=== PATIENT | female | born 1950 | race Two or more races ===

== ENCOUNTER 2017-05-31 15:35 | Inpatient (IN) | payer MEDICARE ==
[2017-05-31] MEDS ORDERED: SODIUM CHLORIDE 0.9% 1,000 ML IV STA ×2 (16:17→17:11)
--- NOTE | 2017-05-31 16:21 | ED ---
Female Urogenital HPI - General Source: patient, RN notes reviewed Mode of arrival: wheelchair Limitations: no limitations <Eliane Mckenna - Last Filed: 05/31/17 18:34> <Dylon Goel - Last Filed: 05/31/17 18:51> - General Chief complaint: Urogenital Stated complaint: Vaginal Discharge Time Seen by Provider: 05/31/17 16:00 - History of Present Illness Initial comments: 66-year-old female presents emergency department with a chief complaint of vaginal bleeding. This this has been occurring for the last few weeks but they noticed increase in darkened mean in color so he thought that they should be seen. Patient denies any pain. They deny any spread other symptoms at this time. She states when she stands up she just has an increased amount of bleeding. They were concerned due to her symptoms without that they should be seen.Patient denies any recent fever, chills, shortness of breath, chest pain, back pain, abdominal pain, nausea vomiting, numbness or tingling, dysuria or hematuria, constipation or diarrhea, headaches or visual changes, or any other current symptoms. (Eliane Mckenna) - Related Data Home Medications Medication Instructions Recorded Confirmed Aspirin 325 mg PO DAILY 05/31/17 05/31/17 Atorvastatin Calcium [Lipitor] 80 mg PO HS 05/31/17 05/31/17 Insulin NPH Hum/Reg Insulin Hm 50 unit SQ BID 05/31/17 05/31/17 [NovoLIN 70-30 100 UNIT/ML VIAL] Isosorbide Mononitrate ER [Imdur] 60 mg PO QAM 05/31/17 05/31/17 Lisinopril [Zestril] 10 mg PO HS 05/31/17 05/31/17 Metoprolol Tartrate [Lopressor] 50 mg PO BID 05/31/17 05/31/17 Allergies Allergy/AdvReac Type Severity Reaction Status Date / Time latex Allergy Rash/Hives Verified 05/31/17 15:40 Review of Systems ROS Other: All systems not noted in ROS Statement are negative. <Eliane Mckenna - Last Filed: 05/31/17 18:34> ROS Other: All systems not noted in ROS Statement are negative. <Dylon Goel - Last Filed: 05/31/17 18:51> ROS Statement: Those systems with pertinent positive or pertinent negative responses have been documented in the HPI. Past Medical History Past Medical History: CVA/TIA, Diabetes Mellitus, Hyperlipidemia History of Any Multi-Drug Resistant Organisms: None Reported Past Surgical History: Cholecystectomy, Coronary Bypass/CABG Past Psychological History: No Psychological Hx Reported Smoking Status: Never smoker Past Alcohol Use History: None Reported Past Drug Use History: None Reported <Eliane Mckenna - Last Filed: 05/31/17 18:34> General Exam Limitations: no limitations General appearance: alert, in no apparent distress Head exam: Present: atraumatic, normocephalic, normal inspection ENT exam: Present: normal exam, mucous membranes moist Neck exam: Present: normal inspection. Absent: tenderness, meningismus, lymphadenopathy Respiratory exam: Present: normal lung sounds bilaterally. Absent: respiratory distress, wheezes, rales, rhonchi, stridor Cardiovascular Exam: Present: regular rate, normal rhythm, normal heart sounds. Absent: systolic murmur, diastolic murmur, rubs, gallop, clicks GI/Abdominal exam: Present: soft, normal bowel sounds. Absent: distended, tenderness, guarding, rebound, rigid External exam: Present: normal external exam Speculum exam: Present: vaginal bleeding (Moderate) By manual exam: Present: uterine tenderness Neurological exam: Present: alert, oriented X3 Psychiatric exam: Present: normal affect, normal mood Skin exam: Present: warm, dry, intact, normal color. Absent: rash <Eliane Mckenna - Last Filed: 05/31/17 18:34> General appearance: alert, in no apparent distress, anxious Head exam: Present: atraumatic, normocephalic, normal inspection Eye exam: Present: normal appearance, PERRL, EOMI. Absent: scleral icterus, conjunctival injection, periorbital swelling ENT exam: Present: normal exam, mucous membranes moist Neck exam: Present: normal inspection. Absent: tenderness, meningismus, lymphadenopathy Respiratory exam: Present: normal lung sounds bilaterally. Absent: respiratory distress, wheezes, rales, rhonchi, stridor Cardiovascular Exam: Present: normal rhythm, tachycardia, normal heart sounds. Absent: systolic murmur, diastolic murmur, rubs, gallop, clicks GI/Abdominal exam: Present: soft, normal bowel sounds. Absent: distended, tenderness, guarding, rebound, rigid Extremities exam: Present: normal inspection, full ROM, normal capillary refill. Absent: tenderness, pedal edema, joint swelling, calf tenderness Back exam: Present: normal inspection Neurological exam: Present: alert, oriented X3, CN II-XII intact Psychiatric exam: Present: normal affect, normal mood Skin exam: Present: warm, dry, intact, normal color. Absent: rash <Dylon Goel - Last Filed: 05/31/17 18:51> Course <Eliane Mckenna - Last Filed: 05/31/17 18:34> <Dylon Goel - Last Filed: 05/31/17 18:51> Vital Signs 05/31/17 05/31/17 05/31/17 15:36 17:00 18:08 Temperature 97.5 F L 98.4 F Pulse Rate 103 H 85 86 Respiratory 16 16 18 Rate Blood Pressure 158/73 134/75 164/71 O2 Sat by Pulse 98 100 100 Oximetry - Reevaluation(s) Reevaluation #1: 05/31/17 17:37 At time patient meets sepsis criteria (Eliane Mckenna) Medical Decision Making - Lab Data Result diagrams: 05/31/17 16:25 05/31/17 16:25 <Eliane Mckenna - Last Filed: 05/31/17 18:34> - Lab Data Result diagrams: 05/31/17 16:25 05/31/17 16:25 <Dylon Goel - Last Filed: 05/31/17 18:51> - Medical Decision Making 66-year-old female presents for vaginal bleeding. Patient's last menstrual cycle was years ago per patient. At this time patient's ultrasound is reviewed that does show a fibroid with thickened endometrium. Patient is found to have vaginal bleeding on exam at this patient is found to have urinary retention. This time patient's urine is suspicious for UTI with many bacteria patient does have bloody urine through the catheter which we did place a Simmons. Patient also appears to be in DKA as well as acute kidney injury which is most likely due to her urinary retention was greater than 16,000 on first for a catheter placement. Patient also does appear to have sepsis with the elevated lactic and the white count with UTI this could be related to dehydration from DKA we will start patient on Rocephin pending urine culture. This time the patient will be admitted. (Eliane Mckenna) 66-year-old ER for vaginal bleeding, she does have uterine fibroids, urinary tract infection, urinary retention severe, bilateral hydronephrosis, mild kidney failure secondary to postobstructive versus dehydration, patient also found to be in HHN K which she'll be admitted for IV and an resuscitation, monitoring of electrolytes Gynecological evaluation (Dylon Goel) - Lab Data Lab Results 05/31/17 05/31/17 05/31/17 Range/Units 16:25 16:25 16:25 WBC (3.8-10.6) k/uL RBC (3.80-5.40) m/uL Hgb (11.4-16.0) gm/dL Hct (34.0-46.0) % MCV (80.0-100.0) fL MCH (25.0-35.0) pg MCHC (31.0-37.0) g/dL RDW (11.5-15.5) % Plt Count (150-450) k/uL Neutrophils % % Lymphocytes % % Monocytes % % Eosinophils % % Basophils % % Neutrophils # (1.3-7.7) k/uL Lymphocytes # (1.0-4.8) k/uL Monocytes # (0-1.0) k/uL Eosinophils # (0-0.7) k/uL Basophils # (0-0.2) k/uL PT 10.3 (9.0-12.0) sec INR 1.0 (<1.1) APTT 19.3 L (22.0-30.0) sec Sodium 132 L (137-145) mmol/L Potassium 5.3 H (3.5-5.1) mmol/L Chloride 96 L (98-107) mmol/L Carbon Dioxide 18 L (22-30) mmol/L Anion Gap 18 mmol/L BUN 59 H (7-17) mg/dL Creatinine 1.60 H (0.52-1.04) mg/dL Est GFR (MDRD) Af Amer 39 (>60 ml/min/1.73 sqM) Est GFR (MDRD) Non-Af 32 (>60 ml/min/1.73 sqM) Glucose 854 H* (74-99) mg/dL Plasma Lactic Acid Austen (0.7-2.0) mmol/L Calcium 9.8 (8.4-10.2) mg/dL Phosphorus 4.7 H (2.5-4.5) mg/dL Magnesium 2.6 H (1.6-2.3) mg/dL Total Bilirubin 0.7 (0.2-1.3) mg/dL AST 21 (14-36) U/L ALT 31 (9-52) U/L Alkaline Phosphatase 116 (38-126) U/L Total Protein 7.1 (6.3-8.2) g/dL Albumin 4.2 (3.5-5.0) g/dL HCG, Quant <2.4 mIU/mL Urine Color Urine Appearance (Clear) Urine RBC (0-5) /hpf Urine WBC (0-5) /hpf Amorphous Sediment (None) /hpf Urine Bacteria (None) /hpf Acetone, Qual Negative (Negative) Blood Type O Negative Blood Type Recheck No Antibody Screen NEGATIVE Spec Expiration Date 06/03/2017232405/31/17 05/31/17 05/31/17 Range/Units 16:25 16:25 16:49 WBC 13.4 H (3.8-10.6) k/uL RBC 3.99 (3.80-5.40) m/uL Hgb 12.5 (11.4-16.0) gm/dL Hct 36.1 (34.0-46.0) % MCV 90.5 (80.0-100.0) fL MCH 31.2 (25.0-35.0) pg MCHC 34.5 (31.0-37.0) g/dL RDW 13.3 (11.5-15.5) % Plt Count 319 (150-450) k/uL Neutrophils % 83 % Lymphocytes % 12 % Monocytes % 3 % Eosinophils % 0 % Basophils % 1 % Neutrophils # 11.1 H (1.3-7.7) k/uL Lymphocytes # 1.6 (1.0-4.8) k/uL Monocytes # 0.4 (0-1.0) k/uL Eosinophils # 0.0 (0-0.7) k/uL Basophils # 0.1 (0-0.2) k/uL PT (9.0-12.0) sec INR (<1.1) APTT (22.0-30.0) sec Sodium (137-145) mmol/L Potassium (3.5-5.1) mmol/L Chloride (98-107) mmol/L Carbon Dioxide (22-30) mmol/L Anion Gap mmol/L BUN (7-17) mg/dL Creatinine (0.52-1.04) mg/dL Est GFR (MDRD) Af Amer (>60 ml/min/1.73 sqM) Est GFR (MDRD) Non-Af (>60 ml/min/1.73 sqM) Glucose (74-99) mg/dL Plasma Lactic Acid Austen 3.3 H* (0.7-2.0) mmol/L Calcium (8.4-10.2) mg/dL Phosphorus (2.5-4.5) mg/dL Magnesium (1.6-2.3) mg/dL Total Bilirubin (0.2-1.3) mg/dL AST (14-36) U/L ALT (9-52) U/L Alkaline Phosphatase (38-126) U/L Total Protein (6.3-8.2) g/dL Albumin (3.5-5.0) g/dL HCG, Quant mIU/mL Urine Color Brown Urine Appearance Bloody H (Clear) Urine RBC >182 H (0-5) /hpf Urine WBC >182 H (0-5) /hpf Amorphous Sediment Occasional H (None) /hpf Urine Bacteria Many H (None) /hpf Acetone, Qual (Negative) Blood Type Blood Type Recheck Antibody Screen Spec Expiration Date Critical Care Time Critical Care Time: Yes Total Critical Care Time: 31 <Dylon Goel - Last Filed: 05/31/17 18:51> Disposition Time of Disposition: 18:31 Decision Date: 05/31/17 Decision Time: 18:31 <Eliane Mckenna - Last Filed: 05/31/17 18:34> <Dylon Goel - Last Filed: 05/31/17 18:51> Clinical Impression: Urinary tract infection, Vaginal bleeding, Thickened endometrium, Urinary retention, Acute kidney injury, Sepsis Disposition: ADMITTED IP TO THIS [facility] Condition: Stable Referrals: Nonstaff,Physician [Primary Care Provider] - 1-2 days
[2017-05-31 16:40] LABS: Basophils # (A) 0.1 k/uL (0-0.2); Basophils % (A) 1 %; CH 30.3; CHCM 33.7; Eosinophils % (A) 0 %; HCT 36.1 % (34.0-46.0); HDW 2.78; HGB 12.5 gm/dL (11.4-16.0); Luc # (Auto) 0.13; Luc % (Auto) 1; Lymphocytes # (A) 1.6 k/uL (1.0-4.8); Lymphocytes % (A) 12 %; MCH 31.2 pg (25.0-35.0); MCHC 34.5 g/dL (31.0-37.0); MCV 90.5 fL (80.0-100.0); Mean Platelet Volume 8.6; Monocytes # (A) 0.4 k/uL (0-1.0); Monocytes % (A) 3 %; Neutrophils # (A) 11.1 k/uL (1.3-7.7); Neutrophils % (A) 83 %; RBC 3.99 m/uL (3.80-5.40); RDW 13.3 % (11.5-15.5); WBC 13.4 k/uL (3.8-10.6); WBC (Perox) 12.95
[2017-05-31 16:53] LABS: ALT 31 U/L (9-52); AST 21 U/L (14-36); Alkaline Phosphatase 116 U/L (38-126); Anion Gap 18 mmol/L; Blood Urea Nitrogen 59 mg/dL (7-17); Calcium 9.8 mg/dL (8.4-10.2); Carbon Dioxide 18 mmol/L (22-30); Chloride 96 mmol/L (98-107); Magnesium 2.6 mg/dL (1.6-2.3); Non-African American GFR(MDRD) 32 (>60 ml/min/1.73 sqM); Phosphorous 4.7 mg/dL (2.5-4.5); Potassium 5.3 mmol/L (3.5-5.1); Sodium 132 mmol/L (137-145); Total Bilirubin 0.7 mg/dL (0.2-1.3); Total Protein 7.1 g/dL (6.3-8.2)
[2017-05-31 17:05] LABS: Glucose 854 mg/dL (74-99)
[2017-05-31 17:08] LABS: Prothrombin Time 10.3 sec (9.0-12.0)
[2017-05-31 17:09] LABS: HCG,Quantitative Serum <2.4 mIU/mL
[2017-05-31 17:11] LABS: Amorphous Sediment,Urine Occasional /hpf; Bacteria,Urine Many /hpf; Particle Count 424080; RBC,Urine >182 /hpf (0-5); WBC,Urine >182 /hpf (0-5)
[2017-05-31 17:12] LABS: Appearance,Urine Bloody (Clear)
[2017-05-31] MEDS ORDERED: INSULIN REGULAR BOLUS (FROM DRIP BAG) IV ONE (17:12)
[2017-05-31 17:15] LABS: Partial Thromboplastin Time 19.3 sec (22.0-30.0)
--- NOTE | 2017-05-31 17:26 | US ---
EXAMINATION TYPE: US transvaginal DATE OF EXAM: 05/31/2017 COMPARISON: NONE CLINICAL HISTORY: Pain. Hematuria, 4, para 4 TECHNIQUE: Transvaginal (TV) Date of LMP: 15+ years ago EXAM MEASUREMENTS: Uterus: 9.0 x 4.5 x 4.9cm cm Endometrial Stripe: 1.5 cm Right Ovary: not seen Left Ovary: not seen 1. Uterus: anteverted, heterogeneous with 1.9cm calcified area 2. Endometrium: thickened at 1.5cm 3. Right Ovary: not seen due to overlying bowel gas 4. Left Ovary: not seen due to overlying bowel gas 5. Bilateral Adnexa: wnl 6. Posterior cul-de-sac: wnl IMPRESSION: There is a calcified uterine fibroid. Endometrium is slightly thickened. Follow-up is rec ommended. No endometrial mass is seen. No adnexal mass.
[2017-05-31 17:44] LABS: UA Billing (MACRO vs. MICRO) MICRO
[2017-05-31] MEDS: SODIUM CHLORIDE 0.9% 1,000 ML IV SCH (17:58)
--- NOTE | 2017-05-31 17:58 | CT ---
EXAMINATION TYPE: CT abdomen pelvis wo con DATE OF EXAM: 05/31/2017 COMPARISON: NONE HISTORY: Generalized pain with gross hematuria CT DLP: 515.7 mGycm Automated exposure control for dose reduction was used. TECHNIQUE: Helical acquisition of images was performed from the lung bases through the pelvis. FINDINGS: Lung bases are clear of consolidation. There is no pleural effusion. There are clips from cholecystectomy. Liver and spleen appear normal. Bile ducts are not dilated. The re is no pancreatic mass. There is atherosclerotic vascular calcification. Ureters are not dilated. There is prominent left and right extrarenal pelvis of the kidneys. There is no retroperitoneal adenopathy. Abdominal aorta is a theromatous. There is a calcified uterine fibroid. There is a Simmons catheter in the urinary bladder. There is no ascites. I see no bony destructive process. Appendix is not seen. There is no sign of marty endicitis. IMPRESSION: ATHEROSCLEROTIC VASCULAR DISEASE. CALCIFIED UTERINE FIBROID. NO SIGN OF ACUTE ABDOMEN AND PELVIS.
[2017-05-31] MEDS: INSULIN REGULAR 100 UNIT in SODIUM CHLORIDE 0.9% 100 ML IV SCH (17:59)
[2017-05-31 19:09] LABS: Glucose,Whole Blood 583 mg/dL (75-99)
[2017-05-31 20:09] LABS: Glucose,Whole Blood 546 mg/dL (75-99)
[2017-05-31 20:36] LABS: Basophils # (A) 0.1 k/uL (0-0.2); Basophils % (A) 0 %; CH 30.2; CHCM 33.8; Eosinophils % (A) 0 %; HCT 32.7 % (34.0-46.0); HDW 2.75; HGB 11.6 gm/dL (11.4-16.0); Luc # (Auto) 0.09; Luc % (Auto) 1; Lymphocytes # (A) 1.3 k/uL (1.0-4.8); Lymphocytes % (A) 10 %; MCH 31.7 pg (25.0-35.0); MCHC 35.3 g/dL (31.0-37.0); MCV 89.8 fL (80.0-100.0); Mean Platelet Volume 8.1; Monocytes # (A) 0.4 k/uL (0-1.0); Monocytes % (A) 3 %; Neutrophils # (A) 11.9 k/uL (1.3-7.7); Neutrophils % (A) 87 %; RBC 3.64 m/uL (3.80-5.40); RDW 13.3 % (11.5-15.5); WBC 13.7 k/uL (3.8-10.6); WBC (Perox) 13.49
[2017-05-31 20:53] LABS: Phosphorous 2.8 mg/dL (2.5-4.5); Potassium 4.7 mmol/L (3.5-5.1)
[2017-05-31 21:07] LABS: Glucose,Whole Blood 475 mg/dL (75-99)
[2017-05-31] MEDS: METOPROLOL TARTRATE 50 MG TAB PO SCH (22:00)
[2017-05-31] MEDS: LISINOPRIL 10 MG TAB PO SCH (22:00)
[2017-05-31] MEDS: ATORVASTATIN 80 MG TAB PO SCH (22:00)
[2017-05-31 22:29] LABS: Glucose,Whole Blood 323 mg/dL (75-99)
[2017-05-31 23:18] LABS: Glucose,Whole Blood 244 mg/dL (75-99)
[2017-05-31] MEDS: D5-0.45% NACL WITH KCL 20MEQ/L 1,000 ML IV SCH (23:55)
[2017-05-31 23:57] LABS: Glucose,Whole Blood 293 mg/dL (75-99)
[2017-06-01 00:36] LABS: Potassium 4.3 mmol/L (3.5-5.1)
[2017-06-01 01:17] LABS: Glucose,Whole Blood 153 mg/dL (75-99)
[2017-06-01] MEDS: D5-0.45% NACL WITH KCL 20MEQ/L 1,000 ML IV SCH ×2 (01:26→08:04)
[2017-06-01] MEDS: SODIUM CHLORIDE 0.9% 1,000 ML IV SCH (01:26)
[2017-06-01 02:05] LABS: Glucose,Whole Blood 114 mg/dL (75-99)
[2017-06-01 03:10] LABS: Glucose,Whole Blood 95 mg/dL (75-99)
[2017-06-01 03:57] LABS: Glucose,Whole Blood 82 mg/dL (75-99)
[2017-06-01] MEDS: INSULIN REGULAR 100 UNIT in SODIUM CHLORIDE 0.9% 100 ML IV SCH (04:58)
[2017-06-01 05:09] LABS: Glucose,Whole Blood 136 mg/dL (75-99)
[2017-06-01 05:29] LABS: Basophils # (A) 0.1 k/uL (0-0.2); Basophils % (A) 1 %; CH 29.3; CHCM 31.6; Eosinophils # (A) 0.1 k/uL (0-0.7); Eosinophils % (A) 1 %; HCT 31.5 % (34.0-46.0); HGB 10.9 gm/dL (11.4-16.0); Hypochromasia Slight; Luc # (Auto) 0.43; Luc % (Auto) 3; Lymphocytes # (A) 3.2 k/uL (1.0-4.8); Lymphocytes % (A) 23 %; MCH 32.4 pg (25.0-35.0); MCHC 34.6 g/dL (31.0-37.0); MCV 93.5 fL (80.0-100.0); Mean Platelet Volume 8.5; Monocytes % (A) 7 %; Neutrophils # (A) 9.1 k/uL (1.3-7.7); Neutrophils % (A) 66 %; RBC 3.37 m/uL (3.80-5.40); RDW 13.2 % (11.5-15.5); WBC 13.9 k/uL (3.8-10.6); WBC (Perox) 13.18
[2017-06-01 05:32] LABS: Anion Gap 10 mmol/L; Blood Urea Nitrogen 45 mg/dL (7-17); Calcium 8.8 mg/dL (8.4-10.2); Carbon Dioxide 21 mmol/L (22-30); Chloride 111 mmol/L (98-107); Glucose 121 mg/dL (74-99); Non-African American GFR(MDRD) 50 (>60 ml/min/1.73 sqM); Potassium 3.8 mmol/L (3.5-5.1); Sodium 142 mmol/L (137-145)
[2017-06-01 06:10] LABS: Glucose,Whole Blood 135 mg/dL (75-99)
[2017-06-01 07:19] LABS: Glucose,Whole Blood 126 mg/dL (75-99)
[2017-06-01] MEDS: INSULIN LISPRO (humaLOG) 300 UNIT/3 ML VIAL SQ SCH ×4 (07:31→21:17)
[2017-06-01] MEDS: ASPIRIN 325 MG TAB PO SCH (08:06)
[2017-06-01] MEDS: INSULIN NPH/REG INSULIN 70/30 300 UNIT/3 ML VIAL SQ SCH ×2 (08:06→21:17)
[2017-06-01] MEDS: ISOSORBIDE MONONITRATE ER 60 MG TAB.ER.24H PO SCH (08:07)
[2017-06-01] MEDS: METOPROLOL TARTRATE 50 MG TAB PO SCH ×2 (08:07→21:18)
[2017-06-01 09:28] LABS: Hemoglobin A1C 10.6 % (4.2-6.1)
[2017-06-01 10:54] VITALS: BMI 26.5
[2017-06-01] MEDS ORDERED: D5-0.45% NACL WITH KCL 20MEQ/L 1,000 ML IV SCH (11:17)
[2017-06-01 11:43] LABS: Glucose,Whole Blood 194 mg/dL (75-99)
--- NOTE | 2017-06-01 16:25 | P.GSCN ---
History of Present Illness Consult date: 06/01/17 Reason for Consult: Gross hematuria History of present illness: The patient is a 66-year-old female admitted through the emergency room for evaluation of bleeding from the vagina. The patient says this first began approximately 3 weeks ago. She initially thought that this was vaginal bleeding but says she also has been passing grossly bloody urine. The patient says that she came to the emergency room because it was becoming more and more difficult for her to initiate her urine flow. A catheter was inserted in the emergency room and drained 1600 mL of grossly bloody urine. According to her nurse she does not appear to be passing blood from her vagina since the catheter has been placed. The patient denies any previous history of gross hematuria. She says she usually voids every 2-3 hours during the day and once at night. She denied any urinary incontinence. She believes she may have had kidney stones in the past but could not recall any details. She denies a history of recurrent urinary tract infections. A vaginal ultrasound showed evidence of fibroids. Computed tomography scan of the abdomen and pelvis performed without IV contrast showed slight prominence of the right and left renal pelves but no hydronephrosis. A Simmons catheter was in place at the time of the exam and because of that the bladder was poorly imaged but there appeared to be old blood present in the bladder. Review of Systems - Constitutional Denies chills, Denies fever - Cardiovascular Denies chest pain, Denies dyspnea on exertion, Denies palpitations, Denies shortness of breath - Respiratory Denies cough, Denies wheezing - Gastrointestinal Denies abdominal pain, Denies change in bowel habits - Genitourinary Genitourinary: Reports as per HPI - Neurological Reports memory loss - Hematologic/Lymphatic Denies easy bleeding Past Medical History Past Medical History: CVA/TIA, Diabetes Mellitus, Hyperlipidemia Additional Past Medical History / Comment(s): patient has had 2 strokes, last in April 2016. Patient says she has trouble remembering and sometimes has trouble speaking. History of Any Multi-Drug Resistant Organisms: None Reported Past Surgical History: Cholecystectomy, Coronary Bypass/CABG Additional Past Surgical History / Comment(s): CABG in 2001 Past Anesthesia/Blood Transfusion Reactions: No Reported Reaction Past Psychological History: No Psychological Hx Reported Smoking Status: Former smoker (Quit smoking prior to 1999) Past Alcohol Use History: None Reported Past Drug Use History: None Reported - Past Family History Brother(s) Family Medical History: Diabetes Mellitus Additional Family Medical History / Comment(s): Brother just recently . Unknown history. Medications and Allergies Home Medications Medication Instructions Recorded Confirmed Type Aspirin 325 mg PO DAILY 05/31/17 05/31/17 History Atorvastatin Calcium [Lipitor] 80 mg PO HS 05/31/17 05/31/17 History Insulin NPH Hum/Reg Insulin Hm 50 unit SQ BID 05/31/17 05/31/17 History [NovoLIN 70-30 100 UNIT/ML VIAL] Isosorbide Mononitrate ER [Imdur] 60 mg PO QAM 05/31/17 05/31/17 History Lisinopril [Zestril] 10 mg PO HS 05/31/17 05/31/17 History Metoprolol Tartrate [Lopressor] 50 mg PO BID 05/31/17 05/31/17 History Allergies Allergy/AdvReac Type Severity Reaction Status Date / Time latex Allergy Rash/Hives Verified 05/31/17 15:40 Surgical - Exam Vital Signs Temp Pulse Resp BP Pulse Ox 97.5 F L 103 H 16 158/73 98 05/31/17 15:36 05/31/17 15:36 05/31/17 15:36 05/31/17 15:36 05/31/17 15:36 - General well developed, no pain, obese - ENT no hearing loss, no congestion - Neck no masses, no lymphadectomy - Respiratory normal respiratory effort - Abdomen Abdomen: soft, no organomegaly Hernia: none - Genitourinary normal external genitalia, normal perineum, other (No mass at the base of the bladder palpable on bimanual pelvic exam. A Simmons catheter is in place and is draining dark colored urine without clots) - Neurologic memory loss Results - Labs 06/01/17 04:51 06/01/17 04:51 Abnormal Lab Results - Last 24 Hours (Table) 05/31/17 05/31/17 05/31/17 Range/Units 16:25 16:25 16:25 WBC 13.4 H (3.8-10.6) k/uL RBC (3.80-5.40) m/uL Hgb (11.4-16.0) gm/dL Hct (34.0-46.0) % Neutrophils # 11.1 H (1.3-7.7) k/uL APTT 19.3 L (22.0-30.0) sec Sodium 132 L (137-145) mmol/L Potassium 5.3 H (3.5-5.1) mmol/L Chloride 96 L (98-107) mmol/L Carbon Dioxide 18 L (22-30) mmol/L BUN 59 H (7-17) mg/dL Creatinine 1.60 H (0.52-1.04) mg/dL Glucose 854 H* (74-99) mg/dL POC Glucose (mg/dL) (75-99) mg/dL Hemoglobin A1c (4.2-6.1) % Plasma Lactic Acid Austen (0.7-2.0) mmol/L Phosphorus 4.7 H (2.5-4.5) mg/dL Magnesium 2.6 H (1.6-2.3) mg/dL Urine Appearance (Clear) Urine RBC (0-5) /hpf Urine WBC (0-5) /hpf Amorphous Sediment (None) /hpf Urine Bacteria (None) /hpf 05/31/17 05/31/17 05/31/17 Range/Units 16:25 16:49 19:08 WBC (3.8-10.6) k/uL RBC (3.80-5.40) m/uL Hgb (11.4-16.0) gm/dL Hct (34.0-46.0) % Neutrophils # (1.3-7.7) k/uL APTT (22.0-30.0) sec Sodium (137-145) mmol/L Potassium (3.5-5.1) mmol/L Chloride (98-107) mmol/L Carbon Dioxide (22-30) mmol/L BUN (7-17) mg/dL Creatinine (0.52-1.04) mg/dL Glucose (74-99) mg/dL POC Glucose (mg/dL) 583 H (75-99) mg/dL Hemoglobin A1c (4.2-6.1) % Plasma Lactic Acid Austen 3.3 H* (0.7-2.0) mmol/L Phosphorus (2.5-4.5) mg/dL Magnesium (1.6-2.3) mg/dL Urine Appearance Bloody H (Clear) Urine RBC >182 H (0-5) /hpf Urine WBC >182 H (0-5) /hpf Amorphous Sediment Occasional H (None) /hpf Urine Bacteria Many H (None) /hpf 05/31/17 05/31/17 05/31/17 Range/Units 20:08 20:10 20:10 WBC 13.7 H (3.8-10.6) k/uL RBC 3.64 L (3.80-5.40) m/uL Hgb (11.4-16.0) gm/dL Hct 32.7 L (34.0-46.0) % Neutrophils # 11.9 H (1.3-7.7) k/uL APTT (22.0-30.0) sec Sodium (137-145) mmol/L Potassium (3.5-5.1) mmol/L Chloride (98-107) mmol/L Carbon Dioxide 21 L (22-30) mmol/L BUN 54 H (7-17) mg/dL Creatinine 1.30 H (0.52-1.04) mg/dL Glucose 477 H* (74-99) mg/dL POC Glucose (mg/dL) 546 H (75-99) mg/dL Hemoglobin A1c (4.2-6.1) % Plasma Lactic Acid Austen (0.7-2.0) mmol/L Phosphorus (2.5-4.5) mg/dL Magnesium (1.6-2.3) mg/dL Urine Appearance (Clear) Urine RBC (0-5) /hpf Urine WBC (0-5) /hpf Amorphous Sediment (None) /hpf Urine Bacteria (None) /hpf 05/31/17 05/31/17 05/31/17 Range/Units 20:23 21:03 22:28 WBC (3.8-10.6) k/uL RBC (3.80-5.40) m/uL Hgb (11.4-16.0) gm/dL Hct (34.0-46.0) % Neutrophils # (1.3-7.7) k/uL APTT (22.0-30.0) sec Sodium (137-145) mmol/L Potassium (3.5-5.1) mmol/L Chloride (98-107) mmol/L Carbon Dioxide (22-30) mmol/L BUN (7-17) mg/dL Creatinine (0.52-1.04) mg/dL Glucose (74-99) mg/dL POC Glucose (mg/dL) 475 H 323 H (75-99) mg/dL Hemoglobin A1c (4.2-6.1) % Plasma Lactic Acid Austen 2.2 H* (0.7-2.0) mmol/L Phosphorus (2.5-4.5) mg/dL Magnesium (1.6-2.3) mg/dL Urine Appearance (Clear) Urine RBC (0-5) /hpf Urine WBC (0-5) /hpf Amorphous Sediment (None) /hpf Urine Bacteria (None) /hpf 05/31/17 05/31/17 05/31/17 Range/Units 23:15 23:47 23:47 WBC (3.8-10.6) k/uL RBC (3.80-5.40) m/uL Hgb (11.4-16.0) gm/dL Hct (34.0-46.0) % Neutrophils # (1.3-7.7) k/uL APTT (22.0-30.0) sec Sodium (137-145) mmol/L Potassium (3.5-5.1) mmol/L Chloride 109 H (98-107) mmol/L Carbon Dioxide (22-30) mmol/L BUN 52 H (7-17) mg/dL Creatinine 1.20 H (0.52-1.04) mg/dL Glucose 251 H (74-99) mg/dL POC Glucose (mg/dL) 244 H (75-99) mg/dL Hemoglobin A1c (4.2-6.1) % Plasma Lactic Acid Austen (0.7-2.0) mmol/L Phosphorus 2.3 L (2.5-4.5) mg/dL Magnesium (1.6-2.3) mg/dL Urine Appearance (Clear) Urine RBC (0-5) /hpf Urine WBC (0-5) /hpf Amorphous Sediment (None) /hpf Urine Bacteria (None) /hpf 05/31/17 06/01/17 06/01/17 Range/Units 23:55 01:15 02:03 WBC (3.8-10.6) k/uL RBC (3.80-5.40) m/uL Hgb (11.4-16.0) gm/dL Hct (34.0-46.0) % Neutrophils # (1.3-7.7) k/uL APTT (22.0-30.0) sec Sodium (137-145) mmol/L Potassium (3.5-5.1) mmol/L Chloride (98-107) mmol/L Carbon Dioxide (22-30) mmol/L BUN (7-17) mg/dL Creatinine (0.52-1.04) mg/dL Glucose (74-99) mg/dL POC Glucose (mg/dL) 293 H 153 H 114 H (75-99) mg/dL Hemoglobin A1c (4.2-6.1) % Plasma Lactic Acid Austen (0.7-2.0) mmol/L Phosphorus (2.5-4.5) mg/dL Magnesium (1.6-2.3) mg/dL Urine Appearance (Clear) Urine RBC (0-5) /hpf Urine WBC (0-5) /hpf Amorphous Sediment (None) /hpf Urine Bacteria (None) /hpf 06/01/17 06/01/17 06/01/17 Range/Units 04:51 04:51 04:51 WBC 13.9 H (3.8-10.6) k/uL RBC 3.37 L (3.80-5.40) m/uL Hgb 10.9 L (11.4-16.0) gm/dL Hct 31.5 L (34.0-46.0) % Neutrophils # 9.1 H (1.3-7.7) k/uL APTT (22.0-30.0) sec Sodium (137-145) mmol/L Potassium (3.5-5.1) mmol/L Chloride 111 H (98-107) mmol/L Carbon Dioxide 21 L (22-30) mmol/L BUN 45 H (7-17) mg/dL Creatinine 1.10 H (0.52-1.04) mg/dL Glucose 121 H (74-99) mg/dL POC Glucose (mg/dL) (75-99) mg/dL Hemoglobin A1c 10.6 H (4.2-6.1) % Plasma Lactic Acid Austen (0.7-2.0) mmol/L Phosphorus (2.5-4.5) mg/dL Magnesium (1.6-2.3) mg/dL Urine Appearance (Clear) Urine RBC (0-5) /hpf Urine WBC (0-5) /hpf Amorphous Sediment (None) /hpf Urine Bacteria (None) /hpf 06/01/17 06/01/17 06/01/17 Range/Units 04:55 06:09 07:17 WBC (3.8-10.6) k/uL RBC (3.80-5.40) m/uL Hgb (11.4-16.0) gm/dL Hct (34.0-46.0) % Neutrophils # (1.3-7.7) k/uL APTT (22.0-30.0) sec Sodium (137-145) mmol/L Potassium (3.5-5.1) mmol/L Chloride (98-107) mmol/L Carbon Dioxide (22-30) mmol/L BUN (7-17) mg/dL Creatinine (0.52-1.04) mg/dL Glucose (74-99) mg/dL POC Glucose (mg/dL) 136 H 135 H 126 H (75-99) mg/dL Hemoglobin A1c (4.2-6.1) % Plasma Lactic Acid Austen (0.7-2.0) mmol/L Phosphorus (2.5-4.5) mg/dL Magnesium (1.6-2.3) mg/dL Urine Appearance (Clear) Urine RBC (0-5) /hpf Urine WBC (0-5) /hpf Amorphous Sediment (None) /hpf Urine Bacteria (None) /hpf 06/01/17 Range/Units 11:42 WBC (3.8-10.6) k/uL RBC (3.80-5.40) m/uL Hgb (11.4-16.0) gm/dL Hct (34.0-46.0) % Neutrophils # (1.3-7.7) k/uL APTT (22.0-30.0) sec Sodium (137-145) mmol/L Potassium (3.5-5.1) mmol/L Chloride (98-107) mmol/L Carbon Dioxide (22-30) mmol/L BUN (7-17) mg/dL Creatinine (0.52-1.04) mg/dL Glucose (74-99) mg/dL POC Glucose (mg/dL) 194 H (75-99) mg/dL Hemoglobin A1c (4.2-6.1) % Plasma Lactic Acid Austen (0.7-2.0) mmol/L Phosphorus (2.5-4.5) mg/dL Magnesium (1.6-2.3) mg/dL Urine Appearance (Clear) Urine RBC (0-5) /hpf Urine WBC (0-5) /hpf Amorphous Sediment (None) /hpf Urine Bacteria (None) /hpf Microbiology - Last 24 Hours (Table) 05/31/17 16:49 Urine Culture - Preliminary Urine,Catheterized Diabetes panel 05/31/17 05/31/17 05/31/17 Range/Units 16:25 20:10 23:47 Sodium 132 L 140 142 (137-145) mmol/L Potassium 5.3 H 4.7 4.3 (3.5-5.1) mmol/L Chloride 96 L 106 109 H (98-107) mmol/L Carbon Dioxide 18 L 21 L 22 (22-30) mmol/L BUN 59 H 54 H 52 H (7-17) mg/dL Creatinine 1.60 H 1.30 H 1.20 H (0.52-1.04) mg/dL Glucose 854 H* 477 H* 251 H (74-99) mg/dL Hemoglobin A1c (4.2-6.1) % Calcium 9.8 (8.4-10.2) mg/dL AST 21 (14-36) U/L ALT 31 (9-52) U/L Alkaline Phosphatase 116 (38-126) U/L Total Protein 7.1 (6.3-8.2) g/dL Albumin 4.2 (3.5-5.0) g/dL 06/01/17 06/01/17 Range/Units 04:51 04:51 Sodium 142 (137-145) mmol/L Potassium 3.8 (3.5-5.1) mmol/L Chloride 111 H (98-107) mmol/L Carbon Dioxide 21 L (22-30) mmol/L BUN 45 H (7-17) mg/dL Creatinine 1.10 H (0.52-1.04) mg/dL Glucose 121 H (74-99) mg/dL Hemoglobin A1c 10.6 H (4.2-6.1) % Calcium 8.8 (8.4-10.2) mg/dL AST (14-36) U/L ALT (9-52) U/L Alkaline Phosphatase (38-126) U/L Total Protein (6.3-8.2) g/dL Albumin (3.5-5.0) g/dL Calcium panel 05/31/17 05/31/17 05/31/17 Range/Units 16:25 20:10 23:47 Calcium 9.8 (8.4-10.2) mg/dL Phosphorus 4.7 H 2.8 2.3 L (2.5-4.5) mg/dL Albumin 4.2 (3.5-5.0) g/dL 06/01/17 Range/Units 04:51 Calcium 8.8 (8.4-10.2) mg/dL Phosphorus (2.5-4.5) mg/dL Albumin (3.5-5.0) g/dL Pituitary panel 05/31/17 05/31/17 05/31/17 Range/Units 16:25 20:10 23:47 Sodium 132 L 140 142 (137-145) mmol/L Potassium 5.3 H 4.7 4.3 (3.5-5.1) mmol/L Chloride 96 L 106 109 H (98-107) mmol/L Carbon Dioxide 18 L 21 L 22 (22-30) mmol/L BUN 59 H 54 H 52 H (7-17) mg/dL Creatinine 1.60 H 1.30 H 1.20 H (0.52-1.04) mg/dL Glucose 854 H* 477 H* 251 H (74-99) mg/dL Calcium 9.8 (8.4-10.2) mg/dL 06/01/17 Range/Units 04:51 Sodium 142 (137-145) mmol/L Potassium 3.8 (3.5-5.1) mmol/L Chloride 111 H (98-107) mmol/L Carbon Dioxide 21 L (22-30) mmol/L BUN 45 H (7-17) mg/dL Creatinine 1.10 H (0.52-1.04) mg/dL Glucose 121 H (74-99) mg/dL Calcium 8.8 (8.4-10.2) mg/dL Adrenal panel 05/31/17 05/31/17 05/31/17 Range/Units 16:25 20:10 23:47 Sodium 132 L 140 142 (137-145) mmol/L Potassium 5.3 H 4.7 4.3 (3.5-5.1) mmol/L Chloride 96 L 106 109 H (98-107) mmol/L Carbon Dioxide 18 L 21 L 22 (22-30) mmol/L BUN 59 H 54 H 52 H (7-17) mg/dL Creatinine 1.60 H 1.30 H 1.20 H (0.52-1.04) mg/dL Glucose 854 H* 477 H* 251 H (74-99) mg/dL Calcium 9.8 (8.4-10.2) mg/dL Total Bilirubin 0.7 (0.2-1.3) mg/dL AST 21 (14-36) U/L ALT 31 (9-52) U/L Alkaline Phosphatase 116 (38-126) U/L Total Protein 7.1 (6.3-8.2) g/dL Albumin 4.2 (3.5-5.0) g/dL 06/01/17 Range/Units 04:51 Sodium 142 (137-145) mmol/L Potassium 3.8 (3.5-5.1) mmol/L Chloride 111 H (98-107) mmol/L Carbon Dioxide 21 L (22-30) mmol/L BUN 45 H (7-17) mg/dL Creatinine 1.10 H (0.52-1.04) mg/dL Glucose 121 H (74-99) mg/dL Calcium 8.8 (8.4-10.2) mg/dL Total Bilirubin (0.2-1.3) mg/dL AST (14-36) U/L ALT (9-52) U/L Alkaline Phosphatase (38-126) U/L Total Protein (6.3-8.2) g/dL Albumin (3.5-5.0) g/dL - Imaging CT scan - abdomen: report reviewed CT scan - pelvis: report reviewed US - pelvic: report reviewed (BUN/creatinine on 05/31 were 59/1.6) Assessment and Plan (1) Gross hematuria Narrative/Plan: The cause of the gross hematuria is unclear but the hematuria is worsened due to her use of aspirin. Status: Acute (2) Acute kidney injury Narrative/Plan: The patient's elevated creatinine may have in part be related to her urinary retention as it has improved since her bladder was drained with Simmons catheter Status: Acute (3) Urinary retention Narrative/Plan: It's unclear whether the urinary retention is chronic and related to long- standing diabetes or acute and related to a urinary tract infection and/or her hematuria Status: Acute Plan: The patient has a 16-Urdu Simmons catheter in place which is draining dark colored urine but is free of clots. If the catheter plugs then a larger catheter will need to be placed and the bladder irrigated more vigorously to remove the clots. It's unclear whether the patient's gross hematuria is related to chronic urinary retention, a urinary tract infection or other causes. She was taking aspirin at the time of admission which will worsen the bleeding. At some point cystoscopy will need to be performed for further evaluation of the hematuria but this will be deferred until it is clear whether or not the patient has a urinary tract infection. If the patient's urine clears it may be possible to remove her catheter but because of her urinary retention she will need to be monitored closely as it's unclear whether she has incomplete bladder emptying on a chronic basis.
[2017-06-01 16:49] LABS: Glucose,Whole Blood 100 mg/dL (75-99)
--- NOTE | 2017-06-01 17:04 | P.HPIM ---
History of Present Illness H&P Date: 06/01/17 Chief Complaint: Change in mental status 66-year-old female with previous history of CVA, diabetes mellitus comes in to the hospital with change in mental status. Patient is accompanied by her family. Patient apparently has been having some difficulty urination for the last 3-4 weeks. Apparently thereafter noticed some dark-colored urine Patient is also having complains of urinary urgency and frequency during the same period of time. Denies having any fevers chills nausea vomiting Patient was noted to have a blood glucose level greater than 800 on initial [id number] glucose test Patient was started on insulin drip for elevated glucose level Today patient is seen is significantly improved. Was noted to have a Simmons in place with dark colored urine States that her lower abdomen feels significantly better. Denies having headaches blurry vision nausea vomiting abdominal pain diarrhea A vaginal ultrasound showed a calcified fibroid A computed tomography scan of the abdomen pelvis showed a calcified fibroid without any hydronephrosis Patient's kidney function on initial admission was diminished and has improved since admission Review of Systems All systems: negative (Noted in HPI) Past Medical History Past Medical History: CVA/TIA, Diabetes Mellitus, Hyperlipidemia Additional Past Medical History / Comment(s): patient has had 2 strokes, last in April 2016. Patient says she has trouble remembering and sometimes has trouble speaking. History of Any Multi-Drug Resistant Organisms: None Reported Past Surgical History: Cholecystectomy, Coronary Bypass/CABG Additional Past Surgical History / Comment(s): CABG in 2001 Past Anesthesia/Blood Transfusion Reactions: No Reported Reaction Past Psychological History: No Psychological Hx Reported Smoking Status: Former smoker (Quit smoking prior to 1999) Past Alcohol Use History: None Reported Past Drug Use History: None Reported - Past Family History Brother(s) Family Medical History: Diabetes Mellitus Additional Family Medical History / Comment(s): Brother just recently . Unknown history. Medications and Allergies Home Medications Medication Instructions Recorded Confirmed Type Aspirin 325 mg PO DAILY 05/31/17 05/31/17 History Atorvastatin Calcium [Lipitor] 80 mg PO HS 05/31/17 05/31/17 History Insulin NPH Hum/Reg Insulin Hm 50 unit SQ BID 05/31/17 05/31/17 History [NovoLIN 70-30 100 UNIT/ML VIAL] Isosorbide Mononitrate ER [Imdur] 60 mg PO QAM 05/31/17 05/31/17 History Lisinopril [Zestril] 10 mg PO HS 05/31/17 05/31/17 History Metoprolol Tartrate [Lopressor] 50 mg PO BID 05/31/17 05/31/17 History Allergies Allergy/AdvReac Type Severity Reaction Status Date / Time latex Allergy Rash/Hives Verified 05/31/17 15:40 Physical Exam Vitals: Vital Signs Temp Pulse Pulse Resp BP BP Pulse Ox 06/01/17 15:24 97 F L 63 16 135/63 97 06/01/17 11:16 97 F L 59 L 18 132/62 98 06/01/17 08:06 96.8 F L 75 18 146/60 100 06/01/17 08:00 18 06/01/17 04:00 96.5 F L 67 18 149/66 100 06/01/17 00:00 96.7 F L 61 18 140/64 100 05/31/17 20:00 96.6 F L 85 18 162/67 99 05/31/17 19:24 97.4 F L 84 18 168/70 100 05/31/17 18:08 98.4 F 86 18 164/71 100 05/31/17 17:00 85 16 134/75 100 Intake and Output 06/01/17 06/01/17 06/01/17 06:59 14:59 22:59 Intake Total 51.633 180 Output Total 400 0 Balance -348.367 180 Intake: Intake, IV Titration 51.633 60 Amount D5-0.45% NaCl with KCl 60 20Meq/l 1,000 ml @ 150 mls/hr IV .[id number] JAZZMINE Rx# :[id number] Insulin Regular 100 unit 51.633 In Sodium Chloride 0.9% 100 ml @ 0.1 UNITS/KG/HR 7 mls/hr IV .[id number] JAZZMINE Rx#:[id number] Oral 120 Output: Urine 400 Stool 0 Other: Voiding Method Indwelling Catheter Indwelling Catheter Indwelling Catheter Weight 74.5 kg 74.5 kg Patient Weight 06/02/17 06:59 Weight 74.5 kg Physical exam Gen. appearance oriented 3 in no distress Neck is supple no JVD Lungs good air entry clear to auscultation no rhonchi or wheezing Heart S1-S2 heard regular rate and rhythm no murmurs appreciated Abdomen is soft nontender no organomegaly bowel sounds are intact Neurologically cranial nerves II-12 grossly intact no focal motor or sensory deficits noted Genitourinary 16-Yakut Simmons is noted gross examination of the vaginal region does not reveal any lesions this was done in the presence of a female RN Skin no abnormalities appreciated Results CBC & Chem 7: 06/01/17 04:51 06/01/17 04:51 Labs: Abnormal Lab Results - Last 24 Hours (Table) 05/31/17 05/31/17 05/31/17 Range/Units 16:25 16:25 16:25 WBC (3.8-10.6) k/uL RBC (3.80-5.40) m/uL Hgb (11.4-16.0) gm/dL Hct (34.0-46.0) % Neutrophils # (1.3-7.7) k/uL APTT 19.3 L (22.0-30.0) sec Sodium 132 L (137-145) mmol/L Potassium 5.3 H (3.5-5.1) mmol/L Chloride 96 L (98-107) mmol/L Carbon Dioxide 18 L (22-30) mmol/L BUN 59 H (7-17) mg/dL Creatinine 1.60 H (0.52-1.04) mg/dL Glucose 854 H* (74-99) mg/dL POC Glucose (mg/dL) (75-99) mg/dL Hemoglobin A1c (4.2-6.1) % Plasma Lactic Acid Austen 3.3 H* (0.7-2.0) mmol/L Phosphorus 4.7 H (2.5-4.5) mg/dL Magnesium 2.6 H (1.6-2.3) mg/dL Urine Appearance (Clear) Urine RBC (0-5) /hpf Urine WBC (0-5) /hpf Amorphous Sediment (None) /hpf Urine Bacteria (None) /hpf 05/31/17 05/31/17 05/31/17 Range/Units 16:49 19:08 20:08 WBC (3.8-10.6) k/uL RBC (3.80-5.40) m/uL Hgb (11.4-16.0) gm/dL Hct (34.0-46.0) % Neutrophils # (1.3-7.7) k/uL APTT (22.0-30.0) sec Sodium (137-145) mmol/L Potassium (3.5-5.1) mmol/L Chloride (98-107) mmol/L Carbon Dioxide (22-30) mmol/L BUN (7-17) mg/dL Creatinine (0.52-1.04) mg/dL Glucose (74-99) mg/dL POC Glucose (mg/dL) 583 H 546 H (75-99) mg/dL Hemoglobin A1c (4.2-6.1) % Plasma Lactic Acid Austen (0.7-2.0) mmol/L Phosphorus (2.5-4.5) mg/dL Magnesium (1.6-2.3) mg/dL Urine Appearance Bloody H (Clear) Urine RBC >182 H (0-5) /hpf Urine WBC >182 H (0-5) /hpf Amorphous Sediment Occasional H (None) /hpf Urine Bacteria Many H (None) /hpf 05/31/17 05/31/17 05/31/17 Range/Units 20:10 20:10 20:23 WBC 13.7 H (3.8-10.6) k/uL RBC 3.64 L (3.80-5.40) m/uL Hgb (11.4-16.0) gm/dL Hct 32.7 L (34.0-46.0) % Neutrophils # 11.9 H (1.3-7.7) k/uL APTT (22.0-30.0) sec Sodium (137-145) mmol/L Potassium (3.5-5.1) mmol/L Chloride (98-107) mmol/L Carbon Dioxide 21 L (22-30) mmol/L BUN 54 H (7-17) mg/dL Creatinine 1.30 H (0.52-1.04) mg/dL Glucose 477 H* (74-99) mg/dL POC Glucose (mg/dL) (75-99) mg/dL Hemoglobin A1c (4.2-6.1) % Plasma Lactic Acid Austen 2.2 H* (0.7-2.0) mmol/L Phosphorus (2.5-4.5) mg/dL Magnesium (1.6-2.3) mg/dL Urine Appearance (Clear) Urine RBC (0-5) /hpf Urine WBC (0-5) /hpf Amorphous Sediment (None) /hpf Urine Bacteria (None) /hpf 05/31/17 05/31/17 05/31/17 Range/Units 21:03 22:28 23:15 WBC (3.8-10.6) k/uL RBC (3.80-5.40) m/uL Hgb (11.4-16.0) gm/dL Hct (34.0-46.0) % Neutrophils # (1.3-7.7) k/uL APTT (22.0-30.0) sec Sodium (137-145) mmol/L Potassium (3.5-5.1) mmol/L Chloride (98-107) mmol/L Carbon Dioxide (22-30) mmol/L BUN (7-17) mg/dL Creatinine (0.52-1.04) mg/dL Glucose (74-99) mg/dL POC Glucose (mg/dL) 475 H 323 H 244 H (75-99) mg/dL Hemoglobin A1c (4.2-6.1) % Plasma Lactic Acid Austen (0.7-2.0) mmol/L Phosphorus (2.5-4.5) mg/dL Magnesium (1.6-2.3) mg/dL Urine Appearance (Clear) Urine RBC (0-5) /hpf Urine WBC (0-5) /hpf Amorphous Sediment (None) /hpf Urine Bacteria (None) /hpf 05/31/17 05/31/17 05/31/17 Range/Units 23:47 23:47 23:55 WBC (3.8-10.6) k/uL RBC (3.80-5.40) m/uL Hgb (11.4-16.0) gm/dL Hct (34.0-46.0) % Neutrophils # (1.3-7.7) k/uL APTT (22.0-30.0) sec Sodium (137-145) mmol/L Potassium (3.5-5.1) mmol/L Chloride 109 H (98-107) mmol/L Carbon Dioxide (22-30) mmol/L BUN 52 H (7-17) mg/dL Creatinine 1.20 H (0.52-1.04) mg/dL Glucose 251 H (74-99) mg/dL POC Glucose (mg/dL) 293 H (75-99) mg/dL Hemoglobin A1c (4.2-6.1) % Plasma Lactic Acid Austen (0.7-2.0) mmol/L Phosphorus 2.3 L (2.5-4.5) mg/dL Magnesium (1.6-2.3) mg/dL Urine Appearance (Clear) Urine RBC (0-5) /hpf Urine WBC (0-5) /hpf Amorphous Sediment (None) /hpf Urine Bacteria (None) /hpf 06/01/17 06/01/17 06/01/17 Range/Units 01:15 02:03 04:51 WBC (3.8-10.6) k/uL RBC (3.80-5.40) m/uL Hgb (11.4-16.0) gm/dL Hct (34.0-46.0) % Neutrophils # (1.3-7.7) k/uL APTT (22.0-30.0) sec Sodium (137-145) mmol/L Potassium (3.5-5.1) mmol/L Chloride (98-107) mmol/L Carbon Dioxide (22-30) mmol/L BUN (7-17) mg/dL Creatinine (0.52-1.04) mg/dL Glucose (74-99) mg/dL POC Glucose (mg/dL) 153 H 114 H (75-99) mg/dL Hemoglobin A1c 10.6 H (4.2-6.1) % Plasma Lactic Acid Austen (0.7-2.0) mmol/L Phosphorus (2.5-4.5) mg/dL Magnesium (1.6-2.3) mg/dL Urine Appearance (Clear) Urine RBC (0-5) /hpf Urine WBC (0-5) /hpf Amorphous Sediment (None) /hpf Urine Bacteria (None) /hpf 06/01/17 06/01/17 06/01/17 Range/Units 04:51 04:51 04:55 WBC 13.9 H (3.8-10.6) k/uL RBC 3.37 L (3.80-5.40) m/uL Hgb 10.9 L (11.4-16.0) gm/dL Hct 31.5 L (34.0-46.0) % Neutrophils # 9.1 H (1.3-7.7) k/uL APTT (22.0-30.0) sec Sodium (137-145) mmol/L Potassium (3.5-5.1) mmol/L Chloride 111 H (98-107) mmol/L Carbon Dioxide 21 L (22-30) mmol/L BUN 45 H (7-17) mg/dL Creatinine 1.10 H (0.52-1.04) mg/dL Glucose 121 H (74-99) mg/dL POC Glucose (mg/dL) 136 H (75-99) mg/dL Hemoglobin A1c (4.2-6.1) % Plasma Lactic Acid Austen (0.7-2.0) mmol/L Phosphorus (2.5-4.5) mg/dL Magnesium (1.6-2.3) mg/dL Urine Appearance (Clear) Urine RBC (0-5) /hpf Urine WBC (0-5) /hpf Amorphous Sediment (None) /hpf Urine Bacteria (None) /hpf 06/01/17 06/01/17 06/01/17 Range/Units 06:09 07:17 11:42 WBC (3.8-10.6) k/uL RBC (3.80-5.40) m/uL Hgb (11.4-16.0) gm/dL Hct (34.0-46.0) % Neutrophils # (1.3-7.7) k/uL APTT (22.0-30.0) sec Sodium (137-145) mmol/L Potassium (3.5-5.1) mmol/L Chloride (98-107) mmol/L Carbon Dioxide (22-30) mmol/L BUN (7-17) mg/dL Creatinine (0.52-1.04) mg/dL Glucose (74-99) mg/dL POC Glucose (mg/dL) 135 H 126 H 194 H (75-99) mg/dL Hemoglobin A1c (4.2-6.1) % Plasma Lactic Acid Austen (0.7-2.0) mmol/L Phosphorus (2.5-4.5) mg/dL Magnesium (1.6-2.3) mg/dL Urine Appearance (Clear) Urine RBC (0-5) /hpf Urine WBC (0-5) /hpf Amorphous Sediment (None) /hpf Urine Bacteria (None) /hpf 06/01/17 Range/Units 16:48 WBC (3.8-10.6) k/uL RBC (3.80-5.40) m/uL Hgb (11.4-16.0) gm/dL Hct (34.0-46.0) % Neutrophils # (1.3-7.7) k/uL APTT (22.0-30.0) sec Sodium (137-145) mmol/L Potassium (3.5-5.1) mmol/L Chloride (98-107) mmol/L Carbon Dioxide (22-30) mmol/L BUN (7-17) mg/dL Creatinine (0.52-1.04) mg/dL Glucose (74-99) mg/dL POC Glucose (mg/dL) 100 H (75-99) mg/dL Hemoglobin A1c (4.2-6.1) % Plasma Lactic Acid Austen (0.7-2.0) mmol/L Phosphorus (2.5-4.5) mg/dL Magnesium (1.6-2.3) mg/dL Urine Appearance (Clear) Urine RBC (0-5) /hpf Urine WBC (0-5) /hpf Amorphous Sediment (None) /hpf Urine Bacteria (None) /hpf Microbiology - Last 24 Hours (Table) 05/31/17 16:49 Urine Culture - Preliminary Urine,Catheterized Thrombosis Risk Factor Assmnt - Choose All That Apply Other Risk Factors: Yes Each Risk Factor Represents 2 Points: Age 61-74 years Thrombosis Risk Factor Assessment Total Risk Factor Score: 2 Thrombosis Risk Factor Assessment Level: Low Risk Assessment and Plan Plan: #1 sepsis with suspected urinary tract infection #2 hyperosmolar hyperglycemic nonketotic diabetic coma #3 hematuria #4 acute kidney injury #5 history of previous CVA #6 essential hypertension #7 chronic urinary retention Plan Acute kidney injury likely is due to dehydration from #2 Some component lower urinary retention is noted unsure if this is due to a urinary tract infection or an underlying lesion computed tomography scan does not delineate any intra-bladder lesions will have a urologist evaluate the patient for possible cystoscopy Continue with antibiotic therapy will await final urine cultures Patient clinically is improved according to the patient's family No focal motor or sensory deficits noted at this time We'll discontinue insulin drip and restarted on home NPH dosing. #2 is also due to noncompliance.Patient's oral intake has been decreased with same. Time DVT prophylaxis
[2017-06-01 20:38] LABS: Glucose,Whole Blood 208 mg/dL (75-99)
[2017-06-01] MEDS: ATORVASTATIN 80 MG TAB PO SCH (21:17)
[2017-06-01] MEDS: LISINOPRIL 10 MG TAB PO SCH (21:18)
[2017-06-02 04:55] VITALS: RESP 16
[2017-06-02 06:03] LABS: Glucose,Whole Blood 136 mg/dL (75-99)
[2017-06-02 06:32] LABS: Basophils % (A) 0 %; CH 30.2; CHCM 34.6; Eosinophils # (A) 0.2 k/uL (0-0.7); Eosinophils % (A) 2 %; HCT 30.5 % (34.0-46.0); HDW 2.89; HGB 10.8 gm/dL (11.4-16.0); Luc # (Auto) 0.18; Luc % (Auto) 1; Lymphocytes # (A) 2.6 k/uL (1.0-4.8); Lymphocytes % (A) 19 %; MCH 31.3 pg (25.0-35.0); MCHC 35.6 g/dL (31.0-37.0); Mean Platelet Volume 7.9; Monocytes # (A) 0.6 k/uL (0-1.0); Monocytes % (A) 5 %; Neutrophils # (A) 9.8 k/uL (1.3-7.7); Neutrophils % (A) 73 %; RBC 3.47 m/uL (3.80-5.40); RDW 13.6 % (11.5-15.5); WBC 13.4 k/uL (3.8-10.6); WBC (Perox) 13.39
[2017-06-02 06:48] LABS: ALT 27 U/L (9-52); AST 25 U/L (14-36); Alkaline Phosphatase 70 U/L (38-126); Anion Gap 7 mmol/L; Blood Urea Nitrogen 28 mg/dL (7-17); Calcium 9.2 mg/dL (8.4-10.2); Carbon Dioxide 24 mmol/L (22-30); Chloride 110 mmol/L (98-107); Glucose 93 mg/dL (74-99); Non-African American GFR(MDRD) 55 (>60 ml/min/1.73 sqM); Potassium 3.9 mmol/L (3.5-5.1); Sodium 141 mmol/L (137-145); Total Bilirubin 0.3 mg/dL (0.2-1.3); Total Protein 5.6 g/dL (6.3-8.2)
[2017-06-02 06:49] LABS: MCV 87.9 fL (80.0-100.0)
[2017-06-02] MEDS: INSULIN LISPRO (humaLOG) 300 UNIT/3 ML VIAL SQ SCH ×2 (06:50→11:49)
--- NOTE | 2017-06-02 07:51 | P.PN ---
Progress Note - Text The patient is afebrile and her blood pressure is 148/67. She denies any abdominal pain. Her urine remains dark in color with old blood sediment but no large clots are present. White blood count this morning is 13,400, hemoglobin is relatively stable at 10.8. BUN/creatinine have improved further and our 28/ 1.0. Blood and urine cultures have shown no growth. Impression: Urinary retention with gross hematuria-the cause of this remains unclear but it does not appear to be related to an acute urinary tract infection. The patient's improvement in renal function is probably related to decompression of her bladder. Recommendation: The patient's bladder will be continued irrigate periodically to ensure that no large clots are present. If her urine clears further then the patient may be discharged with the catheter in place and then I will set up cystoscopy in my office sometime next week. The patient's antibiotics can be discontinued as she had no evidence of infection.
[2017-06-02] MEDS: INSULIN NPH/REG INSULIN 70/30 300 UNIT/3 ML VIAL SQ SCH (09:40)
[2017-06-02] MEDS: ISOSORBIDE MONONITRATE ER 60 MG TAB.ER.24H PO SCH (09:40)
[2017-06-02] MEDS: ASPIRIN 325 MG TAB PO SCH (09:40)
[2017-06-02] MEDS: METOPROLOL TARTRATE 50 MG TAB PO SCH (09:40)
[2017-06-02 11:33] LABS: Glucose,Whole Blood 92 mg/dL (75-99)
[2017-06-02 12:12] VITALS: BP 102/50; PULSE 56; TEMP 96.8
--- NOTE | 2017-06-02 15:48 | P.DS ---
Providers Date of admission: 05/31/17 18:48 Attending physician: Miah Ramirez Consults: 06/01/17 15:01 Consult Physician Urgent Consulting Provider: Erick Lloyd Consult Reason/Comments: hematuria Do you want consulting provider notified?: Yes Primary care physician: Physician Nonstaff Hospital Course: 66-year-old female with previous history of CVA, diabetes mellitus comes in to the hospital with change in mental status. Patient is accompanied by her family. Patient apparently has been having some difficulty urination for the last 3-4 weeks. Apparently thereafter noticed some dark-colored urine Patient is also having complains of urinary urgency and frequency during the same period of time. Denies having any fevers chills nausea vomiting Patient was noted to have a blood glucose level greater than 800 on initial [id number] glucose test Patient was started on insulin drip for elevated glucose level Today patient is seen is significantly improved. Was noted to have a Simmons in place with dark colored urine States that her lower abdomen feels significantly better. Denies having headaches blurry vision nausea vomiting abdominal pain diarrhea A vaginal ultrasound showed a calcified fibroid A computed tomography scan of the abdomen pelvis showed a calcified fibroid without any hydronephrosis Patient's kidney function on initial admission was diminished and has improved since admission 06/02/2017 Patient states to be feeling better denies having any headaches blurry vision nausea vomiting diarrhea. Does state to have some mild discomfort when she takes in a large amount of meal Physical exam Gen. appearance oriented 3 in no distress Neck is supple no JVD Lungs good air entry clear to auscultation no rhonchi or wheezing Heart S1-S2 heard regular rate and rhythm no murmurs appreciated Abdomen is soft nontender no organomegaly bowel sounds are intact Neurologically cranial nerves II-12 grossly intact no focal motor or sensory deficits noted Genitourinary 16-Divehi Simmons is noted gross examination of the vaginal region does not reveal any lesions this was done in the presence of a female RN Skin no abnormalities appreciated Assessment and Plan Plan: #1 sepsis with suspected urinary tract infection, which is ruled out #2 hyperosmolar hyperglycemic nonketotic diabetic coma #3 hematuria #4 acute kidney injury #5 history of previous CVA #6 essential hypertension #7 chronic urinary retention He'll functions improved We'll discharge home DC antibiotics no UTI Hematuria will be investigated by urology on an outpatient basis continue with Simmons catheter patient be discharged home with home care Patient Condition at Discharge: Stable Plan - Discharge Summary New Discharge Prescriptions: New Insulin NPH/Reg Insulin 70/30 [humuLIN 70/30 VIAL] 50 unit SQ BID vial Continue Metoprolol Tartrate [Lopressor] 50 mg PO BID Isosorbide Mononitrate ER [Imdur] 60 mg PO QAM Atorvastatin Calcium [Lipitor] 80 mg PO HS Lisinopril [Zestril] 10 mg PO HS Aspirin 325 mg PO DAILY Discontinued Insulin NPH Hum/Reg Insulin Hm [NovoLIN 70-30 100 UNIT/ML VIAL] 50 unit SQ BID Discharge Medication List Aspirin 325 mg PO DAILY 05/31/17 [History] Atorvastatin Calcium [Lipitor] 80 mg PO HS 05/31/17 [History] Isosorbide Mononitrate ER [Imdur] 60 mg PO QAM 05/31/17 [History] Lisinopril [Zestril] 10 mg PO HS 05/31/17 [History] Metoprolol Tartrate [Lopressor] 50 mg PO BID 05/31/17 [History] Insulin NPH/Reg Insulin 70/30 [humuLIN 70/30 VIAL] 50 unit SQ BID vial [Rx] Follow up Appointment(s)/Referral(s): [facility], [NON-STAFF] - Lisandro Casey MD [STAFF PHYSICIAN] - 06/10/17 8:00 am Nonstaff,Physician [Primary Care Provider] - 1-2 days Patient Instructions/Handouts: Acute Kidney Injury (DC), Simmons Catheter Placement and Care (DC), Diabetic Ketoacidosis (DC) Activity/Diet/Wound Care/Special Instructions: [place] on [phone] Discharge Disposition: HOME WITH HOME HEALTH SERVICES
== END 2017-06-02 16:23 | disposition home health service (06) | DRG 638 ==
LOC: EC 15:35 → 6SEL 18:48
PROVIDERS: ADMIT Internal Medicine; ATTEND Internal Medicine
PROC: 0T9B70Z Drainage of Bladder with Drainage Device, Via Natural or Artificial Opening (ICD-10-PCS; principal; 2017-05-31)
DX: E11.00 Type 2 diabetes mellitus with hyperosmolarity without nonketotic hyperglycemic-hyperosmolar coma (NKHHC) (principal); N17.9 Acute kidney failure, unspecified; I10 Essential (primary) hypertension; R35.0 Frequency of micturition; R39.15 Urgency of urination; D25.9 Leiomyoma of uterus, unspecified; R33.9 Retention of urine, unspecified; R31.0 Gross hematuria; E86.0 Dehydration; E78.5 Hyperlipidemia, unspecified; Z83.3 Family history of diabetes mellitus; Z79.899 Other long term (current) drug therapy; Z79.82 Long term (current) use of aspirin; Z79.4 Long term (current) use of insulin; Z87.891 Personal history of nicotine dependence; Z95.1 Presence of aortocoronary bypass graft; Z86.73 Personal history of transient ischemic attack (TIA), and cerebral infarction without residual deficits; Z87.442 Personal history of urinary calculi; Z91.040 Latex allergy status; Z90.49 Acquired absence of other specified parts of digestive tract; Z71.3 Dietary counseling and surveillance; Z91.19 Patient's noncompliance with other medical treatment and regimen; Z96.0 Presence of urogenital implants
CPT/HCPCS: 36415; 51798; 74176; 76830; 80048; 80051; 80053; 81001; 82009; 82565; 82947; 83036; 83605; 83735; 84100; 84520; 84702; 85025; 85610; 85730; 86850; 86900; 86901; 87040; 87086

== ENCOUNTER 2017-06-09 12:44 | Inpatient (IN) | payer MEDICARE ==
[2017-06-09] MEDS ORDERED: SODIUM CHLORIDE 0.9% 1,000 ML IV STA ×2 (12:52)
--- NOTE | 2017-06-09 12:59 | ED ---
Syncope HPI - General Stated Complaint: syncope Time Seen by Provider: 06/09/17 12:44 Source: patient, EMS, RN notes reviewed, old records reviewed Mode of arrival: EMS - History of Present Illness Initial Comments: This is a 66-year-old female with a recent admission to the hospital for elevated blood sugar a urinary tract infection also possible bladder mass who is back today after sustaining a syncopal episode. She was apparently urinating a lot a commode and did pass out for about a minute. She was brought in by EMS. She was noted to have pale skin diaphoresis.. His been feeling hot. She does have a indwelling Simmons catheter with very dark cloudy-appearing urine per paramedics. Patient does have a history of CVA apparently in the past. The patient is awake and alert but lethargic and a poor historian MD Complaint: loss of consciousness - Related Data Home Medications Medication Instructions Recorded Confirmed Aspirin 325 mg PO DAILY 05/31/17 06/09/17 Atorvastatin Calcium [Lipitor] 80 mg PO HS 05/31/17 06/09/17 Isosorbide Mononitrate ER [Imdur] 60 mg PO QAM 05/31/17 06/09/17 Lisinopril [Zestril] 10 mg PO HS 05/31/17 06/09/17 Metoprolol Tartrate [Lopressor] 50 mg PO BID 05/31/17 06/09/17 Previous Rx's Medication Instructions Recorded Insulin NPH/Reg Insulin 70/30 50 unit SQ BID vial 06/02/17 [humuLIN 70/30 VIAL] Allergies Allergy/AdvReac Type Severity Reaction Status Date / Time latex Allergy Rash/Hives Verified 06/09/17 12:54 Review of Systems ROS Statement: Those systems with pertinent positive or pertinent negative responses have been documented in the HPI. ROS Other: All systems not noted in ROS Statement are negative. Limitations: ROS unobtainable due to patients medical condition Past Medical History Past Medical History: CVA/TIA, Diabetes Mellitus, Hyperlipidemia Additional Past Medical History / Comment(s): patient has had 2 strokes, last in April 2016. Patient says she has trouble remembering and sometimes has trouble speaking. History of Any Multi-Drug Resistant Organisms: None Reported Past Surgical History: Cholecystectomy, Coronary Bypass/CABG Additional Past Surgical History / Comment(s): CABG in 2001 Past Anesthesia/Blood Transfusion Reactions: No Reported Reaction Past Psychological History: No Psychological Hx Reported Smoking Status: Former smoker (Quit smoking prior to 1999) Past Alcohol Use History: None Reported Past Drug Use History: None Reported - Past Family History Brother(s) Family Medical History: Diabetes Mellitus Additional Family Medical History / Comment(s): Brother just recently . Unknown history. General Exam - General Exam Comments Initial Comments: This is a well-developed well-nourished awake alert lethargic appearing female Limitations: physical limitation General appearance: alert, lethargic Head exam: Present: atraumatic, normocephalic, normal inspection Eye exam: Present: normal appearance, PERRL, EOMI. Absent: scleral icterus, conjunctival injection, periorbital swelling ENT exam: Present: mucous membranes dry Neck exam: Present: normal inspection. Absent: tenderness, meningismus, lymphadenopathy Respiratory exam: Present: normal lung sounds bilaterally. Absent: respiratory distress, wheezes, rales, rhonchi, stridor Cardiovascular Exam: Present: regular rate, normal rhythm, normal heart sounds. Absent: systolic murmur, diastolic murmur, rubs, gallop, clicks GI/Abdominal exam: Present: soft, normal bowel sounds. Absent: distended, tenderness, guarding, rebound, rigid External exam: Present: other (Simmons catheter is in place urine is dark and cloudy..) Extremities exam: Present: normal inspection, full ROM, normal capillary refill. Absent: tenderness, pedal edema, joint swelling, calf tenderness Back exam: Present: normal inspection Neurological exam: Present: alert, oriented X3, CN II-XII intact Psychiatric exam: Present: normal mood, flat affect Skin exam: Present: warm, dry, intact, pallor. Absent: rash Course Vital Signs 06/09/17 06/09/17 06/09/17 12:54 13:40 14:40 Temperature 97.2 F L Pulse Rate 59 L 58 L 60 Respiratory 16 18 16 Rate Blood Pressure 150/66 127/59 139/63 O2 Sat by Pulse 98 98 98 Oximetry 06/09/17 15:40 Temperature Pulse Rate 58 L Respiratory 18 Rate Blood Pressure 140/58 O2 Sat by Pulse 99 Oximetry - Reevaluation(s) Reevaluation #1: 06/09/17 16:59 Elevated lactic acid is likely on the basis of dehydration. EKG Findings - EKG Results: EKG: interpreted by JOHN, sinus rhythm (Sinus bradycardia with a first-degree AV block rate was 58 [place] interval to 16 QRS 80 QT since QTC of 440/431 old inferior and anterior changes noted.) Medical Decision Making - Medical Decision Making I did discuss findings with patient family. The patient does have an elevated troponin. No EKG changes are noted at this time. Also evidence of a UTI. Patient will be admitted I did discuss case with against did come to see the patient in the emergency department - Lab Data Result diagrams: 06/09/17 13:00 06/09/17 13:00 Lab Results 06/09/17 06/09/17 06/09/17 Range/Units 13:00 13:00 13:00 WBC 10.9 H (3.8-10.6) k/uL RBC 3.63 L (3.80-5.40) m/uL Hgb 10.9 L (11.4-16.0) gm/dL Hct 32.4 L (34.0-46.0) % MCV 89.3 (80.0-100.0) fL MCH 30.2 (25.0-35.0) pg MCHC 33.8 (31.0-37.0) g/dL RDW 14.4 (11.5-15.5) % Plt Count 361 (150-450) k/uL Neutrophils % 68 % Lymphocytes % 21 % Monocytes % 6 % Eosinophils % 2 % Basophils % 1 % Neutrophils # 7.4 (1.3-7.7) k/uL Lymphocytes # 2.3 (1.0-4.8) k/uL Monocytes # 0.6 (0-1.0) k/uL Eosinophils # 0.3 (0-0.7) k/uL Basophils # 0.1 (0-0.2) k/uL PT (9.0-12.0) sec INR (<1.1) APTT (22.0-30.0) sec Sodium 144 (137-145) mmol/L Potassium 4.0 (3.5-5.1) mmol/L Chloride 106 (98-107) mmol/L Carbon Dioxide 27 (22-30) mmol/L Anion Gap 11 mmol/L BUN 14 (7-17) mg/dL Creatinine 1.10 H (0.52-1.04) mg/dL Est GFR (MDRD) Af Amer >60 (>60 ml/min/1.73 sqM) Est GFR (MDRD) Non-Af 50 (>60 ml/min/1.73 sqM) Glucose 119 H (74-99) mg/dL Lactic Ac Sepsis Rflx Plasma Lactic Acid Austen (0.7-2.0) mmol/L Calcium 9.1 (8.4-10.2) mg/dL Magnesium 2.2 (1.6-2.3) mg/dL Total Bilirubin 0.4 (0.2-1.3) mg/dL AST 26 (14-36) U/L ALT 30 (9-52) U/L Alkaline Phosphatase 81 (38-126) U/L Total Creatine Kinase 47 (30-135) U/L CK-MB (CK-2) 1.8 (0.0-2.4) ng/mL CK-MB (CK-2) Rel Index 3.8 Troponin I 0.496 H* (0.000-0.034) ng/mL Total Protein 6.0 L (6.3-8.2) g/dL Albumin 3.1 L (3.5-5.0) g/dL Urine Color Urine Appearance (Clear) Urine pH (5.0-8.0) Ur Specific [place] (1.001-1.035) Urine Protein (Negative) Urine Glucose (UA) (Negative) Urine Ketones (Negative) Urine Blood (Negative) Urine Nitrite (Negative) Urine Bilirubin (Negative) Urine Urobilinogen (<2.0) mg/dL Ur Leukocyte Esterase (Negative) Urine RBC (0-5) /hpf Urine WBC (0-5) /hpf Urine WBC Clumps (None) /hpf Urine Bacteria (None) /hpf Urine Mucus (None) /hpf 06/09/17 06/09/17 06/09/17 Range/Units 13:00 13:00 13:52 WBC (3.8-10.6) k/uL RBC (3.80-5.40) m/uL Hgb (11.4-16.0) gm/dL Hct (34.0-46.0) % MCV (80.0-100.0) fL MCH (25.0-35.0) pg MCHC (31.0-37.0) g/dL RDW (11.5-15.5) % Plt Count (150-450) k/uL Neutrophils % % Lymphocytes % % Monocytes % % Eosinophils % % Basophils % % Neutrophils # (1.3-7.7) k/uL Lymphocytes # (1.0-4.8) k/uL Monocytes # (0-1.0) k/uL Eosinophils # (0-0.7) k/uL Basophils # (0-0.2) k/uL PT 10.4 (9.0-12.0) sec INR 1.0 (<1.1) APTT 20.1 L (22.0-30.0) sec Sodium (137-145) mmol/L Potassium (3.5-5.1) mmol/L Chloride (98-107) mmol/L Carbon Dioxide (22-30) mmol/L Anion Gap mmol/L BUN (7-17) mg/dL Creatinine (0.52-1.04) mg/dL Est GFR (MDRD) Af Amer (>60 ml/min/1.73 sqM) Est GFR (MDRD) Non-Af (>60 ml/min/1.73 sqM) Glucose (74-99) mg/dL Lactic Ac Sepsis Rflx Y Plasma Lactic Acid Austen 3.0 H* (0.7-2.0) mmol/L Calcium (8.4-10.2) mg/dL Magnesium (1.6-2.3) mg/dL Total Bilirubin (0.2-1.3) mg/dL AST (14-36) U/L ALT (9-52) U/L Alkaline Phosphatase (38-126) U/L Total Creatine Kinase (30-135) U/L CK-MB (CK-2) (0.0-2.4) ng/mL CK-MB (CK-2) Rel Index Troponin I (0.000-0.034) ng/mL Total Protein (6.3-8.2) g/dL Albumin (3.5-5.0) g/dL Urine Color Urine Appearance (Clear) Urine pH (5.0-8.0) Ur Specific [place] (1.001-1.035) Urine Protein (Negative) Urine Glucose (UA) (Negative) Urine Ketones (Negative) Urine Blood (Negative) Urine Nitrite (Negative) Urine Bilirubin (Negative) Urine Urobilinogen (<2.0) mg/dL Ur Leukocyte Esterase (Negative) Urine RBC (0-5) /hpf Urine WBC (0-5) /hpf Urine WBC Clumps (None) /hpf Urine Bacteria (None) /hpf Urine Mucus (None) /hpf 06/09/17 Range/Units 15:17 WBC (3.8-10.6) k/uL RBC (3.80-5.40) m/uL Hgb (11.4-16.0) gm/dL Hct (34.0-46.0) % MCV (80.0-100.0) fL MCH (25.0-35.0) pg MCHC (31.0-37.0) g/dL RDW (11.5-15.5) % Plt Count (150-450) k/uL Neutrophils % % Lymphocytes % % Monocytes % % Eosinophils % % Basophils % % Neutrophils # (1.3-7.7) k/uL Lymphocytes # (1.0-4.8) k/uL Monocytes # (0-1.0) k/uL Eosinophils # (0-0.7) k/uL Basophils # (0-0.2) k/uL PT (9.0-12.0) sec INR (<1.1) APTT (22.0-30.0) sec Sodium (137-145) mmol/L Potassium (3.5-5.1) mmol/L Chloride (98-107) mmol/L Carbon Dioxide (22-30) mmol/L Anion Gap mmol/L BUN (7-17) mg/dL Creatinine (0.52-1.04) mg/dL Est GFR (MDRD) Af Amer (>60 ml/min/1.73 sqM) Est GFR (MDRD) Non-Af (>60 ml/min/1.73 sqM) Glucose (74-99) mg/dL Lactic Ac Sepsis Rflx Plasma Lactic Acid Austen (0.7-2.0) mmol/L Calcium (8.4-10.2) mg/dL Magnesium (1.6-2.3) mg/dL Total Bilirubin (0.2-1.3) mg/dL AST (14-36) U/L ALT (9-52) U/L Alkaline Phosphatase (38-126) U/L Total Creatine Kinase (30-135) U/L CK-MB (CK-2) (0.0-2.4) ng/mL CK-MB (CK-2) Rel Index Troponin I (0.000-0.034) ng/mL Total Protein (6.3-8.2) g/dL Albumin (3.5-5.0) g/dL Urine Color Dark Brown Urine Appearance Turbid H (Clear) Urine pH 5.5 (5.0-8.0) Ur Specific [place] 1.028 (1.001-1.035) Urine Protein 3+ H (Negative) Urine Glucose (UA) Trace H (Negative) Urine Ketones Trace H (Negative) Urine Blood Large H (Negative) Urine Nitrite Negative (Negative) Urine Bilirubin Negative (Negative) Urine Urobilinogen 2.0 (<2.0) mg/dL Ur Leukocyte Esterase Large H (Negative) Urine RBC >182 H (0-5) /hpf Urine WBC >182 H (0-5) /hpf Urine WBC Clumps Many H (None) /hpf Urine Bacteria Occasional H (None) /hpf Urine Mucus Moderate H (None) /hpf - Radiology Data Radiology results: report reviewed, image reviewed Disposition Clinical Impression: Non-ST elevation myocardial infarction (NSTEMI), Urinary tract infection, Dehydration Disposition: ADMITTED IP TO THIS HOSP Condition: Stable Referrals: Nonstaff,Physician [Primary Care Provider] - 1-2 days
[2017-06-09 13:21] LABS: Basophils # (A) 0.1 k/uL (0-0.2); Basophils % (A) 1 %; CHCM 33.9; Eosinophils # (A) 0.3 k/uL (0-0.7); Eosinophils % (A) 2 %; HCT 32.4 % (34.0-46.0); HDW 3.22; HGB 10.9 gm/dL (11.4-16.0); Luc # (Auto) 0.24; Luc % (Auto) 2; Lymphocytes # (A) 2.3 k/uL (1.0-4.8); Lymphocytes % (A) 21 %; MCH 30.2 pg (25.0-35.0); MCHC 33.8 g/dL (31.0-37.0); MCV 89.3 fL (80.0-100.0); Mean Platelet Volume 7.7; Monocytes # (A) 0.6 k/uL (0-1.0); Monocytes % (A) 6 %; Neutrophils # (A) 7.4 k/uL (1.3-7.7); Neutrophils % (A) 68 %; RBC 3.63 m/uL (3.80-5.40); RDW 14.4 % (11.5-15.5); WBC 10.9 k/uL (3.8-10.6); WBC (Perox) 11.19
[2017-06-09 13:25] LABS: ALT 30 U/L (9-52); AST 26 U/L (14-36); Alkaline Phosphatase 81 U/L (38-126); Anion Gap 11 mmol/L; Blood Urea Nitrogen 14 mg/dL (7-17); Calcium 9.1 mg/dL (8.4-10.2); Carbon Dioxide 27 mmol/L (22-30); Chloride 106 mmol/L (98-107); Glucose 119 mg/dL (74-99); Magnesium 2.2 mg/dL (1.6-2.3); Non-African American GFR(MDRD) 50 (>60 ml/min/1.73 sqM); Sodium 144 mmol/L (137-145); Total Bilirubin 0.4 mg/dL (0.2-1.3)
[2017-06-09 13:32] LABS: Prothrombin Time 10.4 sec (9.0-12.0)
[2017-06-09 13:34] LABS: Partial Thromboplastin Time 20.1 sec (22.0-30.0)
[2017-06-09 13:53] LABS: Creatine Kinase MB 1.8 ng/mL (0.0-2.4)
[2017-06-09 13:55] LABS: Troponin I 0.496 ng/mL (0.000-0.034)
--- NOTE | 2017-06-09 14:22 | CT ---
EXAMINATION TYPE: CT brain wo con DATE OF EXAM: 06/09/2017 HISTORY: syncope CT DLP: 1121 mGycm. Automated Exposure Control for Dose Reduction was Utilized. TECHNIQUE: CT scan of the head is performed without contrast. COMPARISON: None. FINDINGS: There is no acute intracranial hemorrhage or midline shift identified. There is diffuse v entricular and sulcal prominence consistent with diffuse age-related cerebral atrophy. There is some low-attenuation in the periventricular white matter consistent most likely on basis of product of ch ronic small vessel ischemic change in patient this age. Suspect old lacunar infarct versus prominent Virchow-Unruly space inferior left basal ganglia on axial image 20. The globes are intact and the visu alized sinuses are clear. Hyperostosis frontalis is seen. There is vascular calcification of distal internal carotid arteries present bilaterally. No suspicious opacification of mastoid air cells is s een. IMPRESSION: No acute intracranial hemorrhage or midline shift. There is mild diffuse age-related ce rebral atrophy and probable mild chronic small vessel ischemic change noted. Possible old left-sided lacunar infarct versus prominent Virchow-Unruly space.
[2017-06-09] MEDS ORDERED: SODIUM CHLORIDE 0.9% 2,000 ML IV ONE (14:52)
[2017-06-09 15:28] LABS: Appearance,Urine Turbid (Clear); Bacteria,Urine Occasional /hpf; Bilirubin,Urine Negative (Negative); Glucose,Urine (UA) Trace (Negative); Ketones,Urine Trace (Negative); Leukocyte Esterase,Urine Large (Negative); Mucus,Urine Moderate /hpf; Nitrite,Urine Negative (Negative); PH, Urine 5.5 (5.0-8.0); Particle Count 48550; Protein,Urine 3+ (Negative); RBC,Urine >182 /hpf (0-5); UA Billing (MACRO vs. MICRO) MICRO; WBC,Urine >182 /hpf (0-5)
[2017-06-09 15:31] LABS: Specific Gravity,Urine 1.028 (1.001-1.035)
[2017-06-09] MEDS ORDERED: HEPARIN SODIUM,PORCINE 5,000 UNIT/ML 1 ML VIAL IV ONE (17:00)
[2017-06-09] MEDS ORDERED: NITROGLYCERIN SL TABS 0.4 MG TAB SUBLINGUAL PRN (17:00)
[2017-06-09] MEDS: HEPARIN SODIUM,PORCINE/D5W PMX 25,000 UNIT in DEXTROSE/WATER 1 500ML.BAG IV SCH (17:25)
[2017-06-09 18:05] LABS: Glucose,Whole Blood 108 mg/dL (75-99)
[2017-06-09] MEDS: NITROGLYCERIN OINT 1 INCH/GM PACKET TOPICAL SCH ×2 (18:25→23:42)
[2017-06-09] MEDS: SODIUM CHLORIDE 0.9% 1,000 ML IV SCH ×2 (18:25→20:09)
[2017-06-09 18:31] LABS: Creatine Kinase MB 1.5 ng/mL (0.0-2.4)
[2017-06-09 18:33] LABS: Troponin I 0.343 ng/mL (0.000-0.034)
--- NOTE | 2017-06-09 19:08 | HP ---
REASON FOR ADMISSION: Syncope. This is a 66-year-old female who was seen on my service recently. Patient at that time was noted to have HHS. Patient apparently has lost a significant amount of weight with an odd diet which includes ice cream and cookies. Patient at that time was also noted to have hematuria. Suspicion for an intravesical lesion was noted. We did ask Urology to see the patient, who was scheduled for an outpatient cystoscopy today. However, patient this morning apparently was on the commode and passed out for less than a minute. Patient was brought into the hospital, was noted to have some diaphoresis. EKG did not reveal ST-T wave changes. Patient at this time states that she does not have any headaches, blurry vision , nausea, vomiting, chest pain, difficulty in breathing. Patient was noted to have a lactic acid level of 3. Patient states that she drinks only about 12 ounces of liquid. States that she does not get thirsty; hence does not drink any liquids. The patient's urine does not appear to show any blood at this time. REVIEW OF SYSTEMS: Fourteen-point review of systems was done. None pertinent other than what was mentioned above. Past medical history includes: 1. Diabetes mellitus. 2. Dyslipidemia. 3. History of CVA, status post residual symptoms of slight dysarthria. 4. Hematuria with suspicion for bladder lesion. Past surgical history includes: 1. Cholecystectomy. 2. CABG. SOCIAL HISTORY: Former smoker. Denies any alcohol use or drug use. Home medications include: 1. Aspirin. 2. Lipitor. 3. Imdur. 4. Zestril. 5. Metoprolol. 6. NPH 50 subcutaneously b.i.d. ALLERGIES INCLUDE LATEX. FAMILY HISTORY: Not pertinent to the current admission. PHYSICAL EXAM: VITALS: Temperature 97.2, heart rate 59, respiratory rate 16, blood pressure 150 /66. Saturating 99% on room air. GENERAL APPEARANCE: Alert and oriented x3. Does not appear to be in distress. HEAD: Atraumatic, normocephalic. Pupils equal, round and reactive to light and accommodation. Neck is supple. No JVD. HEART: Irregular rate and rhythm. No murmurs appreciated. LUNGS: Good air movement. Clear to auscultation. ABDOMEN: Soft, non-tender. No organomegaly. NEUROLOGIC EXAM: Cranial nerves 2 to 12 grossly intact. No focal motor or sensory deficit noted. Laboratory data include hemoglobin 10.9, hematocrit 32.4, white count 10.9, platelets 361. Sodium 144, potassium 4, chloride 106, bicarb 27. BUN 14, creatinine 1.10. ASSESSMENT AND PLAN: 1. Syncope, vasovagal. 2. Indeterminate troponin leak. 3. Diabetes mellitus, currently on NPH insulin. 4. Hypertension. 5. History of cerebrovascular accident. 6. Hematuria with suspicion for bladder lesion. Scheduled for an outpatient procedure. With the lactic acid, I think the patient is severely dehydrated. Patient's UA does appear to be abnormal. Patient has had a Simmons catheter in for over 7 days. Will fluid-resuscitate the patient. Patient will be monitored at least for 24 hours. In regards to the troponin release, patient is asymptomatic. Likely secondary the syncopal episode. Will have a jig inspector evaluate the patient as well. Patient is status post CABG. Glucose levels to be monitored during the inpatient stay. Serial troponins. A urine culture will also be done. [facility]
[2017-06-09] MEDS: METOPROLOL TARTRATE 50 MG TAB PO SCH (20:03)
[2017-06-09] MEDS: LISINOPRIL 10 MG TAB PO SCH (20:03)
[2017-06-09] MEDS ORDERED: ATORVASTATIN 80 MG TAB PO SCH (21:00)
[2017-06-09 21:51] LABS: Glucose,Whole Blood 167 mg/dL (75-99)
[2017-06-09] MEDS: INSULIN NPH/REG INSULIN 70/30 300 UNIT/3 ML VIAL SQ SCH (22:04)
[2017-06-10 01:19] LABS: Creatine Kinase MB 1.2 ng/mL (0.0-2.4)
[2017-06-10 01:20] LABS: Troponin I 0.246 ng/mL (0.000-0.034)
[2017-06-10] MEDS: HEPARIN SODIUM,PORCINE 5,000 UNIT/ML 1 ML VIAL IV PRN (01:39)
[2017-06-10 06:27] LABS: Glucose,Whole Blood 56 mg/dL (75-99)
[2017-06-10 07:06] LABS: Glucose,Whole Blood 66 mg/dL (75-99)
[2017-06-10 07:06] LABS: Glucose,Whole Blood 58 mg/dL (75-99)
[2017-06-10 07:06] LABS: Glucose,Whole Blood 91 mg/dL (75-99)
[2017-06-10] MEDS: ASPIRIN 325 MG TAB PO SCH (08:42)
[2017-06-10] MEDS: ISOSORBIDE MONONITRATE ER 60 MG TAB.ER.24H PO SCH (08:42)
[2017-06-10] MEDS: METOPROLOL TARTRATE 50 MG TAB PO SCH ×2 (08:42→20:54)
[2017-06-10 08:55] LABS: Cholesterol 115 mg/dL (<200); HDL Cholesterol 35 mg/dL (40-60); Triglycerides 107 mg/dL (<150)
[2017-06-10] MEDS ORDERED: ASPIRIN 325 MG TAB PO SCH (09:00)
[2017-06-10 11:44] LABS: Glucose,Whole Blood 130 mg/dL (75-99)
[2017-06-10] MEDS: INSULIN NPH/REG INSULIN 70/30 300 UNIT/3 ML VIAL SQ SCH ×2 (12:06→20:54)
[2017-06-10] MEDS: SODIUM CHLORIDE 0.9% 1,000 ML IV SCH ×2 (14:50→16:36)
[2017-06-10] MEDS ORDERED: RX INFO: IV CONTRAST WAS GIVEN 1 EACH MISC MISCELLANE PRN (15:05)
--- NOTE | 2017-06-10 16:27 | CT ---
EXAMINATION TYPE: CT angio chest DATE OF EXAM: 06/10/2017 4:08 PM COMPARISON: NONE HISTORY: elevated d-dimer CT DLP: 378.9 mGycm Automated exposure control for dose reduction was used. CONTRAST: CTA scan of the thorax is performed with IV Contrast, patient injected with 61 mL of Visipaque 320, p ulmonary embolism protocol. . FINDINGS: LUNGS: Subsegmental changes are seen posteriorly at both lung bases. No pneumothorax. MEDIASTINUM: There is suboptimal enhancement of the secondary and distal branches the pulmonary arter y. There is an area of filling defect involving the secondary branch of the right pulmonary artery caraballo ggestive of a pulmonary embolism. Coronary artery calcification noted. OTHER: Surgical clips in the gallbladder fossa noted. Lobulation of the right kidney is indeterminat e by this study. Hypertrophic and degenerative changes spine. Previous sternotomy wires noted. IMPRESSION: MARKEDLY LIMITED EXAM DUE TO POOR OPACIFICATION ARTIFACT DEMONSTRATES FINDINGS SUSPICIOUS FOR A SECON ALBER BRANCH RIGHT PULMONARY ARTERY ACUTE EMBOLISM. CORRELATE CLINICALLY. 2 CM LEFT LOWER POLE THYROID NODULE SHORT-TERM FOLLOW-UP ULTRASOUND SUGGESTED.
--- NOTE | 2017-06-10 16:35 | CONS ---
This is a 66-year-old lady with a recent diagnosis of a bladder mass. She used to live in the [place] area, has moved to [place]. She underwent aortocoronary bypass surgery several years ago, details of which are not available. She was recently hospitalized for elevated blood sugar, UTI, and workup revealed a bladder mass. She came in after an episode of what seems to be near-syncope. She did not quite lose consciousness but felt very dizzy and lightheaded. Apparently she was also quite dehydrated and has not been eating well. She was brought into the hospital following this episode of syncope/near- syncope and had very little urine. There was a question of CVA in the past. She has been heparinized with elevated troponin. She is resting comfortably. Complains of fatigue and lack of energy. PAST MEDICAL HISTORY: 1. History of CAD, previous bypass surgery. 2. Type 2 diabetes mellitus. 3. Hypertension. 4. Hyperlipidemia. 5. Recent diagnosis of a renal mass. 6. History of CVA with recent recovery. Medications at home include: 1. Insulin. 2. Atorvastatin. 3. Imdur. 4. Zestril. 5. Metoprolol. 6. Aspirin. ALLERGIES: NO KNOWN DRUG ALLERGIES. On examination, blood pressure is 124/70, pulse rate 78 per minute, regular. HEENT: Unremarkable. Fundus was not examined by me. Neck is supple. There is JVD of 1 cm. No carotid bruit. Heart exam reveals S1, S2 heard normally with short systolic murmur. Lungs reveal diminished air entry. Abdomen is soft. Lower extremities reveal diminished pulses. Central nervous system is normal. EKG revealed a sinus mechanism with non-specific ST-T changes and evidence of old inferior ID. Laboratory data revealed equivocal troponins at 0.3 and 0.2. Renal function is normal. Hemoglobin, white count and platelets are normal. IMPRESSION: 1. History of syncope/near-syncope. Rule out pulmonary embolism. Patient is already on heparin. 2. Elevated troponin. Does not suggest myocardial injury. Will do a D-dimer, and if abnormal, consider CT angiography to rule out pulmonary embolism. 3. History of a bladder mass being worked up for malignancy. 4. Type 2 diabetes mellitus. 5. Hypertension. 6. Hyperlipidemia. 7. History of coronary artery disease with previous bypass surgery. RECOMMENDATIONS: I am recommending that he continue IV heparin, perform a D- dimer; if abnormal, obtain CT angiography of the chest to rule out pulmonary embolism. Continue IV heparin in the meantime. I will also obtain echocardiogram. Discussed my thoughts in detail with the patient. Thank you very much for the consult. KARLIE
[2017-06-10 17:07] LABS: Glucose,Whole Blood 158 mg/dL (75-99)
[2017-06-10] MEDS: HEPARIN SODIUM,PORCINE/D5W PMX 25,000 UNIT in DEXTROSE/WATER 1 500ML.BAG IV SCH (17:13)
[2017-06-10 20:48] LABS: Glucose,Whole Blood 274 mg/dL (75-99)
[2017-06-10] MEDS: ATORVASTATIN 20 MG TAB PO SCH (20:54)
[2017-06-10] MEDS: LISINOPRIL 10 MG TAB PO SCH (20:54)
[2017-06-11 02:34] LABS: Glucose,Whole Blood 291 mg/dL (75-99)
[2017-06-11] MEDS: SODIUM CHLORIDE 0.9% 1,000 ML IV SCH ×4 (05:25→21:22)
[2017-06-11 05:50] LABS: Glucose,Whole Blood 249 mg/dL (75-99)
[2017-06-11 06:53] LABS: Basophils % (A) 1 %; CHCM 33.3; Eosinophils # (A) 0.2 k/uL (0-0.7); Eosinophils % (A) 4 %; HCT 27.7 % (34.0-46.0); HDW 3.25; Luc # (Auto) 0.17; Luc % (Auto) 3; Lymphocytes # (A) 2.4 k/uL (1.0-4.8); Lymphocytes % (A) 36 %; MCH 30.4 pg (25.0-35.0); MCHC 33.4 g/dL (31.0-37.0); Mean Platelet Volume 7.3; Monocytes # (A) 0.4 k/uL (0-1.0); Monocytes % (A) 6 %; Neutrophils # (A) 3.4 k/uL (1.3-7.7); Neutrophils % (A) 52 %; RBC 3.04 m/uL (3.80-5.40); RDW 14.5 % (11.5-15.5); WBC 6.5 k/uL (3.8-10.6); WBC (Perox) 6.66
[2017-06-11 06:57] LABS: HGB 9.2 gm/dL (11.4-16.0)
[2017-06-11 07:25] LABS: Anion Gap 6 mmol/L; Blood Urea Nitrogen 11 mg/dL (7-17); Calcium 8.1 mg/dL (8.4-10.2); Carbon Dioxide 25 mmol/L (22-30); Chloride 110 mmol/L (98-107); Glucose 237 mg/dL (74-99); Non-African American GFR(MDRD) >60 (>60 ml/min/1.73 sqM); Potassium 3.8 mmol/L (3.5-5.1); Sodium 141 mmol/L (137-145)
[2017-06-11] MEDS: INSULIN NPH/REG INSULIN 70/30 300 UNIT/3 ML VIAL SQ SCH ×2 (08:26→21:22)
[2017-06-11] MEDS: ISOSORBIDE MONONITRATE ER 60 MG TAB.ER.24H PO SCH (08:26)
[2017-06-11] MEDS: ASPIRIN 325 MG TAB PO SCH (08:26)
[2017-06-11] MEDS: METOPROLOL TARTRATE 50 MG TAB PO SCH ×2 (08:26→21:22)
--- NOTE | 2017-06-11 09:17 | PN ---
DATE OF SERVICE: 06/10/2017 CLINICAL HISTORY: Ms. Gallagher is a 66-year-old female, known history of diabetes mellitus, history of CVA with slight dysarthria and hyperlipidemia, was admitted to the hospital with syncopal episode. Patient was found to have elevated troponin level as well as elevated d-dimer level. Patient underwent CT angiogram today. Patient showed markedly limited exam due to motion artifact demonstrates findings suspicious for secondary branch pulmonary artery embolus and Cardiology is following this patient. REVIEW OF SYSTEMS: No chest pain or short of breath. No nausea, vomiting, or abdominal pain. Denied any hematuria or dysuria. All other review of systems negative except as above. Current medications include aspirin, heparin IV, insulin, Imdur, Zestril, Lopressor, Nitrostat, normal saline. PHYSICAL EXAM: Awake, alert, oriented x3. Appears to be in no apparent distress. VITALS: Blood pressure 117/56, pulse is 76, respirations 18. HEAD: Normocephalic. Neck is supple, no JVD. CVS EXAM: No murmur, no gallops. LUNGS: Bilateral air entry is present. No wheezing, no crackles, nonlabored breathing. Abdomen is soft, nontender. Bowel sounds are present. CHAPERON EXAM: No focal deficits. EXTREMITIES: No edema. Pulse are palpable bilaterally, no clubbing or cyanosis. PSYCHIATRIC: Cooperative. LABORATORY DATA: Troponin 0.46 and d-dimer 3.58, LDL 59. IMPRESSION: 1. Acute right pulmonary artery embolism. 2. Elevated troponin level. unlikley acute coronary artery syndrome at this time. 3. Syncope secondary to PE 4. Diabetes type 2, currently on insulin, NPH. 5. Hypertension. 6. History of cerebrovascular accident with dysarthria. 7. suspicious for bladder lesion recently. Scheduled for outpatient cystoscopy. 8, History of coronary artery bypass graft. DISCUSSION AND PLAN: To be continued on IV heparin and continue with IV fluids and Simmons catheter and follow with the Urology Clinic and Cardiology is on board. Will continue with current management including anticoagulation. Follow up closely. Will change to oral anticoagulants upon discharge. [facility] HOSPITALDesiree
--- NOTE | 2017-06-11 10:06 | ECHOF ---
Referral Reason:syncope MEASUREMENTS -------- HEIGHT: 167.6 cm WEIGHT: 71.7 kg BP: 138/66 RVIDd: 2.1 cm (< 3.3) IVSd: 0.8 cm (0.6 - 1.1) LVIDd: 4.4 cm (3.9 - 5.3) LVPWd: 1.0 cm (0.6 - 1.1) IVSs: 1.3 cm LVIDs: 2.7 cm LVPWs: 1.4 cm LAESV Index (A-L): 13.23 ml/m Ao Diam: 2.8 cm (2.0 - 3.7) AV Cusp: 1.6 cm (1.5 - 2.6) LA Diam: 3.0 cm (2.7 - 3.8) MV EXCURSION: 18.547 mm (> 18.000) MV EF SLOPE: 93 mm/s (70 - 150) EPSS: 0.2 cm MV E Arvind: 1.00 m/s MV DecT: 271 ms MV A Arvind: 0.90 m/s MV E/A Ratio: 1.11 RAP: 5.00 mmHg RVSP: 34.77 mmHg FINDINGS -------- Sinus rhythm. This was a technically difficult study with suboptimal views. Overall left ventricular systolic function is normal with, an EF between 60 - 65 %. The right ventricle is normal in size and function. Normal LA size by volume 22+/-6 ml/m2. The right atrium is normal in size. 1.5mg of Definity was utilized for enhancement of images The aortic valve is trileaflet, and appears structurally normal. No aortic stenosis or regurgitation. Mild mitral annular calcification present. There is trace to mild mitral regurgitation. Trace tricuspid regurgitation present. There is borderline pulmonary artery hypertension. The right ventricular systolic pressure, as measured by Doppler, is 34.77mmHg. Trace/mild (physiologic) pulmonic regurgitation. The aortic root size is normal. IVC Not well visulized. The pericardium is normal. There is no pericardial effusion. CONCLUSIONS -------- 1. Sinus rhythm. 2. Borderline pulmonary artery hypertension. 3. The right ventricular systolic pressure, as measured by Doppler, is 34.77mmHg. 4. Trace/mild (physiologic) pulmonic regurgitation. 5. The aortic root size is normal. 6. IVC Not well visulized. 7. There is no pericardial effusion. 8. This was a technically difficult study with suboptimal views. 9. Overall left ventricular systolic function is normal with, an EF between 60 - 65 %. 10. Normal LA size by volume 22+/-6 ml/m2. 11. 1.5mg of Definity was utilized for enhancement of images 12. The aortic valve is trileaflet, and appears structurally normal. No aortic stenosis or regurgitation. 13. Mild mitral annular calcification present. 14. There is trace to mild mitral regurgitation. 15. Trace tricuspid regurgitation present. [employer] SUPERVISOR: Jose Levine RDCS
[2017-06-11] MEDS ORDERED: POTASSIUM CHLORIDE ER 20 MEQ TAB.ER PO STA (11:14)
--- NOTE | 2017-06-11 11:43 | P.GSCN ---
History of Present Illness Consult date: 06/11/17 History of present illness: This patient was seen in the hospital recently by our service, or gross hematuria. He was unclear as to whether she had an infection. A computed tomography scan of the abdomen and pelvis identified a clot or abnormality of the bladder wall. At some point in time the patient was going to need cystoscopy however she ended up back in the hospital with what appears to be a pulmonary embolus. He has been started on heparin. I see the patient. Her status urologically is unchanged. She has a catheter with cloudy urine. Past Medical History Past Medical History: CVA/TIA, Diabetes Mellitus, Hyperlipidemia Additional Past Medical History / Comment(s): patient has had 2 strokes, last in April 2016. kidney stones History of Any Multi-Drug Resistant Organisms: None Reported Past Surgical History: Cholecystectomy, Coronary Bypass/CABG Additional Past Surgical History / Comment(s): CABG in 2001 Past Anesthesia/Blood Transfusion Reactions: No Reported Reaction Past Psychological History: No Psychological Hx Reported Smoking Status: Former smoker Past Alcohol Use History: None Reported Past Drug Use History: None Reported - Past Family History Brother(s) Family Medical History: Diabetes Mellitus Additional Family Medical History / Comment(s): Brother just recently . Unknown history. Medications and Allergies Home Medications Medication Instructions Recorded Confirmed Type Aspirin 325 mg PO DAILY 05/31/17 06/09/17 History Atorvastatin Calcium [Lipitor] 80 mg PO HS 05/31/17 06/09/17 History Isosorbide Mononitrate ER [Imdur] 60 mg PO QAM 05/31/17 06/09/17 History Lisinopril [Zestril] 10 mg PO HS 05/31/17 06/09/17 History Metoprolol Tartrate [Lopressor] 50 mg PO BID 05/31/17 06/09/17 History Allergies Allergy/AdvReac Type Severity Reaction Status Date / Time latex Allergy Rash/Hives Verified 06/09/17 12:54 Surgical - Exam Vital Signs Temp Pulse Resp BP Pulse Ox 97.2 F L 59 L 16 150/66 98 06/09/17 12:54 06/09/17 12:54 06/09/17 12:54 06/09/17 12:54 06/09/17 12:54 - General well developed, well nourished, no distress - Eyes PERRL - ENT no hearing loss - Neck trachea midline - Respiratory normal expansion, normal respiratory effort - Cardiovascular Rhythm: regular - Abdomen Abdomen: soft, non tender - Genitourinary The patient has an indwelling catheter with clear urine - Neurologic normal sensation - Psychiatric oriented to time, oriented to person, oriented to place, speech is normal, memory intact Results - Labs 06/11/17 06:05 06/11/17 06:05 Abnormal Lab Results - Last 24 Hours (Table) 06/09/17 06/10/17 06/10/17 Range/Units 17:35 11:43 16:47 RBC (3.80-5.40) m/uL Hgb (11.4-16.0) gm/dL Hct (34.0-46.0) % APTT (22.0-30.0) sec Chloride (98-107) mmol/L Glucose (74-99) mg/dL POC Glucose (mg/dL) 130 H 158 H (75-99) mg/dL Hemoglobin A1c 10.0 H (4.2-6.1) % Calcium (8.4-10.2) mg/dL 06/10/17 06/11/17 06/11/17 Range/Units 20:46 02:33 05:49 RBC (3.80-5.40) m/uL Hgb (11.4-16.0) gm/dL Hct (34.0-46.0) % APTT (22.0-30.0) sec Chloride (98-107) mmol/L Glucose (74-99) mg/dL POC Glucose (mg/dL) 274 H 291 H 249 H (75-99) mg/dL Hemoglobin A1c (4.2-6.1) % Calcium (8.4-10.2) mg/dL 06/11/17 06/11/17 06/11/17 Range/Units 06:05 06:05 06:05 RBC 3.04 L (3.80-5.40) m/uL Hgb 9.2 L D (11.4-16.0) gm/dL Hct 27.7 L (34.0-46.0) % APTT 52.7 H (22.0-30.0) sec Chloride 110 H (98-107) mmol/L Glucose 237 H (74-99) mg/dL POC Glucose (mg/dL) (75-99) mg/dL Hemoglobin A1c (4.2-6.1) % Calcium 8.1 L (8.4-10.2) mg/dL Diabetes panel 06/09/17 06/11/17 Range/Units 17:35 06:05 Sodium 141 (137-145) mmol/L Potassium 3.8 (3.5-5.1) mmol/L Chloride 110 H (98-107) mmol/L Carbon Dioxide 25 (22-30) mmol/L BUN 11 (7-17) mg/dL Creatinine 0.84 (0.52-1.04) mg/dL Glucose 237 H (74-99) mg/dL Hemoglobin A1c 10.0 H (4.2-6.1) % Calcium 8.1 L (8.4-10.2) mg/dL Calcium panel 06/11/17 Range/Units 06:05 Calcium 8.1 L (8.4-10.2) mg/dL Pituitary panel 06/11/17 Range/Units 06:05 Sodium 141 (137-145) mmol/L Potassium 3.8 (3.5-5.1) mmol/L Chloride 110 H (98-107) mmol/L Carbon Dioxide 25 (22-30) mmol/L BUN 11 (7-17) mg/dL Creatinine 0.84 (0.52-1.04) mg/dL Glucose 237 H (74-99) mg/dL Calcium 8.1 L (8.4-10.2) mg/dL Adrenal panel 06/11/17 Range/Units 06:05 Sodium 141 (137-145) mmol/L Potassium 3.8 (3.5-5.1) mmol/L Chloride 110 H (98-107) mmol/L Carbon Dioxide 25 (22-30) mmol/L BUN 11 (7-17) mg/dL Creatinine 0.84 (0.52-1.04) mg/dL Glucose 237 H (74-99) mg/dL Calcium 8.1 L (8.4-10.2) mg/dL Assessment and Plan Plan: Impression: Pulmonary embolus acute, history of gross hematuria, questionable filling defect in the bladder. Recommendations the patient will need cystoscopy at some point in time. I would recommend going on with a heparin at present but not switching her to Coumadin until cystoscopies done in determination as to elevation and/or treatment of the bladder. We'll notify of this admission
[2017-06-11 12:08] LABS: Glucose,Whole Blood 271 mg/dL (75-99)
--- NOTE | 2017-06-11 13:22 | PN ---
This lady had elevated d-dimer, came in with syncope. CT angio was suboptimal but there is enough suspicion that she has probably pulmonary embolism and I am recommending we continue aspirin but I will hold the Coumadin because she may require cystoscopy for her bladder mass. Vital signs are stable, S1, S2 heard normally, short systolic murmur. Lungs are clear. Abdomen and lower extremity exam unchanged. IMPRESSION: 1. Syncope with pulmonary embolism. 2. Bladder mass being investigated. 3. CAD with previous by pass surgery without ongoing ischemia. RECOMMENDATIONS: Will continue IV heparin per protocol. Defer Coumadin for now. Will talk to Urology and consider cystoscopy prior to starting her on Coumadin. KARLIE
[2017-06-11 17:22] LABS: Glucose,Whole Blood 247 mg/dL (75-99)
[2017-06-11] MEDS: HEPARIN SODIUM,PORCINE/D5W PMX 25,000 UNIT in DEXTROSE/WATER 1 500ML.BAG IV SCH (19:52)
[2017-06-11 20:48] LABS: Glucose,Whole Blood 273 mg/dL (75-99)
[2017-06-11] MEDS: ATORVASTATIN 20 MG TAB PO SCH (21:22)
[2017-06-11] MEDS: LISINOPRIL 10 MG TAB PO SCH (21:22)
[2017-06-12 02:21] LABS: Glucose,Whole Blood 152 mg/dL (75-99)
[2017-06-12] MEDS: SODIUM CHLORIDE 0.9% 1,000 ML IV SCH ×3 (05:39→17:00)
[2017-06-12 06:09] LABS: Glucose,Whole Blood 76 mg/dL (75-99)
[2017-06-12] MEDS: INSULIN LISPRO (humaLOG) 300 UNIT/3 ML VIAL SQ SCH ×4 (07:10→20:54)
[2017-06-12] MEDS: METOPROLOL TARTRATE 50 MG TAB PO SCH ×2 (08:23→20:40)
[2017-06-12] MEDS: INSULIN NPH/REG INSULIN 70/30 300 UNIT/3 ML VIAL SQ SCH ×2 (08:23→20:53)
[2017-06-12] MEDS: ASPIRIN 325 MG TAB PO SCH (08:23)
[2017-06-12] MEDS: ISOSORBIDE MONONITRATE ER 60 MG TAB.ER.24H PO SCH (08:23)
[2017-06-12] MEDS: HEPARIN SODIUM,PORCINE 5,000 UNIT/ML 1 ML VIAL IV PRN (08:31)
[2017-06-12 11:58] LABS: Glucose,Whole Blood 180 mg/dL (75-99)
--- NOTE | 2017-06-12 16:21 | P.PN ---
Subjective Principal diagnosis: Acute right pulmonary artery embolism Ms. Gallagher is a 66-year-old female, known history of diabetes mellitus, history of CVA with slight dysarthria and hyperlipidemia, was admitted to the hospital with syncopal episode. Patient was found to have elevated troponin level as well as elevated d-dimer level. Patient underwent CT angiogram which showed pulmonary artery embolism. showed markedly limited exam due to motion artifact demonstrates findings suspicious for secondary branch pulmonary artery embolus and Cardiology is following this patient. He was started on heparin IV On 06/11/2017 The complains of chest pain. Chest pressure is much improved. Patient is being continued on heparin IV. Due to history of recent hematuria and was planning for outpatient cystoscopy, which was seen by Dr. Shankar and recommended to continue heparin iv until final recommendation by urology. Otherwise patient denied any acute overnight issues. REVIEW OF SYSTEMS: No chest pain or short of breath. No nausea, vomiting, or abdominal pain. Denied any hematuria or dysuria. All other review of systems negative except as above. Objective - Vital Signs Vital signs: Vital Signs Temp 98.2 F 06/12/17 15:37 Pulse 70 06/12/17 15:37 Resp 20 06/12/17 15:37 BP 140/78 06/12/17 15:37 Pulse Ox 97 06/12/17 15:37 Intake & Output 06/11/17 06/12/17 06/12/17 18:59 06:59 18:59 Intake Total 1712.8 49.95 1852.268 Output Total 1200 3600 Balance 512.8 -3550.05 1852.268 Weight 77.5 kg 75 kg Intake: IV 832.8 49.95 1227.45 Heparin Sodium,Porcine/ 232.8 49.95 327.45 D5w Pmx 25,000 unit In Dextrose/Water 1 500ml. bag @ 12 UNITS/KG/HR 16. 65 mls/hr IV .Q24H [facility] Rx #:[id number] Sodium Chloride 0.9% 1, 600 900 000 ml @ 100 mls/hr IV . Q10H [facility] Rx#:[id number] Intake, IV Titration 500 244.818 Amount Heparin Sodium,Porcine/ 500 244.818 D5w Pmx 25,000 unit In Dextrose/Water 1 500ml. bag @ 12 UNITS/KG/HR 16. 65 mls/hr IV .Q24H [facility] Rx #:[id number] Oral 380 380 Output: Urine 1200 3600 Other: Voiding Method Indwelling Catheter Indwelling Catheter Indwelling Catheter - Exam Awake, alert, oriented x3. Appears to be in no apparent distress. HEAD: Normocephalic. Neck is supple, no JVD. CVS EXAM: No murmur, no gallops. LUNGS: Bilateral air entry is present. No wheezing, no crackles, nonlabored breathing. Abdomen is soft, nontender. Bowel sounds are present. CHEESE SPRAYER EXAM: No focal deficits. EXTREMITIES: No edema. Pulse are palpable bilaterally, no clubbing or cyanosis. PSYCHIATRIC: Cooperative. - Labs CBC & Chem 7: 06/11/17 06:05 06/11/17 06:05 Labs: Abnormal Lab Results - Last 24 Hours (Table) 06/11/17 06/11/17 06/12/17 Range/Units 17:00 20:47 02:19 APTT (22.0-30.0) sec POC Glucose (mg/dL) 247 H 273 H 152 H (75-99) mg/dL 06/12/17 06/12/17 06/12/17 Range/Units 06:04 11:45 14:14 APTT 43.0 H 51.1 H (22.0-30.0) sec POC Glucose (mg/dL) 180 H (75-99) mg/dL Microbiology - Last 24 Hours (Table) 06/09/17 14:00 Urine Culture - Preliminary Urine,Catheterized Yeast species Assessment and Plan Plan: 1. Acute right pulmonary artery embolism. 2. Elevated troponin level. unlikley acute coronary artery syndrome at this time. 3. Syncope secondary to PE 4. Diabetes type 2, currently on insulin, NPH. 5. Hypertension. 6. History of cerebrovascular accident with dysarthria. 7. suspicious for bladder lesion recently. Scheduled for outpatient cystoscopy. 8, History of coronary artery bypass graft. DISCUSSION AND PLAN: To be continued on IV heparin and Simmons catheter and Patient was seen by urology and recommended to continue with IV heparin until further plans for cystoscopy during this admission. No active hematuria noted at this time. Will continue with current management including anticoagulation. Follow up closely. Time with Patient: Greater than 30
--- NOTE | 2017-06-12 16:53 | PN ---
Mrs. Gallagher is clinically doing better. She has what seems to be a pulmonary embolism and a bladder mass. I talked to the patient and today. We can hold heparin tomorrow if cystoscopy is to be planned by Dr. Casey. I will await input from him tomorrow. Will reduce the aspirin to 81 mg daily, check a CBC and BNP in the morning, continue IV heparin for now. Vital signs are stable. S1/S2 are normal. Short systolic murmur noted. Lungs reveal improved air entry. Abdomen and lower extremity exam is unchanged. MTDD
--- NOTE | 2017-06-12 17:00 | P.PN ---
Subjective Principal diagnosis: Acute right pulmonary artery embolism Ms. Gallagher is a 66-year-old female, known history of diabetes mellitus, history of CVA with slight dysarthria and hyperlipidemia, was admitted to the hospital with syncopal episode. Patient was found to have elevated troponin level as well as elevated d-dimer level. Patient underwent CT angiogram which showed pulmonary artery embolism. showed markedly limited exam due to motion artifact demonstrates findings suspicious for secondary branch pulmonary artery embolus and Cardiology is following this patient. He was started on heparin IV On 06/11/2017 The complains of chest pain. Chest pressure is much improved. Patient is being continued on heparin IV. Due to history of recent hematuria and was planning for outpatient cystoscopy, which was seen by Dr. Shankar and recommended to continue heparin iv until final recommendation by urology. Otherwise patient denied any acute overnight issues. On 06/12/2017 Patient denied any comes of chest pain uptight today. No fever no chills. Patient is being continued on heparin IV and awaiting final urology recommendations. No acute overnight issues REVIEW OF SYSTEMS: No chest pain or short of breath. No nausea, vomiting, or abdominal pain. Denied any hematuria or dysuria. All other review of systems negative except as above. Objective - Vital Signs Vital signs: Vital Signs Temp 98.2 F 06/12/17 15:37 Pulse 70 06/12/17 15:37 Resp 20 06/12/17 15:37 BP 140/78 06/12/17 15:37 Pulse Ox 97 06/12/17 15:37 Intake & Output 06/11/17 06/12/17 06/12/17 18:59 06:59 18:59 Intake Total 1712.8 49.95 1852.268 Output Total 1200 3600 Balance 512.8 -3550.05 1852.268 Weight 77.5 kg 75 kg Intake: IV 832.8 49.95 1227.45 Heparin Sodium,Porcine/ 232.8 49.95 327.45 D5w Pmx 25,000 unit In Dextrose/Water 1 500ml. bag @ 12 UNITS/KG/HR 16. 65 mls/hr IV .Q24H [facility] Rx #:[id number] Sodium Chloride 0.9% 1, 600 900 000 ml @ 100 mls/hr IV . Q10H [facility] Rx#:[id number] Intake, IV Titration 500 244.818 Amount Heparin Sodium,Porcine/ 500 244.818 D5w Pmx 25,000 unit In Dextrose/Water 1 500ml. bag @ 12 UNITS/KG/HR 16. 65 mls/hr IV .Q24H [facility] Rx #:[id number] Oral 380 380 Output: Urine 1200 3600 Other: Voiding Method Indwelling Catheter Indwelling Catheter Indwelling Catheter - Exam Awake, alert, oriented x3. Appears to be in no apparent distress. HEAD: Normocephalic. Neck is supple, no JVD. CVS EXAM: No murmur, no gallops. LUNGS: Bilateral air entry is present. No wheezing, no crackles, nonlabored breathing. Abdomen is soft, nontender. Bowel sounds are present. INCOMING FREIGHT CLERK EXAM: No focal deficits. EXTREMITIES: No edema. Pulse are palpable bilaterally, no clubbing or cyanosis. PSYCHIATRIC: Cooperative. - Labs CBC & Chem 7: 06/11/17 06:05 06/11/17 06:05 Labs: Abnormal Lab Results - Last 24 Hours (Table) 06/11/17 06/11/17 06/12/17 Range/Units 17:00 20:47 02:19 APTT (22.0-30.0) sec POC Glucose (mg/dL) 247 H 273 H 152 H (75-99) mg/dL 06/12/17 06/12/17 06/12/17 Range/Units 06:04 11:45 14:14 APTT 43.0 H 51.1 H (22.0-30.0) sec POC Glucose (mg/dL) 180 H (75-99) mg/dL Microbiology - Last 24 Hours (Table) 06/09/17 14:00 Urine Culture - Preliminary Urine,Catheterized Yeast species Assessment and Plan Plan: 1. Acute right pulmonary artery embolism. 2. Elevated troponin level. unlikley acute coronary artery syndrome at this time. 3. Syncope secondary to PE 4. Diabetes type 2, currently on insulin, NPH. 5. Hypertension. 6. History of cerebrovascular accident with dysarthria. 7. suspicious for bladder lesion recently. Scheduled for outpatient cystoscopy. 8, History of coronary artery bypass graft. DISCUSSION AND PLAN: To be continued on IV heparin and Simmons catheter and Patient was seen by urology and recommended to continue with IV heparin until further plans for cystoscopy during this admission. No active hematuria noted at this time. Will continue with current management including anticoagulation. Follow up closely.
[2017-06-12 17:18] LABS: Glucose,Whole Blood 215 mg/dL (75-99)
[2017-06-12] MEDS: HEPARIN SODIUM,PORCINE/D5W PMX 25,000 UNIT in DEXTROSE/WATER 1 500ML.BAG IV SCH (17:41)
[2017-06-12] MEDS: LISINOPRIL 10 MG TAB PO SCH (20:39)
[2017-06-12] MEDS: ATORVASTATIN 20 MG TAB PO SCH (20:40)
[2017-06-12 20:53] LABS: Glucose,Whole Blood 238 mg/dL (75-99)
[2017-06-13 03:20] LABS: Glucose,Whole Blood 134 mg/dL (75-99)
[2017-06-13] MEDS: SODIUM CHLORIDE 0.9% 1,000 ML IV SCH ×4 (03:36→21:34)
[2017-06-13 05:53] LABS: Glucose,Whole Blood 90 mg/dL (75-99)
[2017-06-13 06:16] LABS: Basophils # (A) 0.1 k/uL (0-0.2); Basophils % (A) 1 %; CH 30.1; CHCM 33.2; Eosinophils # (A) 0.3 k/uL (0-0.7); Eosinophils % (A) 3 %; HCT 28.8 % (34.0-46.0); HDW 3.23; HGB 9.5 gm/dL (11.4-16.0); Luc # (Auto) 0.24; Luc % (Auto) 3; Lymphocytes # (A) 3.2 k/uL (1.0-4.8); Lymphocytes % (A) 36 %; MCH 30.2 pg (25.0-35.0); MCV 91.2 fL (80.0-100.0); Mean Platelet Volume 7.6; Monocytes # (A) 0.5 k/uL (0-1.0); Monocytes % (A) 6 %; Neutrophils # (A) 4.7 k/uL (1.3-7.7); Neutrophils % (A) 52 %; RBC 3.16 m/uL (3.80-5.40); RDW 14.8 % (11.5-15.5); WBC 8.9 k/uL (3.8-10.6); WBC (Perox) 9.06
[2017-06-13] MEDS: INSULIN LISPRO (humaLOG) 300 UNIT/3 ML VIAL SQ SCH ×4 (06:38→21:33)
[2017-06-13 06:56] LABS: Anion Gap 7 mmol/L; Blood Urea Nitrogen 9 mg/dL (7-17); Calcium 8.5 mg/dL (8.4-10.2); Carbon Dioxide 22 mmol/L (22-30); Chloride 114 mmol/L (98-107); Glucose 88 mg/dL (74-99); Magnesium 1.8 mg/dL (1.6-2.3); Non-African American GFR(MDRD) >60 (>60 ml/min/1.73 sqM); Potassium 3.4 mmol/L (3.5-5.1); Sodium 143 mmol/L (137-145)
[2017-06-13] MEDS: ASPIRIN 81 MG CHEW PO SCH (08:22)
[2017-06-13] MEDS: METOPROLOL TARTRATE 50 MG TAB PO SCH ×2 (08:22→20:30)
[2017-06-13] MEDS: ISOSORBIDE MONONITRATE ER 60 MG TAB.ER.24H PO SCH (08:23)
[2017-06-13] MEDS: INSULIN NPH/REG INSULIN 70/30 300 UNIT/3 ML VIAL SQ SCH ×2 (08:23→21:33)
--- NOTE | 2017-06-13 09:07 | US ---
EXAMINATION TYPE: US venous doppler duplex LE BI DATE OF EXAM: 06/13/2017 8:03 AM COMPARISON: NONE CLINICAL HISTORY: r/o dvt. PE, weakness bilateral legs SIDE PERFORMED: bilateral TECHNIQUE: The lower extremity deep venous system is examined utilizing real time linear array sonog josette with graded compression, doppler sonography and color-flow sonography. VESSELS IMAGED: External Iliac Vein (EIV) Common Femoral Vein Deep Femoral Vein Greater Saphenous Vein * Femoral Vein Popliteal Vein Small Saphenous Vein * Proximal Calf Veins (* superficial vessels) Grayscale, color doppler, spectral doppler imaging performed of the deep veins of the lower extremiti es. There is normal flow, compressibility, vascular waveforms bilaterally. Right Leg: NO evidence of DVT Left Leg: NO evidence of DVT IMPRESSION: No evidence for DVT at this time.
[2017-06-13 11:17] LABS: Glucose,Whole Blood 207 mg/dL (75-99)
[2017-06-13] MEDS ORDERED: HEPARIN SODIUM,PORCINE 5,000 UNIT/ML 1 ML VIAL IV PRN (12:37)
[2017-06-13] MEDS ORDERED: HEPARIN SODIUM,PORCINE/D5W PMX 25,000 UNIT in DEXTROSE/WATER 1 500ML.BAG IV SCH (12:45)
[2017-06-13] MEDS: LISINOPRIL 20 MG TAB PO SCH (12:49)
--- NOTE | 2017-06-13 14:39 | CDI ---
In responding to this query, please exercise your independent professional judgment. The [facility] Coding Staff and Clinical Documentation Specialists appreciate your assistance in clarifying documentation, maintaining compliance with coding guidelines, accurately documenting patients condition and capturing severity of illness. The fact that a question is asked does not imply that any particular answer is desired or expected. Communication forms are a method of clarifying documentation and are not made part of the Legal Health Record. Thank you in advance for your clarification. Last Revision, September 2015 Hetal Beasley [address] [place] [address] Documentation Clarification Form Date: 06/13/2017 2:17:00 PM From: Prabha Roman Admit Date: 06/09/2017 5:04:00 PM Patient Name: Fernanda Gallagher Visit Number: [id number] Discharge Date: Dr. Jmaaal Castro A diagnosis of UTI has been documented in the ER notes. History/Risk factors: CVA/TIA, Diabetes Mellitus, Hematuria with suspicion for bladder lesion, Hypertension Per documentation in the H/P this patient was admitted with an indwelling Simmons catheter for over 7 days. Clinical Indicators: UA appears to be abnormal. Urinalysis: Color: dark brown, Appearance: Turbid, Large blood, Leukocyte Esterase, Urine culture: Mandy glabrata Lab results WBC 10.9, Lactic acid 3.0 Treatment: Monitor Labs Rocephin IV IV Fluids In your professional opinion, can you please clarify the etiology of the UTI, if known? or was UTI ruled out? Simmons catheter UTI not related to catheter Other condition, please specify Unable to determine If an infective organism is present, please specify cause and effect relationship if applicable. Please document in your progress notes and discharge summary in order to capture severity of illness and risk of mortality. Include clinical findings that support your diagnosis. FYI: Press F11 to launch patient chart Place X here if this finding has no clinical significance, is not applicable or if you are not able to provide any additional documentation. MOISESD
--- NOTE | 2017-06-13 16:07 | P.OP ---
Date of Procedure: 06/13/17 Preoperative Diagnosis: Gross hematuria Postoperative Diagnosis: Gross hematuria-uncertain cause Procedure(s) Performed: Cystourethroscopy Implants: Anesthesia: none Indications for Procedure: The patient is a 66-year-old female with a history of gross hematuria which began over one month ago. The patient was admitted 2 weeks ago and at that time had a large amount of clot present in her bladder and urinary retention. Computed tomography scan of the abdomen without IV contrast showed no significant abnormality of the upper urinary system. A catheter has been left since then. Cystoscopy is planned for further evaluation of the gross hematuria as the patient was admitted with a pulmonary embolus which will require anticoagulation therapy. She currently has a catheter in place. Description of Procedure: The patient was placed supine in her hospital bed. Her Simmons catheter was removed. Urethral opening was prepped with Betadine solution. The flexible 16- Icelandic cystoscope was passed through the urethra and into the bladder. Both ureteral orifices were normal location and configuration and effluxed clear urine. There were a few telangiectasias on the posterior bladder wall consistent with catheter irritation. No other evidence of fresh bleeding was noted within the bladder. The bladder was otherwise free of tumor foreign body and diverticulum. The cystoscope was retroflexed and the bladder neck was examined and was unremarkable. The urethra was examined as the cystoscope was withdrawn. A few inflammatory polyps which are nonpathologic were noted at the junction of the bladder and urethra but no other abnormalities were present. The patient tolerated procedure well. Her catheter will be left out and she will be given a voiding trial. If her post void residuals are acceptably low a catheter will not be reinserted.
[2017-06-13 16:33] LABS: Glucose,Whole Blood 158 mg/dL (75-99)
[2017-06-13] MEDS ORDERED: RIVAROXABAN 15 MG TAB PO SCH (17:30)
--- NOTE | 2017-06-13 18:30 | PN ---
Mrs. Gallagher has normal LV function by echo. She has some hematuria which is probably related to bladder mass. She has pulmonary embolism and I am thinking of initiating her on Xarelto but I am concerned with the hematuria. I spoke to Dr. Casey. He will perform cystoscopy this afternoon at bedside. From a cardiac standpoint, I recommend that we continue heparin and tomorrow we will decide regarding the Xarelto usage. I explained this to the patient and family. Vital signs are stable. Blood pressure is 130/70. Pulse rate is 70 per minute and regular. There is JVD of 1 cm. No carotid bruit. S1, S2 heard normally. Short systolic murmur noted. Lungs are clear. Abdomen and lower extremity exam is unremarkable. IMPRESSION: 1. History of pulmonary embolism on this admission. 2. Stable coronary artery disease without myocardial injury. 3. History of bladder mass being investigated by ( ) today. 4. History of prior aortocoronary artery bypass surgery. RECOMMENDATIONS: I am recommending that we will continue IV heparin, following ( ) I will decide regarding continuous churn buttermaker anticoagulation for at least three months. I discussed this with the patient and family. She will have ( ) after 3 p.m. this afternoon. KARLIE
[2017-06-13] MEDS: ATORVASTATIN 20 MG TAB PO SCH (20:30)
[2017-06-13 21:00] LABS: Glucose,Whole Blood 217 mg/dL (75-99)
[2017-06-14 04:01] LABS: Glucose,Whole Blood 88 mg/dL (75-99)
[2017-06-14 06:15] LABS: Glucose,Whole Blood 91 mg/dL (75-99)
[2017-06-14 06:43] LABS: Basophils # (A) 0.1 k/uL (0-0.2); Basophils % (A) 1 %; CH 30.2; CHCM 33.2; Eosinophils # (A) 0.3 k/uL (0-0.7); Eosinophils % (A) 3 %; HCT 29.5 % (34.0-46.0); HDW 3.23; HGB 9.7 gm/dL (11.4-16.0); Luc % (Auto) 3; Lymphocytes # (A) 2.5 k/uL (1.0-4.8); Lymphocytes % (A) 26 %; MCH 30.2 pg (25.0-35.0); MCHC 32.8 g/dL (31.0-37.0); MCV 91.9 fL (80.0-100.0); Mean Platelet Volume 8.1; Monocytes # (A) 0.6 k/uL (0-1.0); Monocytes % (A) 6 %; Neutrophils # (A) 5.9 k/uL (1.3-7.7); Neutrophils % (A) 61 %; RBC 3.22 m/uL (3.80-5.40); RDW 15.2 % (11.5-15.5); WBC 9.6 k/uL (3.8-10.6); WBC (Perox) 10.09
[2017-06-14] MEDS: SODIUM CHLORIDE 0.9% 1,000 ML IV SCH ×3 (06:56→21:24)
[2017-06-14] MEDS: INSULIN LISPRO (humaLOG) 300 UNIT/3 ML VIAL SQ SCH ×4 (07:41→21:03)
[2017-06-14] MEDS: ASPIRIN 81 MG CHEW PO SCH (08:35)
[2017-06-14] MEDS: LISINOPRIL 20 MG TAB PO SCH (08:36)
[2017-06-14] MEDS: ISOSORBIDE MONONITRATE ER 60 MG TAB.ER.24H PO SCH (08:36)
[2017-06-14] MEDS: METOPROLOL TARTRATE 50 MG TAB PO SCH ×2 (08:36→21:24)
[2017-06-14] MEDS: INSULIN NPH/REG INSULIN 70/30 300 UNIT/3 ML VIAL SQ SCH ×2 (10:11→21:24)
[2017-06-14] MEDS: RIVAROXABAN 15 MG TAB PO SCH (11:01)
[2017-06-14 11:10] LABS: Glucose,Whole Blood 130 mg/dL (75-99)
--- NOTE | 2017-06-14 15:23 | P.PN ---
Subjective Principal diagnosis: PE Physical pleasant 66 showed female patient who presented with complaints of chest discomfort, was found to have a pulmonary embolism and has been on IV heparin. 2-D echo with Doppler showed a normal LV systolic function. Patient has been having some hematuria. During a previous admission patient was found to have a possible bladder mass and is requiring further workup. Dr. Dima barnes performed a cystoscopy yesterday afternoon that did not show an intense of a mass. Patient continues to have indwelling catheter secondary to inability to empty her bladder with a voiding trial done yesterday with post void residual of 1100 mL. She remains on IV heparin. Objective - Vital Signs Vital signs: Vital Signs Temp 97.4 F L 06/14/17 12:00 Pulse 60 06/14/17 12:00 Resp 19 06/14/17 12:00 BP 130/57 06/14/17 12:00 Pulse Ox 97 06/14/17 12:00 Intake & Output 06/13/17 06/14/17 06/14/17 18:59 06:59 18:59 Intake Total 769.686 440.92 760 Output Total 800 2400 1200 Balance -30.314 -1959.08 -440 Intake: IV 88.8 250 400 Heparin Sodium,Porcine/ 88.8 D5w Pmx 25,000 unit In Dextrose/Water 1 500ml. bag @ 12 UNITS/KG/HR 16. 65 mls/hr IV .Q24H [facility] Rx #:[id number] Sodium Chloride 0.9% 1, 250 400 000 ml @ 50 mls/hr IV . Q20H [facility] Rx#:[id number] Intake, IV Titration 200.886 190.92 Amount Heparin Sodium,Porcine/ 0.886 190.92 D5w Pmx 25,000 unit In Dextrose/Water 1 500ml. bag @ 12 UNITS/KG/HR 17. 71 mls/hr IV .Q24H [facility] Rx #:[id number] Sodium Chloride 0.9% 1, 200 000 ml @ 50 mls/hr IV . Q20H [facility] Rx#:[id number] Oral 480 0 360 Output: Urine 800 2400 1200 Uretheral (Simmons) 1000 600 Other: Voiding Method Indwelling Catheter Indwelling Catheter Indwelling Catheter # Voids 0 1 - Exam PHYSICAL EXAMINATION: HEENT: Head is atraumatic, normocephalic. Pupils equal, round. Neck is supple. There is no elevated jugular venous pressure. HEART EXAMINATION: Heart sounds regular, S1 and S2 normal with a systolic murmur. CHEST EXAMINATION: Lungs are clear to auscultation and precussion. No chest wall tenderness is noted on palpation or with deep breathing. ABDOMEN: Soft, nontender. Bowel sounds are heard. No organomegaly noted. Indwelling catheter in place with bloody urine EXTREMITIES: 2+ peripheral pulses with no evidence of peripheral edema and no calf tenderness noted. NEUROLOGIC patient is awake, alert and oriented to person and place, quite forgetful with some confusion noted. . - Labs CBC & Chem 7: 06/14/17 06:03 06/13/17 05:35 Labs: Abnormal Lab Results - Last 24 Hours (Table) 06/13/17 06/13/17 06/13/17 Range/Units 16:30 19:14 20:51 RBC (3.80-5.40) m/uL Hgb (11.4-16.0) gm/dL Hct (34.0-46.0) % APTT 45.5 H (22.0-30.0) sec POC Glucose (mg/dL) 158 H 217 H (75-99) mg/dL 06/14/17 06/14/17 Range/Units 06:03 11:07 RBC 3.22 L (3.80-5.40) m/uL Hgb 9.7 L (11.4-16.0) gm/dL Hct 29.5 L (34.0-46.0) % APTT (22.0-30.0) sec POC Glucose (mg/dL) 130 H (75-99) mg/dL Assessment and Plan Plan: Assessment and plan #1 pulmonary embolism #2 hematuria #3 history of prior CABG From cardiology's perspective, we will stop IV heparin. We will start the patient on Xarelto 15mg daily. We'll reassess hematuria tomorrow and likely increase Xarelto to 15mg BID. is at the bedside at time of examination and is planning to take the patient home with home care. Patient lives with her and her son were both able to assist in caring for her. Further recommendations to follow. CLIENT PARTNER note has been reviewed, I agree with a documented findings and plan of care. Patient was seen and examined.
[2017-06-14 16:27] LABS: Glucose,Whole Blood 78 mg/dL (75-99)
[2017-06-14 20:53] LABS: Glucose,Whole Blood 129 mg/dL (75-99)
[2017-06-14] MEDS: ATORVASTATIN 20 MG TAB PO SCH (21:24)
--- NOTE | 2017-06-14 22:01 | P.PN ---
Subjective Principal diagnosis: Acute right pulmonary artery embolism Ms. Gallagher is a 66-year-old female, known history of diabetes mellitus, history of CVA with slight dysarthria and hyperlipidemia, was admitted to the hospital with syncopal episode. Patient was found to have elevated troponin level as well as elevated d-dimer level. Patient underwent CT angiogram which showed pulmonary artery embolism. showed markedly limited exam due to motion artifact demonstrates findings suspicious for secondary branch pulmonary artery embolus and Cardiology is following this patient. He was started on heparin IV On 06/11/2017 The complains of chest pain. Chest pressure is much improved. Patient is being continued on heparin IV. Due to history of recent hematuria and was planning for outpatient cystoscopy, which was seen by Dr. Shankar and recommended to continue heparin iv until final recommendation by urology. Otherwise patient denied any acute overnight issues. On 06/12/2017 Patient denied any comes of chest pain uptight today. No fever no chills. Patient is being continued on heparin IV and awaiting final urology recommendations. No acute overnight issues On 06/13/2017 Last night patient had hematuria. Patient was evaluated by urology today. She had a cystoscopy done today-no active bleeding noticed. Hemoglobin is stable REVIEW OF SYSTEMS: No chest pain or short of breath. No nausea, vomiting, or abdominal pain. Denied any hematuria or dysuria. All other review of systems negative except as above. Objective - Vital Signs Vital signs: Vital Signs Temp 98 F 06/13/17 15:33 Pulse 61 06/13/17 15:33 Resp 16 06/13/17 15:33 BP 146/51 06/13/17 15:33 Pulse Ox 96 06/13/17 15:33 Intake & Output 06/13/17 06/13/17 06/14/17 06:59 18:59 06:59 Intake Total 769.686 190.92 Output Total 650 800 200 Balance -650 -30.314 -9.08 Weight 73.8 kg Intake: IV 88.8 Heparin Sodium,Porcine/ 88.8 D5w Pmx 25,000 unit In Dextrose/Water 1 500ml. bag @ 12 UNITS/KG/HR 16. 65 mls/hr IV .Q24H [facility] Rx #:[id number] Intake, IV Titration 200.886 190.92 Amount Heparin Sodium,Porcine/ 0.886 190.92 D5w Pmx 25,000 unit In Dextrose/Water 1 500ml. bag @ 12 UNITS/KG/HR 17. 71 mls/hr IV .Q24H [facility] Rx #:[id number] Sodium Chloride 0.9% 1, 200 000 ml @ 50 mls/hr IV . Q20H [facility] Rx#:[id number] Oral 480 Output: Urine 650 800 200 Other: Voiding Method Indwelling Catheter Indwelling Catheter # Voids 0 # Bowel Movements 0 - Exam Awake, alert, oriented x3. Appears to be in no apparent distress. HEAD: Normocephalic. Neck is supple, no JVD. CVS EXAM: No murmur, no gallops. LUNGS: Bilateral air entry is present. No wheezing, no crackles, nonlabored breathing. Abdomen is soft, nontender. Bowel sounds are present. WORKFORCE CONSULTANT EXAM: No focal deficits. EXTREMITIES: No edema. Pulse are palpable bilaterally, no clubbing or cyanosis. PSYCHIATRIC: Cooperative. - Labs CBC & Chem 7: 06/14/17 06:03 06/13/17 05:35 Labs: Abnormal Lab Results - Last 24 Hours (Table) 06/13/17 06/13/17 06/13/17 Range/Units 03:00 05:35 05:35 RBC 3.16 L (3.80-5.40) m/uL Hgb 9.5 L (11.4-16.0) gm/dL Hct 28.8 L (34.0-46.0) % APTT (22.0-30.0) sec Potassium 3.4 L (3.5-5.1) mmol/L Chloride 114 H (98-107) mmol/L POC Glucose (mg/dL) 134 H (75-99) mg/dL 06/13/17 06/13/17 06/13/17 Range/Units 05:35 11:16 16:30 RBC (3.80-5.40) m/uL Hgb (11.4-16.0) gm/dL Hct (34.0-46.0) % APTT 49.0 H (22.0-30.0) sec Potassium (3.5-5.1) mmol/L Chloride (98-107) mmol/L POC Glucose (mg/dL) 207 H 158 H (75-99) mg/dL 06/13/17 06/13/17 Range/Units 19:14 20:51 RBC (3.80-5.40) m/uL Hgb (11.4-16.0) gm/dL Hct (34.0-46.0) % APTT 45.5 H (22.0-30.0) sec Potassium (3.5-5.1) mmol/L Chloride (98-107) mmol/L POC Glucose (mg/dL) 217 H (75-99) mg/dL Microbiology - Last 24 Hours (Table) 06/09/17 14:00 Urine Culture - Final Urine,Catheterized Mandy glabrata Assessment and Plan Plan: 1. Acute right pulmonary artery embolism. 2. Elevated troponin level. unlikley acute coronary artery syndrome at this time. 3. Syncope secondary to PE 4. Hematuria 4. Diabetes type 2, currently on insulin, NPH. 5. Hypertension. 6. History of cerebrovascular accident with dysarthria. 7. suspicious for bladder lesion recently. Scheduled for outpatient cystoscopy. 8, History of coronary artery bypass graft. 9. UTI possible catheter related. Urine cx growing mandy DISCUSSION AND PLAN: To be continued on IV heparin and Simmons catheter and Patient was seen by urology and recommended to continue with IV heparin. S/P cystoscopy- No active hematuria/ clots noticed. Will continue with current management including anticoagulation. Follow up closely. Time with Patient: Greater than 30
--- NOTE | 2017-06-14 22:12 | P.PN ---
Subjective Principal diagnosis: Acute right pulmonary artery embolism Ms. Gallagher is a 66-year-old female, known history of diabetes mellitus, history of CVA with slight dysarthria and hyperlipidemia, was admitted to the hospital with syncopal episode. Patient was found to have elevated troponin level as well as elevated d-dimer level. Patient underwent CT angiogram which showed pulmonary artery embolism. showed markedly limited exam due to motion artifact demonstrates findings suspicious for secondary branch pulmonary artery embolus and Cardiology is following this patient. He was started on heparin IV On 06/11/2017 The complains of chest pain. Chest pressure is much improved. Patient is being continued on heparin IV. Due to history of recent hematuria and was planning for outpatient cystoscopy, which was seen by Dr. Shankar and recommended to continue heparin iv until final recommendation by urology. Otherwise patient denied any acute overnight issues. On 06/12/2017 Patient denied any comes of chest pain uptight today. No fever no chills. Patient is being continued on heparin IV and awaiting final urology recommendations. No acute overnight issues On 06/13/2017 Last night patient had hematuria. Patient was evaluated by urology today. She had a cystoscopy done today-no active bleeding noticed. Hemoglobin is stable. 06/14/2017 Patient has been discontinued off IV heparin and has been started on Xarelto today. Patient denies having any active complaints. Over night no active issues as per nursing staff report. REVIEW OF SYSTEMS: No chest pain or short of breath. No nausea, vomiting, or abdominal pain. Denied any hematuria or dysuria. All other review of systems negative except as above. Objective - Vital Signs Vital signs: Vital Signs Temp 97.1 F L 06/14/17 16:00 Pulse 62 06/14/17 16:00 Resp 18 06/14/17 16:00 BP 140/57 06/14/17 16:00 Pulse Ox 94 L 06/14/17 16:00 Intake & Output 06/14/17 06/14/17 06/15/17 06:59 18:59 06:59 Intake Total 440.92 1160 Output Total 2400 1500 Balance -1959.08 -340 Intake: IV 250 400 Sodium Chloride 0.9% 1, 250 400 000 ml @ 50 mls/hr IV . Q20H [facility] Rx#:[id number] Intake, IV Titration 190.92 Amount Heparin Sodium,Porcine/ 190.92 D5w Pmx 25,000 unit In Dextrose/Water 1 500ml. bag @ 12 UNITS/KG/HR 17. 71 mls/hr IV .Q24H [facility] Rx #:[id number] Oral 0 760 Output: Urine 2400 1500 Uretheral (Simmons) 1000 600 Other: Voiding Method Indwelling Catheter Indwelling Catheter # Voids 0 1 - Exam Awake, alert, oriented x3. Appears to be in no apparent distress. HEAD: Normocephalic. Neck is supple, no JVD. CVS EXAM: No murmur, no gallops. LUNGS: Bilateral air entry is present. No wheezing, no crackles, nonlabored breathing. Abdomen is soft, nontender. Bowel sounds are present. UNDERWRITER EXAM: No focal deficits. EXTREMITIES: No edema. Pulse are palpable bilaterally, no clubbing or cyanosis. PSYCHIATRIC: Cooperative. - Labs CBC & Chem 7: 06/14/17 06:03 06/13/17 05:35 Labs: Abnormal Lab Results - Last 24 Hours (Table) 06/14/17 06/14/17 06/14/17 Range/Units 06:03 11:07 20:47 RBC 3.22 L (3.80-5.40) m/uL Hgb 9.7 L (11.4-16.0) gm/dL Hct 29.5 L (34.0-46.0) % POC Glucose (mg/dL) 130 H 129 H (75-99) mg/dL Assessment and Plan Plan: 1. Acute right pulmonary artery embolism. 2. Elevated troponin level. unlikley acute coronary artery syndrome at this time. 3. Syncope secondary to PE 4. Hematuria 4. Diabetes type 2, currently on insulin, NPH. 5. Hypertension. 6. History of cerebrovascular accident with dysarthria. 7. Suspicious for bladder lesion recently. 8, History of coronary artery bypass graft. 9. UTI possible catheter related. Urine cx growing tiera. DISCUSSION AND PLAN: Patient's IV heparin has been discontinued and she has been started on Xarelto . Patient was seen by urology and recommended to c/w Floeys catheter. S/P cystoscopy- No active hematuria/ clots noticed. Monitor H &H .Will continue with current management . Follow up closely.
[2017-06-15 02:51] LABS: Glucose,Whole Blood 63 mg/dL (75-99)
[2017-06-15 03:15] LABS: Glucose,Whole Blood 77 mg/dL (75-99)
[2017-06-15 05:54] LABS: Glucose,Whole Blood 91 mg/dL (75-99)
[2017-06-15 06:07] LABS: HGB 8.9 gm/dL (11.4-16.0); MCV 93.3 fL (80.0-100.0); RBC 3.01 m/uL (3.80-5.40); WBC 7.5 k/uL (3.8-10.6); WBC (Perox) 7.44
[2017-06-15 06:08] LABS: Basophils % (A) 1 %; CH 30.4; CHCM 32.9; Eosinophils # (A) 0.2 k/uL (0-0.7); Eosinophils % (A) 3 %; HDW 3.25; Luc # (Auto) 0.21; Luc % (Auto) 3; Lymphocytes # (A) 2.1 k/uL (1.0-4.8); Lymphocytes % (A) 28 %; MCH 29.5 pg (25.0-35.0); MCHC 31.7 g/dL (31.0-37.0); Mean Platelet Volume 7.3; Monocytes # (A) 0.4 k/uL (0-1.0); Monocytes % (A) 5 %; Neutrophils # (A) 4.5 k/uL (1.3-7.7); Neutrophils % (A) 60 %; RDW 15.4 % (11.5-15.5)
[2017-06-15] MEDS: INSULIN LISPRO (humaLOG) 300 UNIT/3 ML VIAL SQ SCH ×5 (06:37→21:49)
[2017-06-15] MEDS: ISOSORBIDE MONONITRATE ER 60 MG TAB.ER.24H PO SCH (09:19)
[2017-06-15] MEDS: ASPIRIN 81 MG CHEW PO SCH (09:19)
[2017-06-15] MEDS: LISINOPRIL 20 MG TAB PO SCH (09:19)
[2017-06-15] MEDS: INSULIN NPH/REG INSULIN 70/30 300 UNIT/3 ML VIAL SQ SCH ×2 (09:20→21:46)
[2017-06-15] MEDS: METOPROLOL TARTRATE 50 MG TAB PO SCH ×2 (09:20→21:45)
--- NOTE | 2017-06-15 10:51 | P.PN ---
Progress Note - Text The patient was unable to void other than small amounts when her catheter was removed following cystoscopy on 06/13. 1000 ml was drained when a catheter was replaced. She will need to be discharged with an IDC and have another voiding trial in 3-4 weeks. She is not a candidate for intermittent cath. She should not be treated for asymptomatic UTI's if she has a catheter in place.
[2017-06-15 11:55] LABS: Glucose,Whole Blood 186 mg/dL (75-99)
--- NOTE | 2017-06-15 14:55 | PN ---
Mrs. Gallagher is a lady who had some chest pain today. Her EKG does not reveal any new significant changes. She has history of pulmonary embolism. We have placed her on Xarelto at 15 mg. She does not have any new fresh bleeding from her bladder where she had a cystoscopy performed. I am recommending that we will obtain additional troponins in view of her chest pain, although pain seems atypical. EKG does not reveal any significant abnormalities. Hemoglobin is hovering around 9.2 or so and the last one was 8.9. We will continue to follow her. No intervention at this time. Will probably continue her Xarelto at 15 mg daily for now and see how she does tomorrow. Possible discharge soon. Vital signs are stable. There is JVD of 1 cm. No carotid bruit. S1, S2 heard normally. Heart sounds are normal, short systolic murmur is audible. Lungs reveal improved air entry. Abdomen and lower extremity exam is unchanged. MTDD
[2017-06-15] MEDS: SODIUM CHLORIDE 0.9% 1,000 ML IV SCH (15:44)
[2017-06-15] MEDS ORDERED: ACETAMINOPHEN TAB 500 MG TAB PO PRN (16:30)
[2017-06-15 17:08] LABS: Glucose,Whole Blood 150 mg/dL (75-99)
[2017-06-15] MEDS: RIVAROXABAN 15 MG TAB PO SCH (18:15)
[2017-06-15 20:43] LABS: Glucose,Whole Blood 243 mg/dL (75-99)
[2017-06-15] MEDS: ATORVASTATIN 20 MG TAB PO SCH (21:45)
--- NOTE | 2017-06-15 22:58 | P.PN ---
Subjective Principal diagnosis: Acute right pulmonary artery embolism Ms. Gallagher is a 66-year-old female, known history of diabetes mellitus, history of CVA with slight dysarthria and hyperlipidemia, was admitted to the hospital with syncopal episode. Patient was found to have elevated troponin level as well as elevated d-dimer level. Patient underwent CT angiogram which showed pulmonary artery embolism. showed markedly limited exam due to motion artifact demonstrates findings suspicious for secondary branch pulmonary artery embolus and Cardiology is following this patient. He was started on heparin IV On 06/11/2017 The complains of chest pain. Chest pressure is much improved. Patient is being continued on heparin IV. Due to history of recent hematuria and was planning for outpatient cystoscopy, which was seen by Dr. Shankar and recommended to continue heparin iv until final recommendation by urology. Otherwise patient denied any acute overnight issues. On 06/12/2017 Patient denied any comes of chest pain uptight today. No fever no chills. Patient is being continued on heparin IV and awaiting final urology recommendations. No acute overnight issues On 06/13/2017 Last night patient had hematuria. Patient was evaluated by urology today. She had a cystoscopy done today-no active bleeding noticed. Hemoglobin is stable. 06/14/2017 Patient has been discontinued off IV heparin and has been started on Xarelto today. Patient denies having any active complaints. Over night no active issues as per nursing staff report. On 06/15/2017 Patient failed to empty her bladder after Simmons catheter has been discontinued. She was found to have a residual volume of 1000 milliliters. So Foleys catheter has been placed again. No hematuria. She c/o chest pain, so getting serial troponins. REVIEW OF SYSTEMS: Noshort of breath. No nausea, vomiting, or abdominal pain. Denied any hematuria or dysuria. All other review of systems negative except as above. Objective - Vital Signs Vital signs: Vital Signs Temp 98.6 F 06/15/17 16:00 Pulse 65 06/15/17 16:00 Resp 18 06/15/17 16:00 BP 135/65 06/15/17 16:00 Pulse Ox 95 06/15/17 16:00 Intake & Output 06/15/17 06/15/17 06/16/17 06:59 18:59 06:59 Intake Total 240 1230 Output Total 1200 1000 400 Balance -960 230 -400 Weight 77.5 kg Intake: IV 600 Sodium Chloride 0.9% 1, 600 000 ml @ 50 mls/hr IV . Q20H [facility] Rx#:[id number] Oral 240 630 Output: Urine 1200 1000 400 Uretheral (Simmons) 1200 200 Other: Voiding Method Indwelling Catheter Indwelling Catheter # Voids 1 - Labs CBC & Chem 7: 06/15/17 05:26 06/13/17 05:35 Labs: Abnormal Lab Results - Last 24 Hours (Table) 06/15/17 06/15/17 06/15/17 Range/Units 02:39 05:26 11:50 RBC 3.01 L (3.80-5.40) m/uL Hgb 8.9 L (11.4-16.0) gm/dL Hct 28.0 L (34.0-46.0) % POC Glucose (mg/dL) 63 L 186 H (75-99) mg/dL Troponin I (0.000-0.034) ng/mL 06/15/17 06/15/17 06/15/17 Range/Units 17:02 17:03 20:41 RBC (3.80-5.40) m/uL Hgb (11.4-16.0) gm/dL Hct (34.0-46.0) % POC Glucose (mg/dL) 150 H 243 H (75-99) mg/dL Troponin I 0.062 H* (0.000-0.034) ng/mL Assessment and Plan Plan: 1. Acute right pulmonary artery embolism. 2. Elevated troponin level- unlikley acute coronary artery syndrome at this time. 3. Syncope secondary to PE 4. Hematuria 4. Diabetes type 2, currently on insulin, NPH. 5. Hypertension. 6. History of cerebrovascular accident with dysarthria. 7. Suspicious for bladder lesion recently. 8, History of coronary artery bypass graft. 9. UTI possible catheter related. Urine cx growing tiera. DISCUSSION AND PLAN: Patient's IV heparin has been discontinued and she has been started on Xarelto . Patient was seen by urology and recommended to c/w Floeys catheter. S/P cystoscopy- No active hematuria/ clots noticed. Patient had 1000 ml of post residual urine after discontinuing the Simmons's catheter so another catheter has been placed . Serial troponins for her chest pain . Cardiology on that and following the patient . Monitor H&H .Will continue with current management . Follow up closely.
[2017-06-16 02:04] LABS: Glucose,Whole Blood 150 mg/dL (75-99)
[2017-06-16] MEDS: SODIUM CHLORIDE 0.9% 1,000 ML IV SCH (05:05)
[2017-06-16 06:11] LABS: Glucose,Whole Blood 52 mg/dL (75-99)
[2017-06-16 06:22] LABS: Glucose,Whole Blood 67 mg/dL (75-99)
[2017-06-16] MEDS: INSULIN LISPRO (humaLOG) 300 UNIT/3 ML VIAL SQ SCH ×2 (06:29→12:26)
[2017-06-16 06:39] LABS: Glucose,Whole Blood 73 mg/dL (75-99)
[2017-06-16 06:55] LABS: Basophils % (A) 0 %; CHCM 33.3; Eosinophils # (A) 0.3 k/uL (0-0.7); Eosinophils % (A) 4 %; HCT 28.9 % (34.0-46.0); HDW 3.33; HGB 9.5 gm/dL (11.4-16.0); Luc # (Auto) 0.34; Luc % (Auto) 4; Lymphocytes # (A) 2.8 k/uL (1.0-4.8); Lymphocytes % (A) 32 %; Mean Platelet Volume 7.6; Monocytes # (A) 0.6 k/uL (0-1.0); Monocytes % (A) 7 %; Neutrophils # (A) 4.5 k/uL (1.3-7.7); Neutrophils % (A) 53 %; RBC 3.18 m/uL (3.80-5.40); RDW 15.4 % (11.5-15.5); WBC 8.6 k/uL (3.8-10.6); WBC (Perox) 8.62
[2017-06-16 07:04] LABS: Glucose,Whole Blood 119 mg/dL (75-99)
[2017-06-16 08:54] VITALS: TEMP 98.3
[2017-06-16] MEDS: ISOSORBIDE MONONITRATE ER 60 MG TAB.ER.24H PO SCH (09:03)
[2017-06-16] MEDS: LISINOPRIL 20 MG TAB PO SCH (09:03)
[2017-06-16] MEDS: INSULIN NPH/REG INSULIN 70/30 300 UNIT/3 ML VIAL SQ SCH (09:03)
[2017-06-16] MEDS: ASPIRIN 81 MG CHEW PO SCH (09:03)
[2017-06-16] MEDS: METOPROLOL TARTRATE 50 MG TAB PO SCH (09:03)
[2017-06-16 12:07] LABS: Glucose,Whole Blood 157 mg/dL (75-99)
[2017-06-16 13:58] VITALS: BMI 24.7
--- NOTE | 2017-06-16 14:45 | P.PN ---
Subjective Principal diagnosis: PE Physical pleasant 66 showed female patient who presented with complaints of chest discomfort, was found to have a pulmonary embolism and has been on IV heparin. 2-D echo with Doppler showed a normal LV systolic function. Patient has been having some hematuria. During a previous admission patient was found to have a possible bladder mass and is requiring further workup. Dr. Dima barnes performed a cystoscopy yesterday afternoon that did not show an intense of a mass. Patient continues to have indwelling catheter secondary to inability to empty her bladder. She will go home with this and follow with urology as an outpatient. Her hematuria has seemed to have resolved. She is currently on Xarelto and her hemoglobin is stable. Objective - Vital Signs Vital signs: Vital Signs Temp 98.3 F 06/16/17 08:00 Pulse 76 06/16/17 08:00 Resp 14 06/16/17 08:00 BP 161/73 06/16/17 08:00 Pulse Ox 97 06/16/17 08:00 Intake & Output 06/15/17 06/16/17 06/16/17 18:59 06:59 18:59 Intake Total 1230 600 200 Output Total 1000 1050 900 Balance 230 -450 -700 Weight 69.5 kg 69.5 kg Intake: IV 600 600 Sodium Chloride 0.9% 1, 600 600 000 ml @ 50 mls/hr IV . Q20H [facility] Rx#:[id number] Oral 630 200 Output: Urine 1000 1050 900 Uretheral (Simmons) 200 Other: Voiding Method Indwelling Catheter Indwelling Catheter Indwelling Catheter # Voids 1 - Exam PHYSICAL EXAMINATION: HEENT: Head is atraumatic, normocephalic. Pupils equal, round. Neck is supple. There is no elevated jugular venous pressure. HEART EXAMINATION: Heart sounds regular, S1 and S2 normal with a systolic murmur. CHEST EXAMINATION: Lungs are clear to auscultation and precussion. No chest wall tenderness is noted on palpation or with deep breathing. ABDOMEN: Soft, nontender. Bowel sounds are heard. No organomegaly noted. Indwelling catheter in place EXTREMITIES: 2+ peripheral pulses with no evidence of peripheral edema and no calf tenderness noted. NEUROLOGIC patient is awake, alert and oriented to person and place, quite forgetful with some confusion noted. . - Labs CBC & Chem 7: 06/16/17 05:56 06/13/17 05:35 Labs: Abnormal Lab Results - Last 24 Hours (Table) 06/15/17 06/15/17 06/15/17 Range/Units 17:02 17:03 20:41 RBC (3.80-5.40) m/uL Hgb (11.4-16.0) gm/dL Hct (34.0-46.0) % POC Glucose (mg/dL) 150 H 243 H (75-99) mg/dL Troponin I 0.062 H* (0.000-0.034) ng/mL 06/16/17 06/16/17 06/16/17 Range/Units 02:02 05:56 06:03 RBC 3.18 L (3.80-5.40) m/uL Hgb 9.5 L (11.4-16.0) gm/dL Hct 28.9 L (34.0-46.0) % POC Glucose (mg/dL) 150 H 52 L (75-99) mg/dL Troponin I (0.000-0.034) ng/mL 06/16/17 06/16/17 06/16/17 Range/Units 06:19 06:37 07:00 RBC (3.80-5.40) m/uL Hgb (11.4-16.0) gm/dL Hct (34.0-46.0) % POC Glucose (mg/dL) 67 L 73 L 119 H (75-99) mg/dL Troponin I (0.000-0.034) ng/mL 06/16/17 Range/Units 11:47 RBC (3.80-5.40) m/uL Hgb (11.4-16.0) gm/dL Hct (34.0-46.0) % POC Glucose (mg/dL) 157 H (75-99) mg/dL Troponin I (0.000-0.034) ng/mL Assessment and Plan Plan: Assessment and plan #1 pulmonary embolism #2 hematuria #3 history of prior CABG From cardiology's perspective, the patient is stable for discharge home today. She will be on Xarelto 15mg BID for 2 weeks then 20mg daily therafter. Follow- up with Dr. FERMIN Singer in 7-10 days in the office. CORRUGATOR SUPERVISOR note has been reviewed, I agree with a documented findings and plan of care. Patient was seen and examined.
[2017-06-16 15:45] VITALS: BP 138/63; PULSE 68; RESP 18
== END 2017-06-16 17:04 | disposition home health service (06) | DRG 176 ==
LOC: EC 12:44 → 6SEL 17:04
PROVIDERS: ADMIT Internal Medicine; ATTEND Internal Medicine
PROC: 0TJB8ZZ Inspection of Bladder, Via Natural or Artificial Opening Endoscopic (ICD-10-PCS; principal; 2017-06-13)
PROC: 0T9B70Z Drainage of Bladder with Drainage Device, Via Natural or Artificial Opening (ICD-10-PCS; 2017-06-15)
DX: I26.99 Other pulmonary embolism without acute cor pulmonale (principal); E86.0 Dehydration; I69.322 Dysarthria following cerebral infarction; T83.511A Infection and inflammatory reaction due to indwelling urethral catheter, initial encounter; I10 Essential (primary) hypertension; B37.49 Other urogenital candidiasis; E11.9 Type 2 diabetes mellitus without complications; R00.1 Bradycardia, unspecified; R55 Syncope and collapse; R07.9 Chest pain, unspecified; I44.0 Atrioventricular block, first degree; R31.0 Gross hematuria; R53.83 Other fatigue; R63.4 Abnormal weight loss; R41.0 Disorientation, unspecified; N32.9 Bladder disorder, unspecified; I25.10 Atherosclerotic heart disease of native coronary artery without angina pectoris; E78.5 Hyperlipidemia, unspecified; R01.1 Cardiac murmur, unspecified; R74.8 Abnormal levels of other serum enzymes; Z91.040 Latex allergy status; Z95.1 Presence of aortocoronary bypass graft; Z87.891 Personal history of nicotine dependence; Z79.899 Other long term (current) drug therapy; Z79.82 Long term (current) use of aspirin; Z87.442 Personal history of urinary calculi; Z83.3 Family history of diabetes mellitus; Z79.4 Long term (current) use of insulin; Z71.3 Dietary counseling and surveillance; Z90.49 Acquired absence of other specified parts of digestive tract; Z87.440 Personal history of urinary (tract) infections; Z96.0 Presence of urogenital implants
CPT/HCPCS: 36415; 70450; 71275; 80048; 80053; 80061; 81001; 82550; 82553; 83036; 83605; 83735; 84484; 85025; 85379; 85610; 85730; 87086; 93005; 93306; 93970; 94760

== ENCOUNTER → 2017-08-08 | Outpatient (CLI) | payer MEDICARE ==
--- NOTE | 2017-08-08 09:53 | US ---
EXAMINATION TYPE: US thyroid st tissue head/neck DATE OF EXAM: 08/08/2017 COMPARISON: CT CLINICAL HISTORY: E04.1 thyroid nodule. Thyroid nodule seen in recent CT GLAND SIZE: Right Lobe: 4.1 x 1.2 x 1.2 cm Overall Parenchyma: heterogenous Left Lobe: 4.5 x 1.4 x 1.8 cm Overall Parenchyma: heterogeneous Isthmus Thickness: 0.4 cm NODULES RIGHT: # of nodules measured on right: 1 1. 0.4 X 0.2 x 0.4 cm hypoechoic mixed nodule at the upper pole with well-defined margins. This nod ule is wider than tall and shows no intranodular vascularity. Prior size: no previous LEFT: # of nodules measured on left: 3 1. 1.0 X 0.9 x 1.0 cm isoechoic mixed nodule at the lower pole with poorly defined margins. This no dule is wider than tall and shows intranodular vascularity. Prior size: no previous 2. 0.4 X 0.5 x 0.5 cm hypoechoic cystic nodule at the mid pole with well-defined margins. This nodul e is wider than tall and shows no intranodular vascularity. Prior size: no previous 3. 1.9 X 1.0 x 1.6 cm isoechoic mixed nodule at the upper pole with poorly defined margins. This nod ule is wider than tall and shows intranodular vascularity. Prior size: no previous ISTHMUS: # of nodules measured in the isthmus: 0 Bilateral neck scanned, no evidence of lymphadenopathy. IMPRESSION: Multiple thyroid nodules, the largest of which measures 1.9 cm and the left thyroid lobe abutting the isthmus. Although this is a low suspicion nodule, fine-needle aspiration is recommended given the si ze. Surveillance is recommended for the remaining thyroid nodules.
--- NOTE | 2017-08-09 11:03 | NM ---
EXAMINATION TYPE: NM thyroid image w uptake DATE OF EXAM: 08/09/2017 COMPARISON: Thyroid ultrasound August 08, 2017. CTA chest June 10, 2017. HISTORY: Thyroid nodule per order. TECHNIQUE: After the intravenous administration of 10.8 mCi Tc 99m Sodium Pertechnetate, thyroid imag ing is performed 10 minutes post injection. Thyroid iodine uptake is calculated after the oral admini stration of20.1 NM uCi I-131 capsule. FINDINGS: Scan images show fairly symmetric uptake throughout the thyroid gland. The 4 hour iodine u ptake is calculated at 3%, diminished from the normal range (normal range 8-14%). The 24-hour iodine uptake is however calculated at 16%, lower limits of normal (normal range 15-35%). IMPRESSION: Normal thyroid scan and 24 hour uptake.
== END | disposition home or self-care (01) ==
LOC: RADUSMAIN 08:42
PROVIDERS: ATTEND Family Medicine
DX: E04.2 Nontoxic multinodular goiter (principal); E04.1 Nontoxic single thyroid nodule
CPT/HCPCS: 76536; 78014; A9528; A9512

== ENCOUNTER 2017-08-31 20:07 | Inpatient (IN) | payer MEDICARE ==
[2017-08-31] MEDS ORDERED: ONDANSETRON 4 MG/2 ML VIAL IVP STA (20:37)
[2017-08-31] MEDS ORDERED: SODIUM CHLORIDE 0.9% 1,000 ML IV STA (20:37)
[2017-08-31 20:57] LABS: Basophils # (A) 0.1 k/uL (0-0.2); Basophils % (A) 1 %; CH 29.3; CHCM 32.4; Eosinophils # (A) 0.3 k/uL (0-0.7); Eosinophils % (A) 3 %; HCT 38.2 % (34.0-46.0); HGB 12.5 gm/dL (11.4-16.0); Luc # (Auto) 0.25; Luc % (Auto) 2; Lymphocytes # (A) 2.3 k/uL (1.0-4.8); Lymphocytes % (A) 19 %; MCH 29.8 pg (25.0-35.0); MCHC 32.8 g/dL (31.0-37.0); MCV 90.8 fL (80.0-100.0); Monocytes # (A) 0.8 k/uL (0-1.0); Monocytes % (A) 7 %; Neutrophils # (A) 8.3 k/uL (1.3-7.7); Neutrophils % (A) 69 %; RBC 4.21 m/uL (3.80-5.40); RDW 13.3 % (11.5-15.5); WBC 12.1 k/uL (3.8-10.6); WBC (Perox) 12.13
[2017-08-31 21:05] LABS: Calcium 9.9 mg/dL (8.4-10.2); Magnesium 1.9 mg/dL (1.6-2.3); Potassium 4.6 mmol/L (3.5-5.1); Total Bilirubin 0.4 mg/dL (0.2-1.3)
[2017-08-31 21:10] LABS: Prothrombin Time 9.9 sec (9.0-12.0)
--- NOTE | 2017-08-31 21:10 | ED ---
General Adult HPI - General Chief complaint: Chest Pain Stated complaint: Chest Pain/Heart Patient Time Seen by Provider: 08/31/17 20:30 Source: patient, family, RN notes reviewed Mode of arrival: ambulatory Limitations: no limitations - History of Present Illness Initial comments: 66-year-old female presents for evaluation of nausea, chest pain, and hallucinations. Patient has past medical history of CAD, and CVA with residual right-sided deficits. Patient has had a coronary artery bypass graft in the past. Patient reports her chest pain was sharp and prickly in nature. It was nonradiating. Patient does report 3 episodes of nausea and vomiting today. She also complains of a two-week history of visual and tactile hallucinations. Patient has been hallucinating that mice were crawling on her. According to the patient's she has had nausea for some time. She does vomit on occasion. He also reports decreased by mouth intake over the past several days. No fever. No abdominal pain. No new focal weakness. - Related Data Home Medications Medication Instructions Recorded Confirmed Atorvastatin Calcium [Lipitor] 80 mg PO HS 05/31/17 08/31/17 Isosorbide Mononitrate ER [Imdur] 60 mg PO QAM 05/31/17 08/31/17 Metoprolol Tartrate [Lopressor] 50 mg PO BID 05/31/17 08/31/17 Aspirin [Adult Low Dose Aspirin EC] 81 mg PO DAILY 08/31/17 08/31/17 Lisinopril [Zestril] 10 mg PO DAILY 08/31/17 08/31/17 Rivaroxaban [Xarelto] 20 mg PO DIRECTED 08/31/17 08/31/17 traMADol HCL [Ultram] 50 mg PO DAILY PRN 08/31/17 08/31/17 Previous Rx's Medication Instructions Recorded Insulin NPH/Reg Insulin 70/30 50 unit SQ BID vial 06/02/17 [humuLIN 70/30 VIAL] Allergies Allergy/AdvReac Type Severity Reaction Status Date / Time latex Allergy Rash/Hives Verified 08/31/17 22:05 Review of Systems ROS Statement: Those systems with pertinent positive or pertinent negative responses have been documented in the HPI. ROS Other: All systems not noted in ROS Statement are negative. Past Medical History Past Medical History: CVA/TIA, Diabetes Mellitus, Hyperlipidemia Additional Past Medical History / Comment(s): patient has had 2 strokes, last in April 2016. kidney stones History of Any Multi-Drug Resistant Organisms: None Reported Past Surgical History: Cholecystectomy, Coronary Bypass/CABG Additional Past Surgical History / Comment(s): CABG in 2001 Past Anesthesia/Blood Transfusion Reactions: No Reported Reaction Past Psychological History: No Psychological Hx Reported Smoking Status: Former smoker Past Alcohol Use History: None Reported Past Drug Use History: None Reported - Past Family History Brother(s) Family Medical History: Diabetes Mellitus Additional Family Medical History / Comment(s): Brother just recently . Unknown history. General Exam Limitations: no limitations General appearance: alert, in no apparent distress Head exam: Present: atraumatic, normocephalic Eye exam: Present: normal appearance, PERRL ENT exam: Present: normal exam, mucous membranes dry Neck exam: Present: normal inspection. Absent: tenderness, meningismus Respiratory exam: Present: normal lung sounds bilaterally. Absent: respiratory distress, wheezes Cardiovascular Exam: Present: regular rate, normal rhythm GI/Abdominal exam: Present: soft. Absent: distended, tenderness Extremities exam: Present: normal inspection, normal capillary refill. Absent: pedal edema Neurological exam: Present: alert, oriented X3, motor sensory deficit (Mild weakness right upper and right lower extremity) Psychiatric exam: Present: normal affect, normal mood Skin exam: Present: warm, dry. Absent: cyanosis, diaphoretic Course Vital Signs 08/31/17 08/31/17 20:10 21:44 Temperature 98.2 F Pulse Rate 62 57 L Respiratory 18 181 H Rate Blood Pressure 120/56 133/62 O2 Sat by Pulse 99 97 Oximetry EKG Findings - EKG Comments: EKG Findings:: EKG shows normal sinus rhythm, rate of 67,. 184, QRS duration 84 , QTC 426, there is no ST segment elevation or depression. Medical Decision Making - Medical Decision Making 66 yo female presenting with multiple complaints. Patient's main complaint is hallucination and nausea and vomiting. Patient does also have some lower abdominal pain. She did complain of chest pain which was sharp and prickly nature. Not concerning for ACS. Laboratory studies reveal elevated white blood cell count 12.1, creatinine of 1.29 with a baseline of 0.8. Lactic acid is elevated at 2.1. Urinalysis is concerning for infection with greater than 182 WBCs and moderate bacteria. Head CT is obtained for chief complaint of hallucinations, there is no acute findings. Abdominal x-ray shows no obstruction or free air. Chest x-ray is negative for focal infiltrate. Urine culture is obtained. Patient is started on IV hydration for lactic acidosis and acute kidney injury. She will be given Rocephin for treatment of UTI with sepsis. - Lab Data Result diagrams: 08/31/17 20:30 08/31/17 20:30 Lab Results 08/31/17 08/31/17 08/31/17 Range/Units 20:30 20:30 20:30 WBC 12.1 H (3.8-10.6) k/uL RBC 4.21 (3.80-5.40) m/uL Hgb 12.5 (11.4-16.0) gm/dL Hct 38.2 (34.0-46.0) % MCV 90.8 (80.0-100.0) fL MCH 29.8 (25.0-35.0) pg MCHC 32.8 (31.0-37.0) g/dL RDW 13.3 (11.5-15.5) % Plt Count 326 (150-450) k/uL Neutrophils % 69 % Lymphocytes % 19 % Monocytes % 7 % Eosinophils % 3 % Basophils % 1 % Neutrophils # 8.3 H (1.3-7.7) k/uL Lymphocytes # 2.3 (1.0-4.8) k/uL Monocytes # 0.8 (0-1.0) k/uL Eosinophils # 0.3 (0-0.7) k/uL Basophils # 0.1 (0-0.2) k/uL PT (9.0-12.0) sec INR (<1.2) APTT (22.0-30.0) sec Sodium 139 (137-145) mmol/L Potassium 4.6 (3.5-5.1) mmol/L Chloride 102 (98-107) mmol/L Carbon Dioxide 27 (22-30) mmol/L Anion Gap 10 mmol/L BUN 28 H (7-17) mg/dL Creatinine 1.29 H (0.52-1.04) mg/dL Est GFR (MDRD) Af Amer 50 (>60 ml/min/1.73 sqM) Est GFR (MDRD) Non-Af 41 (>60 ml/min/1.73 sqM) Glucose 86 (74-99) mg/dL Plasma Lactic Acid [place] (0.7-2.0) mmol/L Calcium 9.9 (8.4-10.2) mg/dL Magnesium 1.9 (1.6-2.3) mg/dL Total Bilirubin 0.4 (0.2-1.3) mg/dL AST 22 (14-36) U/L ALT 24 (9-52) U/L Alkaline Phosphatase 74 (38-126) U/L Total Creatine Kinase 61 (30-135) U/L CK-MB (CK-2) 1.1 (0.0-2.4) ng/mL CK-MB (CK-2) Rel Index 1.8 Troponin I <0.012 (0.000-0.034) ng/mL NT-Pro-B Natriuret Pep pg/mL Total Protein 7.0 (6.3-8.2) g/dL Albumin 3.5 (3.5-5.0) g/dL Lipase 50 (23-300) U/L Urine Color Urine Appearance (Clear) Urine pH (5.0-8.0) Ur Specific [place] (1.001-1.035) Urine Protein (Negative) Urine Glucose (UA) (Negative) Urine Ketones (Negative) Urine Blood (Negative) Urine Nitrite (Negative) Urine Bilirubin (Negative) Urine Urobilinogen (<2.0) mg/dL Ur Leukocyte Esterase (Negative) Urine RBC (0-5) /hpf Urine WBC (0-5) /hpf Uric Acid Crystals (None) /hpf Urine Bacteria (None) /hpf Urine Mucus (None) /hpf 08/31/17 08/31/17 08/31/17 Range/Units 20:30 20:30 20:30 WBC (3.8-10.6) k/uL RBC (3.80-5.40) m/uL Hgb (11.4-16.0) gm/dL Hct (34.0-46.0) % MCV (80.0-100.0) fL MCH (25.0-35.0) pg MCHC (31.0-37.0) g/dL RDW (11.5-15.5) % Plt Count (150-450) k/uL Neutrophils % % Lymphocytes % % Monocytes % % Eosinophils % % Basophils % % Neutrophils # (1.3-7.7) k/uL Lymphocytes # (1.0-4.8) k/uL Monocytes # (0-1.0) k/uL Eosinophils # (0-0.7) k/uL Basophils # (0-0.2) k/uL PT 9.9 (9.0-12.0) sec INR 1.0 (<1.2) APTT 17.6 L (22.0-30.0) sec Sodium (137-145) mmol/L Potassium (3.5-5.1) mmol/L Chloride (98-107) mmol/L Carbon Dioxide (22-30) mmol/L Anion Gap mmol/L BUN (7-17) mg/dL Creatinine (0.52-1.04) mg/dL Est GFR (MDRD) Af Amer (>60 ml/min/1.73 sqM) Est GFR (MDRD) Non-Af (>60 ml/min/1.73 sqM) Glucose (74-99) mg/dL Plasma Lactic Acid [place] 2.1 H* (0.7-2.0) mmol/L Calcium (8.4-10.2) mg/dL Magnesium (1.6-2.3) mg/dL Total Bilirubin (0.2-1.3) mg/dL AST (14-36) U/L ALT (9-52) U/L Alkaline Phosphatase (38-126) U/L Total Creatine Kinase (30-135) U/L CK-MB (CK-2) (0.0-2.4) ng/mL CK-MB (CK-2) Rel Index Troponin I (0.000-0.034) ng/mL NT-Pro-B Natriuret Pep 720 pg/mL Total Protein (6.3-8.2) g/dL Albumin (3.5-5.0) g/dL Lipase (23-300) U/L Urine Color Urine Appearance (Clear) Urine pH (5.0-8.0) Ur Specific [place] (1.001-1.035) Urine Protein (Negative) Urine Glucose (UA) (Negative) Urine Ketones (Negative) Urine Blood (Negative) Urine Nitrite (Negative) Urine Bilirubin (Negative) Urine Urobilinogen (<2.0) mg/dL Ur Leukocyte Esterase (Negative) Urine RBC (0-5) /hpf Urine WBC (0-5) /hpf Uric Acid Crystals (None) /hpf Urine Bacteria (None) /hpf Urine Mucus (None) /hpf 08/31/17 Range/Units 21:35 WBC (3.8-10.6) k/uL RBC (3.80-5.40) m/uL Hgb (11.4-16.0) gm/dL Hct (34.0-46.0) % MCV (80.0-100.0) fL MCH (25.0-35.0) pg MCHC (31.0-37.0) g/dL RDW (11.5-15.5) % Plt Count (150-450) k/uL Neutrophils % % Lymphocytes % % Monocytes % % Eosinophils % % Basophils % % Neutrophils # (1.3-7.7) k/uL Lymphocytes # (1.0-4.8) k/uL Monocytes # (0-1.0) k/uL Eosinophils # (0-0.7) k/uL Basophils # (0-0.2) k/uL PT (9.0-12.0) sec INR (<1.2) APTT (22.0-30.0) sec Sodium (137-145) mmol/L Potassium (3.5-5.1) mmol/L Chloride (98-107) mmol/L Carbon Dioxide (22-30) mmol/L Anion Gap mmol/L BUN (7-17) mg/dL Creatinine (0.52-1.04) mg/dL Est GFR (MDRD) Af Amer (>60 ml/min/1.73 sqM) Est GFR (MDRD) Non-Af (>60 ml/min/1.73 sqM) Glucose (74-99) mg/dL Plasma Lactic Acid [place] (0.7-2.0) mmol/L Calcium (8.4-10.2) mg/dL Magnesium (1.6-2.3) mg/dL Total Bilirubin (0.2-1.3) mg/dL AST (14-36) U/L ALT (9-52) U/L Alkaline Phosphatase (38-126) U/L Total Creatine Kinase (30-135) U/L CK-MB (CK-2) (0.0-2.4) ng/mL CK-MB (CK-2) Rel Index Troponin I (0.000-0.034) ng/mL NT-Pro-B Natriuret Pep pg/mL Total Protein (6.3-8.2) g/dL Albumin (3.5-5.0) g/dL Lipase (23-300) U/L Urine Color Light Red Urine Appearance Turbid H (Clear) Urine pH 7.5 (5.0-8.0) Ur Specific [place] 1.024 (1.001-1.035) Urine Protein 3+ H (Negative) Urine Glucose (UA) Negative (Negative) Urine Ketones Trace H (Negative) Urine Blood Small H (Negative) Urine Nitrite Negative (Negative) Urine Bilirubin Negative (Negative) Urine Urobilinogen <2.0 (<2.0) mg/dL Ur Leukocyte Esterase Large H (Negative) Urine RBC 13 H (0-5) /hpf Urine WBC >182 H (0-5) /hpf Uric Acid Crystals Moderate H (None) /hpf Urine Bacteria Moderate H (None) /hpf Urine Mucus Occasional H (None) /hpf Disposition Clinical Impression: Sepsis secondary to UTI, Lactic acidosis, Acute kidney injury, Altered mental status Disposition: ADMITTED IP TO THIS HOSP Condition: Stable Referrals: Ivis Pineda MD [Primary Care Provider] - 1-2 days Decision to Admit Reason: Admit from EC Decision Date: 08/31/17 Decision Time: 23:43
--- NOTE | 2017-08-31 21:12 | CT ---
EXAMINATION TYPE: CT brain wo con DATE OF EXAM: 08/31/2017 COMPARISON: 06/09/2017 HISTORY: Hallucinations. CT DLP: 889.[address] of the brain was performed. The ventricles, basal cisterns and sulci overlying the cerebral convexities demonstrate mild enlargem ent. Remote lacunar infarcts noted. There is no evidence for intracranial hemorrhage or sulcal effacement. There is decreased attenuation about the periventricular white matter and deep white matter of both c erebral hemispheres, compatible with chronic small vessel ischemia. Differential diagnosis does inclu de demyelination. No mass effects are seen.No midline shift. Osseous calvarium is intact. If symptoms persist consider MRI. IMPRESSION: 1. Age related atrophic and chronic small vessel ischemic change without acute intracranial process s een at this time.
[2017-08-31 21:13] LABS: Partial Thromboplastin Time 17.6 sec (22.0-30.0)
[2017-08-31 21:14] LABS: Creatine Kinase 61 U/L (30-135)
[2017-08-31 21:27] LABS: Creatine Kinase MB 1.1 ng/mL (0.0-2.4); Troponin I <0.012 ng/mL (0.000-0.034)
--- NOTE | 2017-08-31 21:44 | XR ---
EXAMINATION TYPE: XR chest 2V DATE OF EXAM: 08/31/2017 COMPARISON: NONE HISTORY: Shortness of breath TECHNIQUE: Frontal and lateral views of the chest are obtained. FINDINGS: Scattered senescent parenchymal changes noted. Hyperinflation compatible with COPD. No evidence for infiltrate. No evidence for atelectasis. Heart size is stable. Mediastinal structures are stable and grossly unremarkable. No evidence for hilar prominence. Degenerative changes dorsal spine. IMPRESSION: 1. No evidence for acute pulmonary disease.
--- NOTE | 2017-08-31 21:49 | XR ---
EXAMINATION TYPE: XR abdomen complete w decub DATE OF EXAM: 08/31/2017 HISTORY: Pain. Technique: 4 views of the abdomen are submitted. Comparison: None. Findings: There is no convincing evidence of pneumoperitoneum. The Bowel gas pattern is nonspecific and nonobstructive. No sizable air-fluid levels are seen. No mass effects are noted. No renal calcifications are identified. IMPRESSION: 1. Nonspecific nonobstructive bowel gas pattern
[2017-08-31 23:04] LABS: Appearance,Urine Turbid (Clear); Bacteria,Urine Moderate /hpf; Bilirubin,Urine Negative (Negative); Glucose,Urine (UA) Negative (Negative); Ketones,Urine Trace (Negative); Leukocyte Esterase,Urine Large (Negative); Mucus,Urine Occasional /hpf; Nitrite,Urine Negative (Negative); PH, Urine 7.5 (5.0-8.0); Particle Count 186105; Protein,Urine 3+ (Negative); RBC,Urine 13 /hpf (0-5); Specific Gravity,Urine 1.024 (1.001-1.035); UA Billing (MACRO vs. MICRO) MICRO; Uric Acid Crystals,Urine Moderate /hpf; Urobilinogen,Urine <2.0 mg/dL (<2.0); WBC,Urine >182 /hpf (0-5)
[2017-08-31] MEDS ORDERED: ACETAMINOPHEN TAB 500 MG TAB PO STA (23:09)
[2017-08-31] MEDS ORDERED: ONDANSETRON 4 MG/2 ML VIAL IVP PRN (23:44)
[2017-08-31] MEDS ORDERED: NALOXONE 0.4 MG/ML 1 ML VIAL IV PRN (23:44)
[2017-08-31] MEDS ORDERED: ACETAMINOPHEN TAB 325 MG TAB PO PRN (23:44)
[2017-08-31] MEDS ORDERED: RIVAROXABAN 10 MG TAB PO SCH (23:45)
[2017-09-01 00:54] LABS: Glucose,Whole Blood 55 mg/dL (75-99)
[2017-09-01 01:15] VITALS: BMI 25.4
[2017-09-01 01:28] LABS: Glucose,Whole Blood 96 mg/dL (75-99)
[2017-09-01 07:02] LABS: Glucose,Whole Blood 76 mg/dL (75-99)
[2017-09-01 07:36] LABS: Basophils % (A) 1 %; CH 30.5; CHCM 33.7; Eosinophils # (A) 0.4 k/uL (0-0.7); Eosinophils % (A) 5 %; HCT 36.4 % (34.0-46.0); HGB 11.7 gm/dL (11.4-16.0); Luc # (Auto) 0.25; Luc % (Auto) 3; Lymphocytes # (A) 2.9 k/uL (1.0-4.8); Lymphocytes % (A) 33 %; MCH 29.3 pg (25.0-35.0); MCHC 32.1 g/dL (31.0-37.0); MCV 91.1 fL (80.0-100.0); Mean Platelet Volume 8.4; Monocytes # (A) 0.7 k/uL (0-1.0); Monocytes % (A) 8 %; Neutrophils # (A) 4.4 k/uL (1.3-7.7); Neutrophils % (A) 51 %; RBC 3.99 m/uL (3.80-5.40); RDW 14.2 % (11.5-15.5); WBC 8.6 k/uL (3.8-10.6); WBC (Perox) 8.71
[2017-09-01] MEDS: METOPROLOL TARTRATE 50 MG TAB PO SCH ×2 (07:49→21:23)
[2017-09-01] MEDS: ASPIRIN 81 MG PO SCH (07:49)
[2017-09-01 08:00] LABS: Calcium 9.2 mg/dL (8.4-10.2); Potassium 4.3 mmol/L (3.5-5.1); Total Bilirubin 0.3 mg/dL (0.2-1.3); Total Protein 6.1 g/dL (6.3-8.2)
[2017-09-01 11:48] LABS: Glucose,Whole Blood 201 mg/dL (75-99)
[2017-09-01] MEDS: SODIUM CHLORIDE 0.9% 1,000 ML IV SCH ×2 (12:16→21:22)
[2017-09-01] MEDS: ISOSORBIDE MONONITRATE ER 60 MG TAB.ER.24H PO SCH (12:18)
--- NOTE | 2017-09-01 12:33 | US ---
EXAMINATION TYPE: US carotid duplex BILAT DATE OF EXAM: 09/01/2017 COMPARISON: NONE CLINICAL HISTORY: syncope. EXAM MEASUREMENTS: RIGHT: Peak Systolic Velocity (PSV) cm/sec ----- Right CCA: 48.1 ----- Right ICA: 103.2 ----- Right ECA: 70.9 ICA/CCA ratio: 2.1 RIGHT: End Diastole cm/sec ----- Right CCA: 7.7 ----- Right ICA: 12.8 ----- Right ECA: 9.5 LEFT: Peak Systolic Velocity (PSV) cm/sec ----- Left CCA: 69.8 ----- Left ICA: 109.7 ----- Left ECA: 119.4 ICA/CCA ratio: 1.6 LEFT: End Diastole cm/sec ----- Left CCA: 12.8 ----- Left ICA: 20.8 ----- Left ECA: 7.9 VERTEBRALS (direction of flow): Right Vertebral: Antegrade Left Vertebral: Antegrade Rhythm: Normal Mild/moderate amount of plaque visualized bilaterally. No elevated velocities visualized, however the right ICA/CCA ratio is >2.0 at 2.1 IMPRESSION: 1. Mildly elevated right internal carotid artery to common carotid artery ratio without elevated peak systolic velocity of the right internal carotid artery. Given the flores scale plaquing findings remai n compatible with stenosis of 50-69%, favored to represent approximately 50% stenosis. 2. Moderate grayscale atheromatous plaquing within both carotid bulbs.
[2017-09-01 12:54] LABS: Hemoglobin A1C 7.6 % (4.2-6.1)
[2017-09-01] MEDS: INSULIN LISPRO (humaLOG) 300 UNIT/3 ML VIAL SQ SCH ×3 (12:58→21:23)
--- NOTE | 2017-09-01 13:15 | P.HPIM ---
History of Present Illness H&P Date: 09/01/17 Chief Complaint: Hallucinations This is a 66-year-old patient of Dr. 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 Patient was found to have pulmonary embolism during the admission with a CTA showing a secondary branch pulmonary artery embolism. Patient was discharged on xarelto during that admission. Patient was also seen by urology for hematuria and underwent cystoscopy and has been catheter dependent ever since for urinary retention. Patient continues to be evaluated for thyroid nodules with Dr. Pineda. She was last seen in the office 2 weeks ago when she complained of rectal bleeding as a result of which xarelto was discontinued. Patient was seen in the ED yesterday with complaints of nausea, multiple episodes of vomiting, hallucinations that started 2 weeks ago. Patient endorses both visual and tactile hallucinations the form of mice and snakes. She states in the beginning it was 1 or 2 that she could see but now she endorses tactile hallucinations and it has worsened since yesterday. According to the bedside patient is not sleeping for many days due to the hallucination. He also states that the patient continues to have fainting spells that starts with nausea and vomiting. Patient's extremity get stiff and patient shakes during these episodes. She is covered with sweat and does not remember the incidences. He denies any chest pain, or shortness of breath, productive cough, change in vision, headaches or loss of bowel or in any of her extremities. Patient denies any history of seizures. Family bedside states that patient underwent echo in May with no abnormality. 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 Patient denies any abdominal pain but does complain of catheter discomfort associated with nausea and vomiting. Last episode of syncope was 3 days ago. On my evaluation today, patient states that she hasn't been as hallucinating since last night and she slept well. Patient's vital signs in the ED were normal, EKG suggested sinus rhythm with no dysrhythmia seen. WBC was elevated to 12.1, creatinine 1.29 with a baseline of 0.8 with a lactic acid of 2.1. Urinalysis done in the ED suggested a WBC of [address] head was done for complaints of hallucination but no acute findings were seen. Abdominal x-ray was done which shows nonobstructive nonspecific bowel gas pattern. Chest x-ray was negative for any focal infiltrate. Urine cultures were obtained. Patient was given IV fluids for lactic acidosis and acute kidney injury and was admitted for UTI with sepsis. Review of Systems Constitutional: Reports chills, Reports poor appetite, Reports sweats, Denies fever, Denies lethargy, Denies malaise, Denies night sweats, Denies weakness Eyes: bilateral blurred vision, bilateral diplopia, bilateral dry eye Ears: deny: decreased hearing Ears, nose, mouth and throat: Denies ant. neck pain, Denies dental pain, Denies dysphagia, Denies headache, Denies nose pain, Denies swelling in mouth, Denies swelling in throat, Denies sore throat, Denies vertigo, Denies voice changes Cardiovascular: Reports lightheadedness, Reports syncope, Denies chest pain, Denies dyspnea on exertion, Denies high blood pressure, Denies irregular heart beat, Denies leg edema, Denies orthopnea, Denies palpitations, Denies rapid heart beat, Denies shortness of breath Respiratory: Denies cough, Denies cough with sputum, Denies dyspnea, Denies hemoptysis, Denies home oxygen Gastrointestinal: Reports loss of appetite, Reports nausea, Reports vomiting, Denies abdominal pain, Denies BRBPR, Denies change in bowel habits, Denies hematemesis, Denies hematochezia Genitourinary: Denies hematuria, Denies hot flashes, Denies incomplete emptying , Denies kidney stones, Denies urinary frequency Musculoskeletal: Reports muscle cramps, Reports neck pain, Denies arm numbness/ tingling, Denies limitation of motion, Denies morning stiffness Musculoskeletal: absent: ankle pain, foot pain, hip pain, knee pain Integumentary: Denies lesions, Denies rash, Denies striae, Denies unusual bruising, Denies wounds Neurological: Reports balance difficulties (uses a walker at baseline), Reports change in mentation ( since the stroke), Reports confusion, Reports syncope, Denies aphasia, Denies ataxia, Denies change in speech, Denies convulsions, Denies headaches, Denies motor disturbance, Denies numbness, Denies paresthesias , Denies seizures, Denies tingling, Denies transient paralysis Psychiatric: Reports hallucinations, Reports sleep disturbances, Denies disorientation, Denies hopelessness, Denies hypersomnia, Denies memory loss, Denies paranoia, Denies sadness/tearfulness Endocrine: Denies fatigue, Denies high blood sugars, Denies palpitations, Denies polyuria Past Medical History Past Medical History: Coronary Artery Disease (CAD), CVA/TIA, Diabetes Mellitus , GI Bleed, Hyperlipidemia, Pulmonary Embolus (PE), Syncope, Thyroid Disorder ( thyroid nodules) Additional Past Medical History / Comment(s): patient has had 2 strokes, last in April 2016. kidney stones History of Any Multi-Drug Resistant Organisms: None Reported Past Surgical History: Cholecystectomy, Coronary Bypass/CABG Additional Past Surgical History / Comment(s): CABG in 2001 Past Anesthesia/Blood Transfusion Reactions: No Reported Reaction Past Psychological History: No Psychological Hx Reported Smoking Status: Former smoker (1 pack a day for 15 years, quit 37 years ago) Past Alcohol Use History: None Reported Past Drug Use History: None Reported Additional Drug Use History / Comment(s): Patient lives with her , is wheelchair dependent since the stroke but has had time moving around and has gait instability so has been walks behind to help support the patient. Patient has 2 sons and son has hypertension and diabetes and daughter has hypertension - Past Family History Brother(s) Family Medical History: Congestive Heart Failure (CHF) (Brother April 2017 from CHF, another brother is okay), Diabetes Mellitus Additional Family Medical History / Comment(s): Brother just recently . Unknown history. Mother Family Medical History: Hypertension Father Family Medical History: Myocardial Infarction ([place]) (father at 53 from myocardial infarction) Medications and Allergies Home Medications Medication Instructions Recorded Confirmed Type Atorvastatin Calcium [Lipitor] 80 mg PO HS 05/31/17 08/31/17 History Isosorbide Mononitrate ER [Imdur] 60 mg PO QAM 05/31/17 08/31/17 History Metoprolol Tartrate [Lopressor] 50 mg PO BID 05/31/17 08/31/17 History Insulin NPH/Reg Insulin 70/30 50 unit SQ BID vial 06/02/17 08/31/17 Rx [humuLIN 70/30 VIAL] Aspirin [Adult Low Dose Aspirin EC] 81 mg PO DAILY 08/31/17 08/31/17 History Lisinopril [Zestril] 10 mg PO DAILY 08/31/17 08/31/17 History Rivaroxaban [Xarelto] 20 mg PO DIRECTED 08/31/17 08/31/17 History traMADol HCL [Ultram] 50 mg PO DAILY PRN 08/31/17 08/31/17 History Allergies Allergy/AdvReac Type Severity Reaction Status Date / Time latex Allergy Rash/Hives Verified 08/31/17 22:05 Physical Exam Vitals: Vital Signs Temp Pulse Pulse Resp BP BP BP 09/01/17 07:00 97.9 F 97 18 196/81 09/01/17 01:00 97.1 F L 73 16 154/64 09/01/17 00:26 97.9 F 71 16 151/69 08/31/17 21:44 57 L 181 H 133/62 08/31/17 20:10 98.2 F 62 18 120/56 Pulse Ox 09/01/17 07:00 97 09/01/17 01:00 98 09/01/17 00:26 98 08/31/17 21:44 97 08/31/17 20:10 99 Intake and Output 08/31/17 09/01/17 09/01/17 22:59 06:59 14:59 Intake Total 375 Output Total 505 Balance -130 Intake: Intake, IV Titration 375 Amount Sodium Chloride 0.9% 1, 375 000 ml @ 75 mls/hr IV . [id number] STA Rx#:[id number] Output: Urine 505 Other: Voiding Method Indwelling Catheter Weight 71.668 kg 71.668 kg Results CBC & Chem 7: 09/01/17 06:54 09/01/17 06:54 Labs: Abnormal Lab Results - Last 24 Hours (Table) 08/31/17 08/31/17 08/31/17 Range/Units 20:30 20:30 20:30 WBC 12.1 H (3.8-10.6) k/uL Neutrophils # 8.3 H (1.3-7.7) k/uL APTT (22.0-30.0) sec Chloride (98-107) mmol/L BUN 28 H (7-17) mg/dL Creatinine 1.29 H (0.52-1.04) mg/dL Glucose (74-99) mg/dL POC Glucose (mg/dL) (75-99) mg/dL Plasma Lactic Acid Austen 2.1 H* (0.7-2.0) mmol/L Total Protein (6.3-8.2) g/dL Albumin (3.5-5.0) g/dL Urine Appearance (Clear) Urine Protein (Negative) Urine Ketones (Negative) Urine Blood (Negative) Ur Leukocyte Esterase (Negative) Urine RBC (0-5) /hpf Urine WBC (0-5) /hpf Uric Acid Crystals (None) /hpf Urine Bacteria (None) /hpf Urine Mucus (None) /hpf 08/31/17 08/31/17 09/01/17 Range/Units 20:30 21:35 00:48 WBC (3.8-10.6) k/uL Neutrophils # (1.3-7.7) k/uL APTT 17.6 L (22.0-30.0) sec Chloride (98-107) mmol/L BUN (7-17) mg/dL Creatinine (0.52-1.04) mg/dL Glucose (74-99) mg/dL POC Glucose (mg/dL) 55 L (75-99) mg/dL Plasma Lactic Acid Austen (0.7-2.0) mmol/L Total Protein (6.3-8.2) g/dL Albumin (3.5-5.0) g/dL Urine Appearance Turbid H (Clear) Urine Protein 3+ H (Negative) Urine Ketones Trace H (Negative) Urine Blood Small H (Negative) Ur Leukocyte Esterase Large H (Negative) Urine RBC 13 H (0-5) /hpf Urine WBC >182 H (0-5) /hpf Uric Acid Crystals Moderate H (None) /hpf Urine Bacteria Moderate H (None) /hpf Urine Mucus Occasional H (None) /hpf 09/01/17 Range/Units 06:54 WBC (3.8-10.6) k/uL Neutrophils # (1.3-7.7) k/uL APTT (22.0-30.0) sec Chloride 109 H (98-107) mmol/L BUN 26 H (7-17) mg/dL Creatinine 1.22 H (0.52-1.04) mg/dL Glucose 70 L (74-99) mg/dL POC Glucose (mg/dL) (75-99) mg/dL Plasma Lactic Acid Austen (0.7-2.0) mmol/L Total Protein 6.1 L (6.3-8.2) g/dL Albumin 2.9 L (3.5-5.0) g/dL Urine Appearance (Clear) Urine Protein (Negative) Urine Ketones (Negative) Urine Blood (Negative) Ur Leukocyte Esterase (Negative) Urine RBC (0-5) /hpf Urine WBC (0-5) /hpf Uric Acid Crystals (None) /hpf Urine Bacteria (None) /hpf Urine Mucus (None) /hpf Thrombosis Risk Factor Assmnt - Choose All That Apply Each Factor Represents 1 point: Obesity (BMI >25), Sepsis (< 1month) Each Risk Factor Represents 2 Points: Age 61-74 years Other congenital or acquired thrombophilia - If yes, enter type in comment: No Thrombosis Risk Factor Assessment Total Risk Factor Score: 4 Thrombosis Risk Factor Assessment Level: Moderate Risk Assessment and Plan Plan: 1 Hallucination - unclear etiology. Patient has not started any new medication. Concern for seizures, sleep deprivation, psychological, related to sepsis, delirium - Patient denies any symptoms related to urinary tract infection but does has a chronic catheterization for urinary retention and gets tract infection on and off. She does feel some discomfort associated with catheter over denies any dysuria. - EEG ordered to rule out seizure activity and continue seizure precautions - Neurology consulted to rule out seizures, and help define the etiology for hallucination #2 syncope-associated with nausea and vomiting- multiple episodes in year - Differential include cardiogenic, vasovagal or neurogenic - Carotid Dopplers ordered - EKGs unremarkable with no PVCs or PACs - Cardiology consulted, possible evaluation with tilt table test - Concern for complicated migraine, seizure, arrythmia and neurally mediated reflex syncope as accompanied by nausea and vomiting - Echo from may was normal with no wall or valvular abn - AV block or arrythmia cannot be ruled out, cardiology consulted #3 catheter associated urinary tract infection - COntinue rocephin - Urine culture peniding - Blood culture ordered #4 history of stroke in the restaurant atorvastatin #5 diabetes mellitis Patient on NPH 50 units twice daily at home Since patient's glucose on the lower side will continue NPH 25 units twice a day with sliding scale #6 . HyperLipidemia - Continue atorvastatin 80 mg daily #7 coronary artery disease status post CABG in 1999 - Continue aspirin, atorvastatin, metoprolol, Imdur -Echo May 2017 and borderline pulmonary artery hypertension with EF 60-65% #8 pulmonary embolism -Xarelto was discontinued 2 weeks ago for concern of GI bleeding - Patient currently on room air continue to monitor saturations #9 thyroid nodule - Continue to monitor outpatient #10 urinary retention - Continue Simmons catheter #11 Acute renal failure likely prerenal - Continue iv hydration - Baseline 0.8. # 12 dvt prophylaxis - heparin 5000 q12 #13 COndition - stable #14 Disposition - patient would need to stay in the hospital for the next 2-3 days, pending PT/OT evaluation, cardiology evaluation
--- NOTE | 2017-09-01 14:05 | P.CRDCN ---
History of Present Illness Consult date: 09/01/17 History of present illness: This is a 66-year-old female with past medical history significant for CVA, diabetes mellitus, CABG in 2001 and HLD. We don't have those records available to us at this time. We have been asked to see her in consultation for complaints of syncope. She was here previously in May and diagnosed with a PE secondary to elevated D-dimer. At that time she was sent home on Xarelto. Apparently she suffered some GI bleeding a couple of weeks ago and this was stopped. She was supposed to follow up with Dr. Singer in June but never did. She is seen and examined today. She is a very poor historian and cannot verbalize why she is here other than to say she thinks she might have passed out a couple weeks ago. Per notes she was also having multiple episodes of nausea and vomiting. She is also hallucinating both visual and tactile with insomnia. Apparently these syncopal episodes are accompanied by shaking and stiffness per the . She has an indwelling castaneda catheter secondary to urinary retention that is causing some discomfort. She denies chest pain, shortness of breath, palpitations, dizziness, PND or othopnea. EKG reveals sinus mechanism with no acute ST changes with evidence of old [place]. Potassium 4.3, BUN 26, Cr 1.22, episodes of hyoglycemia since admission with BS as low as 55. Cardiac enzymes negative x1. Blood pressure 196/81 with heart rate 97. Cardiac medications include lisinopril 10 mg daily, aspirin 81 mg daily, lopressor 50 mg BID, imdur 60 daily and lipitor 80mg daily. Most recent echocardiogram performed 06/10/2017 indicates preserved LV function with ejection fraction 60/65% with borderline pulmonary hypertension with RVSP 34.77 mmHg. Review of Systems REVIEW OF SYSTEMS: CONSTITUTIONAL: No fever, no malaise, c/o fatigue. HEENT: No recent visual problems or hearing problems. Denied any sore throat. CARDIOVASCULAR: No chest pain, orthopnea, PND, c/o syncope. PULMONARY: No shortness of breath, no cough, no hemoptysis. GASTROINTESTINAL: No diarrhea, no nausea, no vomiting, no abdominal pain. Normoactive bowel sounds. NEUROLOGICAL: No headaches, no weakness, no numbness. HEMATOLOGICAL: Denies any bleeding. GENITOURINARY: Indwelling castaneda catheter present. Denies pain around catheter or hematuria in drainage bag. MUSCULOSKELETAL/RHEUMATOLOGICAL: Denies any joint pain, swelling, or any muscle pain. ENDOCRINE: Denies any polyuria or polydipsia. Past Medical History Past Medical History: CVA/TIA, Diabetes Mellitus, Hyperlipidemia Additional Past Medical History / Comment(s): patient has had 2 strokes, last in April 2016. kidney stones History of Any Multi-Drug Resistant Organisms: None Reported Past Surgical History: Cholecystectomy, Coronary Bypass/CABG Additional Past Surgical History / Comment(s): CABG in 2001 Past Anesthesia/Blood Transfusion Reactions: No Reported Reaction Past Psychological History: No Psychological Hx Reported Smoking Status: Former smoker Past Alcohol Use History: None Reported Past Drug Use History: None Reported - Past Family History Brother(s) Family Medical History: Diabetes Mellitus Additional Family Medical History / Comment(s): Brother just recently . Unknown history. Medications and Allergies Home Medications Medication Instructions Recorded Confirmed Type Atorvastatin Calcium [Lipitor] 80 mg PO HS 05/31/17 08/31/17 History Isosorbide Mononitrate ER [Imdur] 60 mg PO QAM 05/31/17 08/31/17 History Metoprolol Tartrate [Lopressor] 50 mg PO BID 05/31/17 08/31/17 History Insulin NPH/Reg Insulin 70/30 50 unit SQ BID vial 06/02/17 08/31/17 Rx [humuLIN 70/30 VIAL] Aspirin [Adult Low Dose Aspirin EC] 81 mg PO DAILY 08/31/17 08/31/17 History Lisinopril [Zestril] 10 mg PO DAILY 08/31/17 08/31/17 History Rivaroxaban [Xarelto] 20 mg PO DIRECTED 08/31/17 08/31/17 History traMADol HCL [Ultram] 50 mg PO DAILY PRN 08/31/17 08/31/17 History Allergies Allergy/AdvReac Type Severity Reaction Status Date / Time latex Allergy Rash/Hives Verified 08/31/17 22:05 Physical Exam Vitals: Vital Signs Temp Pulse Pulse Resp BP BP BP 09/01/17 07:00 97.9 F 97 18 196/81 09/01/17 01:00 97.1 F L 73 16 154/64 09/01/17 00:26 97.9 F 71 16 151/69 08/31/17 21:44 57 L 181 H 133/62 08/31/17 20:10 98.2 F 62 18 120/56 Pulse Ox 09/01/17 07:00 97 09/01/17 01:00 98 09/01/17 00:26 98 08/31/17 21:44 97 08/31/17 20:10 99 Intake and Output 08/31/17 09/01/17 09/01/17 22:59 06:59 14:59 Intake Total 375 Output Total 505 Balance -130 Intake: Intake, IV Titration 375 Amount Sodium Chloride 0.9% 1, 375 000 ml @ 75 mls/hr IV . [id number] STA Rx#:[id number] Output: Urine 505 Other: Voiding Method Indwelling Catheter Indwelling Catheter Weight 71.668 kg 71.668 kg GENERAL: This is a 66-year-old female in no apparent distress at the time of my examination. Appears older than stated age. HEENT: Head is atraumatic, normocephalic. Pupils are equal, round. Sclerae anicteric. Conjunctivae are clear. Mucous membranes of the mouth are moist. Neck is supple. There is no jugular venous distention. No carotid bruit is heard. LUNGS: Clear to auscultation no wheezes, rales or rhonchi. No chest wall tenderness is noted on palpation or with deep breathing. Diminished air entry. HEART: Regular rate and rhythm with faint systolic murmurs, no rubs or gallops. S1 and S2 heard. ABDOMEN: Soft, nontender. Bowel sounds are heard. No organomegaly noted. EXTREMITIES: 1+ peripheral pulses with no evidence of peripheral edema and no calf tenderness noted. NEUROLOGIC: Patient is awake, alert and oriented 2-3. Results 09/01/17 06:54 09/01/17 06:54 Cardiac Enzymes 08/31/17 08/31/17 09/01/17 Range/Units 20:30 20:30 06:54 AST 22 22 (14-36) U/L CK-MB (CK-2) 1.1 (0.0-2.4) ng/mL Troponin I <0.012 (0.000-0.034) ng/mL Coagulation 08/31/17 Range/Units 20:30 PT 9.9 (9.0-12.0) sec APTT 17.6 L (22.0-30.0) sec CBC 08/31/17 09/01/17 Range/Units 20:30 06:54 WBC 12.1 H 8.6 (3.8-10.6) k/uL RBC 4.21 3.99 (3.80-5.40) m/uL Hgb 12.5 11.7 (11.4-16.0) gm/dL Hct 38.2 36.4 (34.0-46.0) % Plt Count 326 245 (150-450) k/uL Comprehensive Metabolic Panel 08/31/17 09/01/17 Range/Units 20:30 06:54 Sodium 139 141 (137-145) mmol/L Potassium 4.6 4.3 (3.5-5.1) mmol/L Chloride 102 109 H (98-107) mmol/L Carbon Dioxide 27 24 (22-30) mmol/L BUN 28 H 26 H (7-17) mg/dL Creatinine 1.29 H 1.22 H (0.52-1.04) mg/dL Glucose 86 70 L (74-99) mg/dL Calcium 9.9 9.2 (8.4-10.2) mg/dL AST 22 22 (14-36) U/L ALT 24 26 (9-52) U/L Alkaline Phosphatase 74 62 (38-126) U/L Total Protein 7.0 6.1 L (6.3-8.2) g/dL Albumin 3.5 2.9 L (3.5-5.0) g/dL Current Medications Generic Name Dose Route Start Last Admin Trade Name Freq PRN Reason Stop Dose Admin Acetaminophen 650 mg 08/31/17 23:44 Tylenol Tab PO Q6HR PRN Mild Pain or Fever > 100.5 Aspirin 81 mg 09/01/17 09:00 09/01/17 07:49 Aspirin PO 81 mg DAILY JAZZMINE Administration Atorvastatin Calcium 80 mg 09/01/17 21:00 Lipitor PO HS JAZZMINE Ceftriaxone Sodium 1,000 mg/ 50 mls @ 100 mls/hr 09/01/17 23:00 Sodium Chloride IVPB HS JAZZMINE Sodium Chloride 1,000 mls @ 100 mls/hr 09/01/17 10:15 09/01/17 12:16 Saline 0.9% IV 100 mls/hr .Q10H JAZZMINE Administration Insulin Human Isoph/Insulin Regular 25 unit 09/01/17 17:30 Humulin 70/30 Vial SQ AC-BID JAZZMINE Insulin Human Lispro 0 unit 09/01/17 12:30 09/01/17 12:58 Humalog SQ 2 unit ACHS JAZZMINE Administration Protocol Isosorbide Mononitrate 60 mg 09/01/17 11:09 09/01/17 12:18 Imdur PO 60 mg QAM JAZZMINE Administration Metoprolol Tartrate 50 mg 09/01/17 09:00 09/01/17 07:49 Lopressor PO 50 mg BID JAZZMINE Administration Naloxone HCl 0.2 mg 08/31/17 23:44 Narcan IV Q2M PRN Opioid Reversal Ondansetron HCl 4 mg 08/31/17 23:44 Zofran IVP Q8HR PRN Nausea And Vomiting Intake and Output 08/31/17 09/01/17 09/01/17 22:59 06:59 14:59 Intake Total 375 Output Total 505 Balance -130 Intake: Intake, IV Titration 375 Amount Sodium Chloride 0.9% 1, 375 000 ml @ 75 mls/hr IV . [id number] STA Rx#:[id number] Output: Urine 505 Other: Voiding Method Indwelling Catheter Indwelling Catheter Weight 71.668 kg 71.668 kg 09/01/17 06:54 09/01/17 06:54 Assessment and Plan Plan: ASSESSMENT 1. Syncope with seizure like activity 2. CAD with history of CABG 2001 3. Essential hypertension 4. Dyslipidemia 5. Diabetes mellitus 6. History of pulmonary embolism 7. History of CVA PLAN Obtain serial cardiac enzymes for a total of 3 sets and D-dimer. Symptoms are vague and non-specific for cardiogenic cause. Consider possibly related to hypoglycemia, dehydration, neurogenic or vasovagal syncope. Thank you for this consultation. Further recommendations will be based upon clinical course. Nurse Practitioner note has been reviewed, I agree with a documented findings and plan of care. Patient was seen and examined.
[2017-09-01] MEDS: LISINOPRIL 10 MG TAB PO SCH (14:56)
[2017-09-01 16:17] LABS: Glucose,Whole Blood 247 mg/dL (75-99)
[2017-09-01] MEDS: INSULIN NPH/REG INSULIN 70/30 300 UNIT/3 ML VIAL SQ SCH (16:57)
[2017-09-01 20:28] LABS: Glucose,Whole Blood 210 mg/dL (75-99)
[2017-09-01] MEDS: HEPARIN SODIUM,PORCINE 5,000 UNIT/ML 1 ML VIAL SQ SCH (21:23)
[2017-09-01] MEDS: ATORVASTATIN 80 MG TAB PO SCH (21:24)
--- NOTE | 2017-09-01 23:21 | P.CNNES ---
History of Present Illness Consult date: 09/01/17 Requesting physician: Sherri Quinones Reason for Consult: syncope, altered mental status Chief complaint: syncope History of Present Illness: Neurology his consultation a 66-year-old female presenting for evaluation of possible syncope and altered mental status. Patient has a history of CAD, CVA with residual right-sided defects. Patient has had a coronary artery bypass graft in the past in 1999, possibly with [facility] in [place]. Patient reports she has been having episodes of syncopal-like activity for greater than 5 years. Patient syncopal episodes occur generally when she is in a warm environment, can be triggered with positional or movement changes and the patient will suddenly experienced syncope and drop. Patient does not have this any history of seizure. Patient denies any aura. Patient also denies any postictal state. Patient has these episodes approximately once per month or every other month. States that she has been worked up by multiple providers for the disorder with no underlying etiology found. at contact, the patient was supine in bed, resting in no acute distress. Patient was alert and oriented 3. Patient did have noted residual right-sided deficits from prior CVA. EEG was taken not read carotid Doppler noted moderate right internal carotid artery stenosis at 50-69% favoring 50% stenosis. CT brain was negative with the exception of chronic small vessel ischemic disease. No acute process was noted. Review of Systems all systems not noted in HPI or negative Past Medical History Past Medical History: CVA/TIA, Diabetes Mellitus, Hyperlipidemia Additional Past Medical History / Comment(s): patient has had 2 strokes, last in April 2016. kidney stones History of Any Multi-Drug Resistant Organisms: None Reported Past Surgical History: Cholecystectomy, Coronary Bypass/CABG Additional Past Surgical History / Comment(s): CABG in 2001 Past Anesthesia/Blood Transfusion Reactions: No Reported Reaction Past Psychological History: No Psychological Hx Reported Smoking Status: Former smoker Past Alcohol Use History: None Reported Past Drug Use History: None Reported - Past Family History Brother(s) Family Medical History: Diabetes Mellitus Additional Family Medical History / Comment(s): Brother just recently . Unknown history. Mother Family Medical History: Hypertension Father Family Medical History: Myocardial Infarction ([place]) (father at 53 from myocardial infarction) Medications and Allergies Home Medications Medication Instructions Recorded Confirmed Type Atorvastatin Calcium [Lipitor] 80 mg PO HS 05/31/17 08/31/17 History Isosorbide Mononitrate ER [Imdur] 60 mg PO QAM 05/31/17 08/31/17 History Metoprolol Tartrate [Lopressor] 50 mg PO BID 05/31/17 08/31/17 History Insulin NPH/Reg Insulin 70/30 50 unit SQ BID vial 06/02/17 08/31/17 Rx [humuLIN 70/30 VIAL] Aspirin [Adult Low Dose Aspirin EC] 81 mg PO DAILY 08/31/17 08/31/17 History Lisinopril [Zestril] 10 mg PO DAILY 08/31/17 08/31/17 History Rivaroxaban [Xarelto] 20 mg PO DIRECTED 08/31/17 08/31/17 History traMADol HCL [Ultram] 50 mg PO DAILY PRN 08/31/17 08/31/17 History Allergies Allergy/AdvReac Type Severity Reaction Status Date / Time latex Allergy Rash/Hives Verified 08/31/17 22:05 Physical Examination - Vital Signs Vital Signs: Vital Signs Temp Pulse Pulse Resp BP BP BP 09/01/17 15:00 97.2 F L 66 18 183/78 158/67 09/01/17 07:00 97.9 F 97 18 09/01/17 01:00 97.1 F L 73 16 09/01/17 00:26 97.9 F 71 16 151/69 BP BP BP Pulse Ox 09/01/17 15:00 190/76 98 09/01/17 07:00 196/81 97 09/01/17 01:00 154/64 98 09/01/17 00:26 98 Intake and Output 09/01/17 09/01/17 09/02/17 14:59 22:59 06:59 Intake Total 700 800 Output Total 800 Balance 700 0 Intake: Intake, IV Titration 700 800 Amount Sodium Chloride 0.9% 1, 400 800 000 ml @ 100 mls/hr IV . Q10H [facility] Rx#:[id number] Sodium Chloride 0.9% 1, 300 000 ml @ 75 mls/hr IV . [id number] STA Rx#:[id number] Output: Urine 800 Uretheral (Simmons) 500 Other: Voiding Method Indwelling Catheter Indwelling Catheter Constitutional: AOx3, cooperative HEENT: NC/AT, no facial asymmetry is seen. Throat: Supple, no masses Respiratory: No increased work of breathing Cardiac: Regular rate and Rhythm GI: non tender, non distended Musculoskeletal: right upper and lower extremity noted mild weakness on physical exam residual defects from prior CVA. Neurological: CN II-XII in tact, patient was AOx3, speech and language are normal, no unilateralizing weakness, no seizure activity note on physical exam. Sensation was normal. Integementary: no rash, no erythema Psychiatric: mood and affect appropriate Results - Laboratory Findings CBC and BMP: 09/01/17 06:54 09/01/17 06:54 Abnormal Lab Findings: Abnormal Labs 08/31/17 08/31/17 08/31/17 20:30 20:30 20:30 WBC 12.1 H Neutrophils # 8.3 H APTT D-Dimer Chloride BUN 28 H Creatinine 1.29 H Glucose POC Glucose (mg/dL) Hemoglobin A1c Plasma Lactic Acid Austen 2.1 H* Total Protein Albumin Urine Appearance Urine Protein Urine Ketones Urine Blood Ur Leukocyte Esterase Urine RBC Urine WBC Uric Acid Crystals Urine Bacteria Urine Mucus 08/31/17 08/31/17 09/01/17 20:30 21:35 00:48 WBC Neutrophils # APTT 17.6 L D-Dimer Chloride BUN Creatinine Glucose POC Glucose (mg/dL) 55 L Hemoglobin A1c Plasma Lactic Acid Austen Total Protein Albumin Urine Appearance Turbid H Urine Protein 3+ H Urine Ketones Trace H Urine Blood Small H Ur Leukocyte Esterase Large H Urine RBC 13 H Urine WBC >182 H Uric Acid Crystals Moderate H Urine Bacteria Moderate H Urine Mucus Occasional H 09/01/17 09/01/17 09/01/17 06:54 06:54 11:46 WBC Neutrophils # APTT D-Dimer Chloride 109 H BUN 26 H Creatinine 1.22 H Glucose 70 L POC Glucose (mg/dL) 201 H Hemoglobin A1c 7.6 H Plasma Lactic Acid Austen Total Protein 6.1 L Albumin 2.9 L Urine Appearance Urine Protein Urine Ketones Urine Blood Ur Leukocyte Esterase Urine RBC Urine WBC Uric Acid Crystals Urine Bacteria Urine Mucus 09/01/17 09/01/17 09/01/17 15:44 16:16 20:19 WBC Neutrophils # APTT D-Dimer 2.41 H Chloride BUN Creatinine Glucose POC Glucose (mg/dL) 247 H 210 H Hemoglobin A1c Plasma Lactic Acid Austen Total Protein Albumin Urine Appearance Urine Protein Urine Ketones Urine Blood Ur Leukocyte Esterase Urine RBC Urine WBC Uric Acid Crystals Urine Bacteria Urine Mucus Assessment and Plan (1) Altered mental status Status: Acute Plan: Patient has a history of syncope that spans greater than 5 years and has been evaluated by several outside providers while residing in [facility]. No underlying etiology has been found. EEG is taken not red, carotid Doppler findings are noted at right internal carotid artery estimated as moderate stenosis 50-69% favoring 50% stenosis. CT brain noted chronic small vessel ischemic disease in no acute process. Status: If the patient's EEG is normal/unremarkable, the patient can be cleared from a neurological standpoint. We can workup for syncope further in the outpatient setting. Neurology can follow on an as-needed basis once the EEG results are noted and confirmed. Neurology will provide updates as needed or warranted. Contact our office with any questions. I discussed the patient's pertinent medical information with Dr. Monae. He agrees with the plan of care as implemented.
[2017-09-02 07:41] LABS: Glucose,Whole Blood 67 mg/dL (75-99)
[2017-09-02 07:41] LABS: Glucose,Whole Blood 61 mg/dL (75-99)
[2017-09-02] MEDS: METOPROLOL TARTRATE 50 MG TAB PO SCH ×2 (07:48→21:13)
[2017-09-02] MEDS: ASPIRIN 81 MG PO SCH (07:49)
[2017-09-02] MEDS: INSULIN LISPRO (humaLOG) 300 UNIT/3 ML VIAL SQ SCH ×4 (07:49→21:13)
[2017-09-02] MEDS: LISINOPRIL 10 MG TAB PO SCH (07:49)
[2017-09-02] MEDS: HEPARIN SODIUM,PORCINE 5,000 UNIT/ML 1 ML VIAL SQ SCH ×2 (07:49→21:13)
[2017-09-02] MEDS: INSULIN NPH/REG INSULIN 70/30 300 UNIT/3 ML VIAL SQ SCH ×2 (07:49→17:52)
[2017-09-02] MEDS: ISOSORBIDE MONONITRATE ER 60 MG TAB.ER.24H PO SCH (07:49)
[2017-09-02] MEDS: SODIUM CHLORIDE 0.9% 1,000 ML IV SCH (07:51)
[2017-09-02 08:03] LABS: Glucose,Whole Blood 75 mg/dL (75-99)
[2017-09-02] MEDS ORDERED: ISOSORBIDE MONONITRATE ER 60 MG TAB.ER.24H PO SCH (09:00)
[2017-09-02 11:35] LABS: Glucose,Whole Blood 168 mg/dL (75-99)
--- NOTE | 2017-09-02 11:48 | P.PN ---
Subjective Progress Note Date: 09/02/17 Mrs. Gallagher is a 66-year-old female with past medical history significant for CVA, diabetes mellitus, CABG in 2001 and hyperlipidemia. We have been asked to see her in consultation for complaints of presyncopal episodes at home. She is a poor historian and no family has been available during exams. Today she is seen sitting in bed eating breakfast. She denies any further episodes of dizziness, light headed or loss of consciousness. She also denies chest pain, shortness of breath, palpitations, nausea or vomiting. Cardiac enzymes negative x2. D-dimer 2.41 down from previous visit. Blood pressure 147/65 heart rate 70. Objective - Vital Signs Vital signs: Vital Signs Temp 96.9 F L 09/02/17 07:00 Pulse 70 09/02/17 07:00 Resp 16 09/02/17 07:00 BP 147/65 09/02/17 07:00 Pulse Ox 96 09/02/17 09:09 Intake & Output 09/01/17 09/02/17 09/02/17 18:59 06:59 18:59 Intake Total 700 800 Output Total 800 250 Balance -100 550 Weight 71.668 kg Intake: Intake, IV Titration 700 800 Amount Sodium Chloride 0.9% 1, 400 800 000 ml @ 100 mls/hr IV . Q10H [facility] Rx#:[id number] Sodium Chloride 0.9% 1, 300 000 ml @ 75 mls/hr IV . [id number] STA Rx#:[id number] Output: Urine 800 250 Uretheral (Simmons) 500 250 Other: Voiding Method Indwelling Catheter Indwelling Catheter Indwelling Catheter - Exam GENERAL: Well-appearing, well-nourished and in no acute distress. LUNGS: Breath sounds clear to auscultation bilaterally. Respiration equal and unlabored. No wheezes, rales or rhonchi. HEART: Regular rate and rhythm with systolic ejection murmur, no rubs or gallops. S1 and S2 heard. - Labs CBC & Chem 7: 09/01/17 06:54 09/01/17 06:54 Labs: Abnormal Lab Results - Last 24 Hours (Table) 09/01/17 09/01/17 09/01/17 Range/Units 06:54 11:46 15:44 D-Dimer 2.41 H (<0.60) mg/L FEU POC Glucose (mg/dL) 201 H (75-99) mg/dL Hemoglobin A1c 7.6 H (4.2-6.1) % 09/01/17 09/01/17 09/02/17 Range/Units 16:16 20:19 07:05 D-Dimer (<0.60) mg/L FEU POC Glucose (mg/dL) 247 H 210 H 61 L (75-99) mg/dL Hemoglobin A1c (4.2-6.1) % 09/02/17 Range/Units 07:31 D-Dimer (<0.60) mg/L FEU POC Glucose (mg/dL) 67 L (75-99) mg/dL Hemoglobin A1c (4.2-6.1) % Microbiology - Last 24 Hours (Table) 08/31/17 21:35 Urine Culture - Preliminary Urine,Voided Assessment and Plan Plan: ASSESSMENT 1. Syncope with seizure like activity 2. CAD with history of CABG 2001 3. Essential hypertension 4. Dyslipidemia 5. Diabetes mellitus 6. History of pulmonary embolism 7. History of CVA PLAN From a cardiac perspective syncope does not appear to be related to cardio genic affect. Please continue current medication regimen and medical treatment. Free to call us if he should need any further consultation with this patient. She can follow-up with her primary event marketing manager Dr. FERMIN Singer in 2 -4 weeks after discharge. Nurse Practitioner note has been reviewed, I agree with a documented findings and plan of care. Patient was seen and examined.
--- NOTE | 2017-09-02 15:16 | P.PN ---
Subjective Progress Note Date: 09/02/17 This is a 66-year-old patient of Dr. 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 Patient was found to have pulmonary embolism during the admission with a CTA showing a secondary branch pulmonary artery embolism. Patient was discharged on xarelto during that admission. Patient was also seen by urology for hematuria and underwent cystoscopy and has been catheter dependent ever since for urinary retention. Patient continues to be evaluated for thyroid nodules with Dr. Pineda. She was last seen in the office 2 weeks ago when she complained of rectal bleeding as a result of which xarelto was discontinued. Patient was seen in the ED yesterday with complaints of nausea, multiple episodes of vomiting, hallucinations that started 2 weeks ago. Patient endorses both visual and tactile hallucinations the form of mice and snakes. She states in the beginning it was 1 or 2 that she could see but now she endorses tactile hallucinations and it has worsened since yesterday. According to the bedside patient is not sleeping for many days due to the hallucination. He also states that the patient continues to have fainting spells that starts with nausea and vomiting. Patient's extremity get stiff and patient shakes during these episodes. She is covered with sweat and does not remember the incidences. He denies any chest pain, or shortness of breath, productive cough, change in vision, headaches or loss of bowel or in any of her extremities. Patient denies any history of seizures. Family bedside states that patient underwent echo in May with no abnormality. She does not see a foot setter as outpatient. Patient denies any abdominal pain but does complain of catheter discomfort associated with nausea and vomiting. Last episode of syncope was 3 days ago. On my evaluation today, patient states that she hasn't been as hallucinating since last night and she slept well. Patient's vital signs in the ED were normal, EKG suggested sinus rhythm with no dysrhythmia seen. WBC was elevated to 12.1, creatinine 1.29 with a baseline of 0.8 with a lactic acid of 2.1. Urinalysis done in the ED suggested a WBC of [address] head was done for complaints of hallucination but no acute findings were seen. Abdominal x-ray was done which shows nonobstructive nonspecific bowel gas pattern. Chest x-ray was negative for any focal infiltrate. Urine cultures were obtained. Patient was given IV fluids for lactic acidosis and acute kidney injury and was admitted for UTI with sepsis. 09/02: Carotid ultrasound shows mildly elevated right internal carotid artery compatible with 50-69% stenosis and favored to represent approximately 50% stenosis. Moderate grayscale atheromatous plaquing within both carotid bulbs. She has been seen by cardiology and they have ordered cardiac enzymes and d- dimer. D-dimer was elevated at 2.41 but was less than last visit and no further imaging was ordered. Patient also seen by neurology and EEG was ordered and if normal patient is cleared from neurology Standpoint. Hallucination issue was not addressed by neurology. Patient states that although she did not see anything she could feel the mice on her. A psychiatric consult has been added. Patient also continues to have nausea despite use with Protonix and consult with GI place for chronic nausea. Speech therapy consult also requested and social work for extended care facility. IV fluids decreased to 75 mL an hour. Urine culture is showing gram-negative bacilli. Blood cultures no growth at 24 hours. Objective - Vital Signs Vital signs: Vital Signs Temp 96.9 F L 09/02/17 07:00 Pulse 70 09/02/17 07:00 Resp 16 09/02/17 07:00 BP 147/65 09/02/17 07:00 Pulse Ox 96 09/02/17 09:09 Intake & Output 09/01/17 09/02/17 09/02/17 18:59 06:59 18:59 Intake Total 700 800 Output Total 800 250 Balance -100 550 Weight 71.668 kg Intake: Intake, IV Titration 700 800 Amount Sodium Chloride 0.9% 1, 400 800 000 ml @ 100 mls/hr IV . Q10H [facility] Rx#:[id number] Sodium Chloride 0.9% 1, 300 000 ml @ 75 mls/hr IV . [id number] STA Rx#:[id number] Output: Urine 800 250 Uretheral (Simmons) 500 250 Other: Voiding Method Indwelling Catheter Indwelling Catheter Indwelling Catheter - Labs CBC & Chem 7: 09/01/17 06:54 09/01/17 06:54 Labs: Abnormal Lab Results - Last 24 Hours (Table) 09/01/17 09/01/17 09/01/17 Range/Units 15:44 16:16 20:19 D-Dimer 2.41 H (<0.60) mg/L FEU POC Glucose (mg/dL) 247 H 210 H (75-99) mg/dL 09/02/17 09/02/17 09/02/17 Range/Units 07:05 07:31 11:21 D-Dimer (<0.60) mg/L FEU POC Glucose (mg/dL) 61 L 67 L 168 H (75-99) mg/dL Microbiology - Last 24 Hours (Table) 09/01/17 10:22 Blood Culture - Preliminary Blood No Growth after 24 hours 08/31/17 21:35 Urine Culture - Preliminary Urine,Voided Gram Neg Bacilli Assessment and Plan Plan: 1 Hallucination - unclear etiology. Patient has not started any new medication. Concern for seizures, sleep deprivation, psychological, related to sepsis, delirium - Patient denies any symptoms related to urinary tract infection but does has a chronic catheterization for urinary retention and gets tract infection on and off. She does feel some discomfort associated with catheter over denies any dysuria. - EEG ordered to rule out seizure activity and continue seizure precautions - Neurology consulted to rule out seizures, and help define the etiology for hallucination #2 syncope-associated with nausea and vomiting- multiple episodes in the past year - Differential include cardiogenic, vasovagal or neurogenic - EKGs unremarkable with no PVCs or PACs - Cardiology consulted, possible evaluation with tilt table test cardiology has ruled out cardiac cause for symptoms - Concern for complicated migraine, seizure, arrythmia and neurally mediated reflex syncope as accompanied by nausea and vomiting - Consult with gastroenterology regarding persistent nausea #3 catheter associated urinary tract infection - COntinue rocephin - Urine culture peniding - Blood culture ordered #4 history of stroket continue aspirin and atorvastatin #5 diabetes mellitis type II, insulin requiring Patient on NPH 50 units twice daily at home Since patient's glucose on the lower side will continue NPH 25 units twice a day with sliding scale #6 . HyperLipidemia - Continue atorvastatin 80 mg daily #7 coronary artery disease status post CABG in 1999 - Continue aspirin, atorvastatin, metoprolol, Imdur -Echo May 2017 and borderline pulmonary artery hypertension with EF 60-65% #8 pulmonary embolism -Xarelto was discontinued 2 weeks ago for concern of GI bleeding - Patient currently on room air continue to monitor saturations #9 thyroid nodule - Continue to monitor outpatient #10 urinary retention - Continue Simmons catheter #11 Acute renal failure likely prerenal - Continue iv hydration - Baseline 0.8. # 12 dvt prophylaxis - heparin 5000 q12 #13 COndition - stable #14 # H/o Stroke - on aspirin and atorvastatin #15 visual and tactile hallucinations. Psychiatric consult. Discharge plan: Subacute rehab on Tuesday. Impression and plan of care have been directed as dictated by the signing physician. Mckenzie Luevano nurse practitioner acting as scribe for signing physician.
[2017-09-02 16:42] LABS: Glucose,Whole Blood 207 mg/dL (75-99)
[2017-09-02 20:43] LABS: Glucose,Whole Blood 233 mg/dL (75-99)
[2017-09-02] MEDS: ATORVASTATIN 80 MG TAB PO SCH (21:13)
--- NOTE | 2017-09-02 22:07 | P.PN ---
Subjective Progress Note Date: 09/02/17 Principal diagnosis: syncope Neurology is following in a 66-year-old female presenting for evaluation of possible syncope and altered mental status. Patient has a history of CAD, CVA with residual right-sided defects. Patient has had a coronary artery bypass graft in the past in 1999, possibly with [email or web address] [facility] in [place]. Patient reports she has been having episodes of syncopal-like activity for greater than 5 years. Patient syncopal episodes occur generally when she is in a warm environment can be triggered with positional movement changes and the patient was suddenly experienced syncope and drop. Patient does not have any history of seizure. Patient denies any aura. Patient also denies any postictal state. Patient has 3 episodes approximately once per month or every other month. States that she has been worked up by multiple providers for the disorder was no underlying etiology found. Interval uptake: September 02, 2017 On contact, the patient was supine in bed, resting in no acute distress. Patient was alert and oriented 3. Patient did have noted residual right-sided defects from prior CVA. EEG was taken and found to be normal. Carotid Dopplers noted moderate right internal carotid artery stenosis at 50-69%, favoring 50% stenosis. CT brain was negative with the exception of chronic small vessel ischemic disease. No acute process was noted. Objective - Vital Signs Vital signs: Vital Signs Temp 98.8 F 09/02/17 21:00 Pulse 74 09/02/17 21:00 Resp 18 09/02/17 21:00 BP 181/79 09/02/17 21:00 Pulse Ox 95 09/02/17 21:00 Intake & Output 09/02/17 09/02/17 09/03/17 06:59 18:59 06:59 Intake Total 800 540 Output Total 250 Balance 550 540 Weight 71.668 kg Intake: Intake, IV Titration 800 Amount Sodium Chloride 0.9% 1, 800 000 ml @ 75 mls/hr IV . [id number] [facility] Rx#:[id number] Oral 540 Output: Urine 250 Uretheral (Simmons) 250 Other: Voiding Method Indwelling Catheter Indwelling Catheter - Exam Constitutional: AOx3, cooperative HEENT: NC/AT, no facial asymmetry is seen. Throat: Supple, no masses Respiratory: No increased work of breathing Cardiac: Regular rate and Rhythm GI: non tender, non distended Musculoskeletal: Accounting Director strengths are equal bilaterally 5/5, Lower extremity strengths are equal bilaterally at 5/5. Neurological: CN II-XII in tact, patient was AOx3, speech and language are normal, old unilateralizing weakness right upper and lower extremitymild residual from prior CVA, no seizure activity note on physical exam. Sensation was normal. Integementary: no rash, no erythema Psychiatric: mood and affect appropriate - Labs CBC & Chem 7: 09/01/17 06:54 09/01/17 06:54 Labs: Abnormal Lab Results - Last 24 Hours (Table) 09/02/17 09/02/17 09/02/17 Range/Units 07:05 07:31 11:21 POC Glucose (mg/dL) 61 L 67 L 168 H (75-99) mg/dL 09/02/17 09/02/17 Range/Units 16:41 20:41 POC Glucose (mg/dL) 207 H 233 H (75-99) mg/dL Microbiology - Last 24 Hours (Table) 09/01/17 10:22 Blood Culture - Preliminary Blood No Growth after 24 hours 08/31/17 21:35 Urine Culture - Preliminary Urine,Voided Gram Neg Bacilli Assessment and Plan (1) Altered mental status Status: Acute Plan: Patient has a history of syncope that spans greater than 5 years and has been evaluated by several outside providers while residing in [facility]. No underlying etiology has been found. EEG is taken not red, carotid Doppler findings are noted at right internal carotid artery estimated as moderate stenosis 50-69% favoring 50% stenosis. CT brain noted chronic small vessel ischemic disease in no acute process. Status: Patient's EEG is normal/unremarkable, the patient can be cleared from a neurological standpoint. We can workup for syncope further in the outpatient setting. Neurology can follow on an as-needed basis. Please advise the patient is discharged to contact our office and have a follow- up visit in our office within 10 business days. I discussed the patient's pertinent medical information with Dr. Monae. He agrees with the plan of care as implemented.
[2017-09-02 22:43] LABS: Glucose,Whole Blood 205 mg/dL (75-99)
[2017-09-03] MEDS: SODIUM CHLORIDE 0.9% 1,000 ML IV SCH ×3 (01:01→15:30)
[2017-09-03 07:07] LABS: Glucose,Whole Blood 132 mg/dL (75-99)
[2017-09-03] MEDS: METOPROLOL TARTRATE 50 MG TAB PO SCH ×2 (07:15→20:08)
[2017-09-03] MEDS: ASPIRIN 81 MG PO SCH (07:15)
[2017-09-03] MEDS: LISINOPRIL 10 MG TAB PO SCH (07:15)
[2017-09-03] MEDS: ISOSORBIDE MONONITRATE ER 60 MG TAB.ER.24H PO SCH (07:16)
[2017-09-03] MEDS: HEPARIN SODIUM,PORCINE 5,000 UNIT/ML 1 ML VIAL SQ SCH ×2 (07:16→20:08)
[2017-09-03] MEDS: INSULIN LISPRO (humaLOG) 300 UNIT/3 ML VIAL SQ SCH ×4 (07:16→17:39)
[2017-09-03] MEDS: INSULIN NPH/REG INSULIN 70/30 300 UNIT/3 ML VIAL SQ SCH ×2 (07:35→17:40)
[2017-09-03 07:53] LABS: Anion Gap 7 mmol/L; Blood Urea Nitrogen 13 mg/dL (7-17); Calcium 8.7 mg/dL (8.4-10.2); Carbon Dioxide 26 mmol/L (22-30); Chloride 110 mmol/L (98-107); Glucose 140 mg/dL (74-99); Non-African American GFR(MDRD) 54 (>60 ml/min/1.73 sqM); Potassium 3.9 mmol/L (3.5-5.1); Sodium 143 mmol/L (137-145)
[2017-09-03 11:31] LABS: Glucose,Whole Blood 140 mg/dL (75-99)
[2017-09-03 17:16] LABS: Glucose,Whole Blood 181 mg/dL (75-99)
[2017-09-03] MEDS: CIPROFLOXACIN HCL 500 MG TAB PO SCH (20:08)
[2017-09-03] MEDS: ATORVASTATIN 80 MG TAB PO SCH (20:08)
--- NOTE | 2017-09-03 20:31 | CONS ---
CONSULTATION DATE OF SERVICE: 09/03/2017. IDENTIFYING DATA: This patient is a 66-year-old female, who was admitted to [facility] with mental status changes. We are asked to consult regarding hallucinations. HISTORY OF PRESENT ILLNESS: The patient was diagnosed with a urinary tract infection with possible sepsis. She reported having nausea and vomiting and experiencing visual and tactile hallucinations. She initially described seeing mice to other clinicians. Today she says that she was experiencing snakes and she could see ghosts. At one point, she states she could feel one touching her hip. She states that the frequency of the hallucinations has reduced significantly. She states that she has had none today at all and only one last evening. She reports that she was able to think about it and "make it go away." I was able to speak with the patient's current nurse, who confirmed there was no suspicion of psychosis today. The patient reportedly has been compliant with treatment in terms of receiving medication. She has been eating. She states otherwise her mood has been good. She is endorsing no depressive symptoms. She is endorsing no hopeless thoughts, no suicidal or homicidal ideation, intent or plan. She reports feeling safe and endorses no paranoid or persecutory thinking. PAST PSYCHIATRIC HISTORY: No prior inpatient psychiatric care. No history of suicide attempts. PAST MEDICAL HISTORY: She has a history of 2 cerebrovascular accidents, pulmonary embolism, coronary artery disease, status post CABG, diabetes, hyperlipidemia. ALLERGIES: LATEX. CHEMICAL DEPENDENCY HISTORY: No reported use of alcohol, marijuana or other illicit drugs. SOCIAL HISTORY: The patient is 66 years old. She states she has been for 49 years. Her and her live with their son. 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 MENTAL STATUS EXAM: The patient is an overweight female. She is lying in bed. She is awake. She is wearing eyeglasses. She does have a history of residual weakness on her right side. There does appear to be some atrophy of her right upper extremity compared to the left. She states her mood is good. She is happy to report that she is not experiencing any hallucinations yesterday and she is proud to report that she made the hallucination last night "go away." She reports no hopeless thinking. She reports no suicidal or homicidal ideation, intent or plan. She demonstrates linear speech. She demonstrates no tangential thinking, loose associations or flight of ideas. She demonstrates no verbal or physical aggressiveness. She is oriented to person, place and date, but admits that she was looking at the [employer] board to assist. IMPRESSIONS: 1. Delirium, likely secondary to recent infection. 2. Recent urinary tract infection with suspected sepsis. 3. History of cerebrovascular accidents. 4. Coronary artery disease. 5. Hyperlipidemia. 6. Diabetes. PLAN: At this point, it appears the patient is improving psychiatrically with ongoing medical treatment. We will not initiate an antipsychotic at this time, but rather we will follow further to monitor her progress. If symptoms of psychosis recur, we will consider using a low-dose antipsychotic. The patient will not require inpatient psychiatric admission. We will follow while she is medically admitted. ILANA / JEFFERY: [id number] /
[2017-09-03 20:44] LABS: Glucose,Whole Blood 184 mg/dL (75-99)
[2017-09-04] MEDS: SODIUM CHLORIDE 0.9% 1,000 ML IV SCH (01:56)
[2017-09-04 06:48] LABS: Basophils % (A) 0 %; CH 30.4; CHCM 33.6; Eosinophils # (A) 0.2 k/uL (0-0.7); Eosinophils % (A) 3 %; HCT 34.8 % (34.0-46.0); HDW 2.79; HGB 11.3 gm/dL (11.4-16.0); Luc # (Auto) 0.19; Luc % (Auto) 2; Lymphocytes % (A) 23 %; MCH 29.6 pg (25.0-35.0); MCHC 32.5 g/dL (31.0-37.0); MCV 91.2 fL (80.0-100.0); Mean Platelet Volume 7.5; Monocytes # (A) 0.6 k/uL (0-1.0); Monocytes % (A) 7 %; Neutrophils # (A) 5.6 k/uL (1.3-7.7); Neutrophils % (A) 65 %; RBC 3.82 m/uL (3.80-5.40); RDW 14.1 % (11.5-15.5); WBC 8.6 k/uL (3.8-10.6); WBC (Perox) 8.62
[2017-09-04 07:02] LABS: ALT 28 U/L (9-52); AST 20 U/L (14-36); Alkaline Phosphatase 72 U/L (38-126); Anion Gap 7 mmol/L; Blood Urea Nitrogen 11 mg/dL (7-17); Calcium 9.1 mg/dL (8.4-10.2); Carbon Dioxide 25 mmol/L (22-30); Chloride 110 mmol/L (98-107); Glucose 124 mg/dL (74-99); Non-African American GFR(MDRD) 57 (>60 ml/min/1.73 sqM); Potassium 3.9 mmol/L (3.5-5.1); Sodium 142 mmol/L (137-145); Total Bilirubin 0.2 mg/dL (0.2-1.3); Total Protein 5.9 g/dL (6.3-8.2)
[2017-09-04 08:18] LABS: Glucose,Whole Blood 191 mg/dL (75-99)
[2017-09-04] MEDS: CIPROFLOXACIN HCL 500 MG TAB PO SCH ×2 (08:40→20:12)
[2017-09-04] MEDS: METOPROLOL TARTRATE 50 MG TAB PO SCH ×2 (08:44→20:12)
[2017-09-04] MEDS: LISINOPRIL 10 MG TAB PO SCH (08:44)
[2017-09-04] MEDS: ISOSORBIDE MONONITRATE ER 60 MG TAB.ER.24H PO SCH (08:46)
[2017-09-04] MEDS: ASPIRIN 81 MG PO SCH (08:46)
--- NOTE | 2017-09-04 08:47 | P.PN ---
Subjective Progress Note Date: 09/03/17 This is a 66-year-old patient of Dr. 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 Patient was found to have pulmonary embolism during the admission with a CTA showing a secondary branch pulmonary artery embolism. Patient was discharged on xarelto during that admission. Patient was also seen by urology for hematuria and underwent cystoscopy and has been catheter dependent ever since for urinary retention. Patient continues to be evaluated for thyroid nodules with Dr. Pineda. She was last seen in the office 2 weeks ago when she complained of rectal bleeding as a result of which xarelto was discontinued. Patient was seen in the ED yesterday with complaints of nausea, multiple episodes of vomiting, hallucinations that started 2 weeks ago. Patient endorses both visual and tactile hallucinations the form of mice and snakes. She states in the beginning it was 1 or 2 that she could see but now she endorses tactile hallucinations and it has worsened since yesterday. According to the bedside patient is not sleeping for many days due to the hallucination. He also states that the patient continues to have fainting spells that starts with nausea and vomiting. Patient's extremity get stiff and patient shakes during these episodes. She is covered with sweat and does not remember the incidences. He denies any chest pain, or shortness of breath, productive cough, change in vision, headaches or loss of bowel or in any of her extremities. Patient denies any history of seizures. Family bedside states that patient underwent echo in May with no abnormality. She does not see a engagement lead as outpatient. Patient denies any abdominal pain but does complain of catheter discomfort associated with nausea and vomiting. Last episode of syncope was 3 days ago. On my evaluation today, patient states that she hasn't been as hallucinating since last night and she slept well. Patient's vital signs in the ED were normal, EKG suggested sinus rhythm with no dysrhythmia seen. WBC was elevated to 12.1, creatinine 1.29 with a baseline of 0.8 with a lactic acid of 2.1. Urinalysis done in the ED suggested a WBC of [address] head was done for complaints of hallucination but no acute findings were seen. Abdominal x-ray was done which shows nonobstructive nonspecific bowel gas pattern. Chest x-ray was negative for any focal infiltrate. Urine cultures were obtained. Patient was given IV fluids for lactic acidosis and acute kidney injury and was admitted for UTI with sepsis. 09/02: Carotid ultrasound shows mildly elevated right internal carotid artery compatible with 50-69% stenosis and favored to represent approximately 50% stenosis. Moderate grayscale atheromatous plaquing within both carotid bulbs. She has been seen by cardiology and they have ordered cardiac enzymes and d- dimer. D-dimer was elevated at 2.41 but was less than last visit and no further imaging was ordered. Patient also seen by neurology and EEG was ordered and if normal patient is cleared from neurology [facility]. Hallucination issue was not addressed by neurology. Patient states that although she did not see anything she could feel the mice on her. A psychiatric consult has been added. Patient also continues to have nausea despite use with Protonix and consult with GI place for chronic nausea. Speech therapy consult also requested and social work for extended care facility. IV fluids decreased to 75 mL an hour. Urine culture is showing gram-negative bacilli. Blood cultures no growth at 24 hours. 09/03: Patient urine culture showed pseudomonas aeruginosa subsequent days Rocephin will be discontinued patient will be placed on ciprofloxacin 500 mg orally twice every day. Objective - Vital Signs Vital signs: Vital Signs Temp 98.2 F 09/03/17 07:00 Pulse 70 09/03/17 08:00 Resp 18 09/03/17 08:00 BP 200/86 09/03/17 07:00 Pulse Ox 95 09/03/17 07:00 Intake & Output 09/02/17 09/03/17 09/03/17 18:59 06:59 18:59 Intake Total 540 3121 Output Total 1800 1400 Balance 540 1321 -1400 Intake: Oral 540 3121 Output: Urine 1800 1400 Uretheral (Simmons) 1800 Other: Voiding Method Indwelling Catheter Indwelling Catheter Indwelling Catheter # Bowel Movements 1 - Constitutional General appearance: Present: average body habitus, no acute distress - EENT Eyes: Present: anicteric sclerae, EOMI, PERRLA, normal appearance. Absent: ptosis, scleral icterus ENT: Present: NA/AT, normal oropharynx. Absent: thrush Ears: bilateral: normal - Neck Neck: Present: normal ROM. Absent: lymphadenopathy, rigidity, stridor Carotids: bilateral: upstroke normal Thyroid: bilateral: normal size - Respiratory Respiratory: bilateral: diminished, negative: dullness, rales, rhonchi, wheezing , prolonged expiration, prolonged inspiration - Cardiovascular Rhythm: regular Heart sounds: normal: S1, S2 Abnormal Heart Sounds: Present: systolic murmur. Absent: S3 Gallop, S4 Gallop - Gastrointestinal General gastrointestinal: Present: normal bowel sounds, soft. Absent: splenomegaly, tenderness, umbilical hernia, ventral hernia - Integumentary Integumentary: Present: normal, normal turgor - Neurologic Neurologic: Present: CNII-XII intact - Musculoskeletal Musculoskeletal: Present: generalized weakness - Psychiatric Psychiatric: Present: A&O x's 3, appropriate affect, intact judgment & insight - Labs CBC & Chem 7: 09/01/17 06:54 09/03/17 06:44 Labs: Abnormal Lab Results - Last 24 Hours (Table) 09/02/17 09/02/17 09/02/17 Range/Units 16:41 20:41 22:40 Chloride (98-107) mmol/L Glucose (74-99) mg/dL POC Glucose (mg/dL) 207 H 233 H 205 H (75-99) mg/dL 09/03/17 09/03/17 09/03/17 Range/Units 06:44 07:03 11:30 Chloride 110 H (98-107) mmol/L Glucose 140 H (74-99) mg/dL POC Glucose (mg/dL) 132 H 140 H (75-99) mg/dL Microbiology - Last 24 Hours (Table) 09/01/17 10:22 Blood Culture - Preliminary Blood No Growth after 48 hours 08/31/17 21:35 Urine Culture - Final Urine,Voided Pseudomonas aeruginosa Assessment and Plan Plan: Assessment and Plan Plan: 1 Hallucination - unclear etiology. Patient has not started any new medication. Concern for seizures, sleep deprivation, psychological, related to sepsis, delirium - Patient denies any symptoms related to urinary tract infection but does has a chronic catheterization for urinary retention and gets tract infection on and off. She does feel some discomfort associated with catheter over denies any dysuria. - EEG ordered to rule out seizure activity and continue seizure precautions - Neurology consulted to rule out seizures, and help define the etiology for hallucination #2 syncope-associated with nausea and vomiting- multiple episodes in the past year - Differential include cardiogenic, vasovagal or neurogenic - EKGs unremarkable with no PVCs or PACs - Cardiology consulted, possible evaluation with tilt table test cardiology has ruled out cardiac cause for symptoms - Concern for complicated migraine, seizure, arrythmia and neurally mediated reflex syncope as accompanied by nausea and vomiting - Consult with gastroenterology regarding persistent nausea #3 catheter associated urinary tract infection - Discontinue rocephin as the patient has pseudomonas aeruginosa and start ciprofloxacin 500 mg orally twice every day. - Urine culture positive for pseudomonas aeruginosa. - Blood culture ordered #4 history of stroket continue aspirin and atorvastatin #5 diabetes mellitis type II, insulin requiring Patient on NPH 50 units twice daily at home Since patient's glucose on the lower side will continue NPH 25 units twice a day with sliding scale #6 . HyperLipidemia - Continue atorvastatin 80 mg daily #7 coronary artery disease status post CABG in 1999 - Continue aspirin, atorvastatin, metoprolol, Imdur -Echo May 2017 and borderline pulmonary artery hypertension with EF 60-65% #8 pulmonary embolism -Xarelto was discontinued 2 weeks ago for concern of GI bleeding - Patient currently on room air continue to monitor saturations #9 thyroid nodule - Continue to monitor outpatient #10 urinary retention - Continue Simmons catheter #11 Acute renal failure likely prerenal - Continue iv hydration - Baseline 0.8. # 12 dvt prophylaxis - heparin 5000 q12 #13 COndition - stable #14 # H/o Stroke - on aspirin and atorvastatin #15 visual and tactile hallucinations. Psychiatric consult. Discharge plan: Subacute rehab on Tuesday.
[2017-09-04] MEDS: HEPARIN SODIUM,PORCINE 5,000 UNIT/ML 1 ML VIAL SQ SCH ×2 (08:48→20:12)
[2017-09-04] MEDS: INSULIN LISPRO (humaLOG) 300 UNIT/3 ML VIAL SQ SCH ×4 (09:09→20:12)
[2017-09-04] MEDS: INSULIN NPH/REG INSULIN 70/30 300 UNIT/3 ML VIAL SQ SCH ×2 (09:10→18:15)
[2017-09-04 11:39] LABS: Glucose,Whole Blood 211 mg/dL (75-99)
[2017-09-04 17:47] LABS: Glucose,Whole Blood 204 mg/dL (75-99)
--- NOTE | 2017-09-04 18:23 | P.PN ---
Subjective Progress Note Date: 09/04/17 This is a 66-year-old patient of Dr. 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 Patient was found to have pulmonary embolism during the admission with a CTA showing a secondary branch pulmonary artery embolism. Patient was discharged on xarelto during that admission. Patient was also seen by urology for hematuria and underwent cystoscopy and has been catheter dependent ever since for urinary retention. Patient continues to be evaluated for thyroid nodules with Dr. Pineda. She was last seen in the office 2 weeks ago when she complained of rectal bleeding as a result of which xarelto was discontinued. Patient was seen in the ED yesterday with complaints of nausea, multiple episodes of vomiting, hallucinations that started 2 weeks ago. Patient endorses both visual and tactile hallucinations the form of mice and snakes. She states in the beginning it was 1 or 2 that she could see but now she endorses tactile hallucinations and it has worsened since yesterday. According to the bedside patient is not sleeping for many days due to the hallucination. He also states that the patient continues to have fainting spells that starts with nausea and vomiting. Patient's extremity get stiff and patient shakes during these episodes. She is covered with sweat and does not remember the incidences. He denies any chest pain, or shortness of breath, productive cough, change in vision, headaches or loss of bowel or in any of her extremities. Patient denies any history of seizures. Family bedside states that patient underwent echo in May with no abnormality. She does not see a highway research engineer as outpatient. Patient denies any abdominal pain but does complain of catheter discomfort associated with nausea and vomiting. Last episode of syncope was 3 days ago. On my evaluation today, patient states that she hasn't been as hallucinating since last night and she slept well. Patient's vital signs in the ED were normal, EKG suggested sinus rhythm with no dysrhythmia seen. WBC was elevated to 12.1, creatinine 1.29 with a baseline of 0.8 with a lactic acid of 2.1. Urinalysis done in the ED suggested a WBC of [address] head was done for complaints of hallucination but no acute findings were seen. Abdominal x-ray was done which shows nonobstructive nonspecific bowel gas pattern. Chest x-ray was negative for any focal infiltrate. Urine cultures were obtained. Patient was given IV fluids for lactic acidosis and acute kidney injury and was admitted for UTI with sepsis. 09/02: Carotid ultrasound shows mildly elevated right internal carotid artery compatible with 50-69% stenosis and favored to represent approximately 50% stenosis. Moderate grayscale atheromatous plaquing within both carotid bulbs. She has been seen by cardiology and they have ordered cardiac enzymes and d- dimer. D-dimer was elevated at 2.41 but was less than last visit and no further imaging was ordered. Patient also seen by neurology and EEG was ordered and if normal patient is cleared from neurology [facility]. Hallucination issue was not addressed by neurology. Patient states that although she did not see anything she could feel the mice on her. A psychiatric consult has been added. Patient also continues to have nausea despite use with Protonix and consult with GI place for chronic nausea. Speech therapy consult also requested and social work for extended care facility. IV fluids decreased to 75 mL an hour. Urine culture is showing gram-negative bacilli. Blood cultures no growth at 24 hours. 09/03: Patient urine culture showed pseudomonas aeruginosa subsequent days Rocephin will be discontinued patient will be placed on ciprofloxacin 500 mg orally twice every day. 09/04: Patient s feeling a bit nauseated without and vomiting, no fever or chills , hopefully discharge in AM. Objective - Vital Signs Vital signs: Vital Signs Temp 97.9 F 09/04/17 08:00 Pulse 63 09/04/17 08:00 Resp 16 09/04/17 08:00 BP 180/74 09/04/17 08:00 Pulse Ox 97 09/04/17 08:00 Intake & Output 09/03/17 09/04/17 09/04/17 18:59 06:59 18:59 Intake Total 200 1980 Output Total 1400 750 Balance -1200 1230 Intake: Intake, IV Titration 900 Amount Sodium Chloride 0.9% 1, 900 000 ml @ 75 mls/hr IV . [id number] Rx#:[id number] Oral 200 1080 Output: Urine 1400 750 Other: Voiding Method Indwelling Catheter Indwelling Catheter Indwelling Catheter # Voids 1 - Exam Constitutional General appearance: Present: average body habitus, no acute distress - EENT Eyes: Present: anicteric sclerae, EOMI, PERRLA, normal appearance. Absent: ptosis, scleral icterus ENT: Present: NA/AT, normal oropharynx. Absent: thrush Ears: bilateral: normal - Neck Neck: Present: normal ROM. Absent: lymphadenopathy, rigidity, stridor Carotids: bilateral: upstroke normal Thyroid: bilateral: normal size - Respiratory Respiratory: bilateral: diminished, negative: dullness, rales, rhonchi, wheezing , prolonged expiration, prolonged inspiration - Cardiovascular Rhythm: regular Heart sounds: normal: S1, S2 Abnormal Heart Sounds: Present: systolic murmur. Absent: S3 Gallop, S4 Gallop - Gastrointestinal General gastrointestinal: Present: normal bowel sounds, soft. Absent: splenomegaly, tenderness, umbilical hernia, ventral hernia - Integumentary Integumentary: Present: normal, normal turgor - Neurologic Neurologic: Present: CNII-XII intact - Musculoskeletal Musculoskeletal: Present: generalized weakness - Psychiatric Psychiatric: Present: A&O x's 3, appropriate affect, intact judgment & insight - Labs CBC & Chem 7: 09/04/17 06:14 09/04/17 06:14 Labs: Abnormal Lab Results - Last 24 Hours (Table) 09/03/17 09/03/17 09/03/17 Range/Units 11:30 17:09 19:58 Hgb (11.4-16.0) gm/dL Chloride (98-107) mmol/L Glucose (74-99) mg/dL POC Glucose (mg/dL) 140 H 181 H 184 H (75-99) mg/dL Total Protein (6.3-8.2) g/dL Albumin (3.5-5.0) g/dL 09/04/17 09/04/17 09/04/17 Range/Units 06:14 06:14 08:16 Hgb 11.3 L (11.4-16.0) gm/dL Chloride 110 H (98-107) mmol/L Glucose 124 H (74-99) mg/dL POC Glucose (mg/dL) 191 H (75-99) mg/dL Total Protein 5.9 L (6.3-8.2) g/dL Albumin 2.9 L (3.5-5.0) g/dL Microbiology - Last 24 Hours (Table) 09/01/17 10:22 Blood Culture - Preliminary Blood No Growth after 48 hours 08/31/17 21:35 Urine Culture - Final Urine,Voided Pseudomonas aeruginosa Assessment and Plan Plan: Assessment and Plan Plan: 1 Hallucination - unclear etiology. Patient has not started any new medication. Concern for seizures, sleep deprivation, psychological, related to sepsis, delirium - Patient denies any symptoms related to urinary tract infection but does has a chronic catheterization for urinary retention and gets tract infection on and off. She does feel some discomfort associated with catheter over denies any dysuria. - EEG ordered to rule out seizure activity and continue seizure precautions - Neurology consulted to rule out seizures, and help define the etiology for hallucination #2 syncope-associated with nausea and vomiting- multiple episodes in the past year - Differential include cardiogenic, vasovagal or neurogenic - EKGs unremarkable with no PVCs or PACs - Cardiology consulted, possible evaluation with tilt table test cardiology has ruled out cardiac cause for symptoms - Concern for complicated migraine, seizure, arrythmia and neurally mediated reflex syncope as accompanied by nausea and vomiting - Consult with gastroenterology regarding persistent nausea #3 catheter associated urinary tract infection - Discontinue rocephin as the patient has pseudomonas aeruginosa and start ciprofloxacin 500 mg orally twice every day. - Urine culture positive for pseudomonas aeruginosa. - Blood culture ordered #4 history of stroket continue aspirin and atorvastatin #5 diabetes mellitis type II, insulin requiring Patient on NPH 50 units twice daily at home Since patient's glucose on the lower side will continue NPH 25 units twice a day with sliding scale #6 . HyperLipidemia - Continue atorvastatin 80 mg daily #7 coronary artery disease status post CABG in 1999 - Continue aspirin, atorvastatin, metoprolol, Imdur -Echo May 2017 and borderline pulmonary artery hypertension with EF 60-65% #8 pulmonary embolism -Xarelto was discontinued 2 weeks ago for concern of GI bleeding - Patient currently on room air continue to monitor saturations #9 thyroid nodule - Continue to monitor outpatient #10 urinary retention - Continue Simmons catheter #11 Acute renal failure likely prerenal - Continue iv hydration - Baseline 0.8. # 12 dvt prophylaxis - heparin 5000 q12 #13 COndition - stable #14 # H/o Stroke - on aspirin and atorvastatin #15 visual and tactile hallucinations. Psychiatric consult. Discharge plan: Subacute rehab on Tuesday.
[2017-09-04 20:10] LABS: Glucose,Whole Blood 236 mg/dL (75-99)
[2017-09-04] MEDS: ATORVASTATIN 80 MG TAB PO SCH (20:12)
--- NOTE | 2017-09-05 05:14 | P.CONS ---
History of Present Illness - Reason for Consult Consult date: 09/03/17 Nausea - History of Present Illness The patient is a 66-year-old female who was admitted to the hospital because of hallucinations, fainting spells and nausea and vomiting of around 2 weeks duration. The patient underwent cardiac and neurologic evaluation. No specific etiology have been identified. We were asked to see her regarding her chronic nausea. The patient has multiple medical problems including history of diabetes mellitus hyperlipidemia CVA pulmonary embolization as well as urinary retention and hematuria. Her related that she has been having the shakes but no dragan seizures and she is describing vertigo and spinning sensation. No hematemesis or hematochezia. No dysphagia or odynophagia. Review of Systems 12-point review of systems is otherwise not revealing except as present illness above. Past Medical History Past Medical History: CVA/TIA, Diabetes Mellitus, Hyperlipidemia Additional Past Medical History / Comment(s): patient has had 2 strokes, last in April 2016. kidney stones History of Any Multi-Drug Resistant Organisms: None Reported Past Surgical History: Cholecystectomy, Coronary Bypass/CABG Additional Past Surgical History / Comment(s): CABG in 2001 Past Anesthesia/Blood Transfusion Reactions: No Reported Reaction Past Psychological History: No Psychological Hx Reported Smoking Status: Former smoker Past Alcohol Use History: None Reported Past Drug Use History: None Reported - Past Family History Brother(s) Family Medical History: Diabetes Mellitus Additional Family Medical History / Comment(s): Brother just recently . Unknown history. Mother Family Medical History: Hypertension Father Family Medical History: Myocardial Infarction ([place]) (father at 53 from myocardial infarction) Medications and Allergies Home Medications Medication Instructions Recorded Confirmed Type Atorvastatin Calcium [Lipitor] 80 mg PO HS 05/31/17 08/31/17 History Isosorbide Mononitrate ER [Imdur] 60 mg PO QAM 05/31/17 08/31/17 History Metoprolol Tartrate [Lopressor] 50 mg PO BID 05/31/17 08/31/17 History Insulin NPH/Reg Insulin 70/30 50 unit SQ BID vial 06/02/17 08/31/17 Rx [humuLIN 70/30 VIAL] Aspirin [Adult Low Dose Aspirin EC] 81 mg PO DAILY 08/31/17 08/31/17 History Lisinopril [Zestril] 10 mg PO DAILY 08/31/17 08/31/17 History Rivaroxaban [Xarelto] 20 mg PO DIRECTED 08/31/17 08/31/17 History traMADol HCL [Ultram] 50 mg PO DAILY PRN 08/31/17 08/31/17 History Allergies Allergy/AdvReac Type Severity Reaction Status Date / Time latex Allergy Rash/Hives Verified 08/31/17 22:05 Physical Exam Vitals: Vital Signs Temp Pulse Resp BP BP BP Pulse Ox 09/03/17 16:00 68 18 09/03/17 15:00 98.3 F 68 173/74 98 09/03/17 08:00 70 18 09/03/17 07:00 98.2 F 70 18 200/86 95 09/02/17 23:30 18 09/02/17 21:00 98.8 F 74 18 181/79 95 Intake and Output 09/03/17 09/03/17 09/03/17 06:59 14:59 22:59 Intake Total 2401 200 Output Total 1800 1400 Balance 601 -1200 Intake: Oral 2401 200 Output: Urine 1800 1400 Uretheral (Simmons) 1800 Other: Voiding Method Indwelling Catheter Indwelling Catheter Indwelling Catheter # Bowel Movements 1 General appearance: The patient is alert, oriented, in no acute distress. HET: Head is normocephalic and atraumatic. Pupils are equal and reactive. Oropharynx is clear without lesions. Neck: Supple without lymphadenopathy. Trachea midline. Heart: S1 S2. Regular rate and rhythm. Lungs: No crackles or wheezes are heard. Abdomen: Soft, nontender, nondistended with bowel sounds. No peritoneal signs. No palpable organomegaly or masses. Extremities: Normal skin color and turgor. No cyanosis, rash, ulceration, clubbing, or edema. Radial and pedal pulses are 2/4 bilaterally. Neurological: No focal deficits. Strength and sensation are grossly intact. Results CBC & Chem 7: 09/04/17 06:14 09/04/17 06:14 Labs: Abnormal Lab Results - Last 24 Hours (Table) 09/02/17 09/02/17 09/03/17 Range/Units 20:41 22:40 06:44 Chloride 110 H (98-107) mmol/L Glucose 140 H (74-99) mg/dL POC Glucose (mg/dL) 233 H 205 H (75-99) mg/dL 09/03/17 09/03/17 09/03/17 Range/Units 07:03 11:30 17:09 Chloride (98-107) mmol/L Glucose (74-99) mg/dL POC Glucose (mg/dL) 132 H 140 H 181 H (75-99) mg/dL Microbiology - Last 24 Hours (Table) 09/01/17 10:22 Blood Culture - Preliminary Blood No Growth after 48 hours 08/31/17 21:35 Urine Culture - Final Urine,Voided Pseudomonas aeruginosa Assessment and Plan Plan: This 66-year-old female with multiple complaints including nausea, vomiting and vertigo had negative cardiac and neurologic evaluation. A primary GI cause of her nausea could be considered. We will try symptomatic and empirical treatment over the weekend. Consider endoscopic evaluation early next week if her symptoms persist.
--- NOTE | 2017-09-05 05:19 | P.PN ---
Subjective Progress Note Date: 09/04/17 The patient is a 66-year-old female who was admitted to the hospital because of hallucinations, fainting spells and nausea and vomiting of around 2 weeks duration. The patient underwent cardiac and neurologic evaluation. No specific etiology have been identified. We were asked to see her regarding her chronic nausea. The patient has multiple medical problems including history of diabetes mellitus hyperlipidemia CVA pulmonary embolization as well as urinary retention and hematuria. Her related that she has been having the shakes but no dragan seizures and she is describing vertigo and spinning sensation. No hematemesis or hematochezia. No dysphagia or odynophagia. Patient has been having some nausea today but no vomiting. She continues to have some positional component to her symptoms and I would consider a trial with Antivert either in the hospital or as outpatient if she remains symptomatic. Objective - Vital Signs Vital signs: Vital Signs Temp 98.1 F 09/04/17 15:00 Pulse 67 09/04/17 15:16 Resp 16 09/04/17 15:16 BP 149/67 09/04/17 15:00 Pulse Ox 97 09/04/17 15:00 Intake & Output 09/04/17 09/04/17 09/05/17 06:59 18:59 06:59 Intake Total 1980 Output Total 750 400 Balance 1230 -400 Intake: Intake, IV Titration 900 Amount Sodium Chloride 0.9% 1, 900 000 ml @ 75 mls/hr IV . [id number] [facility] Rx#:[id number] Oral 1080 Output: Urine 750 400 Other: Voiding Method Indwelling Catheter Indwelling Catheter # Voids 1 1 - Exam General appearance: The patient is alert, oriented, in no acute distress. HET: Head is normocephalic and atraumatic. Pupils are equal and reactive. Oropharynx is clear without lesions. Neck: Supple without lymphadenopathy. Trachea midline. Heart: S1 S2. Regular rate and rhythm. Lungs: No crackles or wheezes are heard. Abdomen: Soft, nontender, nondistended with bowel sounds. No peritoneal signs. No palpable organomegaly or masses. Extremities: Normal skin color and turgor. No cyanosis, rash, ulceration, clubbing, or edema. Radial and pedal pulses are 2/4 bilaterally. Neurological: No focal deficits. Strength and sensation are grossly intact. - Labs CBC & Chem 7: 09/04/17 06:14 10/08/17 06:14 Labs: Abnormal Lab Results - Last 24 Hours (Table) 09/03/17 09/04/17 09/04/17 Range/Units 19:58 06:14 06:14 Hgb 11.3 L (11.4-16.0) gm/dL Chloride 110 H (98-107) mmol/L Glucose 124 H (74-99) mg/dL POC Glucose (mg/dL) 184 H (75-99) mg/dL Total Protein 5.9 L (6.3-8.2) g/dL Albumin 2.9 L (3.5-5.0) g/dL 09/04/17 09/04/17 09/04/17 Range/Units 08:16 11:38 17:46 Hgb (11.4-16.0) gm/dL Chloride (98-107) mmol/L Glucose (74-99) mg/dL POC Glucose (mg/dL) 191 H 211 H 204 H (75-99) mg/dL Total Protein (6.3-8.2) g/dL Albumin (3.5-5.0) g/dL 09/04/17 Range/Units 20:05 Hgb (11.4-16.0) gm/dL Chloride (98-107) mmol/L Glucose (74-99) mg/dL POC Glucose (mg/dL) 236 H (75-99) mg/dL Total Protein (6.3-8.2) g/dL Albumin (3.5-5.0) g/dL Microbiology - Last 24 Hours (Table) 09/01/17 10:22 Blood Culture - Preliminary Blood No Growth after 72 hours Assessment and Plan Plan: This 66-year-old female with multiple complaints including nausea, vomiting and vertigo had negative cardiac and neurologic evaluation. A primary GI cause of her nausea could be considered. We will try symptomatic and empirical treatment over the weekend. With the positional component of her symptoms, consideration can be given for a trial with Antivert or similar medications if her symptoms persist. I will discuss with you.
[2017-09-05 07:31] LABS: Glucose,Whole Blood 136 mg/dL (75-99)
[2017-09-05 08:19] LABS: Basophils # (A) 0.1 k/uL (0-0.2); Basophils % (A) 1 %; CH 30.2; CHCM 33.1; Eosinophils # (A) 0.3 k/uL (0-0.7); Eosinophils % (A) 3 %; HCT 34.9 % (34.0-46.0); HDW 2.76; HGB 11.2 gm/dL (11.4-16.0); Luc # (Auto) 0.19; Luc % (Auto) 3; Lymphocytes # (A) 2.5 k/uL (1.0-4.8); Lymphocytes % (A) 33 %; MCH 29.4 pg (25.0-35.0); MCHC 32.1 g/dL (31.0-37.0); MCV 91.8 fL (80.0-100.0); Mean Platelet Volume 7.8; Monocytes # (A) 0.5 k/uL (0-1.0); Monocytes % (A) 6 %; Neutrophils # (A) 4.2 k/uL (1.3-7.7); Neutrophils % (A) 54 %; RDW 14.4 % (11.5-15.5); WBC 7.7 k/uL (3.8-10.6); WBC (Perox) 6.83
[2017-09-05 08:31] VITALS: BP 188/80; PULSE 68; RESP 16; TEMP 98.2
[2017-09-05 08:34] LABS: ALT 30 U/L (9-52); AST 23 U/L (14-36); Alkaline Phosphatase 71 U/L (38-126); Anion Gap 8 mmol/L; Blood Urea Nitrogen 10 mg/dL (7-17); Carbon Dioxide 24 mmol/L (22-30); Chloride 110 mmol/L (98-107); Glucose 130 mg/dL (74-99); Magnesium 1.7 mg/dL (1.6-2.3); Non-African American GFR(MDRD) 52 (>60 ml/min/1.73 sqM); Potassium 3.9 mmol/L (3.5-5.1); Sodium 142 mmol/L (137-145); Total Bilirubin 0.3 mg/dL (0.2-1.3); Total Protein 5.9 g/dL (6.3-8.2)
[2017-09-05] MEDS: ASPIRIN 81 MG PO SCH (08:36)
[2017-09-05] MEDS: INSULIN LISPRO (humaLOG) 300 UNIT/3 ML VIAL SQ SCH ×2 (08:36→12:15)
[2017-09-05] MEDS: LISINOPRIL 10 MG TAB PO SCH (08:37)
[2017-09-05] MEDS: CIPROFLOXACIN HCL 500 MG TAB PO SCH (08:37)
[2017-09-05] MEDS: HEPARIN SODIUM,PORCINE 5,000 UNIT/ML 1 ML VIAL SQ SCH (08:37)
[2017-09-05] MEDS: ISOSORBIDE MONONITRATE ER 60 MG TAB.ER.24H PO SCH (08:37)
[2017-09-05] MEDS: METOPROLOL TARTRATE 50 MG TAB PO SCH (08:37)
[2017-09-05] MEDS: INSULIN NPH/REG INSULIN 70/30 300 UNIT/3 ML VIAL SQ SCH (08:47)
[2017-09-05 11:44] LABS: Glucose,Whole Blood 233 mg/dL (75-99)
--- NOTE | 2017-09-05 19:33 | EEG ---
ELECTROENCEPHALOGRAM REPORT DATE OF SERVICE: 09/01/2017. REASON FOR TESTING: Altered mental status. DESCRIPTION OF THE PROCEDURE: This EEG was performed using a 21 channel digital electroencephalograph, following international 10-20 system. DESCRIPTION OF THE RECORDING: From the beginning of the tracing, and with patient's eyes closed, the background rhythm was mostly consisting of 7 hertz theta frequency in the posterior occipital leads. No obvious asymmetry is seen. Photic stimulation was performed with a minimal driving response seen. No pathological waves were elicited. Occasional muscle artifacts and movement artifacts are seen. Hyperventilation was not performed. The patient remains awake throughout the tracing. No epileptiform discharges were seen. Her EKG lead showed a regular rate and rhythm. INTERPRETATION: This awake EEG is abnormal due to presence of generalized slowing of the background rhythm, mostly in the theta range. This is consistent with mild encephalopathy. No epileptiform discharges were seen. The absence of epileptiform discharges does not rule out the diagnosis of epilepsy, therefore clinical correlation is recommended. MMTIAN / ALEKSN: [id number] /
--- NOTE | 2017-09-06 12:39 | P.DS ---
Providers Date of admission: 08/31/17 23:43 Expected date of discharge: 09/05/17 Attending physician: Julio Gonzalez Consults: 09/01/17 10:06 Consult Physician Routine Consulting Provider: Isaac Monae Consult Reason/Comments: fainting spells, hallucinations, CVA x2 Do you want consulting provider notified?: Yes 09/01/17 10:10 Consult Physician Routine Consulting Provider: Riana Singer Consult Reason/Comments: syncope episodes Do you want consulting provider notified?: Yes 09/02/17 13:19 Consult Physician Routine Consulting Provider: Alejandro Ellis Consult Reason/Comments: hallucinations Do you want consulting provider notified?: Yes Consult Physician Routine Consulting Provider: Michelle Anne Consult Reason/Comments: chronic nausea Do you want consulting provider notified?: Yes Primary care physician: Ivis Pineda [facility] Course: This is a 66-year-old patient of Dr. 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 Patient was found to have pulmonary embolism during the admission with a CTA showing a secondary branch pulmonary artery embolism. Patient was discharged on xarelto during that admission. Patient was also seen by urology for hematuria and underwent cystoscopy and has been catheter dependent ever since for urinary retention. Patient continues to be evaluated for thyroid nodules with Dr. Pineda. She was last seen in the office 2 weeks ago when she complained of rectal bleeding as a result of which xarelto was discontinued. Patient was seen in the ED yesterday with complaints of nausea, multiple episodes of vomiting, hallucinations that started 2 weeks ago. Patient endorses both visual and tactile hallucinations the form of mice and snakes. She states in the beginning it was 1 or 2 that she could see but now she endorses tactile hallucinations and it has worsened since yesterday. According to the bedside patient is not sleeping for many days due to the hallucination. He also states that the patient continues to have fainting spells that starts with nausea and vomiting. Patient's extremity get stiff and patient shakes during these episodes. She is covered with sweat and does not remember the incidences. He denies any chest pain, or shortness of breath, productive cough, change in vision, headaches or loss of bowel or in any of her extremities. Patient denies any history of seizures. Family bedside states that patient underwent echo in May with no abnormality. She does not see a key worker as outpatient. Patient denies any abdominal pain but does complain of catheter discomfort associated with nausea and vomiting. Last episode of syncope was 3 days ago. On my evaluation today, patient states that she hasn't been as hallucinating since last night and she slept well. Patient's vital signs in the ED were normal, EKG suggested sinus rhythm with no dysrhythmia seen. WBC was elevated to 12.1, creatinine 1.29 with a baseline of 0.8 with a lactic acid of 2.1. Urinalysis done in the ED suggested a WBC of [address] head was done for complaints of hallucination but no acute findings were seen. Abdominal x-ray was done which shows nonobstructive nonspecific bowel gas pattern. Chest x-ray was negative for any focal infiltrate. Urine cultures were obtained. Patient was given IV fluids for lactic acidosis and acute kidney injury and was admitted for UTI with sepsis. 09/02: Carotid ultrasound shows mildly elevated right internal carotid artery compatible with 50-69% stenosis and favored to represent approximately 50% stenosis. Moderate grayscale atheromatous plaquing within both carotid bulbs. She has been seen by cardiology and they have ordered cardiac enzymes and d- dimer. D-dimer was elevated at 2.41 but was less than last visit and no further imaging was ordered. Patient also seen by neurology and EEG was ordered and if normal patient is cleared from neurology Standpoint. Hallucination issue was not addressed by neurology. Patient states that although she did not see anything she could feel the mice on her. A psychiatric consult has been added. Patient also continues to have nausea despite use with Protonix and consult with GI place for chronic nausea. Speech therapy consult also requested and social work for extended care facility. IV fluids decreased to 75 mL an hour. Urine culture is showing gram-negative bacilli. Blood cultures no growth at 24 hours. 09/03: Patient urine culture showed pseudomonas aeruginosa subsequent days Rocephin will be discontinued patient will be placed on ciprofloxacin 500 mg orally twice every day. 09/04: Patient s feeling a bit nauseated without and vomiting, no fever or chills , hopefully discharge in AM. 09/05: Patient has been seen and followed by Dr. Quijano with recommendations to follow up with her primary GI physician. Dr. Reyes has evaluated the patient for delirium possibly related to infection. Patient's hallucinations did go away. No antipsychotic medications were started. Patient has improvement of nausea. No fever or chills. Plan is for discharge home today in stable condition. Discharge diagnoses: 1 Hallucination visual and tactile- unclear etiology. #2 syncope-associated with nausea and vomiting- multiple episodes in the past year, unclear etiology #3 catheter associated pseudomonas urinary tract infection #4 history of stroke #5 diabetes mellitis type II, insulin requiring #6 . HyperLipidemia #7 coronary artery disease status post CABG in 1999 #8 pulmonary embolism -Xarelto was discontinued 2 weeks ago for concern of GI bleeding #9 thyroid nodule #10 urinary retention - Continue Simmons catheter #11 Acute renal failure likely prerenal # 12 H/o Stroke - on aspirin and atorvastatin Discharge plan: Home with home care Impression and plan of care have been directed as dictated by the signing physician. Mckenzie Luevano nurse practitioner acting as scribe for signing physician. Patient Condition at Discharge: Good Plan - Discharge Summary New Discharge Prescriptions: New Ciprofloxacin HCl [Cipro] 500 mg PO BID #14 tab Continue Metoprolol Tartrate [Lopressor] 50 mg PO BID Isosorbide Mononitrate ER [Imdur] 60 mg PO QAM Atorvastatin Calcium [Lipitor] 80 mg PO HS traMADol HCL [Ultram] 50 mg PO DAILY PRN PRN Reason: Pain Lisinopril [Zestril] 10 mg PO DAILY Aspirin [Adult Low Dose Aspirin EC] 81 mg PO DAILY Changed Insulin NPH/Reg Insulin 70/30 [humuLIN 70/30 VIAL] 25 unit SQ BID #0 vial Discontinued Rivaroxaban [Xarelto] 20 mg PO DIRECTED Discharge Medication List Atorvastatin Calcium [Lipitor] 80 mg PO HS 05/31/17 [History] Isosorbide Mononitrate ER [Imdur] 60 mg PO QAM 05/31/17 [History] Metoprolol Tartrate [Lopressor] 50 mg PO BID 05/31/17 [History] Aspirin [Adult Low Dose Aspirin EC] 81 mg PO DAILY 08/31/17 [History] Lisinopril [Zestril] 10 mg PO DAILY 08/31/17 [History] traMADol HCL [Ultram] 50 mg PO DAILY PRN 08/31/17 [History] Ciprofloxacin HCl [Cipro] 500 mg PO BID #14 tab 09/05/17 [Rx] Insulin NPH/Reg Insulin 70/30 [humuLIN 70/30 VIAL] 25 unit SQ BID #0 vial [Rx] Follow up Appointment(s)/Referral(s): Ivis Pineda MD [Primary Care Provider] - 09/12/17 1:00 pm Patient Instructions/Handouts: Ciprofloxacin (By mouth) Activity/Diet/Wound Care/Special Instructions: priority home care - Discharge Disposition: HOME SELF-CARE
== END 2017-09-05 16:50 | disposition home health service (06) | DRG 698 ==
LOC: EC 20:07 → 5MS5E 23:43
PROVIDERS: ADMIT Internal Medicine Geriatric Medicine; ATTEND Internal Medicine Geriatric Medicine
DX: T83.518A Infection and inflammatory reaction due to other urinary catheter, initial encounter (principal); A41.9 Sepsis, unspecified organism; N17.9 Acute kidney failure, unspecified; R44.2 Other hallucinations; N39.0 Urinary tract infection, site not specified; I69.951 Hemiplegia and hemiparesis following unspecified cerebrovascular disease affecting right dominant side; E87.2 Acidosis; R56.9 Unspecified convulsions; E11.69 Type 2 diabetes mellitus with other specified complication; I27.20 Pulmonary hypertension, unspecified; I65.21 Occlusion and stenosis of right carotid artery; E04.2 Nontoxic multinodular goiter; E66.3 Overweight; R33.9 Retention of urine, unspecified; B96.5 Pseudomonas (aeruginosa) (mallei) (pseudomallei) as the cause of diseases classified elsewhere; E04.1 Nontoxic single thyroid nodule; R26.9 Unspecified abnormalities of gait and mobility; R44.1 Visual hallucinations; I25.10 Atherosclerotic heart disease of native coronary artery without angina pectoris; E78.5 Hyperlipidemia, unspecified; I10 Essential (primary) hypertension; G47.00 Insomnia, unspecified; Z79.82 Long term (current) use of aspirin; Z79.4 Long term (current) use of insulin; Z79.01 Long term (current) use of anticoagulants; Z79.899 Other long term (current) drug therapy; Z95.1 Presence of aortocoronary bypass graft; Z87.891 Personal history of nicotine dependence; Z86.711 Personal history of pulmonary embolism; Z87.442 Personal history of urinary calculi; Y84.6 Urinary catheterization as the cause of abnormal reaction of the patient, or of later complication, without mention of misadventure at the time of the procedure
CPT/HCPCS: 36415; 70450; 71020; 74020; 80048; 80053; 81001; 82550; 82553; 83036; 83605; 83690; 83735; 83880; 84484; 85025; 85379; 85610; 85730; 87040; 87077; 87086; 87186; 93005; 93880; 95819; 96361; 96365; 96375; 99285

== ENCOUNTER 2017-10-02 16:04 | Inpatient (IN) | payer MEDICARE ==
[2017-10-02] MEDS ORDERED: SODIUM CHLORIDE 0.9% 1,000 ML IV STA ×3 (16:42→19:46)
[2017-10-02 16:47] LABS: Glucose,Whole Blood 199 mg/dL (75-99)
--- NOTE | 2017-10-02 16:48 | ED ---
Weakness HPI - General Chief complaint: Weakness Stated complaint: Weakness Time Seen by Provider: 10/02/17 16:28 Source: patient, family, RN notes reviewed Mode of arrival: wheelchair Limitations: no limitations - History of Present Illness Initial comments: This is a 66-year-old female history of CVA in the past who is brought in for evaluation for increased weakness for the past 2 days. She was seen here by week ago diagnosed with a urinary tract infection hyperkalemia UTI she was evaluated by psychiatry at that time she had improved and was discharged per her she's not really done a whole lot better in the last week but specifically got bad on Tuesday which is 2 days ago. She has been taking her medications but has had decreased oral intake no overt fevers chills or sweats he does seem to have increased weakness. MD Complaint: generalized weakness, focal weakness - Related Data Home Medications Medication Instructions Recorded Confirmed Isosorbide Mononitrate ER [Imdur] 60 mg PO QAM 05/31/17 10/02/17 Metoprolol Tartrate [Lopressor] 50 mg PO BID 05/31/17 10/02/17 Lisinopril [Zestril] 10 mg PO DAILY 08/31/17 10/02/17 Insulin NPH Hum/Reg Insulin Hm 40 unit SQ W/SUPPER 09/25/17 10/02/17 [NovoLIN 70-30 100 UNIT/ML VIAL] Insulin NPH Hum/Reg Insulin Hm 50 unit SQ QAM 09/25/17 10/02/17 [NovoLIN 70-30 100 UNIT/ML VIAL] Moxifloxacin HCl [Avelox] 400 mg PO DAILY 09/25/17 10/02/17 Allergies Allergy/AdvReac Type Severity Reaction Status Date / Time latex Allergy Rash/Hives Verified 10/02/17 16:50 Review of Systems ROS Statement: Those systems with pertinent positive or pertinent negative responses have been documented in the HPI. ROS Other: All systems not noted in ROS Statement are negative. Past Medical History Past Medical History: CVA/TIA, Diabetes Mellitus, Hyperlipidemia Additional Past Medical History / Comment(s): patient has had 2 strokes, last in April 2016. kidney stones History of Any Multi-Drug Resistant Organisms: None Reported Past Surgical History: Cholecystectomy, Coronary Bypass/CABG Additional Past Surgical History / Comment(s): CABG in 2001 Past Anesthesia/Blood Transfusion Reactions: No Reported Reaction Past Psychological History: No Psychological Hx Reported Smoking Status: Former smoker Past Alcohol Use History: None Reported Past Drug Use History: None Reported - Past Family History Brother(s) Family Medical History: Diabetes Mellitus Additional Family Medical History / Comment(s): Brother just recently . Unknown history. Mother Family Medical History: Hypertension Father Family Medical History: Myocardial Infarction ([place]) (father at 53 from myocardial infarction) General Exam - General Exam Comments Initial Comments: This a well-developed asthenic appearing female who is lethargic but responsive to some questioning Limitations: no limitations General appearance: alert, lethargic Head exam: Present: atraumatic, normocephalic, normal inspection Eye exam: Present: normal appearance, PERRL, EOMI. Absent: scleral icterus, conjunctival injection, periorbital swelling ENT exam: Present: mucous membranes dry Neck exam: Present: normal inspection. Absent: tenderness, meningismus, lymphadenopathy Respiratory exam: Present: normal lung sounds bilaterally. Absent: respiratory distress, wheezes, rales, rhonchi, stridor Cardiovascular Exam: Present: regular rate, normal rhythm, normal heart sounds. Absent: systolic murmur, diastolic murmur, rubs, gallop, clicks GI/Abdominal exam: Present: soft, normal bowel sounds. Absent: distended, tenderness, guarding, rebound, rigid Rectal exam: Present: deferred Extremities exam: Present: normal inspection, normal capillary refill. Absent: full ROM, tenderness, pedal edema, joint swelling, calf tenderness Back exam: Present: normal inspection Neurological exam: Present: alert, altered, CN II-XII intact, motor sensory deficit (Decreased motor function to the right upper and lower extremity compared to the left per family this does seem a little worse than usual) Psychiatric exam: Present: flat affect Skin exam: Present: warm, dry, intact, normal color. Absent: rash Course Vital Signs 10/02/17 10/02/17 10/02/17 16:09 16:59 17:28 Temperature 97.9 F Pulse Rate 84 63 Respiratory 18 14 14 Rate Blood Pressure 129/59 134/60 O2 Sat by Pulse 97 98 Oximetry - Reevaluation(s) Reevaluation #1: 10/02/17 19:44 I did reevaluate the patient several occasions her was no real change in her status. I did have several discussions the patient's and son. Reevaluation #2: 10/02/17 19:46 Initially there was no reports of chest pain over the patient's son does relate that she had been complaining of some vague chest pain earlier last week. Reevaluation #3: 10/02/17 19:50 I did discuss the case with Dr. Patel. At this time we will withhold heparinization. EKG Findings - EKG Results: EKG: interpreted by JOHN, sinus rhythm (Sinus rhythm rate is 74. Interval 154 QRS 86 QT since QTC of 396/439 LVH old inferior changes no change from an EKG dated 09/25/17) Medical Decision Making - Medical Decision Making I did discuss findings with the patient and family members. Also with Dr. Gonzalez. Patient be admitted with consultation by neurology and cardiology. - Lab Data Result diagrams: 10/02/17 16:45 10/02/17 16:45 Lab Results 10/02/17 10/02/17 10/02/17 Range/Units 16:26 16:45 16:45 WBC (3.8-10.6) k/uL RBC (3.80-5.40) m/uL Hgb (11.4-16.0) gm/dL Hct (34.0-46.0) % MCV (80.0-100.0) fL MCH (25.0-35.0) pg MCHC (31.0-37.0) g/dL RDW (11.5-15.5) % Plt Count (150-450) k/uL Neutrophils % % Lymphocytes % % Monocytes % % Eosinophils % % Basophils % % Neutrophils # (1.3-7.7) k/uL Lymphocytes # (1.0-4.8) k/uL Monocytes # (0-1.0) k/uL Eosinophils # (0-0.7) k/uL Basophils # (0-0.2) k/uL PT (9.0-12.0) sec INR (<1.2) APTT (22.0-30.0) sec Sodium (137-145) mmol/L Potassium (3.5-5.1) mmol/L Chloride (98-107) mmol/L Carbon Dioxide (22-30) mmol/L Anion Gap mmol/L BUN (7-17) mg/dL Creatinine (0.52-1.04) mg/dL Est GFR (MDRD) Af Amer (>60 ml/min/1.73 sqM) Est GFR (MDRD) Non-Af (>60 ml/min/1.73 sqM) Glucose (74-99) mg/dL POC Glucose (mg/dL) 199 H (75-99) mg/dL POC Glu High Scaler ID Dedrick Cedillo Plasma Lactic Acid Austen 2.3 H* (0.7-2.0) mmol/L Calcium (8.4-10.2) mg/dL Magnesium (1.6-2.3) mg/dL Total Bilirubin (0.2-1.3) mg/dL AST (14-36) U/L ALT (9-52) U/L Alkaline Phosphatase (38-126) U/L Ammonia <9 (<30) umol/L Total Creatine Kinase 115 (30-135) U/L CK-MB (CK-2) 5.1 H* (0.0-2.4) ng/mL CK-MB (CK-2) Rel Index 4.4 Troponin I 2.800 H* (0.000-0.034) ng/mL NT-Pro-B Natriuret Pep pg/mL Total Protein (6.3-8.2) g/dL Albumin (3.5-5.0) g/dL 10/02/17 10/02/17 10/02/17 Range/Units 16:45 16:45 16:45 WBC 9.4 (3.8-10.6) k/uL RBC 4.12 (3.80-5.40) m/uL Hgb 11.8 (11.4-16.0) gm/dL Hct 37.6 (34.0-46.0) % MCV 91.2 (80.0-100.0) fL MCH 28.6 (25.0-35.0) pg MCHC 31.4 (31.0-37.0) g/dL RDW 14.0 (11.5-15.5) % Plt Count 253 (150-450) k/uL Neutrophils % 54 % Lymphocytes % 32 % Monocytes % 8 % Eosinophils % 3 % Basophils % 1 % Neutrophils # 5.0 (1.3-7.7) k/uL Lymphocytes # 3.0 (1.0-4.8) k/uL Monocytes # 0.7 (0-1.0) k/uL Eosinophils # 0.3 (0-0.7) k/uL Basophils # 0.1 (0-0.2) k/uL PT (9.0-12.0) sec INR (<1.2) APTT (22.0-30.0) sec Sodium 138 (137-145) mmol/L Potassium 4.6 (3.5-5.1) mmol/L Chloride 104 (98-107) mmol/L Carbon Dioxide 27 (22-30) mmol/L Anion Gap 7 mmol/L BUN 23 H (7-17) mg/dL Creatinine 1.59 H (0.52-1.04) mg/dL Est GFR (MDRD) Af Amer 39 (>60 ml/min/1.73 sqM) Est GFR (MDRD) Non-Af 32 (>60 ml/min/1.73 sqM) Glucose 196 H (74-99) mg/dL POC Glucose (mg/dL) (75-99) mg/dL POC Glu High Scaler ID Plasma Lactic Acid Austen (0.7-2.0) mmol/L Calcium 9.0 (8.4-10.2) mg/dL Magnesium 1.9 (1.6-2.3) mg/dL Total Bilirubin 0.6 (0.2-1.3) mg/dL AST 32 (14-36) U/L ALT 26 (9-52) U/L Alkaline Phosphatase 68 (38-126) U/L Ammonia (<30) umol/L Total Creatine Kinase (30-135) U/L CK-MB (CK-2) (0.0-2.4) ng/mL CK-MB (CK-2) Rel Index Troponin I (0.000-0.034) ng/mL NT-Pro-B Natriuret Pep 2470 pg/mL Total Protein 6.3 (6.3-8.2) g/dL Albumin 3.1 L (3.5-5.0) g/dL 10/02/17 Range/Units 16:45 WBC (3.8-10.6) k/uL RBC (3.80-5.40) m/uL Hgb (11.4-16.0) gm/dL Hct (34.0-46.0) % MCV (80.0-100.0) fL MCH (25.0-35.0) pg MCHC (31.0-37.0) g/dL RDW (11.5-15.5) % Plt Count (150-450) k/uL Neutrophils % % Lymphocytes % % Monocytes % % Eosinophils % % Basophils % % Neutrophils # (1.3-7.7) k/uL Lymphocytes # (1.0-4.8) k/uL Monocytes # (0-1.0) k/uL Eosinophils # (0-0.7) k/uL Basophils # (0-0.2) k/uL PT 10.7 (9.0-12.0) sec INR 1.1 (<1.2) APTT 22.8 (22.0-30.0) sec Sodium (137-145) mmol/L Potassium (3.5-5.1) mmol/L Chloride (98-107) mmol/L Carbon Dioxide (22-30) mmol/L Anion Gap mmol/L BUN (7-17) mg/dL Creatinine (0.52-1.04) mg/dL Est GFR (MDRD) Af Amer (>60 ml/min/1.73 sqM) Est GFR (MDRD) Non-Af (>60 ml/min/1.73 sqM) Glucose (74-99) mg/dL POC Glucose (mg/dL) (75-99) mg/dL POC Glu High Scaler ID Plasma Lactic Acid Austen (0.7-2.0) mmol/L Calcium (8.4-10.2) mg/dL Magnesium (1.6-2.3) mg/dL Total Bilirubin (0.2-1.3) mg/dL AST (14-36) U/L ALT (9-52) U/L Alkaline Phosphatase (38-126) U/L Ammonia (<30) umol/L Total Creatine Kinase (30-135) U/L CK-MB (CK-2) (0.0-2.4) ng/mL CK-MB (CK-2) Rel Index Troponin I (0.000-0.034) ng/mL NT-Pro-B Natriuret Pep pg/mL Total Protein (6.3-8.2) g/dL Albumin (3.5-5.0) g/dL - Radiology Data Radiology results: report reviewed (Imaging shows no definite acute changes. CAT scan or x-ray.), image reviewed Critical Care Time Critical Care Time: Yes Critical Care Time: 31 minutes of critical care time which was initial presentation with history physical labs x-rays reevaluation patient several occasions. Discussion with the and son the patient. Discussion with the admitting physician discussion with cardiology. Admission orders documentation above review of old charting. Disposition Clinical Impression: Non-ST elevation myocardial infarction (NSTEMI), Renal insufficiency syndrome, Dehydration, Urinary tract infection, Sepsis, CVA (cerebral vascular accident) Disposition: ADMITTED IP TO THIS HOSP Condition: Stable Referrals: Ivis Pineda MD [Primary Care Provider] - 1-2 days
[2017-10-02 16:59] LABS: Basophils # (A) 0.1 k/uL (0-0.2); Basophils % (A) 1 %; CH 28.9; CHCM 31.9; Eosinophils # (A) 0.3 k/uL (0-0.7); Eosinophils % (A) 3 %; HCT 37.6 % (34.0-46.0); HDW 2.78; HGB 11.8 gm/dL (11.4-16.0); Luc # (Auto) 0.28; Luc % (Auto) 3; Lymphocytes % (A) 32 %; MCH 28.6 pg (25.0-35.0); MCHC 31.4 g/dL (31.0-37.0); MCV 91.2 fL (80.0-100.0); Mean Platelet Volume 7.1; Monocytes # (A) 0.7 k/uL (0-1.0); Monocytes % (A) 8 %; Neutrophils % (A) 54 %; RBC 4.12 m/uL (3.80-5.40); WBC 9.4 k/uL (3.8-10.6); WBC (Perox) 9.58
[2017-10-02 17:10] LABS: INR 1.1 (<1.2); Partial Thromboplastin Time 22.8 sec (22.0-30.0); Prothrombin Time 10.7 sec (9.0-12.0)
[2017-10-02 17:11] LABS: Magnesium 1.9 mg/dL (1.6-2.3); Potassium 4.6 mmol/L (3.5-5.1); Total Bilirubin 0.6 mg/dL (0.2-1.3); Total Protein 6.3 g/dL (6.3-8.2)
[2017-10-02 17:15] LABS: Ammonia <9 umol/L (<30)
--- NOTE | 2017-10-02 17:20 | CT ---
EXAMINATION TYPE: CT brain wo con DATE OF EXAM: 10/02/2017 COMPARISON: 09/25/2017 HISTORY: 66-year-old female with altered mental status/weakness TECHNIQUE: Examination was done in axial plane without intravenous contrast. Coronal and sagittal r econstructions performed. CT DLP: 1072.30 mGycm Automated exposure control for dose reduction was used. FINDINGS: There is no evidence of acute intracranial hemorrhage, acute ischemic changes, mass, mass-effect, or extra-axial fluid collection. There is no effacement of cerebral sulci or basal subarachnoid cister ns. There is no hydrocephalus. There is no midline shift. Cheng-white matter distinction is preserv ed. Demonstrated mild patchy white matter hypodensities. Either old lacunar infarct or prominent perivasc ular space in the left basal ganglia also redemonstrated. Paranasal sinuses and mastoid air cells are well pneumatized. Orbits and globes are intact. Patient s tates is divergent suggesting underlying strabismus. IMPRESSION: No acute intracranial abnormality seen. Stable mild changes of chronic small vessel ischemic disease.
--- NOTE | 2017-10-02 17:30 | XR ---
EXAMINATION TYPE: XR chest 2V DATE OF EXAM: 10/02/2017 COMPARISON: 09/25/2017 HISTORY: 66-year-old female with weakness TECHNIQUE: Frontal and lateral views FINDINGS: Heart upper limits of normal in size. Median sternotomy wires are present. Peribronchial cuffing and mild interstitial prominence appears slightly increased from prior. No significant pleural effusion o r dragan consolidation. IMPRESSION: Peribronchial cuffing and mild interstitial changes. Correlate for possible bronchitis, chronic asthm a, or atypical pneumonias.
[2017-10-02 17:33] LABS: Creatine Kinase MB 5.1 ng/mL (0.0-2.4); Troponin I 2.8 ng/mL (0.000-0.034)
[2017-10-02] MEDS ORDERED: NITROGLYCERIN SL TABS 0.4 MG TAB SUBLINGUAL PRN (19:53)
[2017-10-02] MEDS ORDERED: cefTRIAXone IN SWFI 1,000 MG/10 ML SYRINGE IVP STA (20:10)
[2017-10-02 20:55] LABS: Amorphous Sediment,Urine Occasional /hpf; Appearance,Urine Cloudy (Clear); Bilirubin,Urine Negative (Negative); Glucose,Urine (UA) Trace (Negative); Hyphae Yeast, Urine Occasional /hpf; Ketones,Urine Negative (Negative); Leukocyte Esterase,Urine Large (Negative); Mucus,Urine Rare /hpf; Nitrite,Urine Negative (Negative); PH, Urine 5.5 (5.0-8.0); Particle Count 3416; Protein,Urine 2+ (Negative); RBC,Urine 7 /hpf (0-5); Specific Gravity,Urine 1.021 (1.001-1.035); Squamous Epithelial Cell,Urine 1 /hpf (0-4); UA Billing (MACRO vs. MICRO) MICRO; Urobilinogen,Urine <2.0 mg/dL (<2.0); WBC,Urine 125 /hpf (0-5)
[2017-10-02 21:56] LABS: Glucose,Whole Blood 177 mg/dL (75-99)
[2017-10-02 22:13] LABS: Creatine Kinase MB 3.9 ng/mL (0.0-2.4); Troponin I 1.41 ng/mL (0.000-0.034)
[2017-10-02] MEDS: SODIUM CHLORIDE 0.9% 1,000 ML IV SCH (23:25)
[2017-10-02] MEDS: INSULIN LISPRO (humaLOG) 300 UNIT/3 ML VIAL SQ SCH (23:38)
[2017-10-03] MEDS: METOPROLOL TARTRATE 50 MG TAB PO SCH ×3 (00:45→21:44)
[2017-10-03 02:29] LABS: Cholesterol 163 mg/dL (<200); HDL Cholesterol 45 mg/dL (40-60)
[2017-10-03 03:01] LABS: Creatine Kinase MB 2.9 ng/mL (0.0-2.4); Troponin I 1.1 ng/mL (0.000-0.034)
[2017-10-03 03:03] VITALS: BMI 25.0
[2017-10-03] MEDS: SODIUM CHLORIDE 0.9% 1,000 ML IV SCH ×2 (05:53→11:36)
[2017-10-03] MEDS: INSULIN LISPRO (humaLOG) 300 UNIT/3 ML VIAL SQ SCH ×4 (06:30→21:44)
[2017-10-03 06:42] LABS: Glucose,Whole Blood 195 mg/dL (75-99)
[2017-10-03] MEDS: ASPIRIN 325 MG TAB PO SCH (08:12)
[2017-10-03] MEDS: ISOSORBIDE MONONITRATE ER 60 MG TAB.ER.24H PO SCH (08:12)
--- NOTE | 2017-10-03 08:14 | P.CRDCN ---
History of Present Illness Consult date: 10/03/17 Requesting physician: Julio Gonzalez Reason for Consult (text): Is a 66-year-old female with past medical history significant for CVA , diabetes, coronary artery disease with prior bypass surgery, hyperlipidemia, prior pulmonary embolism, patient had apparently been treated with xarelto but because of bleeding this was discontinued. The patient was apparently brought into the hospital because of increased weakness. According to the patient, she denies having any chest discomfort or any difficulty in breathing, cardiology consultation was requested because of abnormal troponins. Patient was diagnosed as an outpatient as having a UTI, she does chronically have a Simmons catheter in place. Most of her history was obtained from the medical record. EKG on arrival here showed a normal sinus rhythm with nonspecific ST-T wave changes. Chest x-ray revealed peribronchial cuffing and mild interstitial changes. Blood pressure on arrival 128/60 with a heart rate in the 80s, 97% on room air. Blood pressure this morning 176/70 with a heart rate in the 70s. CBC is normal. Potassium 4.6, BUN 23, creatinine 1.5. Initial troponin 2.8, subsequent troponins 1.4 and 1.1. BNP level 2470. The time of my examination this morning, patient is lying flat in bed with no overt difficulty in breathing , she denies any chest discomfort. She seems to answer most questions appropriately however is confused. Past Medical History Past Medical History: Coronary Artery Disease (CAD), CVA/TIA, Diabetes Mellitus , Hyperlipidemia, Hypertension, Pulmonary Embolus (PE), Syncope, Thyroid Disorder Additional Past Medical History / Comment(s): patient has had 2 strokes, last in April 2016. kidney stones, bladder mass, recurrent UTI's, thyroid nodule, chronic nausea, hematuria History of Any Multi-Drug Resistant Organisms: None Reported Past Surgical History: Cholecystectomy, Coronary Bypass/CABG Additional Past Surgical History / Comment(s): CABG in 2001 Past Anesthesia/Blood Transfusion Reactions: No Reported Reaction Additional Psychological History / Comment(s): pt. with recent history of hallucinations Smoking Status: Former smoker Past Alcohol Use History: None Reported Past Drug Use History: None Reported Additional Drug Use History / Comment(s): pt. 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 states she has a wheelchair at home to assist with mobility - Past Family History Brother(s) Family Medical History: Diabetes Mellitus Additional Family Medical History / Comment(s): Brother just recently . Unknown history. Mother Family Medical History: Hypertension Father Family Medical History: Myocardial Infarction ([place]) Medications and Allergies Home Medications Medication Instructions Recorded Confirmed Type Isosorbide Mononitrate ER [Imdur] 60 mg PO QAM 05/31/17 10/02/17 History Metoprolol Tartrate [Lopressor] 50 mg PO BID 05/31/17 10/02/17 History Lisinopril [Zestril] 10 mg PO DAILY 08/31/17 10/02/17 History Insulin NPH Hum/Reg Insulin Hm 40 unit SQ W/SUPPER 09/25/17 10/02/17 History [NovoLIN 70-30 100 UNIT/ML VIAL] Insulin NPH Hum/Reg Insulin Hm 50 unit SQ QAM 09/25/17 10/02/17 History [NovoLIN 70-30 100 UNIT/ML VIAL] Moxifloxacin HCl [Avelox] 400 mg PO DAILY 09/25/17 10/02/17 History Allergies Allergy/AdvReac Type Severity Reaction Status Date / Time latex Allergy Rash/Hives Verified 10/02/17 16:50 Physical Exam Vitals: Vital Signs Temp Pulse Pulse Resp BP BP BP 10/03/17 04:00 97.4 F L 78 18 176/74 10/03/17 01:30 98.2 F 102 H 16 182/75 10/03/17 00:00 18 10/02/17 23:34 99 18 10/02/17 20:45 98.1 F 100 18 162/69 10/02/17 20:11 97.2 F L 99 18 153/78 10/02/17 20:00 98 18 166/80 10/02/17 19:55 98.4 F 85 14 167/81 10/02/17 17:28 63 14 134/60 10/02/17 16:59 14 10/02/17 16:09 97.9 F 84 18 129/59 Pulse Ox 10/03/17 04:00 98 10/03/17 01:30 94 L 10/03/17 00:00 10/02/17 23:34 10/02/17 20:45 100 10/02/17 20:11 97 10/02/17 20:00 100 10/02/17 19:55 99 10/02/17 17:28 98 10/02/17 16:59 10/02/17 16:09 97 Intake and Output 10/02/17 10/03/17 10/03/17 22:59 06:59 14:59 Intake Total 1999 320 Output Total 625 Balance 1999 - Intake: Amount of Fluid Infused ( 2000 ml) Intake, IV Titration 200 Amount Sodium Chloride 0.9% 1, 200 000 ml @ 100 mls/hr IV . Q10H [facility] Rx#:[id number] Oral 120 Output: Urine 625 Other: Voiding Method Indwelling Catheter Weight 70.307 kg 69.5 kg PHYSICAL EXAMINATION: This is a 66-year-old female in no apparent distress at the time of my examination, seems older than stated age. HEENT: Head is atraumatic, normocephalic. Pupils equal, round. Neck is supple. There is no elevated jugular venous pressure. HEART EXAMINATION: Heart S1, S2 systolic murmur is heard. No murmur or gallop heard. CHEST EXAMINATION: Lungs are clear to auscultation and precussion. No chest wall tenderness is noted on palpation or with deep breathing. ABDOMEN: Soft, nontender. Bowel sounds are heard. No organomegaly noted. Simmons catheter in place. EXTREMITIES: 2+ peripheral pulses with no evidence of peripheral edema and no calf tenderness noted. NEUROLOGIC [patient is awake, drowsy, mildly confused. Results 10/02/17 16:45 10/02/17 16:45 Cardiac Enzymes 10/02/17 10/02/17 10/02/17 Range/Units 16:45 16:45 21:20 AST 32 (14-36) U/L CK-MB (CK-2) 5.1 H* 3.9 H* (0.0-2.4) ng/mL Troponin I 2.800 H* 1.410 H* (0.000-0.034) ng/mL 10/03/17 Range/Units 01:39 AST (14-36) U/L CK-MB (CK-2) 2.9 H* (0.0-2.4) ng/mL Troponin I 1.100 H* (0.000-0.034) ng/mL Coagulation 10/02/17 Range/Units 16:45 PT 10.7 (9.0-12.0) sec APTT 22.8 (22.0-30.0) sec Lipids 10/03/17 Range/Units 01:39 Triglycerides 156 H (<150) mg/dL Cholesterol 163 (<200) mg/dL HDL Cholesterol 45 (40-60) mg/dL CBC 10/02/17 Range/Units 16:45 WBC 9.4 (3.8-10.6) k/uL RBC 4.12 (3.80-5.40) m/uL Hgb 11.8 (11.4-16.0) gm/dL Hct 37.6 (34.0-46.0) % Plt Count 253 (150-450) k/uL Comprehensive Metabolic Panel 10/02/17 Range/Units 16:45 Sodium 138 (137-145) mmol/L Potassium 4.6 (3.5-5.1) mmol/L Chloride 104 (98-107) mmol/L Carbon Dioxide 27 (22-30) mmol/L BUN 23 H (7-17) mg/dL Creatinine 1.59 H (0.52-1.04) mg/dL Glucose 196 H (74-99) mg/dL Calcium 9.0 (8.4-10.2) mg/dL AST 32 (14-36) U/L ALT 26 (9-52) U/L Alkaline Phosphatase 68 (38-126) U/L Total Protein 6.3 (6.3-8.2) g/dL Albumin 3.1 L (3.5-5.0) g/dL Current Medications Generic Name Dose Route Start Last Admin Trade Name Freq PRN Reason Stop Dose Admin Aspirin 325 mg 10/03/17 09:00 Aspirin PO DAILY [facility]INE Sodium Chloride 1,000 mls @ 100 mls/hr 10/02/17 20:00 10/03/17 05:53 Saline 0.9% IV 100 mls/hr .Q10H JAZZMINE Administration Insulin Human Isoph/Insulin Regular 50 unit 10/03/17 09:00 Humulin 70/30 Vial SQ QAM [facility]ZZMINE Insulin Human Isoph/Insulin Regular 40 unit 10/03/17 17:30 Humulin 70/30 Vial SQ W/SUPPER [facility] Insulin Human Lispro 0 unit 10/02/17 21:00 10/03/17 06:30 Humalog SQ 2 unit ACHS JAZZMINE Administration Protocol Isosorbide Mononitrate 60 mg 10/03/17 09:00 Imdur PO QAM [facility] Lisinopril 10 mg 10/03/17 09:00 Zestril PO DAILY [facility] Metoprolol Tartrate 50 mg 10/02/17 21:00 10/03/17 00:45 Lopressor PO 50 mg BID [facility] Administration Nitroglycerin 0.4 mg 10/02/17 19:53 Nitrostat SUBLINGUAL Q5M PRN Chest Pain Intake and Output 10/02/17 10/03/17 10/03/17 22:59 06:59 14:59 Intake Total 1999 320 Output Total 625 Balance 1999 -305 Intake: Amount of Fluid Infused ( 2000 ml) Intake, IV Titration 200 Amount Sodium Chloride 0.9% 1, 200 000 ml @ 100 mls/hr IV . Q10H [facility] Rx#:[id number] Oral 120 Output: Urine 625 Other: Voiding Method Indwelling Catheter Weight 70.307 kg 69.5 kg 10/02/17 16:45 10/02/17 16:45 EKG Interpretations (text) EKG shows a normal sinus rhythm with inferior Q waves and nonspecific ST-T wave changes subsequent EKG performed this morning shows normal sinus rhythm with inferior Q waves and nonspecific ST-T wave changes in the lateral leads. Assessment and Plan Plan: Assessment and plan #1 symptoms of progressive weakness with evidence of abnormal troponins, 2.8, 1.4, 1.1, possible non-Q-wave myocardial infarction. Patient denies having any chest discomfort. EKG shows normal sinus rhythm with inferior Q waves and nonspecific ST-T wave changes in the lateral leads. Patient did have an echocardiogram with Doppler study performed in May of this year which revealed a normal left ventricular systolic function. #2 known history of coronary artery disease with prior bypass surgery in 2011 #3 hx of prior CVAs #4 hyperlipidemia #5 prior PE, patient had an issue with bleeding on xarelto so it was discontinued #6 essential hypertension #7 diabetes Plan Will obtain a repeat echocardiogram with Doppler study. We will maximize the patient's medications,continue aspirin, metoprolol tartrate, lisinopril, add a statin to her medication regime. Consider the addition of heparin for 24 hours. We'll also attempt to get prior records of patient's procedures in the past. Further recommendations to follow. DNP note has been reviewed, I agree with a documented findings and plan of care. Patient was seen and examined.
[2017-10-03] MEDS ORDERED: HEPARIN SODIUM,PORCINE 5,000 UNIT/ML 1 ML VIAL IV ONE (08:15)
[2017-10-03 08:55] LABS: Basophils # (A) 0.1 k/uL (0-0.2); Basophils % (A) 0 %; CH 28.3; CHCM 31.6; Eosinophils # (A) 0.3 k/uL (0-0.7); Eosinophils % (A) 2 %; HCT 38.6 % (34.0-46.0); HDW 2.61; HGB 12.2 gm/dL (11.4-16.0); Hypochromasia Slight; Luc # (Auto) 0.26; Luc % (Auto) 2; Lymphocytes # (A) 2.6 k/uL (1.0-4.8); Lymphocytes % (A) 19 %; MCH 28.5 pg (25.0-35.0); MCHC 31.6 g/dL (31.0-37.0); MCV 90.1 fL (80.0-100.0); Mean Platelet Volume 7.4; Monocytes # (A) 0.9 k/uL (0-1.0); Monocytes % (A) 7 %; Neutrophils # (A) 9.5 k/uL (1.3-7.7); Neutrophils % (A) 69 %; RBC 4.28 m/uL (3.80-5.40); RDW 14.5 % (11.5-15.5); WBC 13.6 k/uL (3.8-10.6); WBC (Perox) 14.33
[2017-10-03] MEDS ORDERED: LISINOPRIL 10 MG TAB PO SCH (09:00)
[2017-10-03] MEDS ORDERED: INSULIN NPH/REG INSULIN 70/30 300 UNIT/3 ML VIAL SQ SCH ×3 (09:00→17:30)
[2017-10-03 09:01] LABS: Partial Thromboplastin Time 22.7 sec (22.0-30.0); Prothrombin Time 10.5 sec (9.0-12.0)
[2017-10-03] MEDS: HEPARIN SODIUM,PORCINE/D5W PMX 25,000 UNIT in DEXTROSE/WATER 1 500ML.BAG IV SCH ×2 (09:46→16:45)
--- NOTE | 2017-10-03 10:30 | ECHOF ---
Referral Reason:abn trop MEASUREMENTS -------- HEIGHT: 167.6 cm WEIGHT: 69.4 kg BP: IVSd: 1.4 cm (0.6 - 1.1) LVIDd: 3.7 cm (3.9 - 5.3) LVPWd: 1.8 cm (0.6 - 1.1) IVSs: 2.1 cm LVIDs: 2.1 cm LVPWs: 1.8 cm Ao Diam: 3.2 cm (2.0 - 3.7) AV Cusp: 1.7 cm (1.5 - 2.6) LA Diam: 3.5 cm (2.7 - 3.8) MV EXCURSION: 17.614 mm (> 18.000) MV EF SLOPE: 61 mm/s (70 - 150) EPSS: 0.5 cm MV E Arvind: 0.85 m/s MV DecT: 165 ms MV A Arvind: 0.78 m/s MV E/A Ratio: 1.10 RAP: 5.00 mmHg RVSP: 30.01 mmHg FINDINGS -------- Sinus rhythm. This was a technically difficult study with suboptimal views. The left ventricular size is normal. There is severe concentric left ventricular hypertrophy. Ove rall left ventricular systolic function is normal with, an EF between 55 - 60 %. There is paradoxic al/dysynergic septal motion consistent with post-operative status. The right ventricle is normal in size and function. The left atrium is normal in size. The right atrium is normal in size. 1.5mg of Definity was utilized for enhancement of images The aortic valve is trileaflet, and appears structurally normal. No aortic stenosis or regurgitation. The mitral valve is normal. Mild mitral regurgitation is present. Mild tricuspid regurgitation present. There is no evidence of pulmonary hypertension. The right v entricular systolic pressure, as measured by Doppler, is 30.01mmHg. The pulmonic valve was not well visualized. There is no pulmonic regurgitation present. The aortic root size is normal. There is no pericardial effusion. CONCLUSIONS -------- 1. Sinus rhythm. 2. This was a technically difficult study with suboptimal views. 3. There is severe concentric left ventricular hypertrophy. 4. Overall left ventricular systolic function is normal with, an EF between 55 - 60 %. 5. There is paradoxical/dysynergic septal motion consistent with post-operative status. 6. The left atrium is normal in size. 7. 1.5mg of Definity was utilized for enhancement of images 8. The aortic valve is trileaflet, and appears structurally normal. No aortic stenosis or regurgitati on. 9. Mild mitral regurgitation is present. 10. Mild tricuspid regurgitation present. 11. There is no evidence of pulmonary hypertension. 12. There is no pulmonic regurgitation present. 13. The aortic root size is normal. 14. There is no pericardial effusion. SYSTEMS SUPPORT SPECIALIST: Rosa Maria Arredondo RDCS
[2017-10-03 11:27] LABS: Glucose,Whole Blood 150 mg/dL (75-99)
[2017-10-03] MEDS: PIPERACILLIN-TAZOBACTAM 3.375 GM in DEXTROSE/WATER 1 50ML.BAG IVPB SCH ×3 (12:01→23:28)
[2017-10-03] MEDS: HALOPERIDOL LACTATE 5 MG/ML 1 ML VIAL IVP PRN ×2 (13:16→23:09)
--- NOTE | 2017-10-03 13:50 | P.HPIM ---
History of Present Illness H&P Date: 10/03/17 Chief Complaint: Weakness This is a 66-year-old patient of Dr. 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 Patient was found to have pulmonary embolism during the admission with a CTA showing a secondary branch pulmonary artery embolism. Patient was discharged on xarelto during that admission. Patient was also seen by urology for hematuria and underwent cystoscopy and has been catheter dependent ever since for urinary retention. Patient continues to be evaluated for thyroid nodules with Dr. Pineda. She complained of rectal bleeding as a result of which xarelto was discontinued. Patient was last admitted in 09/01 - 09/05 with complaints of nausea, multiple episodes of vomiting, hallucinations that started 2 weeks ago. Patient endorses both visual and tactile hallucinations the form of mice and snakes. She states in the beginning it was 1 or 2 that she could see but now she endorses tactile hallucinations and it has worsened since yesterday. Patient's extremity get stiff and patient shakes during these episodes. Urine cultures were obtained. Patient was treated for pseudomonas UTI treated with ciprofloxacin. Carotid ultrasound shows mildly elevated right internal carotid artery compatible with 50-69% stenosis and favored to represent approximately 50 % stenosis. Moderate grayscale atheromatous plaquing within both carotid bulbs. She has been seen by cardiology and they have ordered cardiac enzymes and d-dimer. D-dimer was elevated at 2.41 but was less than last visit and no further imaging was ordered. Patient also seen by neurology and EEG was ordered and was normal, cleared by neurology. Hallucination improved with antibiotics. GI consulted for chronic nausea. Patient has been seen and followed by Dr. Quijano with recommendations to follow up with her primary GI physician. Dr. Reyes has evaluated the patient for delirium possibly related to infection. Patient was seen in the ED on 09/25 for worsening hallucinations associated with change in mentation. Urinalysis suggested UTI, patient was started on moxifloxacin. Psychiatry was consulted who recommended outpatient treatment. Patient was brought back to the hospital for no improvement and worsening of mentation. On my evaluation, patient is disoriented, states she's on the airplane and is ready to come out of the plane. She is also visualizing her in the room who is currently not at bedside. Patient is unable to answer any questions. She does endorses substernal intermittent chest discomfort which she sees is chronic and is related to anxiety.In the ED patient had a troponin of 1.4 which is higher than the previous troponin drawn on 09/25, repeat troponin is 1.10. ProBNP 2470, patient's creatinine is increased from baseline to 1.59( baseline creatinine 0.98) EKG suggested Q waves present in the inferior leads with the subtle ST depression seen in lead 1 and [address]-T wave changes in anterior lateral leads. Patient initiated on 24 hours heparin. Patient's last echo was done in May suggested a normal left ventricle systolic function with EF 60-65%, with right ventricle systolic pressure of 34.77. CT head was negative. Neurology and cardiology consulted for further recommendation. Echo ordered and suggestive of worsening of left ventricular systolic dysfunction withDyssynergetic septal motion consistent with postoperative status with EF 55- 60 %. Vital signs suggest a blood pressure 182/75, heart rate 108 sinus rhythm, breathing at a respiratory rate of 18 at room air. Patient's metoprolol increased 200 mg twice daily along with addition of Norvasc 5 mg daily. Losartan has for concern of a BELKIS. Urine analysis and urine culture suggested candiuria albicans and glabrata. Patient was previously positive for Pseudomonas and was treated with ciprofloxacin. Renal ultrasound ordered to rule out perinephric abscess. Infectious disease consulted for further recommendation. Patient initiated on Zosyn for sepsis secondary to UTI. Review of Systems ROS unobtainable: due to mental status Past Medical History Past Medical History: Coronary Artery Disease (CAD), CVA/TIA, Diabetes Mellitus , Hyperlipidemia, Hypertension, Pulmonary Embolus (PE), Syncope, Thyroid Disorder Additional Past Medical History / Comment(s): patient has had 2 strokes, last in April 2016. kidney stones, bladder mass, recurrent UTI's, thyroid nodule, chronic nausea, hematuria History of Any Multi-Drug Resistant Organisms: None Reported Past Surgical History: Cholecystectomy, Coronary Bypass/CABG Additional Past Surgical History / Comment(s): CABG in 2001 Past Anesthesia/Blood Transfusion Reactions: No Reported Reaction Additional Psychological History / Comment(s): pt. with recent history of hallucinations Smoking Status: Former smoker Past Alcohol Use History: None Reported Past Drug Use History: None Reported Additional Drug Use History / Comment(s): pt. 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 states she has a wheelchair at home to assist with mobility - Past Family History Brother(s) Family Medical History: Diabetes Mellitus Additional Family Medical History / Comment(s): Brother just recently . Unknown history. Mother Family Medical History: Hypertension Father Family Medical History: Myocardial Infarction ([place]) Medications and Allergies Home Medications Medication Instructions Recorded Confirmed Type Isosorbide Mononitrate ER [Imdur] 60 mg PO QAM 05/31/17 10/02/17 History Metoprolol Tartrate [Lopressor] 50 mg PO BID 05/31/17 10/02/17 History Lisinopril [Zestril] 10 mg PO DAILY 08/31/17 10/02/17 History Insulin NPH Hum/Reg Insulin Hm 40 unit SQ W/SUPPER 09/25/17 10/02/17 History [NovoLIN 70-30 100 UNIT/ML VIAL] Insulin NPH Hum/Reg Insulin Hm 50 unit SQ QAM 09/25/17 10/02/17 History [NovoLIN 70-30 100 UNIT/ML VIAL] Moxifloxacin HCl [Avelox] 400 mg PO DAILY 09/25/17 10/02/17 History Allergies Allergy/AdvReac Type Severity Reaction Status Date / Time latex Allergy Rash/Hives Verified 10/02/17 16:50 Physical Exam Vitals: Vital Signs Temp Pulse Pulse Resp BP BP BP 10/03/17 08:00 97.6 F 76 18 179/77 10/03/17 04:00 97.4 F L 78 18 176/74 10/03/17 01:30 98.2 F 102 H 16 182/75 10/03/17 00:00 18 10/02/17 23:34 99 18 10/02/17 20:45 98.1 F 100 18 162/69 10/02/17 20:11 97.2 F L 99 18 153/78 10/02/17 20:00 98 18 166/80 10/02/17 19:55 98.4 F 85 14 167/81 10/02/17 17:28 63 14 134/60 10/02/17 16:59 14 10/02/17 16:09 97.9 F 84 18 129/59 Pulse Ox 10/03/17 08:00 97 10/03/17 04:00 98 11/06/17 01:30 94 L 10/03/17 00:00 10/02/17 23:34 10/02/17 20:45 100 10/02/17 20:11 97 10/02/17 20:00 100 10/02/17 19:55 99 10/02/17 17:28 98 10/02/17 16:59 10/02/17 16:09 97 Intake and Output 10/02/17 10/03/17 10/03/17 22:59 06:59 14:59 Intake Total 1999 320 Output Total 625 Balance 1999 - Intake: Amount of Fluid Infused ( 2000 ml) Intake, IV Titration 200 Amount Sodium Chloride 0.9% 1, 200 000 ml @ 100 mls/hr IV . Q10H [facility] Rx#:[id number] Oral 120 Output: Urine 625 Other: Voiding Method Indwelling Catheter Indwelling Catheter Weight 70.307 kg 69.5 kg - Constitutional General appearance: obese - EENT Eyes: EOMI, PERRLA, no photophobia, no ptosis, no scleral icterus ENT: hearing grossly normal Ears: bilateral: normal - Neck Neck: no lymphadenopathy, normal ROM, no rigidity Carotids: bilateral: upstroke diminished - Respiratory Respiratory: bilateral: diminished - Cardiovascular Rhythm: regular Heart sounds: normal: S1, S2 Abnormal Heart Sounds: no systolic murmur, no diastolic murmur, no S3 Gallop, no S4 Gallop - Gastrointestinal General gastrointestinal: distended, normal bowel sounds, no organomegaly, soft , no tenderness - Integumentary Integumentary: no jaundiced, normal turgor - Neurologic Neurologic: CNII-XII intact - Musculoskeletal Musculoskeletal: generalized weakness, strength equal bilaterally (wheelchair bound, decreased strenth b/l lower extremities, moving upper extriemities fairly well ) - Psychiatric Psychiatric: no A&O x's 3 (confused, visual hallucinations present ), no intact judgment & insight Results CBC & Chem 7: 10/03/17 08:31 10/02/17 16:45 Labs: Abnormal Lab Results - Last 24 Hours (Table) 10/02/17 10/02/17 10/02/17 Range/Units 16:26 16:45 16:45 WBC (3.8-10.6) k/uL Neutrophils # (1.3-7.7) k/uL BUN (7-17) mg/dL Creatinine (0.52-1.04) mg/dL Glucose (74-99) mg/dL POC Glucose (mg/dL) 199 H (75-99) mg/dL Plasma Lactic Acid Austen 2.3 H* (0.7-2.0) mmol/L CK-MB (CK-2) 5.1 H* (0.0-2.4) ng/mL Troponin I 2.800 H* (0.000-0.034) ng/mL Albumin (3.5-5.0) g/dL Triglycerides (<150) mg/dL Urine Appearance (Clear) Urine Protein (Negative) Urine Glucose (UA) (Negative) Ur Leukocyte Esterase (Negative) Urine RBC (0-5) /hpf Urine WBC (0-5) /hpf Amorphous Sediment (None) /hpf Hyaline Casts (0-2) /lpf Urine Mucus (None) /hpf Urine Yeast (Budding) (None) /hpf 10/02/17 10/02/17 10/02/17 Range/Units 16:45 19:00 21:20 WBC (3.8-10.6) k/uL Neutrophils # (1.3-7.7) k/uL BUN 23 H (7-17) mg/dL Creatinine 1.59 H (0.52-1.04) mg/dL Glucose 196 H (74-99) mg/dL POC Glucose (mg/dL) (75-99) mg/dL Plasma Lactic Acid Austen (0.7-2.0) mmol/L CK-MB (CK-2) 3.9 H* (0.0-2.4) ng/mL Troponin I 1.410 H* (0.000-0.034) ng/mL Albumin 3.1 L (3.5-5.0) g/dL Triglycerides (<150) mg/dL Urine Appearance Cloudy H (Clear) Urine Protein 2+ H (Negative) Urine Glucose (UA) Trace H (Negative) Ur Leukocyte Esterase Large H (Negative) Urine RBC 7 H (0-5) /hpf Urine WBC 125 H (0-5) /hpf Amorphous Sediment Occasional H (None) /hpf Hyaline Casts 21 H (0-2) /lpf Urine Mucus Rare H (None) /hpf Urine Yeast (Budding) Many H (None) /hpf 10/02/17 10/03/17 10/03/17 Range/Units 21:54 01:39 01:39 WBC (3.8-10.6) k/uL Neutrophils # (1.3-7.7) k/uL BUN (7-17) mg/dL Creatinine (0.52-1.04) mg/dL Glucose (74-99) mg/dL POC Glucose (mg/dL) 177 H (75-99) mg/dL Plasma Lactic Acid Austen (0.7-2.0) mmol/L CK-MB (CK-2) 2.9 H* (0.0-2.4) ng/mL Troponin I 1.100 H* (0.000-0.034) ng/mL Albumin (3.5-5.0) g/dL Triglycerides 156 H (<150) mg/dL Urine Appearance (Clear) Urine Protein (Negative) Urine Glucose (UA) (Negative) Ur Leukocyte Esterase (Negative) Urine RBC (0-5) /hpf Urine WBC (0-5) /hpf Amorphous Sediment (None) /hpf Hyaline Casts (0-2) /lpf Urine Mucus (None) /hpf Urine Yeast (Budding) (None) /hpf 10/03/17 10/03/17 Range/Units 06:01 08:31 WBC 13.6 H (3.8-10.6) k/uL Neutrophils # 9.5 H (1.3-7.7) k/uL BUN (7-17) mg/dL Creatinine (0.52-1.04) mg/dL Glucose (74-99) mg/dL POC Glucose (mg/dL) 195 H (75-99) mg/dL Plasma Lactic Acid Austen (0.7-2.0) mmol/L CK-MB (CK-2) (0.0-2.4) ng/mL Troponin I (0.000-0.034) ng/mL Albumin (3.5-5.0) g/dL Triglycerides (<150) mg/dL Urine Appearance (Clear) Urine Protein (Negative) Urine Glucose (UA) (Negative) Ur Leukocyte Esterase (Negative) Urine RBC (0-5) /hpf Urine WBC (0-5) /hpf Amorphous Sediment (None) /hpf Hyaline Casts (0-2) /lpf Urine Mucus (None) /hpf Urine Yeast (Budding) (None) /hpf Thrombosis Risk Factor Assmnt - DVT/VTE Prophylaxis DVT/VTE Prophylaxis: Pharmacologic Prophylaxis ordered (On heparin drip), Mechanical Prophylaxis ordered - Choose All That Apply Any of the Below Risk Factors Present?: Yes Each Factor Represents 1 point: Sepsis (< 1month) Other Risk Factors: Yes Each Risk Factor Represents 2 Points: Age 61-74 years, Patient confined to bed Each Risk Factor Represents 3 Points: History of DVT/PE Thrombosis Risk Factor Assessment Total Risk Factor Score: 8 Thrombosis Risk Factor Assessment Level: High Risk Assessment and Plan Plan: 1 Acute delirium with Hallucination likley related to sepsis,other differnetial include seizure, sleep deprivation - Patient denies any symptoms related to urinary tract infection but does has a chronic catheterization for urinary retention and gets tract infection on and off. She completed the treatment for pseudomonas UTI last moth and was started on moxifloxacin few days back. Patient has grown Mandy twice in the urine culture. Concern for Mandy urine infection. Infectious disease consulted - EEG negative in the previous admission - Neurology consulted, recommendation pending - Haldol 0.5 mg iv q6 hr prn agitation, seroquel initiated at 25 mg for increased agitation #2Troponinemia secondary to NSTEMI - EKGs unremarkable, except from mild ST wave depression in lead 1 and 2 with Q waves. - Cardiology consulted - Troponin downtrending 1.4 ---1.1 - Continue heparin drip - Patient's blood pressure is high, increased metoprolol 200 mg twice daily, Norvasc 5 mg by mouth daily. Losartan held for acute kidney injury - Continue aspirin and Imdur and atorvastatin - Repeat echo suggestive of severe concentric left ventricle hypertrophy concerning for diastolic heart failure #3 catheter associated urinary tract infection - Status post rocephin - Urine culture positive for pseudomonas aeruginosa, Mandy albicans and Mandy glabrata. - Blood culture ordered - Patient initiated on Zosyn 3.37 mg every 6 hours - Infectious disease consulted #4 history of stroket continue aspirin and atorvastatin #5 diabetes mellitis type II, insulin requiring Patient on NPH 50 units twice daily at home Since patient's glucose on the lower side will continue NPH 35 units twice a day with sliding scale #6 . HyperLipidemia - Continue atorvastatin 80 mg daily #7 coronary artery disease status post CABG in 1999 - Continue aspirin, atorvastatin, metoprolol, Imdur -Echo May 2017 and borderline pulmonary artery hypertension with EF 60-65% - Repeat echo October 08/2017 suggestive of EF 60 is 65% with severe concentric left ventricular hypertrophy #8 pulmonary embolism -Xarelto was discontinued 2 weeks ago for concern of GI bleeding - Patient currently on room air continue to monitor saturations #9 thyroid nodule - Continue to monitor outpatient #10 urinary retention - Continue Simmons catheter #11 Acute renal failure likely prerenal - Continue iv hydration - Baseline 0.8. - Retroperitoneal ultrasound ordered #12 hypertension - Patient initiated on Norvasc 5 mg by mouth daily, metoprolol dose increased to 100 mg twice daily, losartan is on hold due to BELKIS, continue Imdur # 13 dvt prophylaxis - heparin drip #14 CODE - NO CODE Discharge plan: Subacute rehab [facility] , PT ordered
--- NOTE | 2017-10-03 15:12 | US ---
EXAMINATION TYPE: US kidneys/renal and bladder DATE OF EXAM: 10/03/2017 COMPARISON: CT 2017 CLINICAL HISTORY: BELKIS with UTI, r/o pernephric abscess. BELKIS with UTI EXAM MEASUREMENTS: Right Kidney: 11.3 x 5.6 x 5.0 cm Left Kidney: 12.5 x 5.7 x 5.0 cm Right Kidney: no hydro or masses seen, limited by to rib shadowing and overlying bowel gas Left Kidney: no hydro or masses seen, limited by rib shadowing and overlying bowel gas Bladder: not fully distended, castaneda catheter Bilateral Jets seen: no There is no evidence for hydronephrosis at this point in time. No nephrolithiasis is seen. No debby s are identified. IMPRESSION: Examination is considered limited. No definite perinephric collection identified however if symptoms persist consider CT for further evaluation.
[2017-10-03] MEDS: amLODIPine 5 MG TAB PO SCH (16:28)
[2017-10-03 16:37] LABS: Glucose,Whole Blood 59 mg/dL (75-99)
[2017-10-03] MEDS: INSULIN NPH/REG INSULIN 70/30 300 UNIT/3 ML VIAL SQ SCH (16:39)
[2017-10-03] MEDS: HEPARIN SODIUM,PORCINE 5,000 UNIT/ML 1 ML VIAL IV PRN ×2 (16:45→23:37)
[2017-10-03 16:53] LABS: Glucose,Whole Blood 61 mg/dL (75-99)
[2017-10-03 17:24] LABS: Glucose,Whole Blood 67 mg/dL (75-99)
[2017-10-03 17:43] LABS: Glucose,Whole Blood 88 mg/dL (75-99)
--- NOTE | 2017-10-03 19:05 | P.CNNES ---
History of Present Illness Consult date: 10/03/17 History of Present Illness: The patient is a 66-year-old right-handed white female history of stroke in 2014 which left her with some right-sided paralysis. Altered level medical problems including history of pulmonary embolism we in May 2017. She also has diabetes hyperlipidemia hallucinations. Patient reports that she is not sure where she is also when asked where she is she said she is in the hospital. He reports feeling confused. She is oriented to person and place but unable to give her year stating she was born in 1942 when actually she was born in [birth year]. She did however know the month and date of her birthday. States she lives at home with her and son and she is not sure why she came to the hospital or how she got here. Neurology is consulted to see the patient regarding past history of stroke and altered mental status. Apparently the patient had been having increased weakness over the past 2 days. She was recently treated for UTI and hallucinations. The patient is admitted to the hospital with myocardial infarction renal insufficiency syndrome dehydration and sepsis. Review of Systems ROS unobtainable: due to mental status Past Medical History Past Medical History: Coronary Artery Disease (CAD), CVA/TIA, Diabetes Mellitus , Hyperlipidemia, Hypertension, Pulmonary Embolus (PE), Syncope, Thyroid Disorder Additional Past Medical History / Comment(s): patient has had 2 strokes, last in April 2016. kidney stones, bladder mass, recurrent UTI's, thyroid nodule, chronic nausea, hematuria History of Any Multi-Drug Resistant Organisms: None Reported Past Surgical History: Cholecystectomy, Coronary Bypass/CABG Additional Past Surgical History / Comment(s): CABG in 2001 Past Anesthesia/Blood Transfusion Reactions: No Reported Reaction Additional Psychological History / Comment(s): pt. with recent history of hallucinations Smoking Status: Former smoker Past Alcohol Use History: None Reported Past Drug Use History: None Reported Additional Drug Use History / Comment(s): pt. 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 states she has a wheelchair at home to assist with mobility - Past Family History Brother(s) Family Medical History: Diabetes Mellitus Additional Family Medical History / Comment(s): Brother just recently . Unknown history. Mother Family Medical History: Hypertension Father Family Medical History: Myocardial Infarction ([place]) Medications and Allergies Home Medications Medication Instructions Recorded Confirmed Type Isosorbide Mononitrate ER [Imdur] 60 mg PO QAM 05/31/17 10/02/17 History Metoprolol Tartrate [Lopressor] 50 mg PO BID 05/31/17 10/02/17 History Lisinopril [Zestril] 10 mg PO DAILY 08/31/17 10/02/17 History Insulin NPH Hum/Reg Insulin Hm 40 unit SQ W/SUPPER 09/25/17 10/02/17 History [NovoLIN 70-30 100 UNIT/ML VIAL] Insulin NPH Hum/Reg Insulin Hm 50 unit SQ QAM 09/25/17 10/02/17 History [NovoLIN 70-30 100 UNIT/ML VIAL] Moxifloxacin HCl [Avelox] 400 mg PO DAILY 09/25/17 10/02/17 History Allergies Allergy/AdvReac Type Severity Reaction Status Date / Time latex Allergy Rash/Hives Verified 10/02/17 16:50 Physical Examination - Vital Signs Vital Signs: Vital Signs Temp Pulse Pulse Resp BP BP BP 10/03/17 16:00 97.5 F L 64 18 132/60 10/03/17 15:54 16 10/03/17 12:00 97.8 F 77 16 162/72 10/03/17 08:00 97.6 F 76 18 179/77 10/03/17 04:00 97.4 F L 78 18 176/74 10/03/17 01:30 98.2 F 102 H 16 182/75 10/03/17 00:00 18 10/02/17 23:34 99 18 10/02/17 20:45 98.1 F 100 18 162/69 10/02/17 20:11 97.2 F L 99 18 153/78 10/02/17 20:00 98 18 166/80 10/02/17 19:55 98.4 F 85 14 167/81 Pulse Ox 10/03/17 16:00 98 10/03/17 15:54 10/03/17 12:00 96 10/03/17 08:00 97 10/03/17 04:00 98 10/03/17 01:30 94 L 10/03/17 00:00 10/02/17 23:34 10/02/17 20:45 100 10/02/17 20:11 97 10/02/17 20:00 100 10/02/17 19:55 99 Intake and Output 10/03/17 10/03/17 10/03/17 06:59 14:59 22:59 Intake Total 320 176.482 Output Total 625 500 Balance -305 -323.518 Intake: Intake, IV Titration 200 116.482 Amount Heparin Sodium,Porcine/ 116.482 D5w Pmx 25,000 unit In Dextrose/Water 1 500ml. bag @ 12 UNITS/KG/HR 16. 68 mls/hr IV .Q24H [facility] Rx #:[id number] Sodium Chloride 0.9% 1, 200 000 ml @ 100 mls/hr IV . Q10H [facility] Rx#:[id number] Oral 120 60 Output: Urine 625 500 Other: Voiding Method Indwelling Catheter Indwelling Catheter Indwelling Catheter Weight 69.5 kg - Constitutional General appearance: average body habitus, cooperative, disheveled - EENT EENT: PERRL, mucous membranes moist, hearing intact, vision intact - Respiratory Respiratory: lungs clear - Cardiovascular Cardiovascular: regular rate - Neurologic Mental status she was awake she was mumbling voice was low pitched she did not make eye contact she was oriented to person the year was 1920 she was oriented to hospital . There was no aphasia Cranial nerve examination: EOMI, VFF, face symmetric, tongue midline Detailed motor examination: other (Is able to lift her left arm but she does have right-sided weakness. She is not fully cooperative to the examination or to the instructions.) Detailed sensory examination: intact - Psychiatric Psychiatric: depressed Results - Laboratory Findings CBC and BMP: 10/03/17 08:31 10/02/17 16:45 Abnormal Lab Findings: Abnormal Labs 10/02/17 10/02/17 10/02/17 16:26 16:45 16:45 WBC Neutrophils # APTT BUN Creatinine Glucose POC Glucose (mg/dL) 199 H Plasma Lactic Acid Austen 2.3 H* CK-MB (CK-2) 5.1 H* Troponin I 2.800 H* Albumin Triglycerides Urine Appearance Urine Protein Urine Glucose (UA) Ur Leukocyte Esterase Urine RBC Urine WBC Amorphous Sediment Hyaline Casts Urine Mucus Urine Yeast (Budding) 10/02/17 10/02/17 10/02/17 16:45 19:00 21:20 WBC Neutrophils # APTT BUN 23 H Creatinine 1.59 H Glucose 196 H POC Glucose (mg/dL) Plasma Lactic Acid Austen CK-MB (CK-2) 3.9 H* Troponin I 1.410 H* Albumin 3.1 L Triglycerides Urine Appearance Cloudy H Urine Protein 2+ H Urine Glucose (UA) Trace H Ur Leukocyte Esterase Large H Urine RBC 7 H Urine WBC 125 H Amorphous Sediment Occasional H Hyaline Casts 21 H Urine Mucus Rare H Urine Yeast (Budding) Many H 10/02/17 10/03/17 10/03/17 21:54 01:39 01:39 WBC Neutrophils # APTT BUN Creatinine Glucose POC Glucose (mg/dL) 177 H Plasma Lactic Acid Austen CK-MB (CK-2) 2.9 H* Troponin I 1.100 H* Albumin Triglycerides 156 H Urine Appearance Urine Protein Urine Glucose (UA) Ur Leukocyte Esterase Urine RBC Urine WBC Amorphous Sediment Hyaline Casts Urine Mucus Urine Yeast (Budding) 10/03/17 10/03/17 10/03/17 06:01 08:31 11:24 WBC 13.6 H Neutrophils # 9.5 H APTT BUN Creatinine Glucose POC Glucose (mg/dL) 195 H 150 H Plasma Lactic Acid Austen CK-MB (CK-2) Troponin I Albumin Triglycerides Urine Appearance Urine Protein Urine Glucose (UA) Ur Leukocyte Esterase Urine RBC Urine WBC Amorphous Sediment Hyaline Casts Urine Mucus Urine Yeast (Budding) 10/03/17 10/03/17 10/03/17 15:45 16:32 16:51 WBC Neutrophils # APTT 36.5 H BUN Creatinine Glucose POC Glucose (mg/dL) 59 L 61 L Plasma Lactic Acid Austen CK-MB (CK-2) Troponin I Albumin Triglycerides Urine Appearance Urine Protein Urine Glucose (UA) Ur Leukocyte Esterase Urine RBC Urine WBC Amorphous Sediment Hyaline Casts Urine Mucus Urine Yeast (Budding) 10/03/17 17:11 WBC Neutrophils # APTT BUN Creatinine Glucose POC Glucose (mg/dL) 67 L Plasma Lactic Acid Austen CK-MB (CK-2) Troponin I Albumin Triglycerides Urine Appearance Urine Protein Urine Glucose (UA) Ur Leukocyte Esterase Urine RBC Urine WBC Amorphous Sediment Hyaline Casts Urine Mucus Urine Yeast (Budding) Assessment and Plan (1) Altered mental status Current Visit: No Status: Acute SNOMED Code(s): 722259784 (2) History of stroke Current Visit: Yes Status: Chronic Code(s): Z86.73 - PRSNL HX OF TIA (TIA), AND CEREB INFRC W/O RESID DEFICITS SNOMED Code(s): 935486965 (3) Non-ST elevation myocardial infarction (NSTEMI) Current Visit: Yes Status: Acute SNOMED Code(s): 420593356 Plan: The patient is a 66-year-old woman with history of repeated episodes of delirium and hallucinations who presents to the hospital with increasing weakness. As a history of prior stroke with right hemiparesis. She had a CT of the brain in the emergency room which showed old left basal ganglia lacunar infarct . She is currently on aspirin for stroke prophylaxis. Her altered mental status may be secondary to underlying sepsis. Recommend EEG rule out underlying seizure activity. Recommend psychiatry consultation.
[2017-10-03 21:00] LABS: Glucose,Whole Blood 174 mg/dL (75-99)
[2017-10-03] MEDS: ATORVASTATIN 80 MG TAB PO SCH (21:44)
[2017-10-03] MEDS: QUEtiapine 25 MG TAB PO SCH (21:44)
[2017-10-04] MEDS: SODIUM CHLORIDE 0.9% 1,000 ML IV SCH ×2 (04:31→16:15)
[2017-10-04 06:03] LABS: Glucose,Whole Blood 198 mg/dL (75-99)
[2017-10-04] MEDS: INSULIN LISPRO (humaLOG) 300 UNIT/3 ML VIAL SQ SCH ×3 (06:07→16:50)
[2017-10-04 06:38] LABS: Basophils # (A) 0.1 k/uL (0-0.2); Basophils % (A) 0 %; CH 28.6; CHCM 32.1; Eosinophils # (A) 0.2 k/uL (0-0.7); Eosinophils % (A) 1 %; HCT 36.7 % (34.0-46.0); HDW 2.66; HGB 11.6 gm/dL (11.4-16.0); Luc % (Auto) 2; Lymphocytes % (A) 15 %; MCH 28.3 pg (25.0-35.0); MCHC 31.6 g/dL (31.0-37.0); MCV 89.6 fL (80.0-100.0); Mean Platelet Volume 7.5; Monocytes # (A) 0.8 k/uL (0-1.0); Monocytes % (A) 6 %; Neutrophils # (A) 9.9 k/uL (1.3-7.7); Neutrophils % (A) 75 %; RDW 14.8 % (11.5-15.5); WBC 13.2 k/uL (3.8-10.6); WBC (Perox) 12.75
--- NOTE | 2017-10-04 09:01 | P.CONS ---
History of Present Illness - Reason for Consult Consult date: 10/04/17 Recurrent UTI, positive for Mandy - History of Present Illness This is a 66-year-old female patient who was hospitalized in May due to chest pain and hematuria was found to have a pulmonary embolism and was started on Xarelto. Patient was seen by urology at that time for hematuria and underwent a cystoscopy and has been catheter dependent since for urinary retention. Patient was having rectal bleeding for which Dr. Pineda discontinued Xarelto in July. She had an admission from September 01 through September 05 with complaints of nausea, vomiting and hallucinations in the form of mice and snakes that she could see and feel. She had episodes where she would become stiff and shake. She was treated at that time for Pseudomonas urinary tract infection with ciprofloxacin. Her carotid ultrasound showed a 50% stenosis in the right internal carotid artery. She was seen by neurology and cardiology during that admission. EEG was normal. Hallucinations gradually improved while she was treated with antibiotics. She was seen by GI for chronic nausea and recommended that she follow-up with her primary GI physician. She was seen by psychiatry for delirium possibly related to infection. Patient was discharged home at that time. She then presented to the emergency center [facility] on September 25 for hallucinations and change in mentation. She was diagnosed with urinary tract infection and discharged on moxifloxacin. She was seen by the psychiatric nurse and was discharged with plan to follow-up as an outpatient. Patient then returned to [facility] emergency center on September 01. Patient had increasing weakness for 2 days and not been having any drip yesterday and plan is to maximize medical therapy. Echocardiogram shows an EF of 55-60% with severe concentric left ventricular hypertrophy. Paradoxical septal motion, mild mitral regurgitation, mild tricuspid regurgitation. She has been seen by Dr. Salazar from neurology for altered mental status secondary to sepsis. EEG is pending and a psychiatry consult recommended. Regarding her urinalysis which was cloudy , leukoesterase large, RBC 7, wbc's 125. Yeast many. White count was 9.5 which is now at 13.2. BUN 23 and creatinine 1.59. On August 31 urine culture was positive for pseudomonas aeruginosa intermediate to gentamicin otherwise pansensitive. On September 22 urine culture revealed Mandy albicans and previous to that in May of this shear urine culture was Mandy glabrata. Patient was very confused during the night and required Haldol. He she has been combative and hitting staff. She is cooperative for simple exam this morning. She denies having chest pain, abdominal pain pain and denies shortness of breath. She does not appear to be in any distress. Review of Systems ROS unobtainable: due to mental status Past Medical History Past Medical History: Coronary Artery Disease (CAD), CVA/TIA, Diabetes Mellitus , Hyperlipidemia, Hypertension, Pulmonary Embolus (PE), Syncope, Thyroid Disorder Additional Past Medical History / Comment(s): patient has had 2 strokes, last in April 2016. kidney stones, bladder mass, recurrent UTI's, thyroid nodule, chronic nausea, hematuria History of Any Multi-Drug Resistant Organisms: None Reported Past Surgical History: Cholecystectomy, Coronary Bypass/CABG Additional Past Surgical History / Comment(s): CABG in 2001 Past Anesthesia/Blood Transfusion Reactions: No Reported Reaction Additional Psychological History / Comment(s): pt. with recent history of hallucinations Smoking Status: Former smoker Past Alcohol Use History: None Reported Past Drug Use History: None Reported Additional Drug Use History / Comment(s): pt. lives with her and sons, is her primary gut dropper, pt. states she has a wheelchair at home to assist with mobility - Past Family History Brother(s) Family Medical History: Diabetes Mellitus Additional Family Medical History / Comment(s): Brother just recently . Unknown history. Mother Family Medical History: Hypertension Father Family Medical History: Myocardial Infarction (NH) Medications and Allergies Home Medications Medication Instructions Recorded Confirmed Type Isosorbide Mononitrate ER [Imdur] 60 mg PO QAM 05/31/17 10/02/17 History Aspirin 325 mg PO DAILY tab 10/07/17 Rx Atorvastatin [Lipitor] 80 mg PO HS tab 10/07/17 Rx Fluconazole [Diflucan] 100 mg PO DAILY #4 tablet 10/07/17 Rx Insulin Aspart [NovoLOG 0 unit SQ ACHS vial 10/07/17 Rx (formulary)] Insulin NPH/Reg Insulin 70/30 0 unit SQ QAM vial 10/07/17 Rx [humuLIN 70/30 VIAL] Insulin NPH/Reg Insulin 70/30 15 unit SQ W/SUPPER vial 10/07/17 Rx [humuLIN 70/30 VIAL] Metoprolol Tartrate [Lopressor] 100 mg PO BID tab 10/07/17 Rx Nitroglycerin Sl Tabs [Nitrostat] 0.4 mg SUBLINGUAL Q5M PRN tab 10/07/17 Rx Potassium Chloride ER [K-Dur 20] 20 meq PO Q12HR tab.er.prt 10/07/17 Rx QUEtiapine [SEROquel] 25 mg PO HS tab 10/07/17 Rx amLODIPine [Norvasc] 5 mg PO DAILY tab 10/07/17 Rx Allergies Allergy/AdvReac Type Severity Reaction Status Date / Time latex Allergy Rash/Hives Verified 10/02/17 16:50 Physical Exam Vitals: Vital Signs Temp Pulse Resp BP BP Pulse Ox 10/04/17 08:24 76 16 10/04/17 04:00 98.6 F 76 16 175/79 96 10/03/17 20:00 98.1 F 78 16 145/63 96 10/03/17 16:00 97.5 F L 64 18 132/60 98 10/03/17 15:54 16 10/03/17 12:00 97.8 F 77 16 162/72 96 Intake and Output 10/03/17 10/04/17 10/04/17 22:59 06:59 14:59 Intake Total 8156.622 2548.085 307.65 Output Total 500 500 Balance 706.482 691.085 307.65 Intake: IV 1030 1050 Heparin Sodium,Porcine/ 180 200 D5w Pmx 25,000 unit In Dextrose/Water 1 500ml. bag @ 12 UNITS/KG/HR 16. 68 mls/hr IV .Q24H [facility] Rx #:[id number] Piperacillin-Tazobactam 3 50 50 .375 gm In Dextrose/Water 1 50ml.bag @ 12.5 mls/hr IVPB Q8HR JAZZMINE Rx#: [id number] Sodium Chloride 0.9% 1, 800 800 000 ml @ 100 mls/hr IV . Q10H JAZZMINE Rx#:[id number] Intake, IV Titration 116.482 141.085 187.65 Amount Heparin Sodium,Porcine/ 116.482 141.085 187.65 D5w Pmx 25,000 unit In Dextrose/Water 1 500ml. bag @ 12 UNITS/KG/HR 16. 68 mls/hr IV .Q24H JAZZMINE Rx #:[id number] Oral 60 120 Output: Urine 500 500 Other: Voiding Method Indwelling Catheter Indwelling Catheter Indwelling Catheter Weight 68.5 kg Gen: This is a well-nourished 66-year-old female. She is sitting up in bed and appears to be in no acute distress. Patient appears to be sleeping and awakens easily to verbal stimuli. She did allow me to ask a few questions and briefly examined her but then become angry. HEENT: Head is atraumatic, normocephalic. Pupils equal, round. Sclerae is anicteric. Right-sided eyelid droop. NECK: Supple. No JVD. LUNGS: Clear to auscultation. No wheezes or rhonchi. No intercostal retractions. HEART: Regular rate and rhythm. No murmur. ABDOMEN: Soft. Bowel sounds are present. No masses. No tenderness. No suprapubic tenderness. Simmons catheter draining julianna urine. EXTREMITIES: No pedal edema. No calf tenderness. Dorsalis pedis is +1 bilaterally. NEUROLOGICAL: Patient is awake, alert and oriented x1. Results Results: Laboratory Results WBC 13.2 k/uL (3.8-10.6) H 10/04/17 06:13 RBC 4.10 m/uL (3.80-5.40) 10/04/17 06:13 Hgb 11.6 gm/dL (11.4-16.0) 10/04/17 06:13 Hct 36.7 % (34.0-46.0) 10/04/17 06:13 MCV 89.6 fL (80.0-100.0) 10/04/17 06:13 MCH 28.3 pg (25.0-35.0) 10/04/17 06:13 MCHC 31.6 g/dL (31.0-37.0) 10/04/17 06:13 RDW 14.8 % (11.5-15.5) 10/04/17 06:13 Plt Count 216 k/uL (150-450) 10/04/17 06:13 Neutrophils % 75 % 10/04/17 06:13 Lymphocytes % 15 % 10/04/17 06:13 Monocytes % 6 % 10/04/17 06:13 Eosinophils % 1 % 10/04/17 06:13 Basophils % 0 % 10/04/17 06:13 Neutrophils # 9.9 k/uL (1.3-7.7) H 10/04/17 06:13 Lymphocytes # 2.0 k/uL (1.0-4.8) 10/04/17 06:13 Monocytes # 0.8 k/uL (0-1.0) 10/04/17 06:13 Eosinophils # 0.2 k/uL (0-0.7) 10/04/17 06:13 Basophils # 0.1 k/uL (0-0.2) 10/04/17 06:13 Hypochromasia Slight 10/03/17 08:31 PT 10.5 sec (9.0-12.0) 10/03/17 08:31 INR 1.0 (<1.2) 10/03/17 08:31 APTT 49.4 sec (22.0-30.0) H 10/04/17 06:13 Sodium 138 mmol/L (137-145) 10/02/17 16:45 Potassium 4.6 mmol/L (3.5-5.1) 10/02/17 16:45 Chloride 104 mmol/L (98-107) 10/02/17 16:45 Carbon Dioxide 27 mmol/L (22-30) 10/02/17 16:45 Anion Gap 7 mmol/L 10/02/17 16:45 BUN 23 mg/dL (7-17) H 10/02/17 16:45 Creatinine 1.59 mg/dL (0.52-1.04) H 10/02/17 16:45 Est GFR (MDRD) Af Amer 39 (>60 ml/min/1.73 sqM) 10/02/17 16:45 Est GFR (MDRD) Non-Af 32 (>60 ml/min/1.73 sqM) 10/02/17 16:45 Glucose 196 mg/dL (74-99) H 10/02/17 16:45 POC Glucose (mg/dL) 198 mg/dL (75-99) H 10/04/17 06:00 POC Glu [employer] Bever[employer] Operations Manager ID Ana Rodriguez 10/04/17 06:00 Lactic Ac Sepsis Rflx Y 10/02/17 17:20 Plasma Lactic Acid [place] 1.8 mmol/L (0.7-2.0) 10/02/17 21:20 Calcium 9.0 mg/dL (8.4-10.2) 10/02/17 16:45 Magnesium 1.9 mg/dL (1.6-2.3) 10/02/17 16:45 Total Bilirubin 0.6 mg/dL (0.2-1.3) 10/02/17 16:45 AST 32 U/L (14-36) 10/02/17 16:45 ALT 26 U/L (9-52) 10/02/17 16:45 Alkaline Phosphatase 68 U/L (38-126) 10/02/17 16:45 Ammonia <9 umol/L (<30) 10/02/17 16:45 Total Creatine Kinase 80 U/L (30-135) 10/03/17 01:39 CK-MB (CK-2) 2.9 ng/mL (0.0-2.4) H* 10/03/17 01:39 CK-MB (CK-2) Rel Index 3.6 10/03/17 01:39 Troponin I 1.100 ng/mL (0.000-0.034) H* 10/03/17 01:39 NT-Pro-B Natriuret Pep 2470 pg/mL 10/02/17 16:45 Total Protein 6.3 g/dL (6.3-8.2) 10/02/17 16:45 Albumin 3.1 g/dL (3.5-5.0) L 10/02/17 16:45 Triglycerides 156 mg/dL (<150) H 10/03/17 01:39 Cholesterol 163 mg/dL (<200) 10/03/17 01:39 LDL Cholesterol, Calc 87 mg/dL (0-99) 10/03/17 01:39 HDL Cholesterol 45 mg/dL (40-60) 10/03/17 01:39 Urine Color Yellow 10/02/17 19:00 Urine Appearance Cloudy (Clear) H 10/02/17 19:00 Urine pH 5.5 (5.0-8.0) 10/02/17 19:00 Ur Specific [place] 1.021 (1.001-1.035) 10/02/17 19:00 Urine Protein 2+ (Negative) H 10/02/17 19:00 Urine Glucose (UA) Trace (Negative) H 10/02/17 19:00 Urine Ketones Negative (Negative) 10/02/17 19:00 Urine Blood Negative (Negative) 10/02/17 19:00 Urine Nitrite Negative (Negative) 10/02/17 19:00 Urine Bilirubin Negative (Negative) 10/02/17 19:00 Urine Urobilinogen <2.0 mg/dL (<2.0) 10/02/17 19:00 Ur Leukocyte Esterase Large (Negative) H 10/02/17 19:00 Urine RBC 7 /hpf (0-5) H 10/02/17 19:00 Urine WBC 125 /hpf (0-5) H 10/02/17 19:00 Ur Squamous Epith Cells 1 /hpf (0-4) 10/02/17 19:00 Amorphous Sediment Occasional /hpf (None) H 10/02/17 19:00 Hyaline Casts 21 /lpf (0-2) H 10/02/17 19:00 Urine Mucus Rare /hpf (None) H 10/02/17 19:00 Ur Yeast w Hyphae Occasional /hpf (None) 10/02/17 19:00 Urine Yeast (Budding) Many /hpf (None) H 10/02/17 19:00 CBC & Chem 7: 10/07/17 04:41 10/07/17 04:41 Labs: Abnormal Lab Results - Last 24 Hours (Table) 10/03/17 10/03/17 10/03/17 Range/Units 08:31 11:24 15:45 WBC 13.6 H (3.8-10.6) k/uL Neutrophils # 9.5 H (1.3-7.7) k/uL APTT 36.5 H (22.0-30.0) sec POC Glucose (mg/dL) 150 H (75-99) mg/dL 10/03/17 10/03/17 10/03/17 Range/Units 16:32 16:51 17:11 WBC (3.8-10.6) k/uL Neutrophils # (1.3-7.7) k/uL APTT (22.0-30.0) sec POC Glucose (mg/dL) 59 L 61 L 67 L (75-99) mg/dL 10/03/17 10/04/17 10/04/17 Range/Units 20:57 06:00 06:13 WBC 13.2 H (3.8-10.6) k/uL Neutrophils # 9.9 H (1.3-7.7) k/uL APTT (22.0-30.0) sec POC Glucose (mg/dL) 174 H 198 H (75-99) mg/dL 10/04/17 Range/Units 06:13 WBC (3.8-10.6) k/uL Neutrophils # (1.3-7.7) k/uL APTT 49.4 H (22.0-30.0) sec POC Glucose (mg/dL) (75-99) mg/dL Assessment and Plan Plan: This is a 66-year-old female who has had ongoing problems with episodes of hallucinations and change in mental status thought to be related to urinary tract infections. She was recently treated for a Pseudomonas catheter associated urinary tract infection and was recently seen in the emergency center and started on moxifloxacin without improvement. Patient has been seen by Dr. Salazar as well and all agree with her recommendation for psychiatric evaluation. Cardiology is following for non-ST elevated myocardial infarction. Regarding antibiotic she is currently on Zosyn which will be changed to micafungin. Simmons catheter will need to be exchanged during this hospitalization. Blood cultures status received. Urine culture will be requested. Continue supportive care. Further recommendations as patient progresses. The above dictated assessment and findings were discussed with Dr. Orozco. The impression and plan of care have been directed as dictated. Mckenzie Luevano nurse practitioner acting as scribe for Dr. Orozco.
[2017-10-04] MEDS: PIPERACILLIN-TAZOBACTAM 3.375 GM in DEXTROSE/WATER 1 50ML.BAG IVPB SCH (09:24)
[2017-10-04 11:24] LABS: Anion Gap 6 mmol/L; Blood Urea Nitrogen 14 mg/dL (7-17); Calcium 8.5 mg/dL (8.4-10.2); Carbon Dioxide 25 mmol/L (22-30); Chloride 107 mmol/L (98-107); Glucose 216 mg/dL (74-99); Non-African American GFR(MDRD) 52 (>60 ml/min/1.73 sqM); Potassium 4.1 mmol/L (3.5-5.1); Sodium 138 mmol/L (137-145)
[2017-10-04 12:51] LABS: Glucose,Whole Blood 226 mg/dL (75-99)
--- NOTE | 2017-10-04 13:34 | CDI ---
In responding to this query, please exercise your independent professional judgment. The [facility] Coding Staff and Clinical Documentation Specialists appreciate your assistance in clarifying documentation, maintaining compliance with coding guidelines, accurately documenting patients condition and capturing severity of illness. The fact that a question is asked does not imply that any particular answer is desired or expected. Communication forms are a method of clarifying documentation and are not made part of the Legal Health Record. Thank you in advance for your clarification. Last Revision, January 2016 Hetal Beasley [address] [facility] [place] [address] Documentation Clarification Form Date: 10/04/2017 1:24:00 PM From: Adriane Robert RN, CCDS Admit Date: 10/02/2017 7:53:00 PM Patient Name: Fernanda Gallagher Visit Number: [id number] Dr. Sherri Quinones/ Mckenzie Luevano CNP Altered mental status was documented in the H&P. Patient history/risk factors: CVA, Chronic cath related UTI's, PE, rectal bleeding Clinical Indicators: 10/03 H&P: "1 Acute delirium with Hallucination likely related to sepsis, Haldol 0.5 mg iv q6 hr prn agitation, seroquel initiated at 25 mg for increased agitation. Patient's blood pressure is high, increased metoprolol 200 mg twice daily, Norvasc 5 mg by mouth daily. Losartan held for acute kidney injury." Labs: WBC 9.4/13.6/13.2, BUN 23/14, Creatinine 1.59/1.05, elevated CKMB and troponin, + U/A CXR:"Peribronchial cuffing and mild interstitial changes. Correlate for possible bronchitis, chronic asthma, or atypical pneumonias." CT Brain: No acute intracranial abnormality seen. Stable mild changes of chronic small vessel ischemic disease. Treatment: 2l IVF Bolus followed by 100cc/hr Rocephin IVPB 1gm x1 dose, Zosyn 3.375 gm IVPB q 8 hrs Haldol IVP .5mg Q 6 hrs Seroquel 25 mg PO Q hs In your professional opinion, please clarify the etiology of the altered mental status, if known. Encephalopathy (specify Type and Underlying Medical Illness) Dementia (if know, specify Type and if with/without Behavioral Disturbance) Other condition (please specify) Unable to determine Please document in your progress notes and discharge summary in order to capture severity of illness and risk of mortality. Include clinical findings that support your diagnosis. FYI: Press F11 to launch patient chart. KARLIE
--- NOTE | 2017-10-04 14:31 | P.PN ---
Subjective Progress Note Date: 10/04/17 This is a 66-year-old patient of Dr. 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 Patient was found to have pulmonary embolism during the admission with a CTA showing a secondary branch pulmonary artery embolism. Patient was discharged on xarelto during that admission. Patient was also seen by urology for hematuria and underwent cystoscopy and has been catheter dependent ever since for urinary retention. Patient continues to be evaluated for thyroid nodules with Dr. Pineda. She complained of rectal bleeding as a result of which xarelto was discontinued. Patient was last admitted in 09/01 - 09/05 with complaints of nausea, multiple episodes of vomiting, hallucinations that started 2 weeks ago. Patient endorses both visual and tactile hallucinations the form of mice and snakes. She states in the beginning it was 1 or 2 that she could see but now she endorses tactile hallucinations and it has worsened since yesterday. Patient's extremity get stiff and patient shakes during these episodes. Urine cultures were obtained. Patient was treated for pseudomonas UTI treated with ciprofloxacin. Carotid ultrasound shows mildly elevated right internal carotid artery compatible with 50-69% stenosis and favored to represent approximately 50 % stenosis. Moderate grayscale atheromatous plaquing within both carotid bulbs. She has been seen by cardiology and they have ordered cardiac enzymes and d-dimer. D-dimer was elevated at 2.41 but was less than last visit and no further imaging was ordered. Patient also seen by neurology and EEG was ordered and was normal, cleared by neurology. Hallucination improved with antibiotics. GI consulted for chronic nausea. Patient has been seen and followed by Dr. Quijano with recommendations to follow up with her primary GI physician. Dr. Reyes has evaluated the patient for delirium possibly related to infection. Patient was seen in the ED on 09/25 for worsening hallucinations associated with change in mentation. Urinalysis suggested UTI, patient was started on moxifloxacin. Psychiatry was consulted who recommended outpatient treatment. Patient was brought back to the hospital for no improvement and worsening of mentation. On my evaluation, patient is disoriented, states she's on the airplane and is ready to come out of the plane. She is also visualizing her in the room who is currently not at bedside. Patient is unable to answer any questions. She does endorses substernal intermittent chest discomfort which she sees is chronic and is related to anxiety.In the ED patient had a troponin of 1.4 which is higher than the previous troponin drawn on 09/25, repeat troponin is 1.10. ProBNP 2470, patient's creatinine is increased from baseline to 1.59( baseline creatinine 0.98) EKG suggested Q waves present in the inferior leads with the subtle ST depression seen in lead 1 and [address]-T wave changes in anterior lateral leads. Patient initiated on 24 hours heparin. Patient's last echo was done in May suggested a normal left ventricle systolic function with EF 60-65%, with right ventricle systolic pressure of 34.77. CT head was negative. Neurology and cardiology consulted for further recommendation. Echo ordered and suggestive of worsening of left ventricular systolic dysfunction withDyssynergetic septal motion consistent with postoperative status with EF 55- 60 %. Vital signs suggest a blood pressure 182/75, heart rate 108 sinus rhythm, breathing at a respiratory rate of 18 at room air. Patient's metoprolol increased 200 mg twice daily along with addition of Norvasc 5 mg daily. Losartan has for concern of a BELKIS. Urine analysis and urine culture suggested candiuria albicans and glabrata. Patient was previously positive for Pseudomonas and was treated with ciprofloxacin. Renal ultrasound ordered to rule out perinephric abscess. Infectious disease consulted for further recommendation. Patient initiated on Zosyn for sepsis secondary to UTI. 10/04: Patient continues to have confusion and required Haldol during the night. She is refusing for nursing staff to touch her. She has been seen by Dr. Orozco with recommendations to discontinue Zosyn and he has started micafungin. Urine culture was ordered. Psychiatry consult has been requested. Objective - Vital Signs Vital signs: Vital Signs Temp 98.6 F 10/04/17 04:00 Pulse 76 10/04/17 08:24 Resp 16 10/04/17 08:24 BP 175/79 10/04/17 04:00 Pulse Ox 96 10/04/17 04:00 Intake & Output 10/03/17 10/04/17 10/04/17 18:59 06:59 18:59 Intake Total 200.776 8289.085 307.65 Output Total 500 500 Balance -236.657 2952.085 307.65 Weight 68.5 kg Intake: IV 2080 Heparin Sodium,Porcine/ 380 D5w Pmx 25,000 unit In Dextrose/Water 1 500ml. bag @ 12 UNITS/KG/HR 16. 68 mls/hr IV .Q24H [facility] Rx #:[id number] Piperacillin-Tazobactam 3 100 .375 gm In Dextrose/Water 1 50ml.bag @ 12.5 mls/hr IVPB Q8HR [facility] Rx#: [id number] Sodium Chloride 0.9% 1, 1600 000 ml @ 100 mls/hr IV . Q10H [facility] Rx#:[id number] Intake, IV Titration 116.482 141.085 187.65 Amount Heparin Sodium,Porcine/ 116.482 141.085 187.65 D5w Pmx 25,000 unit In Dextrose/Water 1 500ml. bag @ 12 UNITS/KG/HR 16. 68 mls/hr IV .Q24H [facility] Rx #:[id number] Oral 60 120 Output: Urine 500 500 Other: Voiding Method Indwelling Catheter Indwelling Catheter Indwelling Catheter - Exam General appearance: obese - EENT Eyes: EOMI, PERRLA, no photophobia, no ptosis, no scleral icterus ENT: hearing grossly normal Ears: bilateral: normal - Neck Neck: no lymphadenopathy, normal ROM, no rigidity Carotids: bilateral: upstroke diminished - Respiratory Respiratory: bilateral: diminished - Cardiovascular Rhythm: regular Heart sounds: normal: S1, S2 Abnormal Heart Sounds: no systolic murmur, no diastolic murmur, no S3 Gallop, no S4 Gallop - Gastrointestinal General gastrointestinal: distended, normal bowel sounds, no organomegaly, soft , no tenderness - Integumentary Integumentary: no jaundiced, normal turgor - Neurologic Neurologic: CNII-XII intact - Musculoskeletal Musculoskeletal: generalized weakness, strength equal bilaterally (wheelchair bound, decreased strenth b/l lower extremities, moving upper extriemities fairly well ) - Psychiatric Psychiatric: no A&O x's 3 (confused, visual hallucinations present ), no intact judgment & insight - Labs CBC & Chem 7: 10/04/17 06:13 10/04/17 06:13 Labs: Abnormal Lab Results - Last 24 Hours (Table) 10/03/17 10/03/17 10/03/17 Range/Units 11:24 15:45 16:32 WBC (3.8-10.6) k/uL Neutrophils # (1.3-7.7) k/uL APTT 36.5 H (22.0-30.0) sec POC Glucose (mg/dL) 150 H 59 L (75-99) mg/dL 10/03/17 10/03/17 10/03/17 Range/Units 16:51 17:11 20:57 WBC (3.8-10.6) k/uL Neutrophils # (1.3-7.7) k/uL APTT (22.0-30.0) sec POC Glucose (mg/dL) 61 L 67 L 174 H (75-99) mg/dL 10/04/17 10/04/17 10/04/17 Range/Units 06:00 06:13 06:13 WBC 13.2 H (3.8-10.6) k/uL Neutrophils # 9.9 H (1.3-7.7) k/uL APTT 49.4 H (22.0-30.0) sec POC Glucose (mg/dL) 198 H (75-99) mg/dL Assessment and Plan Plan: 1 Acute metabolic encephalopathy with Hallucination likley related to sepsis, other differnetial include seizure, sleep deprivation - Patient denies any symptoms related to urinary tract infection but does has a chronic catheterization for urinary retention and gets tract infection on and off. She completed the treatment for pseudomonas UTI last moth and was started on moxifloxacin few days back. Patient has grown Mandy twice in the urine culture. Concern for Mandy urine infection. Infectious disease consulted - EEG negative in the previous admission - Neurology consulted, recommendation pending - Haldol 0.5 mg iv q6 hr prn agitation, seroquel initiated at 25 mg for increased agitation - Psychiatry consult #2Troponinemia secondary to NSTEMI - EKGs unremarkable, except from mild ST wave depression in lead 1 and 2 with Q waves. - Cardiology consulted - Troponin downtrending 1.4 ---1.1 - Continue heparin drip - Patient's blood pressure is high, increased metoprolol 200 mg twice daily, Norvasc 5 mg by mouth daily. Losartan held for acute kidney injury - Continue aspirin and Imdur and atorvastatin - Repeat echo suggestive of severe concentric left ventricle hypertrophy concerning for diastolic heart failure #3 catheter associated urinary tract infection - Status post rocephin - Urine culture positive for pseudomonas aeruginosa, Mandy albicans and Mandy glabrata. - Blood culture ordered - Patient initiated on Zosyn 3.37 mg every 6 hours - Infectious disease consulted #4 history of stroket continue aspirin and atorvastatin #5 diabetes mellitis type II, insulin requiring Patient on NPH 50 units twice daily at home Since patient's glucose on the lower side will continue NPH 35 units twice a day with sliding scale #6 . HyperLipidemia - Continue atorvastatin 80 mg daily #7 coronary artery disease status post CABG in 1999 - Continue aspirin, atorvastatin, metoprolol, Imdur -Echo May 2017 and borderline pulmonary artery hypertension with EF 60-65% - Repeat echo October 08/2017 suggestive of EF 60 is 65% with severe concentric left ventricular hypertrophy #8 pulmonary embolism -Xarelto was discontinued for concern of GI bleeding - Patient currently on room air continue to monitor saturations #9 thyroid nodule - Continue to monitor outpatient #10 urinary retention - Continue Simmons catheter #11 Acute renal failure likely prerenal - Continue iv hydration - Baseline 0.8. - Retroperitoneal ultrasound ordered #12 hypertension - Patient initiated on Norvasc 5 mg by mouth daily, metoprolol dose increased to 100 mg twice daily, losartan is on hold due to BELKIS, continue Imdur # 13 dvt prophylaxis - heparin drip #14 CODE - NO CODE Discharge plan: Subacute rehab [facility]so ordered Impression and plan of care have been directed as dictated by the signing physician. Mckenzie Luevano nurse practitioner acting as scribe for signing physician.
--- NOTE | 2017-10-04 14:52 | XR ---
EXAMINATION TYPE: XR chest 2V DATE OF EXAM: 10/04/2017 COMPARISON: Prior chest x-ray 10/02/2017 HISTORY: Abnormal chest x-ray, follow-up bronchitis TECHNIQUE: Frontal and lateral views of the chest are obtained. FINDINGS: Patient is rotated and post median sternotomy. No evident airspace disease, pneumothorax, or pleural effusion. There are overlying cardiac leads. Arthropathy noted within the shoulders and ac romioclavicular joints. Peribronchial cuffing, mild prominence of interstitium again noted. IMPRESSION: Similar findings. Expiratory rotated exam. Follow-up as indicated.
[2017-10-04] MEDS: amLODIPine 5 MG TAB PO SCH (16:14)
[2017-10-04] MEDS: ASPIRIN 325 MG TAB PO SCH (16:14)
[2017-10-04] MEDS: INSULIN NPH/REG INSULIN 70/30 300 UNIT/3 ML VIAL SQ SCH ×2 (16:15→16:49)
[2017-10-04] MEDS: METOPROLOL TARTRATE 50 MG TAB PO SCH (16:15)
[2017-10-04] MEDS: ISOSORBIDE MONONITRATE ER 60 MG TAB.ER.24H PO SCH (16:15)
[2017-10-04] MEDS: MICAFUNGIN 100 MG in SODIUM CHLORIDE 0.9% 100 ML IVPB SCH (16:19)
[2017-10-04 16:38] LABS: Glucose,Whole Blood 223 mg/dL (75-99)
[2017-10-04 21:01] LABS: Glucose,Whole Blood 283 mg/dL (75-99)
--- NOTE | 2017-10-04 21:15 | P.PN ---
Subjective Progress Note Date: 10/04/17 The patient is a 66-year-old woman with history of stroke and right-sided weakness who was admitted to the hospital with altered mental status and acute NE. She has been having general increased weakness over 2 days prior to admission. She has a history of episodes in the past of altered mental status and hallucinations secondary to sepsis. She is being treated for urosepsis. She has been uncooperative during this hospital stay. The patient is hesitant to respond to questions. She does open her eyes and whisper answers. She is oriented to person and place. It is difficult to get any further history from her. Objective - Vital Signs Vital signs: Vital Signs Temp 97.6 F 10/04/17 16:35 Pulse 86 10/04/17 16:35 Resp 16 10/04/17 16:35 BP 187/74 10/04/17 16:35 Pulse Ox 97 10/04/17 16:35 Intake & Output 10/04/17 10/04/17 10/05/17 06:59 18:59 06:59 Intake Total 2221.085 427.65 Output Total 500 1500 Balance 1721.085 -1072.35 Weight 68.5 kg Intake: IV 2080 Heparin Sodium,Porcine/ 380 D5w Pmx 25,000 unit In Dextrose/Water 1 500ml. bag @ 12 UNITS/KG/HR 16. 68 mls/hr IV .Q24H [facility] Rx #:[id number] Piperacillin-Tazobactam 3 100 .375 gm In Dextrose/Water 1 50ml.bag @ 12.5 mls/hr IVPB Q8HR [facility] Rx#: [id number] Sodium Chloride 0.9% 1, 1600 000 ml @ 100 mls/hr IV . Q10H [facility] Rx#:[id number] Intake, IV Titration 141.085 187.65 Amount Heparin Sodium,Porcine/ 141.085 187.65 D5w Pmx 25,000 unit In Dextrose/Water 1 500ml. bag @ 12 UNITS/KG/HR 16. 68 mls/hr IV .Q24H [facility] Rx #:[id number] Oral 240 Output: Urine 500 1500 Other: Voiding Method Indwelling Catheter Indwelling Catheter # Voids 1 - Constitutional General appearance: Present: average body habitus - EENT ENT: Present: hearing grossly normal - Respiratory Respiratory: bilateral: CTA - Cardiovascular Rhythm: regular - Neurologic Neurologic Comment(s): Mental status: The patient keeps eyes closed. She answers questions with a whisper. She is able to answer her name and place where she is at. Cranial nerve examination pupils were 2 mm and equal there was no obvious facial asymmetry Motor examination she has a right hemiparesis - Musculoskeletal Musculoskeletal: Present: right sided weakness - Labs CBC & Chem 7: 10/04/17 06:13 10/04/17 06:13 Labs: Abnormal Lab Results - Last 24 Hours (Table) 10/03/17 10/04/17 10/04/17 Range/Units 20:57 06:00 06:13 WBC 13.2 H (3.8-10.6) k/uL Neutrophils # 9.9 H (1.3-7.7) k/uL APTT (22.0-30.0) sec Creatinine (0.52-1.04) mg/dL Glucose (74-99) mg/dL POC Glucose (mg/dL) 174 H 198 H (75-99) mg/dL 10/04/17 10/04/17 10/04/17 Range/Units 06:13 06:13 12:39 WBC (3.8-10.6) k/uL Neutrophils # (1.3-7.7) k/uL APTT 49.4 H (22.0-30.0) sec Creatinine 1.05 H (0.52-1.04) mg/dL Glucose 216 H (74-99) mg/dL POC Glucose (mg/dL) 226 H (75-99) mg/dL 10/04/17 Range/Units 16:24 WBC (3.8-10.6) k/uL Neutrophils # (1.3-7.7) k/uL APTT (22.0-30.0) sec Creatinine (0.52-1.04) mg/dL Glucose (74-99) mg/dL POC Glucose (mg/dL) 223 H (75-99) mg/dL Microbiology - Last 24 Hours (Table) 10/04/17 10:30 Urine Culture - Preliminary Urine,Catheterized 10/03/17 15:45 Blood Culture - Preliminary Blood No Growth after 24 hours Assessment and Plan (1) Altered mental status Current Visit: No Status: Acute SNOMED Code(s): 327868030 (2) History of stroke Current Visit: Yes Status: Chronic Code(s): Z86.73 - PRSNL HX OF TIA (TIA), AND CEREB INFRC W/O RESID DEFICITS SNOMED Code(s): 221005127 (3) Non-ST elevation myocardial infarction (NSTEMI) Current Visit: Yes Status: Acute SNOMED Code(s): 523100248 Plan: The patient is a 66-year-old woman admitted to the hospital with altered mental status and recurrent UTI/sepsis and possible non-Q-wave NE. It is likely that her mentation is due to underlying sepsis thing encephalopathy. Await psychiatry recommendations
--- NOTE | 2017-10-04 22:17 | P.CON ---
Consult Note - . Consult date: 10/04/17 Assessment/Plan:: This is a 66-year-old female patient who was hospitalized in May due to chest pain and hematuria was found to have a pulmonary embolism and was started on Xarelto. Patient was seen by urology at that time for hematuria and underwent a cystoscopy and has been catheter dependent since for urinary retention. Patient was having rectal bleeding for which Dr. Pineda discontinued Xarelto in July. She had an admission from September 01 through September 05 with complaints of nausea, vomiting and hallucinations in the form of mice and snakes that she could see and feel. She had episodes where she would become stiff and shake. She was treated at that time for Pseudomonas urinary tract infection with ciprofloxacin. Her carotid ultrasound showed a 50% stenosis in the right internal carotid artery. She was seen by neurology and cardiology during that admission. EEG was normal. Hallucinations gradually improved while she was treated with antibiotics. She was seen by GI for chronic nausea and recommended that she follow-up with her primary GI physician. She was seen by psychiatry for delirium possibly related to infection. Patient was discharged home at that time. She then presented to the emergency center [facility] on September 25 for hallucinations and change in mentation. She was diagnosed with urinary tract infection and discharged on moxifloxacin. She was seen by the psychiatric nurse and was discharged with plan to follow-up as an outpatient. Patient then returned to [facility] emergency center on September 01. Patient had increasing weakness for 2 days and not been having any drip yesterday and plan is to maximize medical therapy. Echocardiogram shows an EF of 55-60% with severe concentric left ventricular hypertrophy. Paradoxical septal motion, mild mitral regurgitation, mild tricuspid regurgitation. She has been seen by Dr. Salazar from neurology for altered mental status secondary to sepsis. EEG is pending and a psychiatry consult recommended. Regarding her urinalysis which was cloudy , leukoesterase large, RBC 7, wbc's 125. Yeast many. White count was 9.5 which is now at 13.2. BUN 23 and creatinine 1.59. On August 31 urine culture was positive for pseudomonas aeruginosa intermediate to gentamicin otherwise pansensitive. On September 22 urine culture revealed Mandy albicans and previous to that in May of this shear urine culture was Mandy glabrata. Patient was very confused during the night and required Haldol. He she has been combative and hitting staff. She is cooperative for simple exam this morning. She denies having chest pain, abdominal pain pain and denies shortness of breath. She does not appear to be in any distress. Please see the consult note is dictated by nurse practitioner Mrs. Mckenzie Luevano. 66-year-old woman who presented to hospital with altered mental status. Has the extensive past medical history as noted above. At this time infectious diseases consultation is regarding the urinary infection. The patient is a bit more calm at this point in time. Her and son are present. This apparently has had a calming effect. She's had a better day and has not been hitting the staff. Unclear at this moment if she is still having active hallucinations but does seem to be quite calm. There is evidence of urinary infection. Based on prior cultures antimicrobial therapy is being utilized with Ceptaz again. With evidence of yeast being present in evidence of sepsis antifungal therapy with micafungin is added. Follow-up cultures are requested. The patient's family's questions are answered to the best of the ability. I agree with evaluation, assessment and plan is dictated by nurse practitioner Mrs. Mckenzie Luevano.
[2017-10-05] MEDS: METOPROLOL TARTRATE 50 MG TAB PO SCH ×3 (02:22→21:09)
[2017-10-05] MEDS: ATORVASTATIN 80 MG TAB PO SCH ×2 (02:22→21:09)
[2017-10-05] MEDS: INSULIN LISPRO (humaLOG) 300 UNIT/3 ML VIAL SQ SCH ×3 (02:23→11:57)
[2017-10-05] MEDS: SODIUM CHLORIDE 0.9% 1,000 ML IV SCH ×2 (02:23→11:30)
[2017-10-05] MEDS: QUEtiapine 25 MG TAB PO SCH ×2 (02:23→21:09)
[2017-10-05 02:29] LABS: Glucose,Whole Blood 254 mg/dL (75-99)
[2017-10-05 02:56] VITALS: RESP 18
[2017-10-05 05:59] LABS: Glucose,Whole Blood 229 mg/dL (75-99)
[2017-10-05 07:03] LABS: Basophils # (A) 0.1 k/uL (0-0.2); Basophils % (A) 1 %; CH 29.1; CHCM 32.1; Eosinophils # (A) 0.2 k/uL (0-0.7); Eosinophils % (A) 2 %; HCT 34.4 % (34.0-46.0); HDW 2.85; HGB 11.1 gm/dL (11.4-16.0); Luc # (Auto) 0.22; Luc % (Auto) 2; Lymphocytes # (A) 2.1 k/uL (1.0-4.8); Lymphocytes % (A) 23 %; MCH 29.5 pg (25.0-35.0); MCHC 32.3 g/dL (31.0-37.0); MCV 91.1 fL (80.0-100.0); Mean Platelet Volume 6.8; Monocytes # (A) 0.8 k/uL (0-1.0); Monocytes % (A) 9 %; Neutrophils # (A) 5.8 k/uL (1.3-7.7); Neutrophils % (A) 64 %; RBC 3.77 m/uL (3.80-5.40); RDW 13.7 % (11.5-15.5); WBC 9.1 k/uL (3.8-10.6); WBC (Perox) 9.29
[2017-10-05] MEDS: ISOSORBIDE MONONITRATE ER 60 MG TAB.ER.24H PO SCH (08:00)
[2017-10-05] MEDS: amLODIPine 5 MG TAB PO SCH (08:00)
[2017-10-05] MEDS: ASPIRIN 325 MG TAB PO SCH (08:00)
[2017-10-05] MEDS: INSULIN NPH/REG INSULIN 70/30 300 UNIT/3 ML VIAL SQ SCH ×2 (08:22→17:07)
[2017-10-05 11:42] LABS: Glucose,Whole Blood 209 mg/dL (75-99)
--- NOTE | 2017-10-05 14:37 | P.PN ---
Subjective Progress Note Date: 10/05/17 Principal diagnosis: Non-STEMI This is a 66-year-old female with past medical history significant for CVA, diabetes, coronary artery disease with prior bypass surgery, hyperlipidemia, prior pulmonary embolism, patient had apparently been treated with xarelto but because of bleeding this was discontinued. The patient was apparently brought into the hospital because of increased weakness. According to the patient, she denies having any chest discomfort or any difficulty in breathing, cardiology consultation was requested because of abnormal troponins. Echocardiogram with Doppler study was performed which revealed an ejection fraction of 55-60%. We will discontinue her IV heparin today, continue other medications. Objective - Vital Signs Vital signs: Vital Signs Temp 97.8 F 10/05/17 08:52 Pulse 80 10/05/17 11:46 Resp 18 10/05/17 11:46 BP 112/54 10/05/17 11:46 Pulse Ox 100 10/05/17 11:46 Intake & Output 10/04/17 10/05/17 10/05/17 18:59 06:59 18:59 Intake Total 427.65 1240 Output Total 1500 1200 Balance -1072.35 40 Weight 65.5 kg Intake: IV 1000 Heparin Sodium,Porcine/ 200 D5w Pmx 25,000 unit In Dextrose/Water 1 500ml. bag @ 12 UNITS/KG/HR 16. 68 mls/hr IV .Q24H [facility] Rx #:[id number] Sodium Chloride 0.9% 1, 800 000 ml @ 100 mls/hr IV . Q10H [facility] Rx#:[id number] Intake, IV Titration 187.65 Amount Heparin Sodium,Porcine/ 187.65 D5w Pmx 25,000 unit In Dextrose/Water 1 500ml. bag @ 12 UNITS/KG/HR 16. 68 mls/hr IV .Q24H [facility] Rx #:[id number] Oral 240 240 Output: Urine 1500 1200 Other: Voiding Method Indwelling Catheter Indwelling Catheter Indwelling Catheter # Voids 1 # Bowel Movements 1 2 - Exam PHYSICAL EXAMINATION: This is a 66-year-old female in no apparent distress at the time of my examination, seems older than stated age. HEENT: Head is atraumatic, normocephalic. Pupils equal, round. Neck is supple. There is no elevated jugular venous pressure. HEART EXAMINATION: Heart S1, S2 systolic murmur is heard. No murmur or gallop heard. CHEST EXAMINATION: Lungs are clear to auscultation and precussion. No chest wall tenderness is noted on palpation or with deep breathing. ABDOMEN: Soft, nontender. Bowel sounds are heard. No organomegaly noted. Simmons catheter in place. EXTREMITIES: 2+ peripheral pulses with no evidence of peripheral edema and no calf tenderness noted. NEUROLOGIC [patient is awake, drowsy, confused. - Labs CBC & Chem 7: 10/05/17 06:34 10/04/17 06:13 Labs: Abnormal Lab Results - Last 24 Hours (Table) 10/04/17 10/04/17 10/05/17 Range/Units 16:24 20:59 01:55 RBC (3.80-5.40) m/uL Hgb (11.4-16.0) gm/dL APTT (22.0-30.0) sec POC Glucose (mg/dL) 223 H 283 H 254 H (75-99) mg/dL 10/05/17 10/05/17 10/05/17 Range/Units 05:56 06:34 06:34 RBC 3.77 L (3.80-5.40) m/uL Hgb 11.1 L (11.4-16.0) gm/dL APTT 44.9 H (22.0-30.0) sec POC Glucose (mg/dL) 229 H (75-99) mg/dL 10/05/17 Range/Units 11:35 RBC (3.80-5.40) m/uL Hgb (11.4-16.0) gm/dL APTT (22.0-30.0) sec POC Glucose (mg/dL) 209 H (75-99) mg/dL Microbiology - Last 24 Hours (Table) 10/04/17 10:30 Urine Culture - Preliminary Urine,Catheterized 10/03/17 15:45 Blood Culture - Preliminary Blood No Growth after 24 hours Assessment and Plan Plan: Assessment and plan #1 symptoms of progressive weakness with evidence of abnormal troponins, 2.8, 1.4, 1.1, possible non-Q-wave myocardial infarction. Patient denies having any chest discomfort. EKG shows normal sinus rhythm with inferior Q waves and nonspecific ST-T wave changes in the lateral leads. Patient did have an echocardiogram with Doppler study performed in May of this year which revealed a normal left ventricular systolic function. #2 known history of coronary artery disease with prior bypass surgery in 2012 #3 hx of prior CVAs #4 hyperlipidemia #5 prior PE, patient had an issue with bleeding on xarelto so it was discontinued #6 essential hypertension #7 diabetes Plan Cardiology's perspective, we'll recommend to continue the patient on current medications. We'll follow along with you now on an as-needed basis only, please don't hesitate to call with any questions. DNP note has been reviewed, I agree with a documented findings and plan of care. Patient was seen and examined.
--- NOTE | 2017-10-05 14:59 | P.PN ---
Subjective Progress Note Date: 10/05/17 This is a 66-year-old patient of Dr. 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 Patient was found to have pulmonary embolism during the admission with a CTA showing a secondary branch pulmonary artery embolism. Patient was discharged on xarelto during that admission. Patient was also seen by urology for hematuria and underwent cystoscopy and has been catheter dependent ever since for urinary retention. Patient continues to be evaluated for thyroid nodules with Dr. Pineda. She complained of rectal bleeding as a result of which xarelto was discontinued. Patient was last admitted in 09/01 - 09/05 with complaints of nausea, multiple episodes of vomiting, hallucinations that started 2 weeks ago. Patient endorses both visual and tactile hallucinations the form of mice and snakes. She states in the beginning it was 1 or 2 that she could see but now she endorses tactile hallucinations and it has worsened since yesterday. Patient's extremity get stiff and patient shakes during these episodes. Urine cultures were obtained. Patient was treated for pseudomonas UTI treated with ciprofloxacin. Carotid ultrasound shows mildly elevated right internal carotid artery compatible with 50-69% stenosis and favored to represent approximately 50 % stenosis. Moderate grayscale atheromatous plaquing within both carotid bulbs. She has been seen by cardiology and they have ordered cardiac enzymes and d-dimer. D-dimer was elevated at 2.41 but was less than last visit and no further imaging was ordered. Patient also seen by neurology and EEG was ordered and was normal, cleared by neurology. Hallucination improved with antibiotics. GI consulted for chronic nausea. Patient has been seen and followed by Dr. Quijano with recommendations to follow up with her primary GI physician. Dr. Reyes has evaluated the patient for delirium possibly related to infection. Patient was seen in the ED on 09/25 for worsening hallucinations associated with change in mentation. Urinalysis suggested UTI, patient was started on moxifloxacin. Psychiatry was consulted who recommended outpatient treatment. Patient was brought back to the hospital for no improvement and worsening of mentation. On my evaluation, patient is disoriented, states she's on the airplane and is ready to come out of the plane. She is also visualizing her in the room who is currently not at bedside. Patient is unable to answer any questions. She does endorses substernal intermittent chest discomfort which she sees is chronic and is related to anxiety.In the ED patient had a troponin of 1.4 which is higher than the previous troponin drawn on 09/25, repeat troponin is 1.10. ProBNP 2470, patient's creatinine is increased from baseline to 1.59( baseline creatinine 0.98) EKG suggested Q waves present in the inferior leads with the subtle ST depression seen in lead 1 and [address]-T wave changes in anterior lateral leads. Patient initiated on 24 hours heparin. Patient's last echo was done in May suggested a normal left ventricle systolic function with EF 60-65%, with right ventricle systolic pressure of 34.77. CT head was negative. Neurology and cardiology consulted for further recommendation. Echo ordered and suggestive of worsening of left ventricular systolic dysfunction withDyssynergetic septal motion consistent with postoperative status with EF 55- 60 %. Vital signs suggest a blood pressure 182/75, heart rate 108 sinus rhythm, breathing at a respiratory rate of 18 at room air. Patient's metoprolol increased 200 mg twice daily along with addition of Norvasc 5 mg daily. Losartan has for concern of a BELKIS. Urine analysis and urine culture suggested candiuria albicans and glabrata. Patient was previously positive for Pseudomonas and was treated with ciprofloxacin. Renal ultrasound ordered to rule out perinephric abscess. Infectious disease consulted for further recommendation. Patient initiated on Zosyn for sepsis secondary to UTI. 10/04: Patient continues to have confusion and required Haldol during the night. She is refusing for nursing staff to touch her. She has been seen by Dr. Orozco with recommendations to discontinue Zosyn and he has started micafungin. Urine culture was ordered. Psychiatry consult has been requested. 10/05: Patient has not been able to participate with PT and OT until this morning. The patient's mental status is much improved and she can carry on conversation and answer questions appropriately. She is found sitting in a chair at the bedside and talking on the phone with her sister. She was able to ambulate to the doorway of her room and back to her bed. She denies having any chest pain. Heparin drip has been discontinued this morning. Noted the patient was started on Seroquel. Psychiatric evaluation remains pending. Haldol will be discontinued. Patient was able to eat this morning, take her medications and she has been up to the commode chair. Blood culture showing no growth. Nursing will change patient's Simmons out today. Objective - Vital Signs Vital signs: Vital Signs Temp 96.4 F L 10/05/17 04:00 Pulse 80 10/05/17 04:00 Resp 18 10/05/17 04:00 BP 190/80 10/05/17 04:00 Pulse Ox 96 10/05/17 04:00 Intake & Output 10/04/17 10/05/17 10/05/17 18:59 06:59 18:59 Intake Total 427.65 1120 Output Total 1500 1200 Balance -1072.35 -80 Weight 65.5 kg Intake: IV 1000 Heparin Sodium,Porcine/ 200 D5w Pmx 25,000 unit In Dextrose/Water 1 500ml. bag @ 12 UNITS/KG/HR 16. 68 mls/hr IV .Q24H [facility] Rx #:[id number] Sodium Chloride 0.9% 1, 800 000 ml @ 100 mls/hr IV . Q10H [facility] Rx#:[id number] Intake, IV Titration 187.65 Amount Heparin Sodium,Porcine/ 187.65 D5w Pmx 25,000 unit In Dextrose/Water 1 500ml. bag @ 12 UNITS/KG/HR 16. 68 mls/hr IV .Q24H [facility] Rx #:[id number] Oral 240 120 Output: Urine 1500 1200 Other: Voiding Method Indwelling Catheter Indwelling Catheter # Voids 1 # Bowel Movements 1 0 - Exam General appearance: obese - EENT Eyes: EOMI, PERRLA, no photophobia, no ptosis, no scleral icterus ENT: hearing grossly normal Ears: bilateral: normal - Neck Neck: no lymphadenopathy, normal ROM, no rigidity Carotids: bilateral: upstroke diminished - Respiratory Respiratory: bilateral: diminished - Cardiovascular Rhythm: regular Heart sounds: normal: S1, S2 Abnormal Heart Sounds: no systolic murmur, no diastolic murmur, no S3 Gallop, no S4 Gallop - Gastrointestinal General gastrointestinal: distended, normal bowel sounds, no organomegaly, soft , no tenderness - Integumentary Integumentary: no jaundiced, normal turgor - Neurologic Neurologic: CNII-XII intact - Musculoskeletal Musculoskeletal: generalized weakness, strength equal bilaterally (wheelchair bound, decreased strenth b/l lower extremities, moving upper extriemities fairly well ) - Psychiatric Psychiatric: A&O x's 3, intact judgment & insight - Labs CBC & Chem 7: 10/05/17 06:34 10/04/17 06:13 Labs: Abnormal Lab Results - Last 24 Hours (Table) 10/04/17 10/04/17 10/04/17 Range/Units 06:13 12:39 16:24 RBC (3.80-5.40) m/uL Hgb (11.4-16.0) gm/dL APTT (22.0-30.0) sec Creatinine 1.05 H (0.52-1.04) mg/dL Glucose 216 H (74-99) mg/dL POC Glucose (mg/dL) 226 H 223 H (75-99) mg/dL 10/04/17 10/05/17 10/05/17 Range/Units 20:59 01:55 05:56 RBC (3.80-5.40) m/uL Hgb (11.4-16.0) gm/dL APTT (22.0-30.0) sec Creatinine (0.52-1.04) mg/dL Glucose (74-99) mg/dL POC Glucose (mg/dL) 283 H 254 H 229 H (75-99) mg/dL 10/05/17 10/05/17 Range/Units 06:34 06:34 RBC 3.77 L (3.80-5.40) m/uL Hgb 11.1 L (11.4-16.0) gm/dL APTT 44.9 H (22.0-30.0) sec Creatinine (0.52-1.04) mg/dL Glucose (74-99) mg/dL POC Glucose (mg/dL) (75-99) mg/dL Microbiology - Last 24 Hours (Table) 10/04/17 10:30 Urine Culture - Preliminary Urine,Catheterized 10/03/17 15:45 Blood Culture - Preliminary Blood No Growth after 24 hours Assessment and Plan Plan: 1 Acute metabolic encephalopathy with Hallucination juan danielley related to sepsis, other differnetial include seizure, sleep deprivation - Patient denies any symptoms related to urinary tract infection but does has a chronic catheterization for urinary retention and gets tract infection on and off. She completed the treatment for pseudomonas UTI last moth and was started on moxifloxacin few days back. Patient has grown Mandy twice in the urine culture. Concern for Mandy urine infection. Infectious disease consulted - EEG negative in the previous admission - Neurology consulted, recommendation pending - Haldol 0.5 mg iv q6 hr prn agitation, seroquel initiated at 25 mg for increased agitation - Psychiatry consult #2Troponinemia secondary to NSTEMI - EKGs unremarkable, except from mild ST wave depression in lead 1 and 2 with Q waves. - Cardiology consulted - Troponin downtrending 1.4 ---1.1 - Continue heparin drip - Patient's blood pressure is high, increased metoprolol 200 mg twice daily, Norvasc 5 mg by mouth daily. Losartan held for acute kidney injury - Continue aspirin and Imdur and atorvastatin - Repeat echo suggestive of severe concentric left ventricle hypertrophy concerning for diastolic heart failure #3 catheter associated urinary tract infection - Status post rocephin - Urine culture positive for pseudomonas aeruginosa, Mandy albicans and Mandy glabrata. - Blood culture ordered - Patient initiated on Zosyn 3.37 mg every 6 hours and subsequently discontinued and patient placed on micafungin by Dr. Orozco - Infectious disease consulted - Simmons catheter to be exchanged. #4 history of stroket continue aspirin and atorvastatin #5 diabetes mellitis type II, insulin requiring Patient on NPH 50 units twice daily at home Since patient's glucose on the lower side will continue NPH 35 units twice a day with sliding scale #6 . HyperLipidemia - Continue atorvastatin 80 mg daily #7 coronary artery disease status post CABG in 1999 - Continue aspirin, atorvastatin, metoprolol, Imdur -Echo May 2017 and borderline pulmonary artery hypertension with EF 60-65% - Repeat echo October 08/2017 suggestive of EF 60 is 65% with severe concentric left ventricular hypertrophy #8 pulmonary embolism -Xarelto was discontinued for concern of GI bleeding - Patient currently on room air continue to monitor saturations #9 thyroid nodule - Continue to monitor outpatient #10 urinary retention - Continue Simmons catheter #11 Acute renal failure likely prerenal - Continue iv hydration - Baseline 0.8. - Retroperitoneal ultrasound ordered #12 hypertension - Patient initiated on Norvasc 5 mg by mouth daily, metoprolol dose increased to 100 mg twice daily, losartan is on hold due to BELKIS, continue Imdur # 13 dvt prophylaxis - heparin drip #14 CODE - NO CODE Discharge plan: [facility] , PT ordered Impression and plan of care have been directed as dictated by the signing physician. Mckenzie Luevano nurse practitioner acting as scribe for signing physician.
[2017-10-05] MEDS: MICAFUNGIN 100 MG in SODIUM CHLORIDE 0.9% 100 ML IVPB SCH (16:28)
[2017-10-05] MEDS: INSULIN ASPART 100 UNIT/ML 1 ML 10 ML VIAL SQ SCH ×2 (17:06→21:08)
[2017-10-05 17:18] LABS: Glucose,Whole Blood 205 mg/dL (75-99)
--- NOTE | 2017-10-05 17:27 | P.CN ---
Psychiatric Consult - . Consult date: 10/05/17 Consult:: Vitals: 3 20:00 00:00 04:00 Temperature 97.0 F L 97.0 F L 96.1 F L Pulse Rate Pulse Rate [ 72 58 L 70 Right Pulse Oximetery] Respiratory 18 18 18 Rate Blood Pressure Blood Pressure 156/67 154/66 141/59 [Left Arm] Blood Pressure [Right Arm] O2 Sat by Pulse 100 99 98 Oximetry Labs: Psychiatric Consult: Patient is 66 year old female with past medical history CVA, DM, HLD, PE, NSTEMI, UTI currently being treated with Micafungin. Psychiatry was consulted for hallucinations, altered mental status, and delirium. Patient is poor historian. She is agitated at this time and unable to give a clear history of recent events. She is able to be redirected for brief periods of time. Patient is unable to explain why she has been combative with staff. She is disoriented,\\ and fixated on the name, "Av." Past Psychiatric: None Past History: Past Medical History: Coronary Artery Disease (CAD), CVA/TIA, Diabetes Mellitus , Hyperlipidemia, Hypertension, Pulmonary Embolus (PE), Syncope, Thyroid Disorder Additional Past Medical History / Comment(s): patient has had 2 strokes, last in April 2016. kidney stones, bladder mass, recurrent UTI's, thyroid nodule, chronic nausea, hematuria Past Surgical History: Cholecystectomy, Coronary Bypass/CABG Additional Past Surgical History / Comment(s): CABG in 2001 Smoking Status: Former smoker Past Alcohol Use History: None Reported Past Drug Use History: None Reported Past Family History: Brother(s) Family Medical History: Diabetes Mellitus Additional Family Medical History / Comment(s): Brother just recently . Unknown history. Mother Family Medical History: Hypertension Father Family Medical History: Myocardial Infarction ([place]) Unable to assess due to mental status Allergies: 3 Allergy/AdvReac Type Severity Reaction Status Date / Time latex Allergy Rash/Hives Verified 10/13/17 15:09 Home Medications: 3 Medication Instructions Recorded Confirmed Isosorbide Mononitrate ER [Imdur] 60 mg PO QAM 05/31/17 10/13/17 3 Medication Instructions Recorded Aspirin 325 mg PO DAILY tab 10/07/17 Atorvastatin [Lipitor] 80 mg PO HS tab 10/07/17 Fluconazole [Diflucan] 100 mg PO DAILY #4 tablet 10/07/17 Insulin Aspart [NovoLOG 0 unit SQ ACHS vial 10/07/17 (formulary)] Insulin NPH/Reg Insulin 70/30 0 unit SQ QAM vial 10/07/17 [humuLIN 70/30 VIAL] Insulin NPH/Reg Insulin 70/30 15 unit SQ W/SUPPER vial 10/07/17 [humuLIN 70/30 VIAL] Metoprolol Tartrate [Lopressor] 100 mg PO BID tab 10/07/17 Nitroglycerin Sl Tabs [Nitrostat] 0.4 mg SUBLINGUAL Q5M PRN tab 10/07/17 Potassium Chloride ER [K-Dur 20] 20 meq PO Q12HR tab.er.prt 10/07/17 QUEtiapine [SEROquel] 25 mg PO HS tab 10/07/17 amLODIPine [Norvasc] 5 mg PO DAILY tab 10/07/17 Family support Multiple chronic uncontrolled medical illnesses Mental Status Exam: Patient is awake, alert, clothed in hospital attire. Significant PMA, maintains poor eye contact, overall uncooperative, combative with staff, language is spontaneous, normal rate, rhythm, fluency. Patients mood is labile, affect congruent , thought processes disorganized, content delusional at times due to delirium, judgment and insight are impaired Intelligence unable to be assessed due to delirium Assessment: Delirium due to multiple etiologies (metabolic, cardiac) Recommendations: Continue Seroquel 25-mg PO QHS Start Haldol 0.5-mg IM/IV Q4HR PRN mild to moderate agitation/aggression Start Haldol 1-mg IM/IV Q4HR PRN severe agitation/aggression (may give after 0.5-mg dose if patient is still aggressive) Psychiatry will follow. ~ Stuart Aguirre DO [phone] (pager) Assessment and Plan (1) Delirium due to general medical condition Status: Acute Priority: High Code(s): F05 - DELIRIUM DUE TO KNOWN PHYSIOLOGICAL CONDITION SNOMED Code(s): 6231310 Time with Patient: Greater than 30
[2017-10-05 21:00] LABS: Glucose,Whole Blood 90 mg/dL (75-99)
[2017-10-06 06:02] LABS: Glucose,Whole Blood 59 mg/dL (75-99)
[2017-10-06] MEDS: INSULIN ASPART 100 UNIT/ML 1 ML 10 ML VIAL SQ SCH ×4 (06:12→22:02)
[2017-10-06 06:28] LABS: Glucose,Whole Blood 83 mg/dL (75-99)
[2017-10-06 06:32] LABS: Basophils % (A) 0 %; CH 28.9; CHCM 32.7; Eosinophils # (A) 0.3 k/uL (0-0.7); Eosinophils % (A) 4 %; HCT 33.8 % (34.0-46.0); HDW 2.97; HGB 10.7 gm/dL (11.4-16.0); Luc # (Auto) 0.29; Luc % (Auto) 4; Lymphocytes # (A) 2.3 k/uL (1.0-4.8); Lymphocytes % (A) 29 %; MCH 28.2 pg (25.0-35.0); MCHC 31.8 g/dL (31.0-37.0); Mean Platelet Volume 7.1; Monocytes # (A) 0.6 k/uL (0-1.0); Monocytes % (A) 8 %; Neutrophils # (A) 4.4 k/uL (1.3-7.7); Neutrophils % (A) 55 %; RDW 13.9 % (11.5-15.5); WBC (Perox) 8.27
[2017-10-06] MEDS: INSULIN NPH/REG INSULIN 70/30 300 UNIT/3 ML VIAL SQ SCH ×2 (08:14→16:47)
[2017-10-06] MEDS: ISOSORBIDE MONONITRATE ER 60 MG TAB.ER.24H PO SCH (08:15)
[2017-10-06] MEDS: METOPROLOL TARTRATE 50 MG TAB PO SCH ×2 (08:15→20:43)
[2017-10-06] MEDS: ASPIRIN 325 MG TAB PO SCH (08:15)
[2017-10-06] MEDS: amLODIPine 5 MG TAB PO SCH (08:15)
[2017-10-06 08:36] LABS: Anion Gap 4 mmol/L; Blood Urea Nitrogen 8 mg/dL (7-17); Calcium 8.9 mg/dL (8.4-10.2); Carbon Dioxide 27 mmol/L (22-30); Chloride 112 mmol/L (98-107); Glucose 56 mg/dL (74-99); Non-African American GFR(MDRD) 56 (>60 ml/min/1.73 sqM); Potassium 3.3 mmol/L (3.5-5.1); Sodium 143 mmol/L (137-145)
[2017-10-06] MEDS ORDERED: HALOPERIDOL LACTATE 5 MG/ML 1 ML VIAL IVP PRN (10:26)
[2017-10-06 11:44] LABS: Glucose,Whole Blood 273 mg/dL (75-99)
[2017-10-06] MEDS: POTASSIUM CHLORIDE ER 20 MEQ TAB.ER PO SCH ×2 (13:15→14:56)
[2017-10-06] MEDS: MICAFUNGIN 100 MG in SODIUM CHLORIDE 0.9% 100 ML IVPB SCH (13:15)
--- NOTE | 2017-10-06 13:19 | P.PN ---
Subjective Progress Note Date: 10/06/17 This is a 66-year-old patient of Dr. 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 Patient was found to have pulmonary embolism during the admission with a CTA showing a secondary branch pulmonary artery embolism. Patient was discharged on xarelto during that admission. Patient was also seen by urology for hematuria and underwent cystoscopy and has been catheter dependent ever since for urinary retention. Patient continues to be evaluated for thyroid nodules with Dr. Pineda. She complained of rectal bleeding as a result of which xarelto was discontinued. Patient was last admitted in 09/01 - 09/05 with complaints of nausea, multiple episodes of vomiting, hallucinations that started 2 weeks ago. Patient endorses both visual and tactile hallucinations the form of mice and snakes. She states in the beginning it was 1 or 2 that she could see but now she endorses tactile hallucinations and it has worsened since yesterday. Patient's extremity get stiff and patient shakes during these episodes. Urine cultures were obtained. Patient was treated for pseudomonas UTI treated with ciprofloxacin. Carotid ultrasound shows mildly elevated right internal carotid artery compatible with 50-69% stenosis and favored to represent approximately 50 % stenosis. Moderate grayscale atheromatous plaquing within both carotid bulbs. She has been seen by cardiology and they have ordered cardiac enzymes and d-dimer. D-dimer was elevated at 2.41 but was less than last visit and no further imaging was ordered. Patient also seen by neurology and EEG was ordered and was normal, cleared by neurology. Hallucination improved with antibiotics. GI consulted for chronic nausea. Patient has been seen and followed by Dr. Quijano with recommendations to follow up with her primary GI physician. Dr. Reyes has evaluated the patient for delirium possibly related to infection. Patient was seen in the ED on 09/25 for worsening hallucinations associated with change in mentation. Urinalysis suggested UTI, patient was started on moxifloxacin. Psychiatry was consulted who recommended outpatient treatment. Patient was brought back to the hospital for no improvement and worsening of mentation. On my evaluation, patient is disoriented, states she's on the airplane and is ready to come out of the plane. She is also visualizing her in the room who is currently not at bedside. Patient is unable to answer any questions. She does endorses substernal intermittent chest discomfort which she sees is chronic and is related to anxiety.In the ED patient had a troponin of 1.4 which is higher than the previous troponin drawn on 09/25, repeat troponin is 1.10. ProBNP 2470, patient's creatinine is increased from baseline to 1.59( baseline creatinine 0.98) EKG suggested Q waves present in the inferior leads with the subtle ST depression seen in lead 1 and [address]-T wave changes in anterior lateral leads. Patient initiated on 24 hours heparin. Patient's last echo was done in May suggested a normal left ventricle systolic function with EF 60-65%, with right ventricle systolic pressure of 34.77. CT head was negative. Neurology and cardiology consulted for further recommendation. Echo ordered and suggestive of worsening of left ventricular systolic dysfunction withDyssynergetic septal motion consistent with postoperative status with EF 55- 60 %. Vital signs suggest a blood pressure 182/75, heart rate 108 sinus rhythm, breathing at a respiratory rate of 18 at room air. Patient's metoprolol increased 200 mg twice daily along with addition of Norvasc 5 mg daily. Losartan has for concern of a BELKIS. Urine analysis and urine culture suggested candiuria albicans and glabrata. Patient was previously positive for Pseudomonas and was treated with ciprofloxacin. Renal ultrasound ordered to rule out perinephric abscess. Infectious disease consulted for further recommendation. Patient initiated on Zosyn for sepsis secondary to UTI. 10/04: Patient continues to have confusion and required Haldol during the night. She is refusing for nursing staff to touch her. She has been seen by Dr. Orozco with recommendations to discontinue Zosyn and he has started micafungin. Urine culture was ordered. Psychiatry consult has been requested. 10/05: Patient has not been able to participate with PT and OT until this morning. The patient's mental status is much improved and she can carry on conversation and answer questions appropriately. She is found sitting in a chair at the bedside and talking on the phone with her sister. She was able to ambulate to the doorway of her room and back to her bed. She denies having any chest pain. Heparin drip has been discontinued this morning. Noted the patient was started on Seroquel. Psychiatric evaluation remains pending. Haldol will be discontinued. Patient was able to eat this morning, take her medications and she has been up to the commode chair. Blood culture showing no growth. Nursing will change patient's Simmons out today. 10/06: Cardiology is following on an as-needed basis only. Patient was seen yesterday by psychiatry with recommendations to continue Seroquel and restart Haldol. Patient's mental status remains improved. Potassium will be replaced. Patient is planning for subacute rehab and we anticipate discharge tomorrow. Insurance authorization will be required. Objective - Vital Signs Vital signs: Vital Signs Temp 96.8 F L 10/06/17 04:00 Pulse 63 10/06/17 04:00 Resp 18 10/06/17 04:00 BP 167/74 10/06/17 04:00 Pulse Ox 96 10/06/17 04:00 Intake & Output 10/05/17 10/06/17 10/06/17 18:59 06:59 18:59 Intake Total 1240 800 Output Total 1600 300 Balance -360 500 Weight 64.5 kg Intake: IV 1000 800 Heparin Sodium,Porcine/ 200 D5w Pmx 25,000 unit In Dextrose/Water 1 500ml. bag @ 12 UNITS/KG/HR 16. 68 mls/hr IV .Q24H JA[facility] Rx #:[id number] Sodium Chloride 0.9% 1, 800 800 000 ml @ 100 mls/hr IV . Q10H JAZZMINE Rx#:[id number] Oral 240 Output: Urine 1600 300 Other: Voiding Method Indwelling Catheter Indwelling Catheter # Voids 1 # Bowel Movements 0 - Exam General appearance: obese - EENT Eyes: EOMI, PERRLA, no photophobia, no ptosis, no scleral icterus ENT: hearing grossly normal Ears: bilateral: normal - Neck Neck: no lymphadenopathy, normal ROM, no rigidity Carotids: bilateral: upstroke diminished - Respiratory Respiratory: bilateral: diminished - Cardiovascular Rhythm: regular Heart sounds: normal: S1, S2 Abnormal Heart Sounds: no systolic murmur, no diastolic murmur, no S3 Gallop, no S4 Gallop - Gastrointestinal General gastrointestinal: distended, normal bowel sounds, no organomegaly, soft , no tenderness - Integumentary Integumentary: no jaundiced, normal turgor - Neurologic Neurologic: CNII-XII intact - Musculoskeletal Musculoskeletal: generalized weakness, strength equal bilaterally (wheelchair bound, decreased strenth b/l lower extremities, moving upper extriemities fairly well ) - Psychiatric Psychiatric: A&O x's 3, intact judgment & insight - Labs CBC & Chem 7: 10/06/17 05:44 10/06/17 05:44 Labs: Abnormal Lab Results - Last 24 Hours (Table) 10/05/17 10/05/17 10/05/17 Range/Units 06:34 11:35 16:32 Hgb (11.4-16.0) gm/dL Hct (34.0-46.0) % APTT 44.9 H (22.0-30.0) sec POC Glucose (mg/dL) 209 H 205 H (75-99) mg/dL 10/06/17 10/06/17 Range/Units 05:44 05:57 Hgb 10.7 L (11.4-16.0) gm/dL Hct 33.8 L (34.0-46.0) % APTT (22.0-30.0) sec POC Glucose (mg/dL) 59 L (75-99) mg/dL Microbiology - Last 24 Hours (Table) 10/04/17 10:30 Urine Culture - Final Urine,Catheterized 10/03/17 15:45 Blood Culture - Preliminary Blood No Growth after 48 hours Assessment and Plan Plan: 1 Acute metabolic encephalopathy with Hallucination likley related to sepsis, other differnetial include seizure, sleep deprivation - Patient denies any symptoms related to urinary tract infection but does has a chronic catheterization for urinary retention and gets tract infection on and off. She completed the treatment for pseudomonas UTI last moth and was started on moxifloxacin few days back. Patient has grown Mandy twice in the urine culture. Concern for Mandy urine infection. Infectious disease consulted - EEG negative in the previous admission - Neurology consulted, recommendation pending - seroquel initiated at 25 mg for increased agitation - Psychiatry consult #2Troponinemia secondary to NSTEMI - EKGs unremarkable, except from mild ST wave depression in lead 1 and 2 with Q waves. - Cardiology consulted - Troponin downtrending 1.4 ---1.1 - Continue heparin drip - Patient's blood pressure is high, increased metoprolol 200 mg twice daily, Norvasc 5 mg by mouth daily. Losartan held for acute kidney injury - Continue aspirin and Imdur and atorvastatin - Repeat echo suggestive of severe concentric left ventricle hypertrophy concerning for diastolic heart failure #3 catheter associated urinary tract infection - Status post rocephin - Urine culture positive for pseudomonas aeruginosa, Mandy albicans and Mandy glabrata. - Blood culture ordered - Patient initiated on Zosyn 3.37 mg every 6 hours and subsequently discontinued and patient placed on micafungin by Dr. Orozco - Infectious disease consulted - Simmons catheter to be exchanged. #4 history of stroket continue aspirin and atorvastatin #5 diabetes mellitis type II, insulin requiring Patient on NPH 50 units twice daily at home Since patient's glucose on the lower side will continue NPH 35 units twice a day with sliding scale #6 . HyperLipidemia - Continue atorvastatin 80 mg daily #7 coronary artery disease status post CABG in 1999 - Continue aspirin, atorvastatin, metoprolol, Imdur -Echo May 2017 and borderline pulmonary artery hypertension with EF 60-65% - Repeat echo October 08/2017 suggestive of EF 60 is 65% with severe concentric left ventricular hypertrophy #8 pulmonary embolism -Xarelto was discontinued for concern of GI bleeding - Patient currently on room air continue to monitor saturations #9 thyroid nodule - Continue to monitor outpatient #10 urinary retention - Continue Simmons catheter #11 Acute renal failure likely prerenal - Continue iv hydration - Baseline 0.8. - Retroperitoneal ultrasound ordered #12 hypertension - Patient initiated on Norvasc 5 mg by mouth daily, metoprolol dose increased to 100 mg twice daily, losartan is on hold due to BELKIS, continue Imdur # 13 dvt prophylaxis - heparin drip #14 CODE - NO CODE Discharge plan: Subacute rehab at [facility] on Tuesday Impression and plan of care have been directed as dictated by the signing physician. Mckenzie Luevano nurse practitioner acting as scribe for signing physician.
[2017-10-06 16:45] LABS: Glucose,Whole Blood 271 mg/dL (75-99)
[2017-10-06] MEDS: QUEtiapine 25 MG TAB PO SCH (20:43)
[2017-10-06] MEDS: ATORVASTATIN 80 MG TAB PO SCH (20:43)
[2017-10-06 21:28] LABS: Glucose,Whole Blood 151 mg/dL (75-99)
--- NOTE | 2017-10-06 22:40 | P.PN ---
Subjective Progress Note Date: 10/06/17 Principal diagnosis: pneumonia This is a 66-year-old female patient who was hospitalized in May due to chest pain and hematuria was found to have a pulmonary embolism and was started on Xarelto. Patient was seen by urology at that time for hematuria and underwent a cystoscopy and has been catheter dependent since for urinary retention. Patient was having rectal bleeding for which Dr. Pineda discontinued Xarelto in July. She had an admission from September 01 through September 05 with complaints of nausea, vomiting and hallucinations in the form of mice and snakes that she could see and feel. She had episodes where she would become stiff and shake. She was treated at that time for Pseudomonas urinary tract infection with ciprofloxacin. Her carotid ultrasound showed a 50% stenosis in the right internal carotid artery. She was seen by neurology and cardiology during that admission. EEG was normal. Hallucinations gradually improved while she was treated with antibiotics. She was seen by GI for chronic nausea and recommended that she follow-up with her primary GI physician. She was seen by psychiatry for delirium possibly related to infection. Patient was discharged home at that time. She then presented to the emergency center [facility] on September 25 for hallucinations and change in mentation. She was diagnosed with urinary tract infection and discharged on moxifloxacin. She was seen by the psychiatric nurse and was discharged with plan to follow-up as an outpatient. Patient then returned to [facility] emergency center on September 01. Patient had increasing weakness for 2 days and not been having any drip yesterday and plan is to maximize medical therapy. Echocardiogram shows an EF of 55-60% with severe concentric left ventricular hypertrophy. Paradoxical septal motion, mild mitral regurgitation, mild tricuspid regurgitation. She has been seen by Dr. Salazar from neurology for altered mental status secondary to sepsis. EEG is pending and a psychiatry consult recommended. Regarding her urinalysis which was cloudy , leukoesterase large, RBC 7, wbc's 125. Yeast many. White count was 9.5 which is now at 13.2. BUN 23 and creatinine 1.59. On August 31 urine culture was positive for pseudomonas aeruginosa intermediate to gentamicin otherwise pansensitive. On September 22 urine culture revealed Mandy albicans and previous to that in May of this shear urine culture was Mandy glabrata. Patient was very confused during the night and required Haldol. Dispensing by psychiatry medications are altered. Much more calm today. Objective - Vital Signs Vital signs: Vital Signs Temp 98.2 F 10/06/17 15:41 Pulse 64 10/06/17 15:41 Resp 18 10/06/17 15:41 BP 158/78 10/06/17 15:41 Pulse Ox 97 10/06/17 15:41 Intake & Output 10/06/17 10/06/17 10/07/17 06:59 18:59 06:59 Intake Total 800 Output Total 300 500 Balance 500 -500 Weight 64.5 kg Intake: IV 800 Sodium Chloride 0.9% 1, 800 000 ml @ 100 mls/hr IV . Q10H JAZZMINE Rx#:[id number] Output: Urine 300 500 Other: Voiding Method Indwelling Catheter Indwelling Catheter # Voids 1 # Bowel Movements 1 - Exam Gen: This is a well-nourished 66-year-old female. She is sitting up and appears to be in no acute distress. HEENT: Head is atraumatic, normocephalic. Pupils equal, round. Sclerae is anicteric. Right-sided eyelid droop. NECK: Supple. No JVD. LUNGS: Clear to auscultation. No wheezes or rhonchi. No intercostal retractions. HEART: Regular rate and rhythm. No murmur. ABDOMEN: Soft. Bowel sounds are present. No masses. No tenderness. No suprapubic tenderness. Simmons catheter draining julianna urine. EXTREMITIES: No pedal edema. No calf tenderness. Dorsalis pedis is +1 bilaterally. NEUROLOGICAL: Patient is awake, alert and oriented x1. - Labs CBC & Chem 7: 10/06/17 05:44 10/06/17 05:44 Labs: Abnormal Lab Results - Last 24 Hours (Table) 10/06/17 10/06/17 10/06/17 Range/Units 05:44 05:44 05:57 Hgb 10.7 L (11.4-16.0) gm/dL Hct 33.8 L (34.0-46.0) % Potassium 3.3 L (3.5-5.1) mmol/L Chloride 112 H (98-107) mmol/L Glucose 56 L (74-99) mg/dL POC Glucose (mg/dL) 59 L (75-99) mg/dL 10/06/17 10/06/1717 Range/Units 11:28 16:40 21:27 Hgb (11.4-16.0) gm/dL Hct (34.0-46.0) % Potassium (3.5-5.1) mmol/L Chloride (98-107) mmol/L Glucose (74-99) mg/dL POC Glucose (mg/dL) 273 H 271 H 151 H (75-99) mg/dL Microbiology - Last 24 Hours (Table) 10/03/17 15:45 Blood Culture - Preliminary Blood No Growth after 72 hours 10/04/17 10:30 Urine Culture - Final Urine,Catheterized Laboratory Results WBC 8.0 k/uL (3.8-10.6) 10/06/17 05:44 RBC 3.80 m/uL (3.80-5.40) 10/06/17 05:44 Hgb 10.7 gm/dL (11.4-16.0) L 10/06/17 05:44 Hct 33.8 % (34.0-46.0) L 10/06/17 05:44 MCV 89.0 fL (80.0-100.0) 10/06/17 05:44 MCH 28.2 pg (25.0-35.0) 10/06/17 05:44 MCHC 31.8 g/dL (31.0-37.0) 10/06/17 05:44 RDW 13.9 % (11.5-15.5) 10/06/17 05:44 Plt Count 254 k/uL (150-450) 10/06/17 05:44 Neutrophils % 55 % 10/06/17 05:44 Lymphocytes % 29 % 10/06/17 05:44 Monocytes % 8 % 10/06/17 05:44 Eosinophils % 4 % 10/06/17 05:44 Basophils % 0 % 10/06/17 05:44 Neutrophils # 4.4 k/uL (1.3-7.7) 10/06/17 05:44 Lymphocytes # 2.3 k/uL (1.0-4.8) 10/06/17 05:44 Monocytes # 0.6 k/uL (0-1.0) 10/06/17 05:44 Eosinophils # 0.3 k/uL (0-0.7) 10/06/17 05:44 Basophils # 0.0 k/uL (0-0.2) 10/06/17 05:44 Hypochromasia Slight 10/03/17 08:31 PT 10.5 sec (9.0-12.0) 10/03/17 08:31 INR 1.0 (<1.2) 10/03/17 08:31 APTT 44.9 sec (22.0-30.0) H 10/05/17 06:34 Sodium 143 mmol/L (137-145) 10/06/17 05:44 Potassium 3.3 mmol/L (3.5-5.1) L 10/06/17 05:44 Chloride 112 mmol/L (98-107) H 10/06/17 05:44 Carbon Dioxide 27 mmol/L (22-30) 10/06/17 05:44 Anion Gap 4 mmol/L 10/06/17 05:44 BUN 8 mg/dL (7-17) 10/06/17 05:44 Creatinine 0.99 mg/dL (0.52-1.04) 10/06/17 05:44 Est GFR (MDRD) Af Amer >60 (>60 ml/min/1.73 sqM) 10/06/17 05:44 Est GFR (MDRD) Non-Af 56 (>60 ml/min/1.73 sqM) 10/06/17 05:44 Glucose 56 mg/dL (74-99) L 10/06/17 05:44 POC Glucose (mg/dL) 151 mg/dL (75-99) H 10/06/17 21:27 POC Glu Porcelain Slusher ID Janey Talamantes 10/06/17 21:27 Lactic Ac Sepsis Rflx Y 10/02/17 17:20 Plasma Lactic Acid Austen 1.8 mmol/L (0.7-2.0) 10/02/17 21:20 Calcium 8.9 mg/dL (8.4-10.2) 10/06/17 05:44 Magnesium 1.9 mg/dL (1.6-2.3) 10/02/17 16:45 Total Bilirubin 0.6 mg/dL (0.2-1.3) 10/02/17 16:45 AST 32 U/L (14-36) 10/02/17 16:45 ALT 26 U/L (9-52) 10/02/17 16:45 Alkaline Phosphatase 68 U/L (38-126) 10/02/17 16:45 Ammonia <9 umol/L (<30) 10/02/17 16:45 Total Creatine Kinase 80 U/L (30-135) 10/03/17 01:39 CK-MB (CK-2) 2.9 ng/mL (0.0-2.4) H* 10/03/17 01:39 CK-MB (CK-2) Rel Index 3.6 10/03/17 01:39 Troponin I 1.100 ng/mL (0.000-0.034) H* 10/03/17 01:39 NT-Pro-B Natriuret Pep 2470 pg/mL 10/02/17 16:45 Total Protein 6.3 g/dL (6.3-8.2) 10/02/17 16:45 Albumin 3.1 g/dL (3.5-5.0) L 10/02/17 16:45 Triglycerides 156 mg/dL (<150) H 10/03/17 01:39 Cholesterol 163 mg/dL (<200) 10/03/17 01:39 LDL Cholesterol, Calc 87 mg/dL (0-99) 10/03/17 01:39 HDL Cholesterol 45 mg/dL (40-60) 10/03/17 01:39 Urine Color Yellow 10/02/17 19:00 Urine Appearance Cloudy (Clear) H 10/02/17 19:00 Urine pH 5.5 (5.0-8.0) 10/02/17 19:00 Ur Specific [place] 1.021 (1.001-1.035) 10/02/17 19:00 Urine Protein 2+ (Negative) H 10/02/17 19:00 Urine Glucose (UA) Trace (Negative) H 10/02/17 19:00 Urine Ketones Negative (Negative) 10/02/17 19:00 Urine Blood Negative (Negative) 10/02/17 19:00 Urine Nitrite Negative (Negative) 10/02/17 19:00 Urine Bilirubin Negative (Negative) 10/02/17 19:00 Urine Urobilinogen <2.0 mg/dL (<2.0) 10/02/17 19:00 Ur Leukocyte Esterase Large (Negative) H 10/02/17 19:00 Urine RBC 7 /hpf (0-5) H 10/02/17 19:00 Urine WBC 125 /hpf (0-5) H 10/02/17 19:00 Ur Squamous Epith Cells 1 /hpf (0-4) 10/02/17 19:00 Amorphous Sediment Occasional /hpf (None) H 10/02/17 19:00 Hyaline Casts 21 /lpf (0-2) H 10/02/17 19:00 Urine Mucus Rare /hpf (None) H 10/02/17 19:00 Ur Yeast w Hyphae Occasional /hpf (None) 10/02/17 19:00 Urine Yeast (Budding) Many /hpf (None) H 10/02/17 19:00 Assessment and Plan (1) Urinary tract infection Narrative/Plan: This is a 66-year-old female who has had ongoing problems with episodes of hallucinations and change in mental status thought to be related to urinary tract infections. She was recently treated for a Pseudomonas catheter associated urinary tract infection and was recently seen in the emergency center and started on moxifloxacin without improvement. Patient has been seen by Dr. Salazar as well as psychiatry. With medication changes she seems to be improving. Only positive culture at this time is of Mandy in the urine. She' s been treated and seems to have some clinical improvement. If she seems to be getting ready for discharge. We will be able to utilize fluconazole 100 mg a day to complete 7 days of therapy. Current Visit: Yes Status: Acute Code(s): N39.0 - URINARY TRACT INFECTION, SITE NOT SPECIFIED SNOMED Code(s): 79575163
[2017-10-07 04:26] LABS: Glucose,Whole Blood 49 mg/dL (75-99)
[2017-10-07 04:26] LABS: Glucose,Whole Blood 47 mg/dL (75-99)
[2017-10-07 04:54] LABS: Glucose,Whole Blood 73 mg/dL (75-99)
[2017-10-07 04:59] LABS: Basophils % (A) 1 %; CHCM 32.5; Eosinophils # (A) 0.3 k/uL (0-0.7); Eosinophils % (A) 3 %; HCT 34.6 % (34.0-46.0); HDW 2.94; HGB 11.3 gm/dL (11.4-16.0); Luc # (Auto) 0.27; Luc % (Auto) 4; Lymphocytes # (A) 1.7 k/uL (1.0-4.8); Lymphocytes % (A) 22 %; MCH 28.4 pg (25.0-35.0); MCHC 32.6 g/dL (31.0-37.0); MCV 86.9 fL (80.0-100.0); Mean Platelet Volume 7.5; Monocytes # (A) 0.6 k/uL (0-1.0); Monocytes % (A) 8 %; Neutrophils # (A) 4.9 k/uL (1.3-7.7); Neutrophils % (A) 63 %; RBC 3.98 m/uL (3.80-5.40); RDW 14.9 % (11.5-15.5); WBC 7.8 k/uL (3.8-10.6); WBC (Perox) 8.16
[2017-10-07 05:09] LABS: Anion Gap 6 mmol/L; Blood Urea Nitrogen 8 mg/dL (7-17); Calcium 9.2 mg/dL (8.4-10.2); Carbon Dioxide 27 mmol/L (22-30); Chloride 112 mmol/L (98-107); Glucose 58 mg/dL (74-99); Non-African American GFR(MDRD) >60 (>60 ml/min/1.73 sqM); Potassium 3.1 mmol/L (3.5-5.1); Sodium 145 mmol/L (137-145)
[2017-10-07 06:10] LABS: Glucose,Whole Blood 122 mg/dL (75-99)
[2017-10-07] MEDS: INSULIN ASPART 100 UNIT/ML 1 ML 10 ML VIAL SQ SCH ×2 (06:39→12:20)
[2017-10-07] MEDS ORDERED: INSULIN NPH/REG INSULIN 70/30 300 UNIT/3 ML VIAL SQ SCH ×2 (08:32)
[2017-10-07] MEDS: ASPIRIN 325 MG TAB PO SCH (08:35)
[2017-10-07] MEDS: ISOSORBIDE MONONITRATE ER 60 MG TAB.ER.24H PO SCH (08:35)
[2017-10-07] MEDS: METOPROLOL TARTRATE 50 MG TAB PO SCH (08:35)
[2017-10-07] MEDS: amLODIPine 5 MG TAB PO SCH (08:35)
[2017-10-07] MEDS: POTASSIUM CHLORIDE ER 20 MEQ TAB.ER PO SCH ×2 (09:26→10:50)
--- NOTE | 2017-10-07 09:29 | P.DS ---
Providers Date of admission: 10/02/17 19:53 Expected date of discharge: 10/07/17 Attending physician: Julio Gonzalez Consults: 10/02/17 19:53 Consult Physician Routine Consulting Provider: Isaac Monae Consult Reason/Comments: Altered mental status CVA Do you want consulting provider notified?: Yes Consult Physician Urgent Consulting Provider: Jc Patel Consult Reason/Comments: Elevated troponin Do you want consulting provider notified?: Already Contacted 10/03/17 13:22 Consult Physician Routine Consulting Provider: Julio Orozco Consult Reason/Comments: recurrent UTI, positive for tiera albican and glabrata Do you want consulting provider notified?: Yes 10/04/17 09:46 Consult Physician Routine Consulting Provider: Stuart Aguirre Consult Reason/Comments: hallucinations, encephalopathy Do you want consulting provider notified?: Yes Primary care physician: Ivis Pineda [facility] Course: This is a 66-year-old patient of Dr. 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 Patient was found to have pulmonary embolism during the admission with a CTA showing a secondary branch pulmonary artery embolism. Patient was discharged on xarelto during that admission. Patient was also seen by urology for hematuria and underwent cystoscopy and has been catheter dependent ever since for urinary retention. Patient continues to be evaluated for thyroid nodules with Dr. Pineda. She complained of rectal bleeding as a result of which xarelto was discontinued. Patient was last admitted in 09/01 - 09/05 with complaints of nausea, multiple episodes of vomiting, hallucinations that started 2 weeks ago. Patient endorses both visual and tactile hallucinations the form of mice and snakes. She states in the beginning it was 1 or 2 that she could see but now she endorses tactile hallucinations and it has worsened since yesterday. Patient's extremity get stiff and patient shakes during these episodes. Urine cultures were obtained. Patient was treated for pseudomonas UTI treated with ciprofloxacin. Carotid ultrasound shows mildly elevated right internal carotid artery compatible with 50-69% stenosis and favored to represent approximately 50 % stenosis. Moderate grayscale atheromatous plaquing within both carotid bulbs. She has been seen by cardiology and they have ordered cardiac enzymes and d-dimer. D-dimer was elevated at 2.41 but was less than last visit and no further imaging was ordered. Patient also seen by neurology and EEG was ordered and was normal, cleared by neurology. Hallucination improved with antibiotics. GI consulted for chronic nausea. Patient has been seen and followed by Dr. Quijano with recommendations to follow up with her primary GI physician. Dr. Reyes has evaluated the patient for delirium possibly related to infection. Patient was seen in the ED on 09/25 for worsening hallucinations associated with change in mentation. Urinalysis suggested UTI, patient was started on moxifloxacin. Psychiatry was consulted who recommended outpatient treatment. Patient was brought back to the hospital for no improvement and worsening of mentation. On my evaluation, patient is disoriented, states she's on the airplane and is ready to come out of the plane. She is also visualizing her in the room who is currently not at bedside. Patient is unable to answer any questions. She does endorses substernal intermittent chest discomfort which she sees is chronic and is related to anxiety.In the ED patient had a troponin of 1.4 which is higher than the previous troponin drawn on 09/25, repeat troponin is 1.10. ProBNP 2470, patient's creatinine is increased from baseline to 1.59( baseline creatinine 0.98) EKG suggested Q waves present in the inferior leads with the subtle ST depression seen in lead 1 and [address]-T wave changes in anterior lateral leads. Patient initiated on 24 hours heparin. Patient's last echo was done in May suggested a normal left ventricle systolic function with EF 60-65%, with right ventricle systolic pressure of 34.77. CT head was negative. Neurology and cardiology consulted for further recommendation. Echo ordered and suggestive of worsening of left ventricular systolic dysfunction withDyssynergetic septal motion consistent with postoperative status with EF 55- 60 %. Vital signs suggest a blood pressure 182/75, heart rate 108 sinus rhythm, breathing at a respiratory rate of 18 at room air. Patient's metoprolol increased 200 mg twice daily along with addition of Norvasc 5 mg daily. Losartan has for concern of a BELKIS. Urine analysis and urine culture suggested candiuria albicans and glabrata. Patient was previously positive for Pseudomonas and was treated with ciprofloxacin. Renal ultrasound ordered to rule out perinephric abscess. Infectious disease consulted for further recommendation. Patient initiated on Zosyn for sepsis secondary to UTI. 10/04: Patient continues to have confusion and required Haldol during the night. She is refusing for nursing staff to touch her. She has been seen by Dr. Orozco with recommendations to discontinue Zosyn and he has started micafungin. Urine culture was ordered. Psychiatry consult has been requested. 10/05: Patient has not been able to participate with PT and OT until this morning. The patient's mental status is much improved and she can carry on conversation and answer questions appropriately. She is found sitting in a chair at the bedside and talking on the phone with her sister. She was able to ambulate to the doorway of her room and back to her bed. She denies having any chest pain. Heparin drip has been discontinued this morning. Noted the patient was started on Seroquel. Psychiatric evaluation remains pending. Haldol will be discontinued. Patient was able to eat this morning, take her medications and she has been up to the commode chair. Blood culture showing no growth. Nursing will change patient's Simmons out today. 10/06: Cardiology is following on an as-needed basis only. Patient was seen yesterday by psychiatry with recommendations to continue Seroquel and restart Haldol. Patient's mental status remains improved. Potassium will be replaced. Patient is planning for subacute rehab and we anticipate discharge tomorrow. Insurance authorization will be required. 10/07: Dr. Orozco as recommended fluconazole 100 mg to complete 7 days. Patient had hypoglycemia this morning of 47 which was treated. NPH will be adjusted. Potassium will be replaced. Patient will be discharged to ECF today in stable condition. Authorization is pending. Discharge diagnoses: 1 Acute metabolic encephalopathy with Hallucination rafaela related to sepsis #2Troponinemia secondary to NSTEMI #3 catheter associated urinary tract infection #4 history of stroke #5 diabetes mellitis type II, insulin requiring #6 . HyperLipidemia #7 coronary artery disease status post CABG in 1999 #8 pulmonary embolism #9 thyroid nodule #10 urinary retention #11 Acute renal failure likely prerenal #12 hypertension Discharge plan: Subacute rehab at [facility] on Tuesday under the care of Dr. Braswell Impression and plan of care have been directed as dictated by the signing physician. Mckenzie Luevano nurse practitioner acting as scribe for signing physician. Patient Condition at Discharge: Good Plan - Discharge Summary New Discharge Prescriptions: New amLODIPine [Norvasc] 5 mg PO DAILY tab Aspirin 325 mg PO DAILY tab Atorvastatin [Lipitor] 80 mg PO HS tab Fluconazole [Diflucan] 100 mg PO DAILY #4 tablet Insulin Aspart [NovoLOG (formulary)] 0 unit SQ ACHS vial Insulin NPH/Reg Insulin 70/30 [humuLIN 70/30 VIAL] 15 unit SQ W/SUPPER vial Insulin NPH/Reg Insulin 70/30 [humuLIN 70/30 VIAL] 0 unit SQ QAM vial Metoprolol Tartrate [Lopressor] 100 mg PO BID tab Nitroglycerin Sl Tabs [Nitrostat] 0.4 mg SUBLINGUAL Q5M PRN tab PRN Reason: Chest Pain Potassium Chloride ER [K-Dur 20] 20 meq PO Q12HR tab.er.prt QUEtiapine [SEROquel] 25 mg PO HS tab Continue Isosorbide Mononitrate ER [Imdur] 60 mg PO QAM Discontinued Metoprolol Tartrate [Lopressor] 50 mg PO BID Lisinopril [Zestril] 10 mg PO DAILY Moxifloxacin HCl [Avelox] 400 mg PO DAILY Insulin NPH Hum/Reg Insulin Hm [NovoLIN 70-30 100 UNIT/ML VIAL] 40 unit SQ W/ SUPPER Insulin NPH Hum/Reg Insulin Hm [NovoLIN 70-30 100 UNIT/ML VIAL] 50 unit SQ QAM Discharge Medication List Isosorbide Mononitrate ER [Imdur] 60 mg PO QAM 05/31/17 [History] Aspirin 325 mg PO DAILY tab 10/07/17 [Rx] Atorvastatin [Lipitor] 80 mg PO HS tab 10/07/17 [Rx] Fluconazole [Diflucan] 100 mg PO DAILY #4 tablet 10/07/17 [Rx] Insulin Aspart [NovoLOG (formulary)] 0 unit SQ ACHS vial 10/07/17 [Rx] Insulin NPH/Reg Insulin 70/30 [humuLIN 70/30 VIAL] 0 unit SQ QAM vial 10/07/17 [Rx] Insulin NPH/Reg Insulin 70/30 [humuLIN 70/30 VIAL] 15 unit SQ W/SUPPER vial 09/13 [Rx] Metoprolol Tartrate [Lopressor] 100 mg PO BID tab 10/07/17 [Rx] Nitroglycerin Sl Tabs [Nitrostat] 0.4 mg SUBLINGUAL Q5M PRN tab 10/07/17 [Rx] Potassium Chloride ER [K-Dur 20] 20 meq PO Q12HR tab.er.prt 10/07/17 [Rx] QUEtiapine [SEROquel] 25 mg PO HS tab 10/07/17 [Rx] amLODIPine [Norvasc] 5 mg PO DAILY tab 10/07/17 [Rx] Follow up Appointment(s)/Referral(s): Ivis Pineda MD [Primary Care Provider] - 1 Week (after dischasrge from ECF ) Edwin Rosario MD [STAFF PHYSICIAN] - 1 Week Activity/Diet/Wound Care/Special Instructions: ECF placement upon discharge. Discharge Disposition: TRANSFER TO SNF/ECF
[2017-10-07] MEDS ORDERED: INSULIN NPH/REG INSULIN 70/30 300 UNIT/3 ML VIAL SQ ONE (10:45)
[2017-10-07 11:30] LABS: Glucose,Whole Blood 234 mg/dL (75-99)
[2017-10-07 13:50] VITALS: BP 154/82; PULSE 62; TEMP 98.1
--- NOTE | 2017-10-30 20:32 | EEG ---
ELECTROENCEPHALOGRAM REPORT DATE OF EE10/04/2017. REFERRING PHYSICIAN: Dr. Gonzalez. CONSULTING AND INTERPRETING PHYSICIAN: Dr. Tong Salazar. INDICATION FOR EXAMINATION: This patient is a 66-year-old male being evaluated for altered mental status and confusion. Patient admitted with urinary tract infection. AGE: 66. EEG FINDINGS: A routine 21-channel awake digital EEG recording was accomplished utilizing the 10-20 international system with bipolar and referential montages. The background activity in the most alert resting state consists of a low to medium amplitude, poorly-developed and poorly-sustained 5-6 Hz activity over the posterior head region. This posterior rhythm attenuates minimally to eye opening. There is a small amount of low amplitude 18-20 Hz beta activity seen maximally over the anterior head regions. Muscle and movement artifact was observed on a few occasions during the tracing. Hyperventilation was not performed. Photic stimulation at flash frequencies of 2-30 Hz produced a minimal occipital driving response. Toward the latter portion of the tracing, the patient does drift into spontaneous drowsiness. No epileptiform discharges were seen. IMPRESSION: This EEG is moderately abnormal in a diffuse fashion due to slowing of the EEG background. The EEG failed to reveal any focal, lateralized or epileptiform abnormalities. Clinical correlation is recommended. MMODL / IJN: [id number] /
== END 2017-10-07 14:43 | DRG 698 ==
LOC: EC 16:04 → 6SEL 19:53
PROVIDERS: ADMIT Internal Medicine Geriatric Medicine; ATTEND Internal Medicine Geriatric Medicine
DX: T83.518A Infection and inflammatory reaction due to other urinary catheter, initial encounter (principal); A41.9 Sepsis, unspecified organism; I21.4 Non-ST elevation (NSTEMI) myocardial infarction; G93.41 Metabolic encephalopathy; N17.9 Acute kidney failure, unspecified; I69.351 Hemiplegia and hemiparesis following cerebral infarction affecting right dominant side; N39.0 Urinary tract infection, site not specified; E11.649 Type 2 diabetes mellitus with hypoglycemia without coma; E87.5 Hyperkalemia; E04.1 Nontoxic single thyroid nodule; E11.69 Type 2 diabetes mellitus with other specified complication; E78.5 Hyperlipidemia, unspecified; E86.0 Dehydration; F41.9 Anxiety disorder, unspecified; I08.1 Rheumatic disorders of both mitral and tricuspid valves; I10 Essential (primary) hypertension; I25.10 Atherosclerotic heart disease of native coronary artery without angina pectoris; I27.21 Secondary pulmonary arterial hypertension; I65.21 Occlusion and stenosis of right carotid artery; Y84.6 Urinary catheterization as the cause of abnormal reaction of the patient, or of later complication, without mention of misadventure at the time of the procedure; Z72.820 Sleep deprivation; Z79.4 Long term (current) use of insulin; Z79.82 Long term (current) use of aspirin; Z79.899 Other long term (current) drug therapy; Z82.49 Family history of ischemic heart disease and other diseases of the circulatory system; Z83.3 Family history of diabetes mellitus; Z86.711 Personal history of pulmonary embolism; Z87.440 Personal history of urinary (tract) infections; Z87.442 Personal history of urinary calculi; Z87.891 Personal history of nicotine dependence; Z95.1 Presence of aortocoronary bypass graft; Z91.040 Latex allergy status
CPT/HCPCS: 36415; 70450; 71020; 76770; 80048; 80053; 80061; 81001; 82140; 82550; 82553; 83605; 83735; 83880; 84484; 85025; 85610; 85730; 87040; 87086; 93005; 93306; 95819; 96361; 96374; 99291